=== PATIENT | male | born 1960 | race Caucasian/White ===

== ENCOUNTER 2020-07-14 07:37 | Emergency (ER) | payer OTHER, SELFPAY ==
[2020-07-14 07:38] VITALS: BP 193/103; PULSE 66; RESP 15; TEMP 36.4; O2SAT 100; BMI 25.0
--- NOTE | 2020-07-14 08:04 | CT_ITS ---
STUDY: CT ABDOMEN AND PELVIS WITHOUT CONTRAST REASON FOR EXAM: Male, 59 years old. Left flank pain. History of kidney stones. RADIATION DOSAGE (If Supplied By Facility): CTDIvol = ( 8.22 ) mGy, DLP = ( 433.35 ) mGycm TECHNIQUE: Transaxial images were obtained from the dome of the diaphragm to the symphysis pubis without oral contrast, and without intravenous contrast. Sagittal and coronal images were reconstructed. Individualized dose optimization techniques were used for this CT. COMPARISON: None. FINDINGS: The visualized lung bases are unremarkable. The visualized portions of the heart are within normal limits. Normal liver. Normal gallbladder and extrahepatic biliary system. Normal spleen. Normal pancreas. Normal bilateral adrenal glands. Normal right kidney. There is a mild degree of left hydronephrosis and hydroureter due to a punctate calculus in the distal portion of the left ureter just proximal to the ureterovesical junction. Mild degree of the left perinephric stranding. There is a small hiatal hernia. Normal small intestine. There are multiple colonic diverticula consistent with diverticulosis. The appendix is visualized and appears normal. There is atherosclerotic calcification of the abdominal aorta, without a demonstrated aneurysm. Normal inferior vena cava. Normal retroperitoneum. Normal urinary bladder. Small bilateral inguinal hernias containing fat. Normal osseous structures. CT/Abdomen/Pelvis without Cont IMPRESSION: Tiny calculus in the distal portion of the left ureter just proximal to the ureterovesical junction causing a mild degree of left hydronephrosis and hydroureter. Mild degree of left perinephric stranding. Electronically Signed: Mesfin Owusu MD at 9:06 EDT , Service support ,
[2020-07-14] MEDS: Ondansetron 4 MG/2 ML Vial IV (08:12)
[2020-07-14] MEDS: Ketorolac 15 MG/ML Vial IV (08:12)
[2020-07-14 08:13] LABS: Absolute Lymphocyte Count 1.22 X10^3/uL (0.83-4.51); Absolute Neutrophil Count 4.3 X10^3/uL (2.0-7.7); Basophil# 0.03 X10^3/uL; Basophil% 0.5 % (0-1); Eosinophil# 0.18 X10^3/uL; Eosinophils% 2.8 % (0-5); Hematocrit 46.4 % (40-54); Hemoglobin 15.5 g/dL (13.0-16.5); Lymphocyte # 1.22 X10^3/ul (0.83-4.51); Mean Corp Hgb Conc 33.4 g/dL (32-36); Mean Corpuscular Hgb 28.4 pg (27.0-32.0); Monocyte# 0.66 X10^3/uL; Monocyte% 10.3 % (0-10); NRBC Flagged by Analyzer 0 % (0-5); Neutrophil # 4.32 X10^3/uL (2.7-7.7); Neutrophil % 67.1 % (47-70); Platelet Count 273 K/mm3 (150-450); RBC Distribution Width CV 12.5 % (11.6-14.6); Red Blood Count 5.46 M/mm3 (4.6-6.2); White Blood Count 6.4 K/mm3 (4.4-11.0)
[2020-07-14] MEDS: Morphine 4 MG/ML Syringe IV (08:13)
[2020-07-14 08:20] LABS: Bacteria 0 SEEN /hpf (None Seen); Mucous, Urine 0 SEEN /hpf (<or=2+); White Blood Cells 0 SEEN /hpf (0-5)
[2020-07-14 08:20] LABS: Anion Gap 6 (5-15); BUN 15 mg/dL (7-18); BUN/Creat Ratio 10.8 RATIO (10-20); Chloride 107 mmol/L (98-107); Creatinine, Serum 1.39 mg/dL (0.70-1.30); EST Glomerular Filtration Rate 55 mL/min (>60); Est Glom Filt Rate - Afr Amer 67 mL/min (>60); Estimated Creatinine Clearance 51.64 ml/min; Glucose 136 mg/dL (74-106); Potassium 3.4 mmol/L (3.5-5.1); Sodium Level 141 mmol/L (136-145)
[2020-07-14 08:45] LABS: Color, Urine Yellow (Yellow); Glucose, Dipstick Normal (Normal); Ketone-Dipstick Negative (Negative); Leukocyte Esterase-Dipstick Negative /ul (Negative); Nitrite-Dipstick Negative (Negative); Occult Blood-Urine 10 /ul (Negative); Protein-Dipstick Negative (Negative); Specific Gravity, Urine 1.015 (1.002-1.030); Urine Bilirubin Dipstick Negative (Negative); Urine Clarity Sl. Cloudy (Clear); Urine Urobilinogen Normal (Normal); Urine pH 6.5 (5.0 - 8.0)
[2020-07-14 08:52] LABS: Red Blood Cells-Urine 0-5 SEEN /hpf (0-5); Squamous Epithelial Cells - UA 0-5 SEEN /hpf (0-5)
--- NOTE | 2020-07-14 09:21 | EDS_ITS ---
HPI History of Present Illness Chief Complaint: Flank Pain Narrative Narrative: 59-year-old male presenting with left flank pain. He states the onset was this morning around 6 AM. Patient has had intermittent pain and nausea throughout the morning. Patient denies fever or chills. He denies hematuria or dysuria. He states he had 2 bowel movements this morning and they were normal. He has a history of kidney stone x1. [facility] Medical History GERD (gastroesophageal reflux disease) Kidney stone Home Medications hydrocodone-acetaminophen 1 tab PO Q6H PRN PRN 3 Days #12 tablet 07/14/20 [Rx Last Taken Unknown] ondansetron 4 mg PO Q8H PRN PRN #12 tab 07/14/20 [Rx Last Taken Unknown] pantoprazole 40 mg PO DAILY 07/14/20 [History Last Taken Unknown] tamsulosin [Flomax] 0.4 mg PO DAILY #7 cap 07/14/20 [Rx Last Taken Unknown] Allergy/AdvReac Type Severity Reaction Status Date / Time No Known Allergies Allergy Verified 07/14/20 07:38 Surgical History Hx of appendectomy Social History Smoking Status: Never smoker ROS ROS ED Constitutional Constitutional ED: Denies chills, fever(s) or sweats Eyes Eyes: Denies blurry vision or change in vision ENT ENT ED: Denies ear pain, rhinorrhea or sore throat Cardiovascular Cardiovascular: Denies chest pain, palpitations or racing heartbeat Respiratory/Chest Respiratory/Chest: Denies cough, dyspnea or sputum Gastrointestinal Gastrointestinal: Reports abdominal pain; Denies constipation, diarrhea or vomiting Genitourinary Genitourinary ED: Denies dysuria, hematuria or urinary frequency Musculoskeletal Musculoskeletal: Reports other Details: Left flank pain radiating around to the abdomen. ; Denies arthralgias, myalgias or neck pain Integumentary Denies abscess, Abrasions or rash Neurologic Neurologic: Denies headache(s), paresthesias or weakness Psychiatric Psychiatric: Denies anxiety, depression, suicidal ideation or suicidal thoughts Endocrine Endocrinology: Denies polydipsia or polyuria EXAM Physical Exam Const Vital Signs: 07/14/20 07:38 Temperature 97.6 F L Temperature Source Temporal Pulse Rate 66 Respiratory Rate 15 Blood Pressure 193/103 H Blood Pressure Mean 133 Pulse Ox 100 Oxygen Delivery Method Room Air Positive well nourished General Appearance ED: NAD; Negative for pallor HEENT Reports normocephalic, head/scalp atraumatic and moist mucous membranes Negative for trauma Eyes PERRL and EOMs intact bilaterally Resp normal respiratory effort and clear to auscultation bilaterally Auscultation: Negative for rales, rhonchi or wheezes Cardio regular rate and regular rhythm GI normal to inspection, nondistended, normoactive bowel sounds and non-distended Auscultation: normoactive bowel sounds Palpation: soft Narrative: Deferred Back/Spine General Back: CVA tenderness left Lumbar Spine / Lower Back: Negative for lumbar spinal tenderness Extremity normal to inspection General Extremety ED: Yes tenderness Neuro oriented x3 and CN's II-XII intact bilaterally Sensorium / Orientation: alert Motor Exam: strength 5/5 throughout Psych mental status grossly normal Attitude: No agitated Skin no rashes or lesions noted and no wounds General Skin Exam: Negative for jaundice or pallor MDM MDM MDM Narrative Medical decision making narrative: Patient with history of kidney stone x1 presenting with left flank pain with acute onset. Patient given morphine, Toradol, Zofran and is comfortable at this point. Urinalysis shows hematuria. There is no infection. CBC shows no leukocytosis and hemoglobin hematocrit are stable. Platelets are normal. Patient's creatinine is slightly elevated 1.39 and GFR slightly decreased at 55. I have no comparisons from previous. CT of the abdomen pelvis without contrast shows a small UVJ stone with slight hydronephrosis. Patient is counseled on findings. He is to follow-up with urology and his primary care physician. He is given Woody, Zofran, Flomax for home. Patient given return precautions. Impression: 1. Hematuria 2. UVJ stone 3. Acute kidney injury Lab Data Labs: Laboratory Results - last 24 hr 07/14/20 07/14/20 07/14/20 07:50 07:50 08:13 WBC 6.4 RBC 5.46 Hgb 15.5 Hct 46.4 MCV 85.0 MCH 28.4 MCHC 33.4 RDW Std Deviation 38.0 RDW Coeff of Stephanie 12.5 Plt Count 273 MPV 10.0 Immature Gran % (Auto) 0.300 Neut % (Auto) 67.1 Lymph % (Auto) 19.0 Mellette % (Auto) 10.3 H Eos % (Auto) 2.8 Baso % (Auto) 0.5 Absolute Neuts (auto) 4.3 Absolute Lymphs (auto) 1.22 Nucleated RBC % 0 Sodium 141 Potassium 3.4 L Chloride 107 Carbon Dioxide 28.0 Anion Gap 6 BUN 15 Creatinine 1.39 H Estim Creat Clear Calc 51.64 Est GFR (MDRD) Af Amer 67 Est GFR (MDRD) Non-Af 55 L BUN/Creatinine Ratio 10.8 Glucose 136 H Calcium 9.0 Urine Color Yellow Urine Clarity Sl. Cloudy Urine pH 6.5 Ur Specific [place] 1.015 Urine Protein Negative Urine Glucose (UA) Normal Urine Ketones Negative Urine Occult Blood 10 H Urine Nitrite Negative Urine Bilirubin Negative Urine Urobilinogen Normal Ur Leukocyte Esterase Negative Urine RBC 0-5 SEEN Urine WBC 0 SEEN Ur Squamous Epith Cells 0-5 SEEN Urine Bacteria 0 SEEN Urine Mucus 0 SEEN Radiography Diagnostic Testing: Radiology Impression Abdomen/Pelvis CT 07/14/20 08:04 IMPRESSION: Tiny calculus in the distal portion of the left ureter just proximal to the ureterovesical junction causing a mild degree of left hydronephrosis and hydroureter. Mild degree of left perinephric stranding. Electronically Signed: Mesfin Owusu MD at 9:06 EDT , Service support , Discharge Plan Triage Chief Complaint: Flank Pain ED Provider: Prakash Stack Dx/Rx/DC Orders Instructions: ED Kidney Stone w/ Colic Prescriptions: New hydrocodone-acetaminophen 5-325 mg tablet 1 tab PO Q6H PRN PRN (Reason: Pain) 3 Days Qty: 12 RF: 0 ondansetron 4 mg tablet,disintegrating 4 mg PO Q8H PRN PRN (Reason: Nausea) Qty: 12 RF: 0 tamsulosin [Flomax] 0.4 mg capsule 0.4 mg PO DAILY Qty: 7 RF: 0 No Action pantoprazole 40 mg Tablet,Delayed Release (Dr/Ec) 40 mg PO DAILY RF: 0 Primary Care Provider: Reg Encarnacion NP Referrals: Sarbjit Moore MD [STAFF PHYSICIAN] - Reg Encarnacion NP, OVEREDGE MACHINE OPERATOR-C [Primary Care Provider] - Disposition Disposition: Home, self care
[2020-07-14 09:41] VITALS: BP 159/87; PULSE 60; RESP 16; O2SAT 98
[2020-07-14] MEDS: HYDROcodone Bitartrate/Apap 5/325 Tablet PO (09:42)
== END 2020-07-14 09:43 | disposition home or self-care (01) ==
PROVIDERS: Emergency Provider Student in an Organized Health Care Education/Training Program; PCP Nurse Practitioner Family
DX: N13.2 Hydronephrosis with renal and ureteral calculous obstruction (principal); N17.9 Acute kidney failure, unspecified
CPT/HCPCS: 74176; 80048; 81001; 85025; 96361; 96374; 96375; 99284; J7030; A4216; J2405

== ENCOUNTER → 2021-01-26 13:37 | Outpatient (CLI) | payer OTHER, SELFPAY ==
--- NOTE | 2021-01-26 13:40 | RAD_ITS ---
STUDY: X-RAY CHEST REASON FOR EXAM: Male, 60 years old. PROGRESSIVE SOB 10 DAYS SINCE DX WITH COVID-19 TECHNIQUE: PA and lateral views of the chest. COMPARISON: None. FINDINGS: Patchy alveolar opacities in both lungs consistent with bilateral pneumonia. There is no demonstrated pleural abnormality. Normal size heart. Normal mediastinum and wilmar. Normal visualized pulmonary arteries. Normal visualized aortic arch and descending thoracic aorta. Normal visualized thoracic spine. Normal visualized ribs, clavicles, and shoulders. There is no demonstrated abnormality of the visualized soft tissue structures of the upper abdomen. RAD/Chest PA and Lateral IMPRESSION: Patchy bilateral pneumonia. CT may be useful. Electronically Signed: Reg Mccullough MD at 16:52 EST Tel , Service support ,
[2021-01-26 15:35] LABS: Hematocrit 42.5 % (40-54); Hemoglobin 13.9 g/dL (13.0-16.5); Mean Corp Hgb Conc 32.7 g/dL (32-36); Mean Corpuscular Hgb 27.8 pg (27.0-32.0); Mean Platelet Vol. 11.1 fl (6.2-12.0); Platelet Count 172 K/mm3 (150-450); RBC Distribution Width CV 12.7 % (11.6-14.6); RBC Distribution Width SD 39.2 fl (35.1-43.9); White Blood Count 3.1 K/mm3 (4.4-11.0)
[2021-01-26 16:09] LABS: ALB/GLOB Ratio 0.8 RATIO (0.9-2.4); AST(SGOT) 39 U/L (15-37); Alanine Aminotransfer ALT/SGPT 24 U/L (16-61); Albumin, Serum 3.2 g/dL (3.2-5.0); Alkaline Phosphatase 85 U/L (45-117); Anion Gap 6 (5-15); BUN 15 mg/dL (7-18); BUN/Creat Ratio 13.3 RATIO (10-20); Calcium,Total 8.3 mg/dL (8.5-10.1); Chloride 103 mmol/L (98-107); Creatinine, Serum 1.13 mg/dL (0.70-1.30); EST Glomerular Filtration Rate 70 mL/min (>60); Est Glom Filt Rate - Afr Amer 85 mL/min (>60); Globulin 4.2 g/dL (2.2-4.2); Glucose 94 mg/dL (74-106); Potassium 3.8 mmol/L (3.5-5.1); Protein, Total 7.4 g/dL (6.4-8.2); Sodium Level 138 mmol/L (136-145)
[2021-01-26 17:37] LABS: D-Dimer Quantitative (DVT/PE) 1.64 FEU/ug/m (0.27-0.49)
== END ==
PROVIDERS: PCP Nurse Practitioner Family; Referring Provider Nurse Practitioner Family; Visit Provider Nurse Practitioner Family
DX: U07.1 COVID-19 (principal); R09.02 Hypoxemia
CPT/HCPCS: 36415; 71046; 80053; 85027; 85379; 86140

== ENCOUNTER → 2021-01-27 15:47 | Outpatient (CLI) | payer OTHER, SELFPAY ==
--- NOTE | 2021-01-27 15:51 | CT_ITS ---
STUDY: CTA CHEST REASON FOR EXAM: Male, 60 years old. ELEVATED D DIMER/COVID RADIATION DOSAGE (If Supplied By Facility): CTDIvol = ( 10.86 ) mGy, DLP = ( 342.76 ) mGycm TECHNIQUE: The examination was performed with the intravenous administration of IV 100mL Isovue-370. Post-processing of the angiographic images was performed, with multiplanar reformation and 3D reconstruction. Individualized dose optimization techniques were used for this CT. COMPARISON: None. FINDINGS: Normal enhancement of the main pulmonary artery and right and left pulmonary arteries. Normal enhancement of the bilateral peripheral pulmonary arteries. There is no demonstrated pulmonary embolism. Normal thoracic aorta and visualized great vessels. There is no demonstrated aortic dissection. Normal heart and pericardium. There are calcifications of the coronary arteries. Normal mediastinum. Normal hilar regions. Normal visualized trachea and bronchi. The lungs are well expanded. There is scattered groundglass opacities multiple pulmonary lobes with mild interstitial thickening. Subpleural noncalcified nodules in the lateral right lung base measure up to 7 mm on image 125 of series 2. 5 mm noncalcified nodule in the left lower lobe on image 115 of series 2. Normal pleura. Normal chest wall structures. There are degenerative changes of thoracic spine. There is a small hiatal hernia. CT/CTA Chest W/WO Contrast IMPRESSION: 1. No central or segmental pulmonary embolism. 2. Multifocal groundglass opacities with features commonly reported with COVID pneumonia. 3. Pleural-based noncalcified nodule in the bilateral lower lobes. Fleischner Society Guidelines for low-risk patients, recommend follow-up chest CT at 3-6 months. If unchanged consider an additional follow-up CT at 18-24 months. For high-risk patients (smoking history or other known risk factors) initial follow-up chest CT at 3-6 months and if unchanged, 18-24 months. Electronically Signed: Sharan Crews MD ([place]) at 16:20 EST , Service support ,
== END ==
PROVIDERS: PCP Nurse Practitioner Family; Referring Provider Nurse Practitioner Family; Visit Provider Nurse Practitioner Family
DX: R79.1 Abnormal coagulation profile (principal); U07.1 COVID-19
CPT/HCPCS: 71275; Q9967

== ENCOUNTER 2021-01-29 10:11 | Emergency (ER) | payer OTHER, SELFPAY ==
[2021-01-29 10:12] VITALS: BP 139/90; PULSE 85; RESP 24; TEMP 36; O2SAT 90; BMI 25.8
--- NOTE | 2021-01-29 10:36 | EKG12_ITS ---
Test Reason : SOB Blood Pressure : / mmHG Vent. Rate : 066 BPM Atrial Rate : 066 BPM P-R Int : 142 ms QRS Dur : 096 ms QT Int : 400 ms P-R-T Axes : 044 004 010 degrees QTc Int : 419 ms Normal sinus rhythm Normal ECG Confirmed by REYMUNDO JARQUIN, TESFAYE ([id number]), editor department ARIELLA PAUL ([id number]) on 02/01/2021 11:07:51 AM Referred By: RU Confirmed By:TESFAYE DWYER MD
[2021-01-29 10:41] VITALS: O2SAT 94
--- NOTE | 2021-01-29 10:41 | NURSING ---
NO OLD EKGS
[2021-01-29 11:11] VITALS: O2SAT 90
[2021-01-29 11:17] LABS: Troponin-I HS 7 pg/mL (3.0-78.0)
--- NOTE | 2021-01-29 11:17 | ED.VIS.DYS ---
HPI History of Present Illness Chief Complaint: Shortness of Breath Narrative Narrative: Patient presenting on day 14 of Covid symptoms. He states he feels otherwise well other than some shortness of breath. He has no fevers, chills, myalgias. He is eating and drinking normally. He is making normal urine and stool. He states that he already had blood work done which included a high D-dimer and the patient has already had a CTA of the chest. He has not had the results of this. Patient was concerned because his pulse ox dipping in the 80s at home and he wants to be evaluated. [facility] Medical History GERD (gastroesophageal reflux disease) Kidney stone Home Medications hydrocodone-acetaminophen 1 tab PO Q6H PRN PRN 3 Days #12 tablet 07/14/20 [Rx Last Taken Unknown] ondansetron 4 mg PO Q8H PRN PRN #12 tab 07/14/20 [Rx Last Taken Unknown] pantoprazole 40 mg PO DAILY 07/14/20 [History Last Taken Unknown] tamsulosin [Flomax] 0.4 mg PO DAILY #7 cap 07/14/20 [Rx Last Taken Unknown] dexamethasone 6 mg PO DAILY #7 tab 01/29/21 [Rx Last Taken Unknown] Allergy/AdvReac Type Severity Reaction Status Date / Time No Known Allergies Allergy Verified 01/29/21 10:16 Surgical History Hx of appendectomy Social History Smoking Status: Never smoker ROS ROS ED Constitutional Constitutional ED: Denies chills, fever(s) or sweats Eyes Eyes: Denies blurry vision or change in vision ENT ENT ED: Denies ear pain or rhinorrhea Cardiovascular Cardiovascular: Reports chest pain; Denies palpitations or racing heartbeat Respiratory/Chest Respiratory/Chest: Reports cough, dyspnea and dyspnea on exertion Gastrointestinal Gastrointestinal: Denies abdominal pain, nausea or vomiting Genitourinary Genitourinary ED: Denies dysuria, hematuria or urinary frequency Musculoskeletal Musculoskeletal: Denies arthralgias or myalgias Integumentary Denies abscess or rash Neurologic Neurologic: Denies headache(s), paresthesias or weakness EXAM Physical Exam Const Vital Signs: 01/29/21 10:12 Temperature 96.8 F L Temperature Source Temporal Pulse Rate 85 Respiratory Rate 24 H Blood Pressure 139/90 H Blood Pressure Mean 106 Pulse Ox 90 Oxygen Delivery Method Room Air Positive well nourished General Appearance ED: NAD; Negative for pallor HEENT Reports moist mucous membranes atraumatic Eyes PERRL and EOMs intact bilaterally Neck no lymphadenopathy and supple Resp normal respiratory effort Auscultation: rales right base Cardio regular rhythm GI non-distended Extremity normal to inspection General Extremety ED: Negative for edema or tenderness General Extremity: Negative for edema Neuro oriented x3 and CN's II-XII intact bilaterally Sensorium / Orientation: alert Psych mental status grossly normal Skin General Skin Exam: Negative for jaundice or pallor Rashes: no rashes MDM MDM MDM Narrative Medical decision making narrative: Reviewed the patient's lab work done 2 days ago shows that he is leukopenic without lymphopenia. Hemoglobin Hockert are stable. CRP is slightly elevated. D-dimer was also elevated. Patient CTA is reviewed and shows bilateral Covid pneumonitis however there is no evidence of pulmonary emboli or dissection. I did check a EKG today and it is sinus rhythm with a ventricular to 66 bpm without sign of ischemic change. High-sensitivity troponin is 7. Patient ambulated at the bedside and maintain sats of 94% while walking and talking at the same time however when he sat down he dropped to 88% for about 15 seconds and then came back up to be 90 and 93. He is ambulated on 2 L of oxygen and did well. He feels improved with ambulation on 2 L. We will set him up for home oxygen. I will change his prednisone prescription to dexamethasone. He does have a current prescription for Levaquin which he is supposed to be taking. I did discuss with him that he has a viral pneumonia and the likely Levaquin would not help this. He also has an albuterol inhaler that he can use as needed. He is given return precautions. Impression: 1. COVID-19 pneumonitis Lab Data Attestation: I reviewed the patient's lab results. Labs: Laboratory Results - last 24 hr 01/29/21 10:50 Troponin I High Sens 7 Discharge Plan Triage Chief Complaint: Shortness of Breath ED Provider: Prakash Stack Dx/Rx/DC Orders Instructions: Coronavirus Disease 2019 (COVID-19): Caring for Yourself or Others Prescriptions: New dexamethasone 6 mg tablet 6 mg PO DAILY Qty: 7 RF: 0 No Action pantoprazole 40 mg Tablet,Delayed Release (Dr/Ec) 40 mg PO DAILY RF: 0 hydrocodone-acetaminophen 5-325 mg tablet 1 tab PO Q6H PRN PRN (Reason: Pain) 3 Days Qty: 12 RF: 0 ondansetron 4 mg tablet,disintegrating 4 mg PO Q8H PRN PRN (Reason: Nausea) Qty: 12 RF: 0 tamsulosin [Flomax] 0.4 mg capsule 0.4 mg PO DAILY Qty: 7 RF: 0 Primary Care Provider: Reg Encarnacion NP Referrals: Reg Encarnacion NP, ASSISTANT SURVEYOR-C [Primary Care Provider] - Disposition Disposition: Home, Self Care
[2021-01-29 11:43] VITALS: BP 121/77; PULSE 82; RESP 16; O2SAT 97
[2021-01-29] MEDS: dexAMETHasone 4 MG Tablet 6 MG PO (11:44)
[2021-01-29 11:56] VITALS: O2SAT 88; O2SAT 92; O2SAT 93
== END 2021-01-29 12:25 | disposition home or self-care (01) ==
LOC: ED 11:30
PROVIDERS: Emergency Provider Student in an Organized Health Care Education/Training Program; PCP Nurse Practitioner Family
DX: U07.1 COVID-19 (principal); J12.82 Pneumonia due to coronavirus disease 2019; K21.9 Gastro-esophageal reflux disease without esophagitis; Z79.899 Other long term (current) drug therapy
CPT/HCPCS: 84484; 93005; 99282

== ENCOUNTER → 2021-02-07 10:20 | Outpatient (CLI) | payer OTHER, SELFPAY ==
--- NOTE | 2021-02-07 10:25 | VDLE_ITS ---
Reason For Study: Calf pain RIGHT LEFT GSV is normal. GSV is normal. CFV is compressible, spontaneous, phasic, CFV is compressible, spontaneous, phasic, competent and demonstrates normal competent, and demonstrates normal augmentation. augmentation. FV is compressible, spontaneous, phasic, FV is compressible, spontaneous, phasic, competent and demonstrates normal competent and demonstrates normal augmentation. augmentation. POP V is compressible, spontaneous, phasic, POP V is compressible, spontaneous, phasic, competent and demonstrates normal competent and demonstrates normal augmentation. augmentation. T/P Trunk is compressible. T/P Trunk is compressible. PTV is compressible. PTV is compressible. Acute deep vein thrombosis is noted in the Acute deep vein thrombosis is noted in the right PeroV and SoleusV. left PeroV, PTV and SoleusV. Procedure This is a venous duplex using B-mode, color flow and spectral Doppler. Exam performed in department. A preliminary report was called and/or faxed to Emily ALDANA. VL/Venous Duplex US - Iftikhar Extrem Interpretation Summary Acute deep vein thrombosis is noted in the right peroneal vein. Acute deep vein thrombosis is noted in the right soleus vein. The remainder of the right lower extremity deep venou s system is patent and compressible. Acute deep vein thrombosis is noted in the left peroneal vein . Acute deep vein thrombosis is noted in the left posterior tibial vein. Acute deep vein thrombos is is noted in the left soleus vein. The remainder of the left lower extrmity deep venous system i s patent and compressible. Valvular competence appears intact within the proximal deep venou s systems bilaterally. The great saphenous veins appear bilaterally patent and compressib le segmentally. Ordering Physician: Reg Encarnacion Referring Physician: Reg Encarnacion Performed By: Mirtha Tenorio RVT
[2021-02-07 11:45] LABS: Hematocrit 45.6 % (40-54); Hemoglobin 15.1 g/dL (13.0-16.5); Mean Corp Hgb Conc 33.1 g/dL (32-36); Mean Corpuscular Hgb 28.7 pg (27.0-32.0); Mean Corpuscular Volume 86.7 fL (80-94); Mean Platelet Vol. 10.1 fl (6.2-12.0); Platelet Count 184 K/mm3 (150-450); RBC Distribution Width CV 13.2 % (11.6-14.6); RBC Distribution Width SD 41.1 fl (35.1-43.9); Red Blood Count 5.26 M/mm3 (4.6-6.2); White Blood Count 13.6 K/mm3 (4.4-11.0)
[2021-02-07 12:24] LABS: ALB/GLOB Ratio 0.5 RATIO (0.9-2.4); AST(SGOT) 36 U/L (15-37); Alanine Aminotransfer ALT/SGPT 57 U/L (16-61); Albumin, Serum 2.4 g/dL (3.2-5.0); Alkaline Phosphatase 87 U/L (45-117); Anion Gap 6 (5-15); BUN 16 mg/dL (7-18); BUN/Creat Ratio 14.5 RATIO (10-20); Calcium,Total 8.3 mg/dL (8.5-10.1); Chloride 106 mmol/L (98-107); EST Glomerular Filtration Rate 73 mL/min (>60); Est Glom Filt Rate - Afr Amer 88 mL/min (>60); Globulin 4.6 g/dL (2.2-4.2); Glucose 77 mg/dL (74-106); Potassium 4.1 mmol/L (3.5-5.1); Sodium Level 140 mmol/L (136-145)
[2021-02-07 12:28] LABS: D-Dimer Quantitative (DVT/PE) > 20.00 FEU/ug/m (0.27-0.49)
== END ==
PROVIDERS: PCP Nurse Practitioner Family; Referring Provider Nurse Practitioner Family; Visit Provider Nurse Practitioner Family
DX: I82.453 Acute embolism and thrombosis of peroneal vein, bilateral (principal); I82.463 Acute embolism and thrombosis of calf muscular vein, bilateral; I82.442 Acute embolism and thrombosis of left tibial vein
CPT/HCPCS: 36415; 80053; 85027; 85379; 93970

== ENCOUNTER → 2021-06-13 | Outpatient (CLI) | payer OTHER, SELFPAY ==
[2021-06-13 18:08] LABS: Erythrocyte Sedimentation Rate 2 mm/hr (0-20)
[2021-06-13 18:52] LABS: CRP, High Sensitivity Cardiac 3.16 mg/L
== END | disposition home or self-care (01) ==
LOC: MTLAB 16:52
PROVIDERS: PCP Nurse Practitioner Family; Referring Provider Internal Medicine Pulmonary Disease; Visit Provider Internal Medicine Pulmonary Disease
DX: U07.1 COVID-19 (principal); I82.419 Acute embolism and thrombosis of unspecified femoral vein; R06.00 Dyspnea, unspecified
CPT/HCPCS: 36415; 85652; 86141

== ENCOUNTER → 2022-04-20 | Outpatient (CLI) | payer OTHER, SELFPAY ==
--- NOTE | 2022-04-20 17:44 | CT_ITS ---
INDICATION: NODULE EXAMINATION: CT CHEST WITHOUT CONTRAST - CT Chest W/O Contrast Injection TECHNIQUE: Helically acquired images were obtained of the chest. A radiation dose optimization technique was used for this scan. IV Contrast dosage and agent: None. COMPARISON: 01/27/2021 FINDINGS: LUNGS, PLEURA AND LARGE AIRWAYS: Interval clearing of subpleural groundglass opacities evident on prior CTA. However, interval development of reticular fibrotic densities in multiple pulmonary lobes in the regions of prior groundglass opacity compatible with post COVID fibrosis. Subpleural nodule in the right lower lobe on image 125 of series 2 measuring 7 mm is unchanged. No new pulmonary nodule. No pleural effusion or thickening. No pneumothorax. THYROID: No thyroid lesions. HEART AND PERICARDIUM: Heart size is normal. No pericardial effusion. CORONARY ARTERIES: Coronary artery calcification is seen. VESSELS: Thoracic aorta is not dilated. MEDIASTINUM AND ADRIAN: No mediastinal or hilar adenopathy. Esophagus is unremarkable. No hiatal hernia. UPPER ABDOMEN: No acute pathology. BONES: No suspicious lytic or blastic abnormality. CT/Chest without Contrast IMPRESSION: 1. No new or enlarging pulmonary nodule. Previously identified subpleural nodules remain stable. Fleischner Society Guidelines (MacMahon, et al. Radiology 2017; 284(1):228-43) suggest the following. For low-risk patients consider a follow-up chest CT at 15-21 months. For high-risk patients recommend follow-up chest CT at 15-21 months. If unchanged, no further follow-up. 2. Resolution of acute infiltrates/COVID evident on prior study. However, interval development of scattered, peripheral reticulation, compatible with post COVID sequela/fibrosis. Electronically Signed: Sharan Crews ([place]), at 10:46 EST Reading Location ID and State: , Service support ,
== END | disposition home or self-care (01) ==
PROVIDERS: PCP Nurse Practitioner Family; Referring Provider Internal Medicine Pulmonary Disease; Visit Provider Internal Medicine Pulmonary Disease
DX: R91.1 Solitary pulmonary nodule (principal)
CPT/HCPCS: 71250

== ENCOUNTER → 2023-01-18 | Outpatient (CLI) | payer OTHER, SELFPAY ==
[2023-01-18 14:24] LABS: AST(SGOT) 20 U/L (15-37); Alanine Aminotransfer ALT/SGPT 24 U/L (16-61); Albumin, Serum 3.8 g/dL (3.2-5.0); Alkaline Phosphatase 95 U/L (45-117); Anion Gap 4 (5-15); BUN 18 mg/dL (7-18); BUN/Creat Ratio 15.7 RATIO (10-20); Calcium,Total 9.1 mg/dL (8.5-10.1); Chloride 107 mmol/L (98-107); Cholesterol 167 mg/dL (200); Creatinine, Serum 1.15 mg/dL (0.70-1.30); EST Glomerular Filtration Rate 68 mL/min (>60); Est Glom Filt Rate - Afr Amer 83 mL/min (>60); Globulin 3.9 g/dL (2.2-4.2); Glucose 71 mg/dL (74-106); High Density Lipoprotein 39 mg/dL; PSA,Total - Annual Screen 0.68 ng/mL (0.00-4.00); Potassium 4.4 mmol/L (3.5-5.1); Protein, Total 7.7 g/dL (6.4-8.2); Sodium Level 141 mmol/L (136-145); Triglycerides 168 mg/dL; Very Low Density Lipoprotein 34 mg/dL (5-40)
== END | disposition home or self-care (01) ==
LOC: LAB 12:39
PROVIDERS: PCP Nurse Practitioner Family; Referring Provider Nurse Practitioner Family; Visit Provider Nurse Practitioner Family
DX: Z13.1 Encounter for screening for diabetes mellitus (principal); Z13.220 Encounter for screening for lipoid disorders; Z12.5 Encounter for screening for malignant neoplasm of prostate
CPT/HCPCS: 36415; 80053; 80061; 84153; G0103

== ENCOUNTER → 2023-02-06 | Outpatient (CLI) | payer OTHER, SELFPAY ==
--- NOTE | 2023-02-06 10:09 | RAD_ITS ---
STUDY: X-RAY CHEST REASON FOR EXAM: Male, 62 years old. CHEST PAIN/SOB/COUGH -- STAT TECHNIQUE: PA and lateral views of the chest. COMPARISON: Comparison is made with prior study dated January 26, 2021. FINDINGS: Hyperinflation. Mild increased linear markings in the lingular segment of the left upper lobe. Early infiltrate should be ruled out. There is no demonstrated pleural abnormality. Normal size heart. Normal mediastinum and wilmar. Normal visualized pulmonary arteries. There is atherosclerotic calcification of the aortic arch. Normal visualized thoracic spine. Normal visualized ribs, clavicles, and shoulders. There is no demonstrated abnormality of the visualized soft tissue structures of the upper abdomen. RAD/Chest PA and Lateral IMPRESSION: Increased markings in the lingular segment of the left upper lobe suggestive of possible early infiltrate. Follow-up recommended. Electronically Signed: Mesfin Owusu MD at 10:27 [facility] ,
== END | disposition home or self-care (01) ==
PROVIDERS: PCP Nurse Practitioner Family; Referring Provider Internal Medicine Pulmonary Disease; Visit Provider Internal Medicine Pulmonary Disease
DX: R07.9 Chest pain, unspecified (principal); R06.02 Shortness of breath; R05.9 Cough, unspecified
CPT/HCPCS: 71046

== ENCOUNTER → 2023-02-12 | Outpatient (CLI) | payer OTHER, SELFPAY ==
--- NOTE | 2023-02-12 06:55 | CT_ITS ---
EXAM: CT ANGIOGRAPHY CHEST WITH INTRAVENOUS CONTRAST CLINICAL INDICATION: SOB TECHNIQUE: Helically acquired angiography images were obtained of the chest with intravenous contrast. This CT exam was performed using one or more of the following dose reduction techniques: automated exposure control, adjustment of the mA and/or kV according to patient size, and/or use of iterative reconstruction technique. MIP reconstructed images were created and reviewed. CONTRAST: IV 100mL Isovue-370 COMPARISON: CT chest 04/20/2022, CTA Chest dated 01/27/2021 FINDINGS: PULMONARY ARTERIES: Normal. Normal in caliber. No evidence of pulmonary embolism. AORTA: Normal. Normal in caliber. No evidence of dissection. GREAT VESSELS OF AORTIC ARCH: Normal. Normal in caliber. No evidence of dissection. LUNGS AND PLEURAL SPACES: Scattered peripheral linear and reticular densities of both lungs suggestive of post inflammatory scarring. Stable 7 mm and 6 mm pleural-based right lower lobe pulmonary nodules. No pneumothorax. HEART: Heart is normal size. Mild to moderate coronary artery calcification. No pericardial effusion. MEDIASTINUM: Small sliding hiatal hernia. No mediastinal or hilar adenopathy. Esophagus is unremarkable. BONES/JOINTS: Normal. No suspicious lytic or blastic abnormality. CT/CTA Chest W/WO Contrast IMPRESSION: 1. No evidence of acute pulmonary embolism. 2. Scattered peripheral post inflammatory changes of the lungs and stable 7 and 6 mm pleural-based right lower lobe pulmonary nodules. No follow-up indicated. Electronically Signed: Kian Braden MD at 9:23 EST ,
== END | disposition home or self-care (01) ==
LOC: CT 06:53
PROVIDERS: PCP Nurse Practitioner Family; Referring Provider Nurse Practitioner Family; Visit Provider Nurse Practitioner Family
DX: R06.02 Shortness of breath (principal); R07.9 Chest pain, unspecified
CPT/HCPCS: 71275; Q9967

== ENCOUNTER → 2023-03-13 | Outpatient (CLI) | payer OTHER, SELFPAY ==
[2023-03-13 13:27] VITALS: BP 147/72; PULSE 74; RESP 18; TEMP 36.1; O2SAT 97; BMI 25.8
[2023-03-13 13:49] VITALS: BP 131/70; PULSE 83
[2023-03-13] MEDS: 0.9% Saline Lock 10 ML Syringe IV (13:49)
[2023-03-13] MEDS: Nitroglycerin SL (ED/IMG/CATH) 0.4 MG TABLET 0.400000000000000022 MG SL (13:49)
--- NOTE | 2023-03-13 14:00 | CT_ITS ---
STUDY: CT CHEST WITH CONTRAST REASON FOR EXAM: Male, 62 years old. DYSPNEA. Coronary artery calcium scoring. RADIATION DOSAGE (If Supplied By Facility): CTDIvol = ( 36.32 ) mGy, DLP = ( 1687.96 ) mGycm TECHNIQUE: Transaxial imaging was performed following intravenous administration of IV 65mL Isovue-370. Cardiac over read examination. Individualized dose optimization techniques were used for this CT. COMPARISON: Comparison is made with prior study dated February 12, 2023. FINDINGS: CHEST Minimal increased markings at the lung bases suggestive of scarring. There is a 5.7 mm pleural-based nodule in the posterior-lateral aspect of the right lower lobe as seen on axial image #36. This is unchanged. There is no demonstrated pleural abnormality. There are calcifications of the coronary arteries. There are small lymph nodes within the mediastinum, which are normal in size and morphology most compatible with reactive lymph hyperplasia. Normal hilar regions. Normal unenhanced pulmonary arteries. There is atherosclerotic calcification of the aortic arch. Normal osseous structures. There is no demonstrated abnormality of the visualized upper abdomen. CT/Limited Chest CT Cardiac Only IMPRESSION: Coronary artery calcification. Stable noncalcified nodule in the peripheral lateral aspect of the right lower lobe. Electronically Signed: Mesfin Owusu MD at 15:16 EST ,
[2023-03-13 14:08] LABS: CREATININE FINGERSTICK < 1.0 mg/dL (0.70-1.30); EGFR FINGERSTICK > 60.0000 mL/min (>60)
--- NOTE | 2023-03-14 08:20 | CCTA.WCONT ---
CCTA w/Cont Coronary Arteries Date of Study:: 03/14/23 Dyspnea Coronary Calcium Scoring: High-resolution Computed Tomographic imaging of the chest was performed on [03/13/2023], with particular attention paid to the coronary arteries. Intravenous contrast agent was administered per protocol and images reconstructed and displayed. LEFT MAIN CORONARY ARTERY: Normal left main coronary artery [] LEFT ANTERIOR DESCENDING CORONARY ARTERY: Arises of the left main coronary artery with proximal soft plaque with moderate to severe high-grade stenosis and calcified plaque noted in the proximal to mid region. The distal vessel is noted to be small [] LEFT CIRCUMFLEX CORONARY ARTERY: No significant stenosis noted in this vessel with 1 obtuse marginal branch [] RIGHT CORONARY ARTERY: Dominant vessel with no high-grade stenosis noted. Soft plaque is present. [] CORONARY CALCIUM SCORE: Not done. Conclusion: Abnormal cardiac coronary CTA with evidence of soft and calcified plaque noted in the proximal to mid segment suggestive of moderate to severe proximal LAD stenosis []
== END | disposition home or self-care (01) ==
PROVIDERS: PCP Nurse Practitioner Family; Referring Provider Internal Medicine Cardiovascular Disease; Visit Provider Internal Medicine Cardiovascular Disease
DX: R07.9 Chest pain, unspecified (principal); R06.09 Other forms of dyspnea; I51.89 Other ill-defined heart diseases
CPT/HCPCS: 75574; 76380; Q9967

== ENCOUNTER 2023-03-28 07:32 | Day surgery (SDC) | payer OTHER, SELFPAY ==
[2023-03-23 09:18] LABS: Absolute Lymphocyte Count 1.28 X10^3/uL (0.83-4.51); Absolute Neutrophil Count 4.1 X10^3/uL (2.0-7.7); Basophil# 0.04 X10^3/uL; Basophil% 0.6 % (0-1); Eosinophils% 3.2 % (0-5); Hemoglobin 15.2 g/dL (13.0-16.5); Lymphocyte # 1.28 X10^3/ul (0.83-4.51); Lymphocyte % 20.6 % (19-41); Mean Corp Hgb Conc 32.3 g/dL (32-36); Mean Corpuscular Hgb 27.5 pg (27.0-32.0); Monocyte# 0.57 X10^3/uL; Monocyte% 9.2 % (0-10); NRBC Flagged by Analyzer 0 % (0-5); Neutrophil # 4.12 X10^3/uL (2.7-7.7); Neutrophil % 66.2 % (47-70); Platelet Count 277 K/mm3 (150-450); RBC Distribution Width CV 12.7 % (11.6-14.6); RBC Distribution Width SD 38.9 fl (35.1-43.9); Red Blood Count 5.53 M/mm3 (4.6-6.2); White Blood Count 6.2 K/mm3 (4.4-11.0)
[2023-03-23 10:14] LABS: Anion Gap 1 (5-15); BUN 19 mg/dL (7-18); BUN/Creat Ratio 16.4 RATIO (10-20); Calcium,Total 9.6 mg/dL (8.5-10.1); Chloride 109 mmol/L (98-107); Creatinine, Serum 1.16 mg/dL (0.70-1.30); EST Glomerular Filtration Rate 68 mL/min (>60); Est Glom Filt Rate - Afr Amer 82 mL/min (>60); Glucose 97 mg/dL (74-106); Potassium 4.4 mmol/L (3.5-5.1); Sodium Level 139 mmol/L (136-145)
[2023-03-27 08:16] VITALS: BMI 27.2
--- OUTSIDE RECORDS SUMMARY | 2023-03-28 07:44 | XMS RPT_ITS | CCD ---
Author Name Unknown Address [address] [place] [address] Organization [facility] Care Team Providers Care [employer] Docent Name Role Phone SUNITA TOLBERT - SIDNEY, SUZI Stein Primary Care Phys ician SUNITA TOLBERT - SIDNEY, SUZI Stein Attending U navailjuancarlos DORSEY APRN - SIDNEY, SUZI Stein Primary Care U navailable SUNITA TOLBERT - SIDNEY, SUZI Stein Attending U navailable SUNITA SILVAN - REVENUE MANAGER, SUZI Stein Primary Care U navailable Medications Current Medications Medication Drug Class(es) Dates Sig (Normalized) Sig (Original) apixaban 5 mg oral tablet (5 sources) Factor Xa Inhibitor Start: 03-03-2021 End: 07-01-2021 Eliquis 5 mg oral tablet Dose : 5 mg = 1 tab(s), Oral, BID, # 60 tab(s), 3 Refill(s), Pharmacy: [facility], 170, cm, 03/03/21 16:50:00 EST, Height, 72.5, kg, 03/03/21 16:50:00 EST, Dosing Weight Start Date: 03/03/21 Stop Date: 07/01/21 Status: Ordered Completed/Discontinued Medications Medication Drug Class(es) Dates Sig (Normalized) Sig (Original) albuterol MDI (90 mcg/inh) CFC free inhalation aerosol (3 sources) Start: 02-07-2021 End: 04-08-2021 take 2 puff(s) by inhalation every six hours albuterol MDI (90 mcg/inh) CFC free inhalation aerosol 2 puff(s), Inhalation, q6h, # 18 gram(s), 1 Refill(s), Pharmacy: [facility], COVID-19 Cough, 170, cm, 02/07/21 8:20:00 EST, Height, kg, 02/07/21 8:20:00 EST, Dosing Weight Start Date: 02/07/21 Stop Date: 04/08/21 Status: Ordered saw palmetto 320mg with phytosterols oral capsule (3 sources) Start: 01-19-2020 End: 02-18-2020 saw palmetto 320mg with phytosterols oral capsule Dose : 320 mg = 1 cap(s), Oral, BID, OTC, # 60 cap(s), 0 Refill(s), other reason (Rx), BPH without urinary obstruction Start Date: 01/19/20 Stop Date: 02/18/20 Status: Ordered Stiolto Respimat 60 ACT 2.5 mcg-2.5 mcg/inh inhalation aerosol (3 sources) Start: 02-07-2021 End: 04-08-2021 take 1 dose by inhalation once daily Stiolto Respimat 60 ACT 2.5 mcg-2.5 mcg/inh inhalation aerosol Dose = 2 puff(s), Inhalation, qDay, # 4 gram(s), 1 Refill(s), Pharmacy: [facility], Atypical pneumonia, 170, cm, 02/07/21 8:20:00 EST, Height, kg, 02/07/21 8:20:00 EST, Dosing Weight Start Date: 02/07/21 Stop Date: 04/08/21 Status: Ordered Problems Problem Classification Problem Date Documented Da te Episodic/Chronic Esophageal disorders (3 sources) Gastroesophageal reflux disease 12-12-2018 Chronic Heart valve disorders (2 sources) Aortic valve regurgitation 03-03-2021 Chronic Hyperplasia of prostate (3 sources) Benign prostatic hypertrophy without outflow obstruction 01-19-2020 Chronic Other and ill-defined heart disease (2 sources) 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 Results Test Name Value Interpretation Reference Range Facil ity Encounters Encounter Date Encounter Type Care Provider Facility Start: 02-07-2023 End: 02-08-2023 ambulatory SUZI DORSEY APRN - REVENUE MANAGER Facility:[facility] Start: 01-31-2023 ambulatory SUZI BASHIR APRN - REVENUE MANAGER Facility:[facility] Start: 05-08-2021 End: 05-08-2021 Patient encounter procedure SUZI DORSEY APRN - REVENUE MANAGER [facility] Start: 02-09-2021 End: 02-09-2021 Patient encounter procedure BETY M TA DO [facility] Procedures Date Procedure Procedure Detail Performing Clinician History of appendectomy History of appendectomy( Confirmed ) BETY AT DO Payers Date Payer Category Payer Unknown [id number] 1960 Unknown [id number] 1960 Unknown [id number] Social History Date Type Detail Facility Start: 12-12-2018 Never smoked t obacco (finding) [facility] Sex Assigned At Male [facility] Evaluation + Plan note Radiology Note Date & Type Note Facility Evaluation + Plan note Future Appointments Appointment Date:02/16/2021 02:40:00 PM Scheduled Provider:SUZI DORSEY APRN, CNP Location:[facility] Appointment Type:PC OV Follow Up Appointment Date:02/28/2021 02:00:00 PM Scheduled Provider: Location:[facility] Appointment Type:CV Procedure - AOH Echo Future Scheduled TestsCT Thorax w/ Contrast 04/30/21XR Chest 2 Views (PA & Lateral) 01/26/21XR Chest 2 Views (PA & Lateral) 02/09/21 [facility] Evaluation + Plan note Radiology Note Date & Type Note Facility Evaluation + Plan note Future Appointments Appointment Date:06/12/2021 08:20:00 AM Scheduled Provider:SUZI DORSEY APRN, CNP Location:[facility] Appointment Type:PC OV Follow Up Future Scheduled TestsXR Chest 2 Views (PA & Lateral) 02/23/21XR Chest 2 Views (PA & Lateral) 01/26/21XR Chest 2 Views (PA & Lateral) 02/09/21 [facility] Hospital course Narrative Note Date & Type Note Facility Hospital course Narrative No data available for this section [facility] Hospital Discharge instructions Note Date & Type Note Facility Hospital Discharge instructions No data available for this section [facility] Summary Purpose Family History No Family History Records Found Advance Directives No Advanced Directives Records Found Additional Source Comments (unrecognized sect ion and content) No Status Records Found INFORMATION SOURCE (unrecogn ized section and content) FOR RECORDS PERTAINING TO PATIENTS WHO ARE OR HAVE BEEN ENROLLED IN A CHEMICAL DEPENDENCY/SUBSTANCEABUSE PROGRAM, SOME INFORMATION MAY BE OMITTED. This clinical summary was aggregated from multiple sources. Caution should be exercised in using it in the provision of clinical care. This summary normalizes information from multiple sources, and as a consequence, information in this document may materially change the coding, format and clinical context of patient data. In addition, data may be omitted in some cases. CLINICAL DECISIONS SHOULD BE BASED ON THE PRIMARY CLINICAL RECORDS. [employer] [facility]. provides no warranty or guarantee of the accuracy or completeness of information in this document.
--- NOTE | 2023-03-28 10:10 | CL.D_ITS ---
Patient Name: CHIVO LIVINGSTON Study Date: 03/28/2023 Performing: Jose Daniel Jaeger MD Ht: 66 inches 167.64 cm : 1960 Wt: 169.01 lbs 76.66 kg Age: 62 Gender: male BSA: 1.86 PROCEDURE(S) PERFORMED DC02-(86809)C/COR CLINICAL PROFILE AND INDICATIONS Indications: Suspected CAD Heart Failure: None Stress/Imaging Cardiac CTA: Yes Result: 1VDCardiac CTA: 1VD Angina Classification Anginal Classification w/in 2 Weeks: CCS II CONCLUSIONS 95% Prox, 80% Mid LAD; 90% ostial D1, 90% ostial D2 65% Prox OM1 RECOMMENDATIONS Refer to CTS for evaluation for CABG DESCRIPTION OF PROCEDURE The patient arrived to the procedure lab. The risks and benefits of the procedure as well as a full description of our services here and current unavailability of surgical backup were fully explained to the patient and/or their significant other prior to the catheterization. The Timeout was completed, verifying the correct patient and procedure. The patient's procedural site was prepped and draped in the usual fashion. Local anesthetic was given subcutaneously to right radial region with Lidocaine 2%. Using a modified Seldinger technique, arterial access was obtained via the right radial artery, a 6Fr sheath was inserted. Right Coronary Artery selective angiography was then performed in multiple views using a 5 Fr. 4.0 Sumner catheter. Left Coronary Artery selective angiography was performed in multiple views using a 5 Fr. JL3 catheter.The arterial sheath was pulled and a TR Band was applied for hemostasis CORONARY ANGIOGRAPHY DOMINANCE: Left Dominant LEFT ANTERIOR DESCENDING ARTERY: LAD: Tubular 95% Proximal lesion in LAD Tubular 80% Mid lesion in LAD Tubular 50% Mid lesion in LAD DIAGONAL 1: Tubular 90% Ostial lesion in 1st Diagonal DIAGONAL 2: Tubular 95% Ostial lesion in DIAG2 OM 1: Tubular 65% Ostial lesion in 1st OM COMPLICATIONS No Complications PROCEDURE MEDICATIONS Fentanyl 50 mcg IV Versed 1 mg IV Oxygen: 2 L/min via nasal cannula Heparin given IA 03/28/2023 09:19:56 Verapamil 2.5mg, Ntg 200mcgs, 2000 units of Heparin given IA 03/28/2023 09:19:56 SUMMARY OF HEMODYNAMIC DATA Time AIR REST ECG 08:03:01 AO 124/81 (100) SA 09:22:52 Signed By Jose Daniel Jaeger MD On 03/28/2023 10:09:59 Jose Daniel Jaeger MD
== END 2023-03-28 12:00 | disposition home or self-care (01) ==
LOC: CLSP 07:37
PROVIDERS: PCP Nurse Practitioner Family; Referring Provider Internal Medicine Cardiovascular Disease; Visit Provider Internal Medicine Cardiovascular Disease
DX: I25.10 Atherosclerotic heart disease of native coronary artery without angina pectoris (principal); I11.0 Hypertensive heart disease with heart failure; I50.32 Chronic diastolic (congestive) heart failure; E78.5 Hyperlipidemia, unspecified; G47.33 Obstructive sleep apnea (adult) (pediatric); R07.89 Other chest pain; Z79.82 Long term (current) use of aspirin; Z79.899 Other long term (current) drug therapy; Z86.16 Personal history of COVID-19; Z82.49 Family history of ischemic heart disease and other diseases of the circulatory system
CPT/HCPCS: 36415; 80048; 85025; 93454; 99152; 99153; J7040; Q9967; C1769; C1887; C1894

== ENCOUNTER → 2023-05-22 | Outpatient (CLI) | payer OTHER, SELFPAY ==
--- NOTE | 2023-05-22 10:02 | PCM.CR.HP2 ---
CR - History & Physical General Arrival date:: 05/22/23 Arrival time:: 10:02 Date of Referral:: 04/26/23 Date of CR Evaluation:: 05/22/23 Referring Physician: Dr. Jaeger Primary Diagnosis: CABG History of Present Cardiac Event Onset Date Coronary Artery Bypass Graft:: Yes Vessel: JACOBSEN to LAD, L radial to D1, reverse saph to D2 03/29/23 Medications Ambulatory Orders Medication Instructions Recorded pantoprazole 40 mg tablet,delayed 40 mg PO DAILY 07/14/20 release aspirin 81 mg tablet,delayed 81 mg PO DAILY 02/28/23 release oxycodone 5 mg tablet 5 mg PO Q6H PRN 04/24/23 acetaminophen 500 mg tablet 1,000 mg PO BID PRN 05/02/23 metoprolol tartrate 25 mg tablet 25 mg PO BID #180 tabs 05/02/23 rosuvastatin 40 mg tablet 40 mg PO DAILY #90 tabs 05/02/23 Allergies Allergies No Known Allergies Allergy (Verified 05/02/23 09:09) Sleep Disorder Evaluation Hx of Sleep Apnea: Yes Do you snore loudly (louder than talking or can be heard through closed doors)?: No History of Hypertension (for STOP score): Yes Advanced Directives Advanced Directives Power of Mechanic General Operational Test: Yes Living Will: Yes Advance Directives Information Provided: No Advance Directives on File: Yes DNR Order?:: No Past Medical History Covid-19 Screening Physicial Symptoms Other Clinical Concerns Exposure Risk Pertinent Comorbidities Has a serious heart condition:: Yes Past Medical Illness Medical History Abnormal coronary angiogram Abnormal CT of the chest Aortic valve regurgitation BPH (benign prostatic hyperplasia) Chest pain Chest pain on exertion Coronary artery disease COVID-19 Deep venous thrombosis (DVT) of both peroneal veins TRAN (dyspnea on exertion) Dyslipidemia Dyspnea GERD (gastroesophageal reflux disease) Grade I diastolic dysfunction Ground glass opacity present on imaging of lung Hypertension Hyposomnia Kidney stone MIKAELA (obstructive sleep apnea) Unspecified renal colic Past Surgical History Surgical History History of coronary artery bypass graft x 3 (~03/29/23) History of left heart catheterization (LHC) (~03/28/23) Hx of appendectomy Family History Summary Family History Mother Heart disease hypertrophic cardiomyopathy Social History Smoking History Smoking Status: Never smoker Alcohol Use Alcohol Usage: No Substance Abuse Hx Substance Use: No Occupation Occupation (List type of work in comments):: Employed Hours worked per day:: 10 Returned to work on:: 05/13/23 Hobbies, Recreation, Social Activities Hobbies: Woodworking and Other (meteal detecting) Recreational Activities: I am able to engage in all my recreational activities Social Environment Status Marital Status: Current Living Arrangements Living Environment:: Spouse Children How many children do you have?: 0 Safety Do you feel safe in your surroundings?: Yes Assistance Do you need any assistance at home?: no Review of Systems Review of Systems Hints Review of Present Symptoms: Reports Shortness of Breath with Exertion, Operative Discomfort, Wound Healing, Fatigue, Appetite - Special Diet and Sleep - Normal; Denies Shortness of Breath at Rest, PVD, Angina, Dizziness/Lightheadedness, Heart Arrhythmia/Irregularities, Appetite - Normal or Sexual Changes Pain Is Patient Pain Free?: No Pain Location: other (joint pain) Pain Level: 04/27 Risk Factor Assessment Chief Complaint Chief Complaint: CABG Vital Signs Pulse Ox: 97 Blood Pressure: 116/72 Pulse Pulse Rate: 86 Pulse Rhythm: Regular Hypertension How long have you been treated?: 2 months Blood Pressure Sitting - Left Arm: 116/72 Obesity Height: 5 ft 6 in Weight:: 169 lb Weight in Pounds: 169.0 lbs Body Mass Index (BMI): 27.2 Nutritional Referral for Obesity: No Physical Inactivity Physical Inactivity: Reg Exercise 30 min/day Risk Stratification Risk Guidelines: Lowest Risk: Risk Factor for Smoking, Moderate Risk: Risk Factor for Diabetes, Risk Factor for Obesity, Risk Factor for Sedentary Lifestyle and Risk Factor for Depression and Highest Risk: Risk Factor for Dyslipidemia and Risk Factor for Hypertension For Smoking Smoking Risk Guidelines For Dyslipidemia Dyslipidemia Risk Guidelines For Diabetes Mellitus Diabetes Risk Guidelines For Obesity/Overweight Obesity/Overweight Risk Guidelines For Hypertension Hypertension Risk Guidelines For Sedentary Lifestyle Sedentary Lifestyle Risk Guidelines For Depression Depression Risk Guidelines Family History Family History Mother Heart disease hypertrophic cardiomyopathy Motivation Motivation to Participate On a scale of 1 to 10, how prepared are you to commit to attending program?: 8 What do you see as barriers to successfully being able to complete the program?: no What do you see as the benefits of succesfully completing the program? In other words, what do you hope to get out of participating in the program?: less SOB, energy Are there issues you are dealing with that will interfere with completing the program?: no Do you have a spouse or signficant other, family or friends who will help support you to complete the program?: yes
--- NOTE | 2023-05-22 10:09 | PCM.CR.ITP ---
Diagnosis General Information Admitting Diagnosis: CABG Personal Learning Style:: Audio/Visual Stage of change r/t lifestyle modifications:: Contemplation Gave educational material for:: Treating Heart Disease, How The Heart Works, What it means to have Heart Disease, How Coronary Artery Disease is Diagnosed, Heart Procedures, What Heart Medications Do, Risk Factors & Modifications, Living an Active Life, Nutrition, Emotions & Heart Disease, Stress Management & Relaxation and Sleep Disorders & Heart Disease Education/Goals Cardiac Rehabilitation Goals Personal Goals: Initial Assessment: Improve energy level, Get back to work, or to resume activities faster, Improve muscle strength and endurance and Improve diet and eating habits (eat healthier) Scale for measuring improvement of personal goals Diagnosis & Disease Process Outcomes/Goals: Pt IDs own risk factors & lifestyle modifications by Session 10, Verbalizes symptoms of angina & response by session 3., Pt independently manages and Other Additional Outcomes/Goals: Plan/Interventions: Assist Pt to ID & engage in lifestyle modification to reduce CVD risk, Instruct on individual risk factors, Review symptoms of angina & emergency actions, Review secondary diagnosis & identify educational needs. and Other see comment 30 day Reassessments:: Not Met 30 day Reassessments:: Not Met 30 day Reassessments:: Not Met Final Reassessments:: Not Met Safety Referral to Physical Therapy: No Referral to [facility] Case Management: No Fall Risk Assessed:: Yes Assistive Devices:: None Exercise - Initial Assessment Visit Date of Eval: 05/22/23 (initial eval ) Mets: Pre-: >3 METS for 30 minutes by discharge, >5 METS for 30 minutes by discharge, >7 METS for 30 minutes by discharge and Unable to meet goal due to: (see comment below) Physician Prescribed Exercise Modalities: Treadmill, Airdyne, NuStep, SciFit and Lateral Warm [place] Frequency: 3x/week for 12 weeks [36 sessions] Intensity: 60-80% of age predicted maximum heart rate reserve Duration: 30 - 45 minutes Current METSs:: 3.0 Target Heart Rate:: 95-111 Resting Blood Pressure: 116/72 EKG Type: SR Outcomes & Goals Goals:: Verbalizes understanding of THR, RPE & goal METS by session 6, Documents in home exercise log/reports 30 min aerobic 5 day/wk by DC, Demonstrates accurate pulse taking by DC and Other additional outcome/goals: see below Intervention & Plan Exercise Program Goals: Instruct on personal THR & RPE, Instruct on MET level & personal MET goal, Show patient to take own pulse /validate performance until accurate, Instruct on home exercise and Other additional plan/int Physical Activity Home Exercise Physical Activity - Home Exercise: Safe Exercise, Warm-up, Self-monitoring, Cool-Down, Home Exercise > 30 min Daily and Sitting Time <3 hours/daily Outcomes & Goals Outcomes/Goals: Demonstrates correct Warm-up/exercise Cool-Down (S3) if = 2.5 METs, Verbalizes symptoms of exercise intolerance by Session 3 (S3), Demonstrate safe equipment use (S3) & follows exercise prescrition (6) and Other: See below Intervention & Plan Plan/Intervention: Instruct warm-up & cool-down if exercising at > 2 METs, Instruct on symptoms of exercise intolerance & actions to take, Instruct & monitor on saf, Assess intial functional capacity & safety risk and Other See below Nutrition - Initial Assessment Program Goals Nutrition Program Goals Patient has diagnosis of Hyperlipidemia (ICD E78)?: Yes Visit Date of Eval: 05/22/23 (initial eval) Cholesterol/Lipids (Other Core Measures) Determine presence & major risk factors that modify LDL goal: Hypertension or hypertensive medication, Low HDL cholesterol <40 mg/dL*, Family history of premature CHD in Male < 55 years: female <65 yearsFa and Age men > 45 years; women >/= 55 years Outcomes/Goals: Pt IDs own risk factors & lifestyle modifications by Session 10, Verbalizes symptoms of angina & response by session 3., Pt independently manages and Other Additional Outcomes/Goals: Intervention/Plan: Advocate for lipid panel cholesterol medication if applicable, Instruct on personal lipid levels & lipid goals/NCEP guidelines, Instruct on cholesterol and Other additional plan/int Referral to dietitian:: No Diabetes (Other Core Measures) Diabetes Type: Not Applicable Weight Mgt (Other Care) Height: 5 ft 6 in Weight:: 169 lb BMI: 27.2 Diagnosis Overweight/Obesity BMI> 30% ICD-10 E66: No Diagnosis High BMI/Morbid Obesity BMI> 35% ICD-10 Z68: No Outcomes/Goals: Pt sets, maintains & shows weight loss goal & trend during rehab and Other additional outcomes/goals Intervention/Plan: Instruct on ideal BMI & set weight loss goal w/patient, Assist pt to ID & incorporate diet changes for weight loss by S9, Refer to Structured Weight Loss program as appropriate, Encourage goal of using 250-300dcal per session for weight loss and Other additional plan/interventions Healthy Eating Habits Will attend diet classes:: Yes Outcomes/Goals:: Consume diet rich in vegs,fruits,whole grain/high fiber,fish,lean meat, Limit sat/trans fats,cholesterol & added salts & sugars and Other additional outcome/goals: Intervention/Plan:: Assess current eating habits and Other Additional plan/interventions Education Gave educational materials for:: Signs & symptoms of hypoglycemia, Signs & symptoms of hyperglycemia, Relate diabetes to coronary artery disease and Healthy eating Core - Initial Assessment Visit Date of Eval: 05/22/23 (initial eval ) Medication Compliance Preventative Medication(s):: Aspirin, Statin/lipid and Beta aba H/O mental health issues: depression, anxiety, or addiction?: No Doesn?t believe in the benefits of treatment?: No Believes medications are unnecessary or harmful?: No Has a concern about medication side effects?: No Expresses concern over the cost of medications?: No Outcomes/Goals: Verbalizes medications,desired effect & common side effects @ DC, Pt self-reports following medication regimen, Keeps card in wallet w/medications listed by DC and Other additional outcome/goals: Interventions/plans: Instruct on medication effects & side effects, Review medication list w/patient every two weeks, Instruct importance of taking meds as ordered & assist problem solving and Other additional Tobacco Use Tobacco Use: Non-smoker Hypertension Hypertension Diagnosis:: Hypertension ICD-10 I10 Resting Blood Pressure:: 116/72 [place] [employer] Hypertension Guidelines Outcomes/Goals: Able to verbalize/achieve optimal blood pressure <130/80, Incorporates diet changes & exercise for blood pressure control by DC and Other additional outcomes/goals Interventions/plan: Instruct on optimal blood pressure, hypertension & medications, Instruct on effects of sodium, alcohol, stress, exercise &hypertension and Other additional plan/interventions Tobacco Cessation Referral Smoking Cessation Referral:: No Individual Education/Counseling:: No Education Schedule Given:: Yes Psychosocial - Initial Assess VIsit Date of Eval: 05/22/23 (initial eval ) History of previous Mental disease:: No Target Goals Target Goals Outcomes/Goals: See list Psychosocial Outcomes/Goals:: ID's personal stressors & 2 strategies to manage stress by discharge and Other Additional outcome/goals: Intervention/Plan: See List Interventions/Plan:: Assess stressors,coping strategies & signs of derpression on admission, Instruct/assist pt to develop coping & personal stress Mgt strategies, Refer to Behavioral Health if appropriate, Refer to Physician if appropriate, Instruct patient to recognize signs & symptoms of depression, Instruct patient to recog and Other additional plan/intervention Patient Health Questionnaire PHQ-9 Screening Initial Assessment: 1. Little interest or pleasure in doing things: Not at all 2. Feeling down, depressed, or hopeless: Not at all 3. Trouble falling or staying asleep, or sleeping too much: Several days 4. Feeling tired or having little energy: Nearly every day 5. Poor appetite or overeating: Not at all 6. Feeling bad about yourself -- or that you are a failure or have let yourself or your family down: Not at all 7. Trouble concentrating on things, such as reading the newspaper or watching television: Not at all 8. Moving or speaking so slowly that other people could have noticed. Or the opposite - being so fidgety or restless that you have been moving around a lot more than usual: Not at all 9. Thoughts that you would be better off , or of hurting yourself in some way: Not at all How difficult have these problems made it for you to do your work, take care of things at home, or get along with other people?: Somewhat difficult Total Score: 4 KRISTYN-Q SV Test Statements CAD is a disease of the arteries in the heart: False Examples of risk factors for heart disease: True Angina is chest pain or discomfort: True The benefits of resistance training include: True Eating more meat and dairy products: False Anti-platelet medications such as aspirin are important: True The only effective way to manage stress: False An exercise warm-up slowly increases heart rate: True Prepared, processed foods usually have high sodium: True Depression is common after a heart attack: True The statin medications lower cholesterol: True To control blood pressure, lower the amount of sodium: True If someone gets chest discomfort during walking: False Transfats are partially hydrogenated vegetable oils: I Don't Know Sleep apnea that is not treated increases the risk: False To control cholesterol, one should become a vegetarian: False Someone knows if he/she is exercising at the right level: I Don't Know Diabetes cannot be prevented with exercise & health eating: False Stress is a large risk for heart attack: I Don't Know A diet that can help lower blood pressure is rich in: True Total Score Total Correct Responses: 17 Self-Efficacy 6-Item Scale Initial Assessment: We would like to know how confident you are in doing certain activities. Please select your confidence level for: Fatigue Select Number: 2 Physical Discomfort or Pain Select Number: 4 Emotional Distress Select Number: 7 Other Symptoms or Health Problems Select Number: 5 Different Tasks and Activities Select Number: 6 Medication Select Number: 6 Total Score:: 5 Nutrition Survey Nutrition Survey Instructions Scoring Instructions Nutrition Survey Initial: Have you lost >10 lbs over the past 2 months without trying?: No Are you following a special diet at home for diabetes, low fat, or low salt?: No Are you interested in meeting with a dietitian for help understanding your diet?: Yes Do you eat less than 3 meals a day?: No Do you eat fatty meats (mccabe, sausage, ribs, etc), fried foods, desserts, large amounts of salad dressings, margarine, butter, or cheese most days?: Yes Do you have food allergies? [Enter types in comment field]: No Do you eat in restaurants more than 3 times a week?: No Do you season food with salt, seasoning salt, or garlic salt?: No Do you used canned, boxed, frozen meals, or soups, seasoning packets?: No Total Score:: 2 Exercise - Final/Discharge Physician Prescribed Exercise Modalities: Treadmill, Airdyne, NuStep, SciFit and Lateral [employer] Frequency: 3x/week for 12 weeks [36 sessions] Intensity: 60-80% of age predicted maximum heart rate reserve Current METSs:: 3.0 Target Heart Rate:: 95-111 Nutrition - 30-Day Assessment Weight Mgt (Other Care) Height: 5 ft 6 in Weight:: 169 lb BMI: 27.2 Nutrition - 60-Day Assessment Weight Mgt (Other Care) Height: 5 ft 6 in Weight:: 169 lb BMI: 27.2 Core - Final Assessment Hypertension Resting Blood Pressure:: 116/72 [place] [employer] Hypertension Guidelines Core - 60-Day Assessment Hypertension Resting Blood Pressure:: 116/72 [place] [employer] Hypertension Guidelines Psychosocial - 30-Day Assess Target Goals Target Goals Psychosocial - 60-Day Assess Target Goals Target Goals Psychosocial - 90-Day Assess Target Goals Target Goals Psychosocial - Final Assessmen Target Goals Target Goals Nutrition - 90-Day Assessment Weight Mgt (Other Care) Height: 5 ft 6 in Weight:: 169 lb BMI: 27.2 Nutrition - Final Assessment Program Goals Patient has diagnosis of Hyperlipidemia (ICD E78)?: Yes Weight Mgt (Other Care) Height: 5 ft 6 in Weight:: 169 lb BMI: 27.2
[2023-05-22 10:39] VITALS: PULSE 86; O2SAT 97; BMI 27.2
[2023-05-22 10:43] VITALS: BP 116/72
[2023-05-22 11:12] VITALS: BP 116/72; BMI 27.2
== END | disposition home or self-care (01) ==
LOC: CR 09:53
PROVIDERS: PCP Nurse Practitioner Family; Referring Provider Internal Medicine Cardiovascular Disease; Visit Provider Internal Medicine Cardiovascular Disease
DX: Z95.1 Presence of aortocoronary bypass graft (principal)

== ENCOUNTER 2023-06-17 08:00 | Outpatient (RCR) | payer OTHER, SELFPAY ==
[2023-05-22 11:12] VITALS: BMI 27.2
--- NOTE | 2023-06-18 08:01 | PCM.CR.ITP ---
Exercise - Initial Assessment Visit Session #:: 9 Nutrition - Initial Assessment Weight Mgt (Other Care) Height: 5 ft 6 in Weight:: 165 lb BMI: 26.6 Psychosocial - Initial Assess Target Goals Target Goals Referral to Behavioral Health PS - Interventions: Yes: Attend Stress Management Classes and No: Referral to Behavioral Health if PHQ-9 score >9:, No: Referral to [facility] and No: Referral to Physician if PHQ-9 if score is 5-9: Patient Health Questionnaire PHQ-9 Screening 30-Day Re-eval Assessment: 1. Little interest or pleasure in doing things: Not at all 2. Feeling down, depressed, or hopeless: Not at all 3. Trouble falling or staying asleep, or sleeping too much: Several days 4. Feeling tired or having little energy: Nearly every day 5. Poor appetite or overeating: Not at all 6. Feeling bad about yourself -- or that you are a failure or have let yourself or your family down: Not at all 7. Trouble concentrating on things, such as reading the newspaper or watching television: Not at all 8. Moving or speaking so slowly that other people could have noticed. Or the opposite - being so fidgety or restless that you have been moving around a lot more than usual: Not at all 9. Thoughts that you would be better off , or of hurting yourself in some way: Not at all How difficult have these problems made it for you to do your work, take care of things at home, or get along with other people?: Somewhat difficult Total Score: 4 Self-Efficacy 6-Item Scale 30-Day Re-eval Assessment: We would like to know how confident you are in doing certain activities. Please select your confidence level for: Fatigue Select Number: 3 Physical Discomfort or Pain Select Number: 5 Emotional Distress Select Number: 7 Other Symptoms or Health Problems Select Number: 6 Different Tasks and Activities Select Number: 7 Medication Select Number: 7 Total Score:: 5 Nutrition Survey Nutrition Survey Instructions Scoring Instructions Exercise - 30-day Assessment Visit Date of Eval: 06/18/23 Session #:: 8 Physician Prescribed Exercise Modalities: Treadmill, Airdyne and NuStep Frequency: 3x/week for 12 weeks [36 sessions] Intensity: 60-80% of age predicted maximum heart rate reserve Duration: 30 - 45 minutes Current METSs:: 4.0 Target Heart Rate:: 118-134 Current RPE:: 12-13 Resting Blood Pressure: 112/62 Maximum Exercise Blood Pressure: 148/80 EKG Type: NSR TO SINUS TACH WITH RARE PAC/PVC Current Physical Activity or Exercising minutes: 39:40 Outcomes & Goals Goals:: Verbalizes understanding of THR, RPE & goal METS by session 6, Documents in home exercise log/reports 30 min aerobic 5 day/wk by DC and Demonstrates accurate pulse taking by DC Intervention & Plan Exercise Program Goals: Instruct on personal THR & RPE, Instruct on MET level & personal MET goal, Show patient to take own pulse /validate performance until accurate and Instruct on home exercise 30-day Reassessments 30 day Reassessments:: Met Physical Activity Home Exercise Physical Activity - Home Exercise: Safe Exercise, Warm-up, Self-monitoring, Cool-Down, Home Exercise > 30 min Daily and Sitting Time <3 hours/daily Outcomes & Goals Outcomes/Goals: Demonstrates correct Warm-up/exercise Cool-Down (S3) if = 2.5 METs, Verbalizes symptoms of exercise intolerance by Session 3 (S3) and Demonstrate safe equipment use (S3) & follows exercise prescrition (6) Intervention & Plan Plan/Intervention: Instruct warm-up & cool-down if exercising at > 2 METs, Instruct on symptoms of exercise intolerance & actions to take, Instruct & monitor on saf and Assess intial functional capacity & safety risk 30-day Reassessments 30 day Reassessments:: Met Nutrition - 30-Day Assessment Program Goals Nutrition Program Goals Patient has diagnosis of Hyperlipidemia (ICD E78)?: Yes Visit Date of Eval: 06/18/23 Session #:: 9 Cholesterol/Lipids (Other Core Measures) Determine presence & major risk factors that modify LDL goal: Hypertension or hypertensive medication and Age men > 45 years; women >/= 55 years Outcomes/Goals: Pt IDs own risk factors & lifestyle modifications by Session 10, Verbalizes symptoms of angina & response by session 3. and Pt independently manages Intervention/Plan: Instruct on personal lipid levels & lipid goals/NCEP guidelines and Instruct on cholesterol Referral to dietitian:: Yes 30-day Reassessments:: Met Diabetes (Other Core Measures) Diabetes Type: Not Applicable Weight Mgt (Other Care) Not Applicable: Yes Height: 5 ft 6 in Weight:: 165 lb BMI: 26.6 Diagnosis Overweight/Obesity BMI> 30% ICD-10 E66: No Diagnosis High BMI/Morbid Obesity BMI> 35% ICD-10 Z68: No Outcomes/Goals: Pt sets, maintains & shows weight loss goal & trend during rehab Intervention/Plan: Instruct on ideal BMI & set weight loss goal w/patient 30 day Reassessments:: Met Healthy Eating Habits Will attend diet classes:: Yes Outcomes/Goals:: Consume diet rich in vegs,fruits,whole grain/high fiber,fish,lean meat and Limit sat/trans fats,cholesterol & added salts & sugars Intervention/Plan:: Assess current eating habits 30-day Reassessments:: Met Education Gave educational materials for:: Healthy eating Nutrition - 60-Day Assessment Weight Mgt (Other Care) Height: 5 ft 6 in Weight:: 165 lb BMI: 26.6 Core - 30-Day Assessment Visit Date of Eval: 06/18/23 Session #:: 9 Medication Compliance Preventative Medication(s):: Aspirin, Statin/lipid and Beta aba H/O mental health issues: depression, anxiety, or addiction?: No Doesn?t believe in the benefits of treatment?: No Believes medications are unnecessary or harmful?: No Has a concern about medication side effects?: No Expresses concern over the cost of medications?: No Outcomes/Goals: Verbalizes medications,desired effect & common side effects @ DC, Pt self-reports following medication regimen and Keeps card in wallet w/medications listed by DC Interventions/plans: Instruct on medication effects & side effects, Review medication list w/patient every two weeks and Instruct importance of taking meds as ordered & assist problem solving 30-day Reassessments:: Met Tobacco Use Tobacco Use: Non-smoker Hypertension Hypertension Diagnosis:: Hypertension ICD-10 I10 Resting Blood Pressure:: 112/62 [place] [employer] Hypertension Guidelines Peak Exercise Blood Pressure:: 148/80 Outcomes/Goals: Able to verbalize/achieve optimal blood pressure <130/80 and Incorporates diet changes & exercise for blood pressure control by DC Interventions/plan: Instruct on optimal blood pressure, hypertension & medications and Instruct on effects of sodium, alcohol, stress, exercise &hypertension 30 day Reassessments:: Progressing Tobacco Cessation Referral Smoking Cessation Referral:: No Individual Education/Counseling:: No Education Schedule Given:: Yes Psychosocial - 30-Day Assess VIsit Date of Eval: 06/18/23 Session #:: 9 Not Applicable: Yes History of previous Mental disease:: No Target Goals Target Goals Psychosocial Test Tool Used:: PHQ-9 Questionnaire phq-9 Severity Referral to Behavioral Health PS - Interventions: Yes: Attend Stress Management Classes and No: Referral to Behavioral Health if PHQ-9 score >9:, No: Referral to [facility] and No: Referral to Physician if PHQ-9 if score is 5-9: Outcomes/Goals: See list Psychosocial Outcomes/Goals:: ID's personal stressors & 2 strategies to manage stress by discharge Intervention/Plan: See List Interventions/Plan:: Assess stressors,coping strategies & signs of derpression on admission, Instruct/assist pt to develop coping & personal stress Mgt strategies, Instruct patient to recognize signs & symptoms of depression and Instruct patient to recog 30-day Reassessments: 30 day Reassessments:: Progressing Psychosocial - 60-Day Assess Target Goals Target Goals Referral to Behavioral Health PS - Interventions: Yes: Attend Stress Management Classes and No: Referral to Behavioral Health if PHQ-9 score >9:, No: Referral to [facility] and No: Referral to Physician if PHQ-9 if score is 5-9: Outcomes/Goals: See list Psychosocial Outcomes/Goals:: ID's personal stressors & 2 strategies to manage stress by discharge Psychosocial - 90-Day Assess Target Goals Target Goals Referral to Behavioral Health PS - Interventions: Yes: Attend Stress Management Classes and No: Referral to Behavioral Health if PHQ-9 score >9:, No: Referral to [facility] and No: Referral to Physician if PHQ-9 if score is 5-9: Psychosocial - Final Assessmen Target Goals Target Goals Referral to Behavioral Health PS - Interventions: Yes: Attend Stress Management Classes and No: Referral to Behavioral Health if PHQ-9 score >9:, No: Referral to [facility] and No: Referral to Physician if PHQ-9 if score is 5-9: Nutrition - 90-Day Assessment Weight Mgt (Other Care) Height: 5 ft 6 in Weight:: 165 lb BMI: 26.6 Nutrition - Final Assessment Weight Mgt (Other Care) Height: 5 ft 6 in Weight:: 165 lb BMI: 26.6
[2023-06-18 08:08] VITALS: BP 112/62; BMI 26.6
== END 2023-06-18 23:59 ==
LOC: CR 08:00
PROVIDERS: PCP Nurse Practitioner Family; Referring Provider Internal Medicine Cardiovascular Disease; Visit Provider Internal Medicine Cardiovascular Disease
DX: I25.10 Atherosclerotic heart disease of native coronary artery without angina pectoris (principal); Z95.1 Presence of aortocoronary bypass graft
CPT/HCPCS: 93798

== ENCOUNTER → 2023-06-26 | Outpatient (CLI) | payer OTHER, SELFPAY ==
[2023-06-18 08:08] VITALS: BMI 26.6
[2023-06-26 07:43] LABS: Absolute Lymphocyte Count 1.45 X10^3/uL (0.83-4.51); Absolute Neutrophil Count 3.8 X10^3/uL (2.0-7.7); Basophil# 0.04 X10^3/uL; Basophil% 0.7 % (0-1); Eosinophil# 0.28 X10^3/uL; Eosinophils% 4.6 % (0-5); Hematocrit 41.3 % (40-54); Hemoglobin 12.7 g/dL (13.0-16.5); Lymphocyte # 1.45 X10^3/ul (0.83-4.51); Lymphocyte % 23.6 % (19-41); Mean Corp Hgb Conc 30.8 g/dL (32-36); Mean Corpuscular Hgb 25.8 pg (27.0-32.0); Mean Corpuscular Volume 83.8 fL (80-94); Mean Platelet Vol. 10.3 fl (6.2-12.0); Monocyte# 0.61 X10^3/uL; Monocyte% 9.9 % (0-10); NRBC Flagged by Analyzer 0 % (0-5); Neutrophil # 3.75 X10^3/uL (2.7-7.7); Platelet Count 291 K/mm3 (150-450); RBC Distribution Width CV 13.4 % (11.6-14.6); RBC Distribution Width SD 40.7 fl (35.1-43.9); Red Blood Count 4.93 M/mm3 (4.6-6.2); White Blood Count 6.1 K/mm3 (4.4-11.0)
[2023-06-26 08:17] LABS: Anion Gap 3 (5-15); BUN 13 mg/dL (7-18); BUN/Creat Ratio 12.1 RATIO (10-20); Chloride 110 mmol/L (98-107); Creatinine, Serum 1.07 mg/dL (0.70-1.30); EST Glomerular Filtration Rate 74 mL/min (>60); Est Glom Filt Rate - Afr Amer 90 mL/min (>60); Glucose 123 mg/dL (74-106); Potassium 3.8 mmol/L (3.5-5.1); Sodium Level 140 mmol/L (136-145)
== END | disposition home or self-care (01) ==
LOC: LAB 07:27
PROVIDERS: PCP Nurse Practitioner Family; Referring Provider Physician Assistant Medical; Visit Provider Physician Assistant Medical
DX: R06.09 Other forms of dyspnea (principal); R07.9 Chest pain, unspecified; Z95.1 Presence of aortocoronary bypass graft
CPT/HCPCS: 36415; 80048; 83880; 85025

== ENCOUNTER 2023-07-19 06:30 | Outpatient (RCR) | payer OTHER, SELFPAY ==
[2023-06-19 00:54] VITALS: BP 112/62
--- NOTE | 2023-07-19 08:29 | PCM.CR.ITP ---
Exercise - Initial Assessment Physician Prescribed Exercise Modalities: Treadmill, Rower and SciFit Stepper Nutrition - Initial Assessment Weight Mgt (Other Care) Height: 5 ft 6 in Weight:: 167 lb 8 oz BMI: 27.0 Psychosocial - Initial Assess Target Goals Target Goals Patient Health Questionnaire PHQ-9 Screening 60-Day Re-eval Assessment: 1. Little interest or pleasure in doing things: Not at all 2. Feeling down, depressed, or hopeless: Not at all 3. Trouble falling or staying asleep, or sleeping too much: Several days 4. Feeling tired or having little energy: Nearly every day 5. Poor appetite or overeating: Not at all 6. Feeling bad about yourself -- or that you are a failure or have let yourself or your family down: Not at all 7. Trouble concentrating on things, such as reading the newspaper or watching television: Not at all 8. Moving or speaking so slowly that other people could have noticed. Or the opposite - being so fidgety or restless that you have been moving around a lot more than usual: Not at all 9. Thoughts that you would be better off , or of hurting yourself in some way: Not at all How difficult have these problems made it for you to do your work, take care of things at home, or get along with other people?: Somewhat difficult Total Score: 4 Self-Efficacy 6-Item Scale 60-Day Re-eval Assessment: We would like to know how confident you are in doing certain activities. Please select your confidence level for: Fatigue Select Number: 3 Physical Discomfort or Pain Select Number: 5 Emotional Distress Select Number: 7 Other Symptoms or Health Problems Select Number: 6 Different Tasks and Activities Select Number: 7 Medication Select Number: 7 Total Score:: 5 Nutrition Survey Nutrition Survey Instructions Scoring Instructions Exercise - 30-day Assessment Physician Prescribed Exercise Modalities: Treadmill, Rower and SciFit Stepper Exercise - 60-day Assessment Visit Date of Eval: 07/19/23 Session #:: 23 Physician Prescribed Exercise Modalities: Treadmill, Rower and SciFit Stepper Frequency: 3x/week for 12 weeks [36 sessions] Intensity: 60-80% of age predicted maximum heart rate reserve Duration: 30 - 45 minutes Current METSs:: 6.5 Target Heart Rate:: 118-134 Current RPE:: 11.5-13 Maximum Excercise HR:: 129 Resting Blood Pressure: 140/74 Maximum Exercise Blood Pressure: 140/82 EKG Type: NSR to ST, rare PAC, rare PVC Outcomes & Goals Goals:: Verbalizes understanding of THR, RPE & goal METS by session 6, Documents in home exercise log/reports 30 min aerobic 5 day/wk by DC, Demonstrates accurate pulse taking by DC and Other additional outcome/goals: see below Intervention & Plan Exercise Program Goals: Instruct on personal THR & RPE, Instruct on MET level & personal MET goal, Show patient to take own pulse /validate performance until accurate, Instruct on home exercise and Other additional plan/int 30-day Reassessments 30 day Reassessments:: Progressing Reassessment Notes & Comments:: THR expalined Physical Activity Home Exercise Physical Activity - Home Exercise: Safe Exercise, Warm-up, Self-monitoring, Cool-Down, Home Exercise > 30 min Daily and Sitting Time <3 hours/daily Outcomes & Goals Outcomes/Goals: Demonstrates correct Warm-up/exercise Cool-Down (S3) if = 2.5 METs, Verbalizes symptoms of exercise intolerance by Session 3 (S3), Demonstrate safe equipment use (S3) & follows exercise prescrition (6) and Other: See below Intervention & Plan Plan/Intervention: Instruct warm-up & cool-down if exercising at > 2 METs, Instruct on symptoms of exercise intolerance & actions to take, Instruct & monitor on saf, Assess intial functional capacity & safety risk and Other See below 30-day Reassessments 30 day Reassessments:: Progressing Reassessment Notes & Comments:: cool down encouraged Exercise - 90-day Assessment Physician Prescribed Exercise Modalities: Treadmill, Rower and SciFit Stepper Exercise - Final/Discharge Physician Prescribed Exercise Modalities: Treadmill, Rower and SciFit Stepper Nutrition - 30-Day Assessment Weight Mgt (Other Care) Height: 5 ft 6 in Weight:: 167 lb 8 oz BMI: 27.0 Nutrition - 60-Day Assessment Program Goals Nutrition Program Goals Patient has diagnosis of Hyperlipidemia (ICD E78)?: Yes Visit Date of Eval: 07/19/23 Session #:: 23 Cholesterol/Lipids (Other Core Measures) Determine presence & major risk factors that modify LDL goal: Hypertension or hypertensive medication, Low HDL cholesterol <40 mg/dL*, Family history of premature CHD in Male < 55 years: female <65 yearsFa and Age men > 45 years; women >/= 55 years Outcomes/Goals: Pt IDs own risk factors & lifestyle modifications by Session 10, Verbalizes symptoms of angina & response by session 3., Pt independently manages and Other Additional Outcomes/Goals: Intervention/Plan: Advocate for lipid panel cholesterol medication if applicable, Instruct on personal lipid levels & lipid goals/NCEP guidelines, Instruct on cholesterol and Other additional plan/int 30-day Reassessments:: Progressing Reassessment Notes & Comments:: pt to attend nutrition class Diabetes (Other Core Measures) Diabetes Type: Not Applicable Weight Mgt (Other Care) Height: 5 ft 6 in Weight:: 167 lb 8 oz BMI: 27.0 Diagnosis Overweight/Obesity BMI> 30% ICD-10 E66: No Diagnosis High BMI/Morbid Obesity BMI> 35% ICD-10 Z68: No Outcomes/Goals: Pt sets, maintains & shows weight loss goal & trend during rehab and Other additional outcomes/goals Intervention/Plan: Instruct on ideal BMI & set weight loss goal w/patient, Assist pt to ID & incorporate diet changes for weight loss by S9, Refer to Structured Weight Loss program as appropriate, Encourage goal of using 250-300dcal per session for weight loss and Other additional plan/interventions 30 day Reassessments:: Progressing Reassessment Notes & Comments:: pt to attend nutrition class Healthy Eating Habits Will attend diet classes:: Yes Outcomes/Goals:: Consume diet rich in vegs,fruits,whole grain/high fiber,fish,lean meat, Limit sat/trans fats,cholesterol & added salts & sugars and Other additional outcome/goals: Intervention/Plan:: Assess current eating habits and Other Additional plan/interventions 30-day Reassessments:: Progressing Reassessment Notes & Comments:: pt to attend nutrition class Education Gave educational materials for:: Signs & symptoms of hypoglycemia, Signs & symptoms of hyperglycemia, Relate diabetes to coronary artery disease and Healthy eating Core - 60-Day Assessment Visit Date of Eval: 07/19/23 Session #:: 23 Medication Compliance Preventative Medication(s):: Aspirin, Statin/lipid and Beta aba H/O mental health issues: depression, anxiety, or addiction?: No Doesn?t believe in the benefits of treatment?: No Believes medications are unnecessary or harmful?: No Has a concern about medication side effects?: No Expresses concern over the cost of medications?: No Outcomes/Goals: Verbalizes medications,desired effect & common side effects @ DC, Pt self-reports following medication regimen, Keeps card in wallet w/medications listed by DC and Other additional outcome/goals: Interventions/plans: Instruct on medication effects & side effects, Review medication list w/patient every two weeks, Instruct importance of taking meds as ordered & assist problem solving and Other additional 30-day Reassessments:: Progressing Reassessment Notes & Comments:: pt encouraged to take his meds Tobacco Use Tobacco Use: Non-smoker Hypertension Hypertension Diagnosis:: Hypertension ICD-10 I10 Resting Blood Pressure:: 140/74 [place] [employer] Hypertension Guidelines Peak Exercise Blood Pressure:: 140/82 Outcomes/Goals: Able to verbalize/achieve optimal blood pressure <130/80, Incorporates diet changes & exercise for blood pressure control by DC and Other additional outcomes/goals Interventions/plan: Instruct on optimal blood pressure, hypertension & medications, Instruct on effects of sodium, alcohol, stress, exercise &hypertension and Other additional plan/interventions 30 day Reassessments:: Progressing Reassessment Notes & Comments:: pt encouraged to take his meds Tobacco Cessation Referral Smoking Cessation Referral:: No Individual Education/Counseling:: No Education Schedule Given:: Yes Psychosocial - 30-Day Assess Target Goals Target Goals Outcomes/Goals: See list Psychosocial Outcomes/Goals:: ID's personal stressors & 2 strategies to manage stress by discharge and Other Additional outcome/goals: Psychosocial - 60-Day Assess VIsit Date of Eval: 07/19/23 Session #:: 23 History of previous Mental disease:: No Target Goals Target Goals Outcomes/Goals: See list Psychosocial Outcomes/Goals:: ID's personal stressors & 2 strategies to manage stress by discharge and Other Additional outcome/goals: Intervention/Plan: See List Interventions/Plan:: Assess stressors,coping strategies & signs of derpression on admission, Instruct/assist pt to develop coping & personal stress Mgt strategies, Refer to Behavioral Health if appropriate, Refer to Physician if appropriate, Instruct patient to recognize signs & symptoms of depression, Instruct patient to recog and Other additional plan/intervention 30-day Reassessments: 30 day Reassessments:: Met Psychosocial - 90-Day Assess Target Goals Target Goals Psychosocial - Final Assessmen Target Goals Target Goals Nutrition - 90-Day Assessment Weight Mgt (Other Care) Height: 5 ft 6 in Weight:: 167 lb 8 oz BMI: 27.0 Nutrition - Final Assessment Weight Mgt (Other Care) Height: 5 ft 6 in Weight:: 167 lb 8 oz BMI: 27.0
[2023-07-19 08:38] VITALS: BP 140/74; BMI 27.0
== END 2023-07-19 23:59 ==
LOC: CR 06:30
PROVIDERS: PCP Nurse Practitioner Family; Referring Provider Internal Medicine Cardiovascular Disease; Visit Provider Internal Medicine Cardiovascular Disease
DX: I25.10 Atherosclerotic heart disease of native coronary artery without angina pectoris (principal); Z95.1 Presence of aortocoronary bypass graft
CPT/HCPCS: 93798

== ENCOUNTER → 2023-07-31 | Outpatient (CLI) | payer OTHER, SELFPAY ==
[2023-07-31 07:02] VITALS: BMI 27.0
[2023-07-31 08:52] LABS: Absolute Lymphocyte Count 1.17 X10^3/uL (0.83-4.51); Absolute Neutrophil Count 3.6 X10^3/uL (2.0-7.7); Basophil# 0.03 X10^3/uL; Basophil% 0.5 % (0-1); Eosinophil# 0.23 X10^3/uL; Hematocrit 42.7 % (40-54); Hemoglobin 13.6 g/dL (13.0-16.5); Lymphocyte # 1.17 X10^3/ul (0.83-4.51); Lymphocyte % 20.6 % (19-41); Mean Corp Hgb Conc 31.9 g/dL (32-36); Mean Corpuscular Hgb 26.4 pg (27.0-32.0); Mean Corpuscular Volume 82.8 fL (80-94); Mean Platelet Vol. 10.4 fl (6.2-12.0); Monocyte# 0.63 X10^3/uL; Monocyte% 11.1 % (0-10); NRBC Flagged by Analyzer 0 % (0-5); Neutrophil # 3.62 X10^3/uL (2.7-7.7); Neutrophil % 63.6 % (47-70); Platelet Count 251 K/mm3 (150-450); RBC Distribution Width CV 15.1 % (11.6-14.6); RBC Distribution Width SD 45.3 fl (35.1-43.9); Red Blood Count 5.16 M/mm3 (4.6-6.2); White Blood Count 5.7 K/mm3 (4.4-11.0)
[2023-07-31 09:29] LABS: CPK Total, Creatine Kinase 100 U/L (39-308); Cholesterol 93 mg/dL (200); High Density Lipoprotein 36 mg/dL; Triglycerides 126 mg/dL; Very Low Density Lipoprotein 25 mg/dL (5-40)
== END | disposition home or self-care (01) ==
LOC: LAB 07:04
PROVIDERS: Internal Medicine Cardiovascular Disease; PCP Nurse Practitioner Family; Referring Provider Physician Assistant Medical; Visit Provider Physician Assistant Medical
DX: E78.00 Pure hypercholesterolemia, unspecified (principal); R07.9 Chest pain, unspecified; I25.10 Atherosclerotic heart disease of native coronary artery without angina pectoris; I10 Essential (primary) hypertension; Z95.1 Presence of aortocoronary bypass graft; R06.00 Dyspnea, unspecified
CPT/HCPCS: 36415; 80061; 82550; 85025

== ENCOUNTER 2023-08-16 06:30 | Outpatient (RCR) | payer OTHER, SELFPAY ==
[2023-07-20 02:27] VITALS: BP 112/62; BP 140/74; BMI 26.6
== END 2023-08-18 23:59 ==
LOC: CR 06:30
PROVIDERS: PCP Nurse Practitioner Family; Referring Provider Internal Medicine Cardiovascular Disease; Visit Provider Internal Medicine Cardiovascular Disease
DX: I25.10 Atherosclerotic heart disease of native coronary artery without angina pectoris (principal); Z95.1 Presence of aortocoronary bypass graft
CPT/HCPCS: 93798

== ENCOUNTER 2023-08-23 06:30 | Outpatient (RCR) | payer OTHER, SELFPAY ==
[2023-08-19 00:46] VITALS: BP 112/62; BP 140/74; BMI 26.6
--- NOTE | 2023-08-19 08:14 | PCM.CR.ITP ---
Exercise - Initial Assessment Physician Prescribed Exercise Modalities: Treadmill, Rower and SciFit Stepper Nutrition - Initial Assessment Weight Mgt (Other Care) Height: 5 ft 6 in Weight:: 166 lb BMI: 26.8 Psychosocial - Initial Assess Target Goals Target Goals Patient Health Questionnaire PHQ-9 Screening 90-Day Re-eval Assessment: 1. Little interest or pleasure in doing things: Not at all 2. Feeling down, depressed, or hopeless: Not at all 3. Trouble falling or staying asleep, or sleeping too much: Several days 4. Feeling tired or having little energy: Nearly every day 5. Poor appetite or overeating: Not at all 6. Feeling bad about yourself -- or that you are a failure or have let yourself or your family down: Not at all 7. Trouble concentrating on things, such as reading the newspaper or watching television: Not at all 8. Moving or speaking so slowly that other people could have noticed. Or the opposite - being so fidgety or restless that you have been moving around a lot more than usual: Not at all How difficult have these problems made it for you to do your work, take care of things at home, or get along with other people?: Somewhat difficult Total Score: 4 Self-Efficacy 6-Item Scale 90-Day Re-eval Assessment: We would like to know how confident you are in doing certain activities. Please select your confidence level for: Fatigue Select Number: 3 Physical Discomfort or Pain Select Number: 5 Emotional Distress Select Number: 7 Other Symptoms or Health Problems Select Number: 6 Different Tasks and Activities Select Number: 7 Medication Select Number: 7 Total Score:: 5 Nutrition Survey Nutrition Survey Instructions Scoring Instructions Exercise - 30-day Assessment Physician Prescribed Exercise Modalities: Treadmill, Rower and SciFit Stepper Exercise - 60-day Assessment Physician Prescribed Exercise Modalities: Treadmill, Rower and SciFit Stepper Exercise - 90-day Assessment Visit Date of Eval: 08/19/23 Session #:: 34 Physician Prescribed Exercise Modalities: Treadmill, Rower and SciFit Stepper Frequency: 3x/week for 12 weeks [36 sessions] Intensity: 60-80% of age predicted maximum heart rate reserve Duration: 30 - 45 minutes Current METSs:: 7.9 Target Heart Rate:: 118-134 Current RPE:: 11.5-13 Maximum Excercise HR:: 124 Resting Blood Pressure: 130/68 Maximum Exercise Blood Pressure: 140/68 EKG Type: NSR to ST, rare PAC, rare PVC Outcomes & Goals Goals:: Verbalizes understanding of THR, RPE & goal METS by session 6, Documents in home exercise log/reports 30 min aerobic 5 day/wk by DC, Demonstrates accurate pulse taking by DC and Other additional outcome/goals: see below Intervention & Plan Exercise Program Goals: Instruct on personal THR & RPE, Instruct on MET level & personal MET goal, Show patient to take own pulse /validate performance until accurate, Instruct on home exercise and Other additional plan/int 30-day Reassessments 30 day Reassessments:: Met Physical Activity Home Exercise Physical Activity - Home Exercise: Safe Exercise, Warm-up, Self-monitoring, Cool-Down, Home Exercise > 30 min Daily and Sitting Time <3 hours/daily Outcomes & Goals Outcomes/Goals: Demonstrates correct Warm-up/exercise Cool-Down (S3) if = 2.5 METs, Verbalizes symptoms of exercise intolerance by Session 3 (S3), Demonstrate safe equipment use (S3) & follows exercise prescrition (6) and Other: See below Intervention & Plan Plan/Intervention: Instruct warm-up & cool-down if exercising at > 2 METs, Instruct on symptoms of exercise intolerance & actions to take, Instruct & monitor on saf, Assess intial functional capacity & safety risk and Other See below 30-day Reassessments 30 day Reassessments:: Met Exercise - Final/Discharge Physician Prescribed Exercise Modalities: Treadmill, Rower and SciFit Stepper Nutrition - 30-Day Assessment Weight Mgt (Other Care) Height: 5 ft 6 in Weight:: 166 lb BMI: 26.8 Nutrition - 60-Day Assessment Weight Mgt (Other Care) Height: 5 ft 6 in Weight:: 166 lb BMI: 26.8 Core - 90 Day Assessment Visit Date of Eval: 08/19/23 Session #:: 34 Medication Compliance Preventative Medication(s):: Aspirin, Statin/lipid and Beta aba H/O mental health issues: depression, anxiety, or addiction?: No Doesn?t believe in the benefits of treatment?: No Believes medications are unnecessary or harmful?: No Has a concern about medication side effects?: No Expresses concern over the cost of medications?: No Outcomes/Goals: Verbalizes medications,desired effect & common side effects @ DC, Pt self-reports following medication regimen, Keeps card in wallet w/medications listed by DC and Other additional outcome/goals: Interventions/plans: Instruct on medication effects & side effects, Review medication list w/patient every two weeks, Instruct importance of taking meds as ordered & assist problem solving and Other additional 30-day Reassessments:: Met Tobacco Use Tobacco Use: Non-smoker Hypertension Hypertension Diagnosis:: Hypertension ICD-10 I10 Resting Blood Pressure:: 130/68 [place] Hypertension Guidelines Peak Exercise Blood Pressure:: 140/68 Outcomes/Goals: Able to verbalize/achieve optimal blood pressure <130/80, Incorporates diet changes & exercise for blood pressure control by DC and Other additional outcomes/goals Interventions/plan: Instruct on optimal blood pressure, hypertension & medications, Instruct on effects of sodium, alcohol, stress, exercise &hypertension and Other additional plan/interventions 30 day Reassessments:: Met Tobacco Cessation Referral Smoking Cessation Referral:: No Individual Education/Counseling:: No Education Schedule Given:: Yes Psychosocial - 30-Day Assess Target Goals Target Goals Psychosocial - 60-Day Assess Target Goals Target Goals Psychosocial - 90-Day Assess VIsit Date of Eval: 08/19/23 Session #:: 34 History of previous Mental disease:: No Target Goals Target Goals Outcomes/Goals: See list Psychosocial Outcomes/Goals:: ID's personal stressors & 2 strategies to manage stress by discharge and Other Additional outcome/goals: Intervention/Plan: See List Interventions/Plan:: Assess stressors,coping strategies & signs of derpression on admission, Instruct/assist pt to develop coping & personal stress Mgt strategies, Refer to Behavioral Health if appropriate, Refer to Physician if appropriate, Instruct patient to recognize signs & symptoms of depression, Instruct patient to recog and Other additional plan/intervention 30-day Reassessments: 30 day Reassessments:: Met Psychosocial - Final Assessmen Target Goals Target Goals Nutrition - 90-Day Assessment Program Goals Nutrition Program Goals Patient has diagnosis of Hyperlipidemia (ICD E78)?: Yes Visit Date of Eval: 08/19/23 Session #:: 34 Cholesterol/Lipids (Other Core Measures) Determine presence & major risk factors that modify LDL goal: Hypertension or hypertensive medication, Low HDL cholesterol <40 mg/dL*, Family history of premature CHD in Male < 55 years: female <65 yearsFa and Age men > 45 years; women >/= 55 years Outcomes/Goals: Pt IDs own risk factors & lifestyle modifications by Session 10, Verbalizes symptoms of angina & response by session 3., Pt independently manages and Other Additional Outcomes/Goals: Intervention/Plan: Advocate for lipid panel cholesterol medication if applicable, Instruct on personal lipid levels & lipid goals/NCEP guidelines, Instruct on cholesterol and Other additional plan/int 30-day Reassessments:: Met Diabetes (Other Core Measures) Diabetes Type: Not Applicable Weight Mgt (Other Care) Height: 5 ft 6 in Weight:: 166 lb BMI: 26.8 Diagnosis Overweight/Obesity BMI> 30% ICD-10 E66: No Diagnosis High BMI/Morbid Obesity BMI> 35% ICD-10 Z68: No Outcomes/Goals: Pt sets, maintains & shows weight loss goal & trend during rehab and Other additional outcomes/goals Intervention/Plan: Instruct on ideal BMI & set weight loss goal w/patient, Assist pt to ID & incorporate diet changes for weight loss by S9, Refer to Structured Weight Loss program as appropriate, Encourage goal of using 250-300dcal per session for weight loss and Other additional plan/interventions 30 day Reassessments:: Met Healthy Eating Habits Will attend diet classes:: Yes Outcomes/Goals:: Consume diet rich in vegs,fruits,whole grain/high fiber,fish,lean meat, Limit sat/trans fats,cholesterol & added salts & sugars and Other additional outcome/goals: Intervention/Plan:: Assess current eating habits and Other Additional plan/interventions 30-day Reassessments:: Met Education Gave educational materials for:: Signs & symptoms of hypoglycemia, Signs & symptoms of hyperglycemia, Relate diabetes to coronary artery disease and Healthy eating Nutrition - Final Assessment Weight Mgt (Other Care) Height: 5 ft 6 in Weight:: 166 lb BMI: 26.8
[2023-08-19 08:18] VITALS: BP 130/68
[2023-08-19 08:25] VITALS: BP 130/68; BMI 26.8
== END 2023-09-18 23:59 ==
LOC: CR 06:30
PROVIDERS: PCP Nurse Practitioner Family; Referring Provider Internal Medicine Cardiovascular Disease; Visit Provider Internal Medicine Cardiovascular Disease
DX: I25.10 Atherosclerotic heart disease of native coronary artery without angina pectoris (principal); Z95.1 Presence of aortocoronary bypass graft
CPT/HCPCS: 93798

== ENCOUNTER 2024-01-01 17:48 | Emergency (ER) | payer OTHER, SELFPAY ==
[2023-11-08 09:11] VITALS: BMI 26.8
[2024-01-01 17:49] VITALS: BP 143/105; PULSE 64; RESP 20; TEMP 36.6; O2SAT 96; BMI 27.3
[2024-01-01] MEDS: Ondansetron 4 MG/2 ML Vial IV (18:20)
[2024-01-01] MEDS: Ketorolac 15 MG/ML Vial IV (18:20)
[2024-01-01] MEDS: Morphine 4 MG/ML Syringe IV ×2 (18:21→22:52)
[2024-01-01 18:29] LABS: Absolute Lymphocyte Count 1.15 X10^3/uL (0.83-4.51); Absolute Neutrophil Count 9.7 X10^3/uL (2.0-7.7); Basophil# 0.03 X10^3/uL; Basophil% 0.3 % (0-1); Eosinophils% 0.8 % (0-5); Hematocrit 45.4 % (40-54); Hemoglobin 15.8 g/dL (13.0-16.5); Lymphocyte # 1.15 X10^3/ul (0.83-4.51); Lymphocyte % 9.7 % (19-41); Mean Corp Hgb Conc 34.8 g/dL (32-36); Mean Corpuscular Hgb 29.3 pg (27.0-32.0); Mean Corpuscular Volume 84.2 fL (80-94); Mean Platelet Vol. 10.4 fl (6.2-12.0); Monocyte# 0.87 X10^3/uL; Monocyte% 7.3 % (0-10); NRBC Flagged by Analyzer 0 % (0-5); Neutrophil # 9.65 X10^3/uL (2.7-7.7); Neutrophil % 81.6 % (47-70); Platelet Count 266 K/mm3 (150-450); RBC Distribution Width SD 39.7 fl (35.1-43.9); Red Blood Count 5.39 M/mm3 (4.6-6.2); White Blood Count 11.8 K/mm3 (4.4-11.0)
[2024-01-01 18:46] LABS: Anion Gap 6 (5-15); BUN 19 mg/dL (7-18); BUN/Creat Ratio 13.7 RATIO (10-20); Calcium,Total 9.2 mg/dL (8.5-10.1); Chloride 108 mmol/L (98-107); Creatinine, Serum 1.39 mg/dL (0.70-1.30); EST Glomerular Filtration Rate 55 mL/min (>60); Est Glom Filt Rate - Afr Amer 66 mL/min (>60); Estimated Creatinine Clearance 53.06 ml/min; Glucose 123 mg/dL (74-106); Potassium 4.2 mmol/L (3.5-5.1); Sodium Level 140 mmol/L (136-145)
[2024-01-01 19:25] LABS: Bacteria 0 SEEN /hpf (None Seen); Squamous Epithelial Cells - UA 0 SEEN /hpf (0-5)
[2024-01-01 19:32] LABS: Color, Urine Yellow (Yellow); Glucose, Dipstick Normal (Normal); Ketone-Dipstick Negative (Negative); Leukocyte Esterase-Dipstick Negative /ul (Negative); Nitrite-Dipstick Negative (Negative); Occult Blood-Urine 10 /ul (Negative); Protein-Dipstick 15 mg/dl (Negative); Urine Bilirubin Dipstick Negative (Negative); Urine Clarity Clear (Clear); Urine Urobilinogen Normal (Normal)
[2024-01-01 19:44] LABS: Mucous, Urine 1+ /hpf (<or=2+); Red Blood Cells-Urine 0-5 SEEN /hpf (0-5); White Blood Cells 0-5 SEEN /hpf (0-5)
[2024-01-01 19:48] VITALS: BP 102/61; PULSE 63; RESP 15; O2SAT 96
[2024-01-01 21:00] VITALS: BP 129/68; PULSE 57; RESP 18; O2SAT 96
[2024-01-01 22:56] VITALS: BP 138/83; PULSE 55; RESP 18; TEMP 36.6; O2SAT 96
== END 2024-01-01 23:20 | disposition home or self-care (01) ==
PROVIDERS: Emergency Provider Emergency Medicine; PCP Nurse Practitioner Family; Referring Provider Emergency Medicine; Visit Provider Emergency Medicine
DX: N13.2 Hydronephrosis with renal and ureteral calculous obstruction (principal); I50.30 Unspecified diastolic (congestive) heart failure; I11.0 Hypertensive heart disease with heart failure; K40.90 Unilateral inguinal hernia, without obstruction or gangrene, not specified as recurrent; I25.10 Atherosclerotic heart disease of native coronary artery without angina pectoris; I35.1 Nonrheumatic aortic (valve) insufficiency; E78.5 Hyperlipidemia, unspecified; R00.1 Bradycardia, unspecified; R91.8 Other nonspecific abnormal finding of lung field; R79.89 Other specified abnormal findings of blood chemistry; Z95.1 Presence of aortocoronary bypass graft; Z79.82 Long term (current) use of aspirin; Z79.899 Other long term (current) drug therapy; Z86.16 Personal history of COVID-19
CPT/HCPCS: 71260; 74176; 80048; 81001; 85025; 96374; 96375; 96376; 99283; Q9967; A4216; J2405

== ENCOUNTER → 2024-02-03 | Outpatient (CLI) | payer OTHER, SELFPAY ==
[2023-11-08 09:11] VITALS: BMI 26.8
[2024-02-03 10:50] LABS: ALB/GLOB Ratio 0.9 RATIO (0.9-2.4); AST(SGOT) 21 U/L (15-37); Alanine Aminotransfer ALT/SGPT 29 U/L (16-61); Albumin, Serum 3.6 g/dL (3.2-5.0); Alkaline Phosphatase 105 U/L (45-117); Anion Gap 4 (5-15); BUN 13 mg/dL (7-18); BUN/Creat Ratio 11.6 RATIO (10-20); Bilirubin, Direct 0.19 mg/dL (0.00-0.30); Calcium,Total 8.7 mg/dL (8.5-10.1); Chloride 110 mmol/L (98-107); Cholesterol 96 mg/dL (200); Creatinine, Serum 1.12 mg/dL (0.70-1.30); EST Glomerular Filtration Rate 70 mL/min (>60); Est Glom Filt Rate - Afr Amer 85 mL/min (>60); Globulin 3.8 g/dL (2.2-4.2); Glucose 99 mg/dL (74-106); High Density Lipoprotein 42 mg/dL; Potassium 3.9 mmol/L (3.5-5.1); Protein, Total 7.4 g/dL (6.4-8.2); Sodium Level 142 mmol/L (136-145); Triglycerides 112 mg/dL; Very Low Density Lipoprotein 22 mg/dL (5-40)
== END | disposition home or self-care (01) ==
PROVIDERS: PCP Nurse Practitioner Family; Referring Provider Internal Medicine Cardiovascular Disease; Visit Provider Internal Medicine Cardiovascular Disease
DX: I10 Essential (primary) hypertension (principal); E78.00 Pure hypercholesterolemia, unspecified; R93.1 Abnormal findings on diagnostic imaging of heart and coronary circulation
CPT/HCPCS: 36415; 80053; 80061; 82248

== ENCOUNTER → 2024-06-30 | Outpatient (CLI) | payer OTHER, SELFPAY ==
[2023-11-08 09:11] VITALS: BMI 26.8
[2024-06-30 08:46] LABS: AST(SGOT) 29 U/L (<=37); Alanine Aminotransfer ALT/SGPT 21 U/L (<=46); Albumin, Serum 4.1 g/dL (3.4-4.8); Alkaline Phosphatase 95 U/L (40-129); Bilirubin, Direct 0.18 mg/dL (0.00-0.30); Cholesterol 106 mg/dL (<=200); Globulin 2.9 g/dL (2.2-4.2); High Density Lipoprotein 34 mg/dL; Low Density Lipoprotein Calc. 40 mg/dL; Total Bilirubin 0.42 mg/dL (0.00-1.30); Triglycerides 161 mg/dL; Very Low Density Lipoprotein 32 mg/dL (5-40); cholesterol:hdl ratio screen 3.15
== END | disposition home or self-care (01) ==
LOC: LAB 07:35
PROVIDERS: PCP Nurse Practitioner Family; Referring Provider Internal Medicine Cardiovascular Disease; Visit Provider Internal Medicine Cardiovascular Disease
DX: E78.00 Pure hypercholesterolemia, unspecified (principal)
CPT/HCPCS: 36415; 80061; 80076

== ENCOUNTER → 2024-07-10 | Outpatient (CLI) | payer OTHER, SELFPAY ==
[2023-11-08 09:11] VITALS: BMI 26.8
[2024-07-10 09:51] LABS: Hematocrit 44.7 % (40-54); Mean Corp Hgb Conc 33.6 g/dL (32-36); Mean Corpuscular Hgb 29.1 pg (27.0-32.0); Mean Corpuscular Volume 86.8 fL (80-94); Mean Platelet Vol. 10.5 fl (6.2-12.0); Platelet Count 216 K/mm3 (150-450); RBC Distribution Width CV 12.8 % (11.6-14.6); RBC Distribution Width SD 39.9 fl (35.1-43.9); Red Blood Count 5.15 M/mm3 (4.6-6.2)
[2024-07-10 10:27] LABS: PSA,Total - Annual Screen 0.53 ng/mL (0.02-4.00)
== END | disposition home or self-care (01) ==
LOC: LAB 08:40
PROVIDERS: PCP Nurse Practitioner Family; Referring Provider Nurse Practitioner Family; Visit Provider Nurse Practitioner Family
DX: Z00.00 Encounter for general adult medical examination without abnormal findings (principal); Z12.5 Encounter for screening for malignant neoplasm of prostate
CPT/HCPCS: 36415; 84153; 85027; G0103

== ENCOUNTER → 2025-01-09 | Outpatient (CLI) | payer OTHER, SELFPAY ==
[2023-11-08 09:11] VITALS: BMI 26.8
--- OUTSIDE RECORDS SUMMARY | 2025-01-09 07:05 | XMS RPT_ITS | CCD ---
Author Organization [facility] Care Team Providers Care Consumer Attorney Name Role Phone ALYSHA MEDICAL OFFICE SUPERVISOR - WELFARE WORKER, SUZI Stein Primary Care Phys ician ALYSHA TOLBERT - SIDNEY, SUZI Stein Attending U navailable ALYSHA TOLBERT - WELFARE WORKER, SUZI Stein Primary Care U navailable ALYSHA MEDICAL OFFICE SUPERVISOR - WELFARE WORKER, SUZI Stein Attending U navailable ALYSHA MEDICAL OFFICE SUPERVISOR - WELFARE WORKER, SUZI Stein Primary Care U navailable [place] CTC OPERATOR, CTC OPERATOR-C Suzi Sorenson Primary Care Pr ovider Alysha CTC OPERATOR, CTC OPERATOR-C Suzi Sorenson Referring Provi ananda Mil, Dr. Sky Attending Provider [phone] Mil, Dr. Sky Referring Provider Mil, Dr. Sky Other Provider Dr. Angel Bains Attending Provider [phone] Suzi Encarnacion Primary Care Provider [phone] KATJA STEINBERG Attending Unavailabl e ALYSHA, SUZI Primary Care Unavailable KATJA STEINBERG Attending Unavailabl e ALYSHA, SUZI Primary Care Unavailable KATJA STEINBERG Attending Unavailabl e ALYSHA, SUZI Primary Care Unavailable NONE, PCP Referring Unavailable ALYSHA, SUZI Primary Care Unavailable STARKEY, RAMBO Admitting Unavailable STARKEY, RAMBO Attending Unavailable NANCY OSEGUERA Consulting Unavailable Alysha CTC OPERATOR, CTC OPERATOR-C Suzi Sorenson Primary Care Pr ovider Alysha CTC OPERATOR, CTC OPERATOR-C Suzi Sorenson Referring Provi ananda Mil, Dr. Sky Attending Provider Mil, Dr. Sky Referring Provider Mil, Dr. Sky Other Provider Dr. Angel Bains Attending Provider [place] CTC OPERATOR-C, Suzi Sorenson Primary Care Provi ananda Alysha CTC OPERATOR-C, Suzi Sorenson Referring Provider Mil JARQUIN, Dr. Sky Attending Provider Mil JARQUIN, Dr. Sky Referring Provider Alysha CTC OPERATOR-C, Suzi Sorenson Attending Provider [place] CTC OPERATOR-C, Suzi Sorenson Primary Care Physi raquel [place] CTC OPERATOR-C, Suzi Sorenson Attending Physicia n [place] CTC OPERATOR-C, Suzi Sorenson Referring Provider Mil JARQUIN, Dr. Sky Attending Physician Orozco, Steve Referring Unavailable Orozco, Steve Attending Unavailable Alysha CTC OPERATOR, Suzi Sorenson Primary Care Unav ailable [place] CTC OPERATOR, Suzi Sorenson Primary Care Unav ailable Alysha CTC OPERATOR, Suzi Sorenson Attending Unav ailable Mil, Jose Daniel Attending Unavailable Alysha CTC OPERATOR, Suzi Sorenson Referring Unav ailable [place] CTC OPERATOR, Suzi Sorenson Primary Care Unav ailable Mil, Jose Daniel Attending Unavailable Alysha CTC OPERATOR, Suzi Sorenson Referring Unav ailable [place] CTC OPERATOR, Suzi Sorenson Primary Care Unav ailable Mil, Jose Daniel Attending Unavailable Alysha CTC OPERATOR, Suzi Sorenson Primary Care Unav ailable Alysha CTC OPERATOR, Suzi Sorenson Referring Unav ailable Mil, Jose Daniel Attending Unavailable [place] CTC OPERATOR, Suzi Sorenson Primary Care Unav ailable Mil, Jose Daniel Referring Unavailable Mil, Jose Daniel Attending Unavailable Mil, Jose Daniel Referring Unavailable Alysha CTC OPERATOR, Suzi Sorenson Primary Care Unav ailable [place] CTC OPERATOR, Suzi Sorenson Primary Care Unav ailable [place] CTC OPERATOR, Suzi Sorenson Referring Unav ailable Alysha CTC OPERATOR, Suzi Sorenson Attending [facility] ailable Medications Current Medications Medication Drug Class(es) Dates Sig (Normalized) Sig (Original) acetaminophen 500 mg oral tablet (15 sources) Start: 04-24-2023 End: 05-02-2023 take 2 tablets by mouth twice daily as needed Acetaminophen 500 mg tablet Active 1000 mg PO TWICE A DAY as needed May 02, 2023 9:09am Complies with drug therapy Start: 04-24-2023 End: 05-02-2023 take 1000 mg by mouth twice daily Acetaminophen Active 1000 MG PO TWICE A DAY May 02, 2023 9:09am Start: 04-02-2023 End: 04-12-2023 take 2 tablets by mouth every eight hours acetaminophen (Tylenol) 500 MG tablet Take 2 tablets (1,000 mg) by mouth in the morning and 2 tablets (1,000 mg) at noon and 2 tablets (1,000 mg) before bedtime. Do all this for 10 days. 0 04/02/2023 04/12/2023 Active Start: 03-29-2023 End: 04-02-2023 take 1 tablet by mouth every eight hours 1,000 mg, Oral, Every 8 hours, First dose on Sat03/29/23 at 1215, Recovery & On Unit apixaban 5 mg oral tablet (5 sources) Factor Xa Inhibitor Start: 03-03-2021 End: 07-01-2021 Eliquis 5 mg oral tablet Dose : 5 mg = 1 tab(s), Oral, BID, # 60 tab(s), 3 Refill(s), Pharmacy: [facility], 170, cm, 03/03/21 16:50:00 EST, Height, 72.5, kg, 03/03/21 16:50:00 EST, Dosing Weight Start Date: 03/03/21 Stop Date: 07/01/21 Status: Ordered Start: 02-07-2021 End: 03-09-2021 Eliquis Starter Pack for Kenneth atment of DVT and PE 5 mg oral tablet [10mg BID x 7days-then 5mg BID], Oral, BID, # 74 tab(s), 0 Refill(s), DVT Treatment Dosing, Pharmacy: [facility], 170, cm, 02/07/21 8:20:00 EST, Height, 71.2, kg, 02/07/21 8:20:00 EST, Dosing Weight Start Date: 02/07/21 Stop Date: 03/09/21 Status: Ordered aspirin 81 mg delayed release oral tablet (15 sources) Platelet Aggregation Inhibitor, Nonsteroidal Anti-inflammatory Drug Start: 02-28-2023 End: 09-04-2024 take 1 tablet by mouth once daily Aspirin 81 mg tablet,delayed release (DR/EC) Active 81 mg PO DAILY September 04, 2024 5:18pm Complies with drug therapy ferrous sulfate 325 mg oral tablet (3 sources) Start: 11-11-2023 take 1 tablet by mouth once daily Ferrous Sulfate (Feosol) 325 mg (65 mg iron) tablet Active 325 mg PO daily November 11, 2023 12:00am Complies with drug therapy Pqrkfjrd-Xqu-Izgyt -Vit K-Lycop (One-A-Day Men's Multivitamin) 400-20-300 mcg tablet (1 source) Start: 11-04-2024 Dxvsvdfu-Yfe-Baoof- Vit K-Lycop (One-A-Day Men's Multivitamin) 400-20-300 mcg tablet Active 1 {tbl} PO DAILY November 04, 2024 12:00am Complies with drug therapy pantoprazole 40 mg delayed release oral tablet (20 sources) Proton Pump Inhibitor Start: 03-30-2023 End: 03-30-2023 40 mg, IntraVENous, Administer over 2 Minutes, Daily, First dose on 03/30/23 at 0600, Phase II/On Unit, Reconstitute with 10 mL 0.9 % sodium chloride and administer over at least 2 minutes. Start: 07-14-2020 End: 04-02-2023 take 1 tablet by mouth once daily Pantoprazole 40 mg Tablet,Delayed Release (Dr/Ec) Active 40 mg PO DAILY July 14, 2020 12:00am Complies with drug therapy rosuvastatin calcium 20 mg oral tablet (20 sources) HMG-CoA Reductase Inhibitor Start: 05-08-2024 End: 09-04-2024 take 1 tablet by mouth once daily Rosuvastatin 20 mg tablet Active 20 mg PO daily September 04, 2024 5:19pm Complies with drug therapy Start: 05-07-2024 End: 05-08-2024 take 1 tablet by mouth once daily Rosuvastatin 10 mg tablet Discontinued 10 mg PO daily 90 3 May 07, 2024 3:07pm May 08, 2024 11:31am Start: 05-05-2024 End: 05-07-2024 take 10 mg by mouth once daily Rosuvastatin 20 mg tabl et Discontinued 10 mg PO daily May 05, 2024 2:45pm May 07, 2024 3:07pm Start: 11-11-2023 End: 05-05-2024 take 1 tablet by mouth once daily Rosuvastatin 20 mg tablet Discontinued 20 mg PO daily 90 3 November 11, 2023 12:00am May 05, 2024 2:46pm Start: 04-03-2023 End: 11-11-2023 take 1 tablet by mouth once daily Rosuvastatin 40 mg tablet Discontinued 40 mg PO DAILY 90 3 May 02, 2023 2:21pm November 11, 2023 9:44am Start: 03-30-2023 End: 04-02-2023 rosuvastatin (Crestor) table t 40 mg [place] (10 sources) Start: 11-11-2023 take 1 capsule by mo uth once daily at mealtime [place] 450 mg capsule Active 450 mg PO daily November 11, 2023 12:00am give with food (meal/snack) Complies with drug therapy Start: 11-11-2023 take 1 capsule by mo uth once daily at mealtime [place] 450 mg capsule Active 450 mg PO daily November 11, 2023 12:00am give with food (meal/snack) Start: 02-25-2023 End: 04-24-2023 take 1 capsule by mouth once daily [place] 160 mg capsule Discontinued 320 mg PO DAILY February 25, 2023 1:00am April 24, 2023 2:18pm give with meal/snack Start: 02-25-2023 End: 04-24-2023 take 320 mg by mouth once daily [place] Discontin ued 320 MG PO DAILY February 25, 2023 1:00am April 24, 2023 2:18pm give with meal/snack Start: 02-25-2023 take 320 mg by mouth once vish y [place] Active 320 MG PO DAILY February 25, 2023 12:00am give with meal/snack Completed/Discontinued Medications Medication Drug Class(es) Dates Sig (Normalized) Sig (Original) acetaminophen 325 mg / HYDROcodone bitartrate 5 mg oral tablet (12 sources) Opioid Agonist Start: 07-14-2020 End: 02-25-2023 Hydrocodone-Acetami nophen 5-325 mg tablet Discontinued 1 {tbl} PO EVERY 6 HOURS NEEDED as needed for Pain 12 3 0 July 14, 2020 February 25, 2023 2:05pm Renal colic Unspecified renal colic Start: 07-14-2020 End: 02-25-2023 take 1 tablet by mouth every six hours as needed Hydrocodone-Acetaminophen Discontinued 1 TABLET PO EVERY 6 HOURS NEEDED 12 3 July 14, 2020 February 25, 2023 2:05pm acetaminophen 325 mg / oxyCODONE hydrochloride 5 mg oral tablet (3 sources) Opioid Agonist Start: 01-01-2024 End: 11-04-2024 Oxycodone-Acetaminophen 5-32 5 mg tablet Discontinued 1 {tbl} PO EVERY 6 HOURS NEEDED as needed for pain 20 5 0 January 01, 2024 November 04, 2024 9:06am Hydronephrosis with urinary obstruction due to ureteral calculus High serum creatinine Hydronephrosis with renal and ureteral calculous obstruction Other specified abnormal findings of blood chemistry 20 ml albumin human, fpc 250 mg/ml injection (4 sources) Human Serum Albumin Start: 03-29-2023 End: 03-29-2023 50 g, IntraVENous, at 200 mL/hr, Administer over 1 Hours, Once, On Sat03/29/23 at 1245, For 1 dose Start: 03-29-2023 End: 03-31-2023 25 g, IntraVENous, at 60 mL/ hr, As needed, fluid bolus challenge PRN: PAD below goal (18) and/or Low BP (less than 90 SBP and/or less than 60 MAP) and/or Low urine output (less than 30ml/hr) per hemodynamic goals, Starting on Sat03/29/23 at 1200, For 2 doses, Phase II/On Unit, To be given in conjunction with PRN 250ml Lactate Ringer Bolus Use if hgb greater than 7.5 and PAD below goal (18) and/or Low BP (less than 90 SBP and/or less than 60 MAP) and/or Low urine output (less than 30ml/hr) per hemodynamic goals If hemodynamic goals unattained, proceed to second fluid bolus challenge If hgb less than 7.5 notify surgeon for orders. albuterol 0.833 mg/ml / ipratropium bromide 0.167 mg/ml inhalation solution (2 sources) Anticholinergic, beta2-Adrenergic Agonist Start: 03-29-2023 End: 04-02-2023 3 mL, Nebulization, 3 times daily PRN, wheezing, shortness of breath, Starting on Sat03/29/23 at 1200, Recovery & On Unit albuterol MDI (90 mcg/inh) CFC free inhalation aerosol (3 sources) Start: 02-07-2021 End: 04-08-2021 take 2 puff(s) by inhalation every six hours albuterol MDI (90 mcg/inh) CFC free inhalation aerosol 2 puff(s), Inhalation, q6h, # 18 gram(s), 1 Refill(s), Pharmacy: [facility], [place] [id number] Cough, 170, cm, 02/07/21 8:20:00 EST, Height, kg, 02/07/21 8:20:00 EST, Dosing Weight Start Date: 02/07/21 Stop Date: 04/08/21 Status: Ordered amLODIPine 2.5 mg oral tablet (19 sources) Dihydropyridine Calcium Channel Aba Start: 03-30-2023 End: 05-09-2023 take 1 tablet by mouth once daily Amlodipine 2.5 mg tablet Discontinued 2.5 mg PO DAILY April 24, 2023 1:00am May 02, 2023 9:10am Start: 02-28-2023 End: 04-24-2023 take 1 tablet by mouth once daily Amlodipine 5 mg tablet Discontinued 5 mg PO DAILY February 28, 2023 1:00am April 24, 2023 2:16pm atorvastatin 80 mg oral tablet (9 sources) HMG-CoA Reductase Inhibitor Start: 03-28-2023 End: 03-29-2023 take 80 mg by mouth once daily 80 mg, Oral, Daily, First dose on Sat03/28/23 at 1400 Start: 02-28-2023 End: 04-24-2023 take 1 tablet by mouth at bedtime Atorvastatin 10 mg tablet Discontinued 10 mg PO AT BEDTIME 90 3 February 28, 2023 1:00am April 24, 2023 2:16pm calcium chloride 0.0014 meq/ml / potassium chloride 0.004 meq/ml / sodium chloride 0.103 meq/ml / sodium lactate 0.028 meq/ml injectable solution (4 sources) Start: 03-29-2023 End: 03-30-2023 500 mL, IntraVENous, at 500 mL/hr, Administer over 1 Hours, Once, On Sat03/29/23 at 1245, For 1 dose 100 ml calcium gluconate 20 mg/ml injection (2 sources) Start: 03-29-2023 End: 04-02-2023 2,000 mg, IntraVENous, at 50 mL/hr, Administer over 2 Hours, PRN, ionized calcium less than 4.3, Starting on Sat03/29/23 at 1200, Recovery & On Unit, Give 2000 mg for ionized calcium less than 4.3 premix bag ceFAZolin 2000 mg injection (2 sources) Cephalosporin Antibacterial Start: 03-29-2023 End: 03-31-2023 take 2000 mg intravenously every eight hours 2,000 mg, IntraVENous, Administer over 30 Minutes, Every 8 hours, First dose on Sat03/29/23 at 1800, For 5 doses, Phase II/On Unit, premix bag, Suspected Indication (Select all that apply): Surgical Prophylaxis chlorhexidine gluconate 1.2 mg/ml mouthwash (4 sources) Start: 03-29-2023 End: 04-02-2023 take 15 mL by mouth twice daily 15 mL, Mouth/Throat, 2 times daily, First dose on Sat03/29/23 at 1215, For 7 days, Phase II/On Unit, Rinse and spit. Do not swallow. Start: 03-28-2023 End: 03-29-2023 chlorhexidine (Peridex) 0.12 % solution 15 mL cholecalciferol 9.52 unt/ml / glucose 357 mg/ml oral gel (2 sources) Vitamin D Start: 03-29-2023 End: 04-02-2023 15 g, Oral, As needed, low blood sugar, Starting on Sat03/29/23 at 1200, Recovery & On Unit, If blood glucose less than 50 mg/dL and patient ALERT and NOT NPO, give 2 tubes glucose gel. If blood glucose less than 70 mg/dL and patient ALERT and NOT NPO, give 1 tube glucose gel. Repeat blood glucose in 15 minutes. If blood glucose is less than 70 mg/dL, repeat treatment and recheck blood glucose in 15 minutes x2 and notify provider. dexamethasone 6 mg oral tablet (12 sources) Corticosteroid Start: 01-29-2021 End: 02-25-2023 take 1 tablet by mouth once daily Dexamethasone 6 mg tablet Discontinued 6 mg PO DAILY 7 0 January 29, 2021 1:00am February 25, 2023 2:05pm docusate sodium 50 mg / sennosides, fpc 8.6 mg oral tablet (2 sources) Start: 03-29-2023 End: 04-02-2023 take 2 tablets by mouth once daily for constipation 2 tablet, Oral, Nightly, First dose on Sat03/29/23 at 2100, Recovery & On Unit, Bowel Regimen - for prevention of constipation. furosemide 40 mg oral tablet (7 sources) Loop Diuretic Start: 04-02-2023 End: 04-08-2023 take 1 tablet by mouth once daily furosemide (Lasix) 40 MG tablet Take 1 tablet (40 mg) by mouth daily for 4 doses. 4 tablet 0 04/03/2023 04/08/2023 Discontinued (Therapy completed) Start: 03-30-2023 End: 04-01-2023 furosemide (Lasix) injection 40 mg glucagon (rdna) 1 mg injection (2 sources) Antihypoglycemic Agent Start: 03-29-2023 End: 04-02-2023 1 mg, IntraMUSCular, PRN, low blood sugar, Blood glucose less than 70 mg/dL and patient NOT ALERT or NPO and does not have IV access., Starting on Sat03/29/23 at 1200, Recovery & On Unit, After administration, attempt intravenous access and start D5W at 100 mL/hr. Repeat blood glucose in 15 minutes x2 and notify provider. 1000 ml glucose 500 mg/ml injection (6 sources) Start: 03-29-2023 End: 03-29-2023 dextrose 50 % solution - Pyxis ADS Override Pull Start: 03-29-2023 End: 04-02-2023 12.5 g, IntraVENous, PRN, lo w blood sugar, Blood glucose less than 70 mg/dL and patient NOT ALERT or NPO., Starting on Sat03/29/23 at 1200, Recovery & On Unit, If patient does not respond within 5 minutes, repeat dose x1. Start D5W at 100 mL/hour until ordering provider can be reached. Repeat blood glucose in 15 minutes. If blood glucose is less than 70 mg/dL, repeat treatment and recheck blood glucose in 15 minutes x2. If using Glucostabilizer, dose as instructed per system. Start: 03-29-2023 End: 04-02-2023 100 mL/hr, IntraVENous, PRN, Blood sugar less than 70mg/dL, Starting on Sat03/29/23 at 1200, Recovery & On Unit, Start infusion following administration of dextrose 50% or glucagon. 0.5 ml heparin sodium, porcine 78135 unt/ml prefilled syringe (2 sources) Unfractionated Heparin, Anti-coagulant Start: 03-30-2023 End: 04-02-2023 heparin injection 5,000 Units 100 ml insulin, regular, human 1 unt/ml injection (2 sources) Insulin Start: 03-29-2023 End: 03-30-2023 1-50 Units/hr (1-50 mL/hr), IntraVENous, Continuous, Starting on Sat03/29/23 at 1215, Recovery & On Unit, As guided by calculator flowsheet Low target: 120 High target: 160 Hold insulin infusion if BS< 100 mg/dl, if BS < 70 mg/dl follow hypoglycemia treatment orders, continue to check BS as ordered, and restart insulin infusion if and when BS increases back into goal range. BUD: 30 days at room temperature 1 ml ketorolac tromethamine 15 mg/ml cartridge (4 sources) Nonsteroidal Anti-inflammatory Drug, Cyclooxygenase Inhibitor Start: 03-29-2023 End: 03-31-2023 take 15 mg intravenously every six hours ketorolac (Toradol) injection 15 mg lidocaine 0.04 mg/mg medicated patch (2 sources) Antiarrhythmic, Amide Local Anesthetic Start: 03-29-2023 End: 04-02-2023 1 patch, Topical, Administer over 12 Hours, Daily, First dose on Sat03/29/23 at 1215, Recovery & On Unit, Cut in half and place on both sides of the incision. Patch may remain in place for up to 12 hours in any 24 hour period. magnesium hydroxide 80 mg/ml oral suspension (2 sources) Start: 04-01-2023 End: 04-02-2023 magnesium hydroxide (Milk of Magnesia) 400 MG/5ML suspension 30 mL Magnesium M-Uhzezi-Sepmecag oleg (Mag-Amide) 42 mg (500 mg)- 250 mg tablet extended release (7 sources) Start: 02-25-2023 End: 04-24-2023 Magnesium F-Oeeejq-Hyafrux mide (Mag-Amide) 42 mg (500 mg)- 250 mg tablet extended release Discontinued 1 {tbl} PO DAILY February 25, 2023 1:00am April 24, 2023 2:18pm Start: 02-25-2023 End: 04-24-2023 take 1 tablet by mouth once daily Magnesium Z-Yzydln-Xeaicbeznxp (Mag-Amide) 42 mg (500 mg)- 250 mg tablet extended release Discontinued 1 TABLET PO DAILY February 25, 2023 1:00am April 24, 2023 2:18pm Start: 02-25-2023 take 1 tablet by brigido th once daily Magnesium L-Nfjnji-Odanumdupjy (Mag-Amide) 42 mg (500 mg)- 250 mg tablet extended release Active 1 TABLET PO DAILY February 25, 2023 12:00am metoprolol tartrate 25 mg oral tablet (20 sources) beta-Adrenergic Aba Start: 04-01-2023 End: 09-04-2024 take 1 tablet by mouth twice daily Metoprolol Tartrate 25 mg tablet Discontinued 25 mg PO TWICE A DAY 180 3 May 02, 2023 11:41am May 05, 2024 3:15pm Start: 03-31-2023 End: 04-01-2023 metoprolol tartrate (Lopress or) tablet 12.5 mg 1 ml morphine sulfate 4 mg/ml cartridge (2 sources) Opioid Agonist Start: 03-29-2023 End: 03-29-2023 morphine injection 2 mg Start: 03-29-2023 End: 03-29-2023 morphine injection 2 mg mupirocin 0.02 mg/mg topical ointment (4 sources) RNA Synthetase Inhibitor Antibacterial Start: 03-28-2023 End: 04-01-2023 Nasal, 2 times daily, First dose on Sat03/29/23 at 1215, For 4 days, Phase II/On Unit 1 ml naloxone hydrochloride 0.4 mg/ml injection (2 sources) Opioid Antagonist Start: 03-31-2023 End: 04-02-2023 naloxone (Narcan) injection 0.4 mg 250 ml nitroglycerin 0.2 mg/ml injection (4 sources) Nitrate Vasodilator Start: 03-29-2023 End: 03-29-2023 nitroglycerin (Tridil) 200 mcg/mL infusion - Pyxis ADS Override Pull Start: 03-29-2023 End: 03-30-2023 nitroGLYCERIN 50 mg in dextr ose 5% 250 mL infusion [place] 8-Rww-Afu-Fish Oil (Fi sh Oil) 300-1,000 mg capsule,delayed release(DR/EC) (7 sources) Start: 02-28-2023 End: 04-24-2023 [place] 1-Rar-Wha-Fish Oil (Fi sh Oil) 300-1,000 mg capsule,delayed release(DR/EC) Discontinued 1 NMA PO DAILY February 28, 2023 1:00am April 24, 2023 2:18pm Start: 02-28-2023 End: 04-24-2023 take 300-1000 mg by mouth once daily [place] 2-Uvw-Dvq-Fish Oil (Fish Oil) 300-1,000 mg capsule,delayed release(DR/EC) Discontinued 1 CAP PO DAILY February 28, 2023 1:00am April 24, 2023 2:18pm Start: 02-28-2023 take 300-1000 mg by mouth once daily [place] 4-Tbs-Srm-Fish Oil (Fish Oil) 300-1,000 mg capsule,delayed release(DR/EC) Active 1 CAP PO DAILY February 28, 2023 12:00am ondansetron 4 mg disintegrating oral tablet (12 sources) Serotonin-3 Receptor Antagonist Start: 07-14-2020 End: 02-25-2023 take 1 tablet by mouth every eight hours as needed for nausea Ondansetron 4 mg tablet,disintegrating Discontinued 4 mg PO EVERY 8 HOURS NEEDED as needed for Nausea July 14, 2020 12:00am February 25, 2023 2:05pm ondansetron ODT (Zofran-ODT) disintegrating tablet 4 mg (2 sources) Start: 03-29-2023 End: 04-02-2023 take 1 tablet by mouth every eight hours as needed for nausea and vomiting ondansetron ODT (Zofran-ODT) disintegrating tablet 4 mg oxyCODONE hydrochloride 5 mg oral tablet (10 sources) Opioid Agonist Start: 04-24-2023 End: 11-11-2023 take 1 tablet by mouth every six hours as needed Oxycodone 5 mg tablet Discontinued 5 mg PO EVERY 6 HOURS as needed 0 April 24, 2023 1:00am November 11, 2023 9:16am Start: 04-02-2023 End: 04-09-2023 take 1 tablet by mouth every six hours as needed for pain oxyCODONE (Roxicodone) 5 MG immediate release tablet Indications: CAD in [place] artery Take 1 tablet (5 mg) by mouth every 6 hours as needed for severe pain (7-10) for up to 7 days. 28 tablet 0 04/02/2023 04/09/2023 Active Start: 03-29-2023 End: 04-02-2023 take 1 tablet by mouth every four hours as needed for pain oxyCODONE (Roxicodone) immediate release tablet 5 mg polyethylene glycol 3350 [id number] mg powder for oral solution (2 sources) Osmotic Laxative Start: 03-29-2023 End: 04-02-2023 17 g, Oral, Daily, First dose on 03/29/23 at 1215, Recovery & On Unit, Bowel Regimen - for prevention of constipation. microencapsulated potassium chloride 10 meq extended release oral tablet (2 sources) Start: 03-30-2023 End: 04-02-2023 20 mEq, Oral, PRN, Hypokalemia, Starting on 03/30/23 at 0000, Phase II/On Unit, If patient is intubated or not tolerating PO use PRN IV replacement protocol Potassium level Dose LESS than 3.0 = Give 20 mEq x 3 doses 3.0-3.6 = Give 20 mEq x 2 doses Recheck potassium level 2 hour after replacement given, place order for lab under [place] If potassium level LESS than 3 after 1st replacement: Call surgeon. Do not crush or break. Do not crush or chew. 100 ml propofol 10 mg/ml injection (2 sources) General Anesthetic Start: 03-29-2023 End: 03-29-2023 5-50 mcg/kg/min 73.6 kg (2.208-22.08 mL/hr, rounded to 2.21-22.08 mL/hr), IntraVENous, Continuous, Starting on Sat03/29/23 at 1215, Recovery & On Unit, Instructions If RASS 1 point below goal - decrease dose by 5mcg/kg/min no faster than every 5 min If RASS 2 points below goal- decrease dose by 10mcg/kg/min no faster than every 5 min If RASS at goal, continue current dose If RASS 2 or more points above goal - increase dose by 10mcg/kg/min no faster than every 5 min If RASS 1 point above goal - increase dosee by 5mcg/kg/min no faster than every 5 min If after titration rate change patient exhibits adverse hemodynamic response, next titration rate change may be adjusted by one-half of the previous rate change If patient fails sedation interruption, resume propofol titration at 50% of previous rate General Anesthetic - do not give without appropriate ventilation support. Do not administer propofol in same IV catheter as blood or plasma. Discard any unused portion of propofol vials and tubing after 12 hours., Titrate Infusion? Yes, Initial Infusion Dose: 30 mcg/kg/min, Goal of Therapy: RASS of -1 to 0, Contact Provider if: Patient is receiving maximum dose and is not achieving the goal of therapy saw palmetto 320mg with phytosterols oral capsule (3 sources) Start: 01-19-2020 End: 02-18-2020 saw palmetto 320mg with phytosterols oral capsule Dose : 320 mg = 1 cap(s), Oral, BID, OTC, # 60 cap(s), 0 Refill(s), other reason (Rx), BPH without urinary obstruction Start Date: 01/19/20 Stop Date: 02/18/20 Status: Ordered 5 ml sodium chloride 9 mg/ml injection (10 sources) Start: 03-29-2023 End: 04-02-2023 10 mL, IntraVENous, Every 12 hours scheduled (2 times per day), First dose on Sat03/29/23 at 2100, Recovery & On Unit Start: 03-29-2023 End: 03-30-2023 take 20 mL intravenously every hour 20 mL/hr, IntraVENous, Continuous, Starting on Sat03/29/23 at 1215, Recovery & On Unit, 20 ml/hr to SP(introducer) and WT on [place] Bernadette Catheter; once [place] discontinued run at 20 ml/hr through SP(introducer) Start: 03-29-2023 End: 04-02-2023 take 100 mL intravenously every hour as needed, then take 20 mL intravenously every hour as needed 5-250 mL/hr, IntraVENous, PRN, if patient receiving piggyback infusions and maintenance fluids are not ordered OR KVO fluids to protect IV site / prevent frequent line interruptions/ long duration, Starting on Sat03/29/23 at 1200, Recovery [facility] On Unit, For piggyback infusion, administer at same rate as piggyback for a total of 25 mL. Enter 25 mL into dose field and piggyback rate into rate field of order. If piggyback is infusing at a rate less than 100 mL/hr, enter 25 mL into dose field and 100 mL/hr into rate field of order. For KVO fluids, enter rate of 20 mL/hr or less into rate field of order. Start: 03-29-2023 End: 04-02-2023 take 10 mL intravenously once as needed 10 mL, IntraVENous, PRN, line care, Starting on Sat03/29/23 at 1200, Recovery [facility] On Unit, After every IV line use Start: 03-28-2023 End: 03-29-2023 take 5-40 mL intravenously every twelve hours 5-40 mL, IntraVENous, Every 12 hours, First dose on Sat03/28/23 at 1400, For Line Patency: Peripheral IV = 5 mL; Midline or Central Line = 10 mL/lumen. If following IV push medication, administer flush at same rate as the IV push. Flush volume is determined by type of infusion therapy being given. For non-viscous solutions use: Peripheral IV = 5 mL Midline or Central Line = 10 mL/lumen For viscous solutions (i.e. blood components, parenteral nutrition, contrast media, or after obtaining blood sample) use: Peripheral IV = 10 mL Midline or Central Line = 20 mL/lumen Stiolto Respimat 60 ACT 2.5 mcg-2.5 mcg/inh inhalation aerosol (3 sources) Start: 02-07-2021 End: 04-08-2021 take 1 dose by inhalation once daily Stiolto Respimat 60 ACT 2.5 mcg-2.5 mcg/inh inhalation aerosol Dose = 2 puff(s), Inhalation, qDay, # 4 gram(s), 1 Refill(s), Pharmacy: [facility], Atypical pneumonia, 170, cm, 02/07/21 8:20:00 EST, Height, kg, 02/07/21 8:20:00 EST, Dosing Weight Start Date: 02/07/21 Stop Date: 04/08/21 Status: Ordered 5 ml sugammadex 100 mg/ml injection (2 sources) Start: 03-29-2023 End: 03-29-2023 sugammadex (Bridion) injection 295 mg tamsulosin hydrochloride 0.4 mg oral capsule (12 sources) alpha-Adrenerg ic Aba Start: 07-14-2020 End: 02-25-2023 take 1 capsule by mouth once daily Tamsulosin (Flomax) 0.4 mg capsule Discontinued 0.4 mg PO DAILY July 14, 2020 12:00am February 25, 2023 2:05pm Problems Active Problems Problem Classification Problem Date Documented Da te Episodic/Chronic Abdominal hernia (3 sources) Right inguinal hernia ; Translations: [Unilateral inguinal hernia, without obstruction or gangrene, not specified as recurrent] 01-09-2024 Episodic Calculus of urinary tract (12 sources) Renal colic; Translations: [Unspecified renal colic] 07-14-2020 Episodic Cardiac dysrhythmias (3 sources) Sinus bradycardia; Translations: [Bradycardia, unspecified] 01-09-2024 Episodic Coronary atherosclerosis and other heart disease (20 sources) Coronary arteriosclerosis; Translations: [Atherosclerotic heart disease of [place] coronary artery without angina pectoris] Onset: 4 02-28-2023 Chronic Comment on above: CABG in March 4. JACOBSEN to the LAD, radial artery graft to the first diagonal and vein graft to the second diagonal. Coronary atherosclerosis and other heart disease (2 sources) Presence of aortocoronary bypass graft; Translations: [Presence of aortocoronary bypass graft] Onset: 4 Episodic Disorders of lipid metabolism (20 sources) Dyslipidemia; Translations: [Hyperlipidemia, unspecified] Onset: 5 02-28-2023 Chronic Esophageal disorders (3 sources) Gastroesophageal reflux disease 12-12-2018 Chronic Essential hypertension (17 sources) Hypertensive disorder; Translations: [Essential (primary) hypertension] Onset: 5 02-28-2023 Chronic Heart valve disorders (9 sources) Aortic valve regurgitation; Translations: [Nonrheumatic aortic (valve) insufficiency] 03-03-2021 Chronic Hyperplasia of prostate (3 sources) Benign prostatic hypertrophy without outflow obstruction 01-19-2020 Chronic Nonspecific chest pain (19 sources) Chest pain on exertion; Translations: [Chest pain, unspecified] Onset: 5 02-25-2023 Episodic Other and ill-defined heart disease (2 sources) 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 Comment on above: Echo summary: 2 1. Left ventricle: The cavity size is normal. Wall thickness is mildly to moderately increased. Systolic function is normal. The estimated ejection fraction is 55%. Wall motion is normal; there are no regional wall motion abnormalities. Grade I diastolic dysfunction. 2. Aortic valve: There is trivial regurgitation. 3. Right ventricle: The RV systolic pressure by Doppler is 20 mm Hg. Other and ill-defined heart disease (10 sources) Diastolic dysfunction; Translations: [Other ill-defined heart diseases] 02-28-2023 Chronic Other and ill-defined heart disease (7 sources) Other ill-defined heart diseases; Translations: [Heart disease, unspecified] Onset: 5 02-28-2023 Chronic Other diseases of kidney and ureters (3 sources) Hydronephrosis with renal and ureteral calculous obstruction; Translations: [Hydronephrosis with urinary obstruction due to ureteral calculus] 01-09-2024 Episodic Other lower respiratory disease (3 sources) Hypoxia 01-27-2021 Episodic Other lower respiratory disease (7 sources) Dyspnea on exertion; Translations: [Other forms of dyspnea] 02-25-2023 Episodic Other lower respiratory disease (7 sources) Dyspnea; Translations: [Dyspnea, unspecified] 02-25-2023 Episodic Other lower respiratory disease (3 sources) Multiple nodules of lung; Translations: [Other nonspecific abnormal finding of lung field] 01-09-2024 Episodic Other lower respiratory disease (1 source) Other forms of dyspnea; Translations: [Other forms of dyspnea] Onset: 5 Episodic Other non-traumatic joint disorders (2 sources) Pain in wrist; Translations: [Pain in left wrist] 11-11-2023 Episodic Other non-traumatic joint disorders (1 source) Pain of left wrist; Translations: [Pain in left wrist] 11-11-2023 Episodic Other screening for suspected conditions (not mental disorders or infectious disease) (15 sources) CT of chest abnormal; Translations: [D-dimer above reference range] 01-30-2021 Episodic Comment on above: CTA CHEST: 01-27-21 IMPRESSION: 1. No central or segmental pulmonary embolism. 2. Multifocal ground glass opacities with features commonly reported with COVID-19 pneumonia. 3. Pleural-based noncalcified nodule in the bilateral lower lobes. Recommendation is to repeat a CT scan of the chest in 3-6 months. If unchanged consider an additional follow-up CT at 18-24 months. Phlebitis; thrombophlebitis and thromboembolism (3 sources) Deep venous thrombosis of peroneal vein 02-07-2021 Chronic Pneumonia (except that caused by tuberculosis or sexually transmitted disease) (3 sources) Atypical pneumonia 01-27-2021 Episodic Residual codes; unclassified (10 sources) Obstructive sleep apnea syndrome; Translations: [Obstructive sleep apnea (adult) (pediatric)] 02-28-2023 Chronic Residual codes; unclassified (7 sources) Obstructive sleep apnea (adult) (pediatric); Translations: [Obstructive sleep apnea (adult)(pediatric)] Onset: 02-28-2023 Chronic Respiratory failure; insufficiency; arrest (adult) (3 sources) Dependence on supplemental oxygen 01-30-2021 Chronic Unclassified (3 sources) History of SARS-CoV-2 01-27-2021 Unclassified (15 sources) Patient encounter status 01-19-2020 Viral infection (1 source) Disease caused by 2019-nCoV 01-27-2021 Past or Other Problems Problem Classification Problem Date Documented Da te Episodic/Chronic Abdominal pain (1 source) Unspecified abdominal pain; Translations: [Unspecified abdominal pain] Onset: 01-26-2024 Episodic Deficiency and other anemia (1 source) Anemia, unspecified; Translations: [Anemia, unspecified] Onset: 07-16-2024 Episodic Other non-traumatic joint disorders (1 source) Pain in left wrist; Translations: [Pain in left wrist] Onset: 11-11-2023 Episodic Results Test Name Value Interpretation Reference Range Facility Cardiology Visit Reporton Cardiology Visit Report [facility] [address] [place] [address] OFFICE VISIT Date of Service: 11/04/24 MR#: [id number] Acct: [id number] Name: CHIVO LIVINGSTON Rep #: [id number] : 1960 Provider: Dr. Jose Daniel Jaeger MD Age/Sex: 64/M Location: [facility] Status: Signed HPI HPI History of Present Illness Details: This gentleman with history of coronary artery disease has had CABG done in March of last year with a JACOBSEN to the LAD, radial artery graft to D1 and vein graft to D2 is here for follow-up visit. Denies any angina pectoris. No shortness of breath. No palpitations. No orthopnea or PND. No ankle edema. Patient occasionally has discomfort at his sternotomy site that lasts for a few seconds only. Intake Vital Signs 05/05/24 08:16 11/04/24 09:03 Height 5 ft 6 in 5 ft 6 in Weight: 173 lb 170 lb BMI 27.9 27.4 BP 122/73 H 134/84 H Blood Pressure Location Lt brachial Rt brachial Position Sitting Sitting Respiration 18 16 Pulse 82 54 L Pulse Source NIBP Monitor Intake Visit Reasons: 6 M FU Medical Economics Consultant Required: No Accompanied by: Is patient in pain?: No Allergies No Known Allergies Allergy (Verified 11/04/24 09:03) Medications ???Medication ???Instructions ???Recorded ???Confirmed ???Type pantoprazole 40 mg tablet,delayed 40 mg PO DAILY 07/14/20 11/04/24 History release acetaminophen 500 mg tablet 1,000 mg PO BID PRN 05/02/2310/14 History ferrous sulfate 325 mg (65 mg 325 mg PO QDAY 11/11/23 11/04/24 H istory iron) tablet (Feosol) saw palmetto 450 mg capsule 450 mg PO QDAY 11/11/23 11/04/24 H istory aspirin 81 mg tablet,delayed 81 mg PO DAILY #90 tabs 09/04/24 0 11/04/24 Rx release metoprolol tartrate 25 mg tablet 25 mg PO BID #180 tabs 09/04/24 Rx rosuvastatin 20 mg tablet 20 mg PO QDAY #90 tabs 09/04/24 Rx lvaapbss-cpskrxel-zo lic acid 400 1 tab PO DAILY 11/04/24 11/04/24 H istory mcg-vit K 20 mcg-lycop 300 mcg tablet (One-A-Day Men's Multivitamin) Ejection fraction %: 63 Have you fallen in the past year?: No PFSH Medical History Abnormal coronary angiogram Dyslipidemia Hypertension Coronary artery disease Chest pain TRAN (dyspnea on exertion) Hyposomnia COVID-[address] of the chest Aortic valve regurgitation BPH (benign prostatic hyperplasia) Deep venous thrombosis (DVT) of both peroneal veins Ground glass opacity present on imaging of lung Grade I diastolic dysfunction Chest pain on exertion Dyspnea MIKAELA (obstructive sleep apnea) Unspecified renal colic GERD (gastroesophageal reflux disease) Kidney stone Surgical History History of coronary artery bypass graft x 3 ( 03/29/23) History of left heart catheterization (LHC) ( 03/28/23) Hx of appendectomy Family History Mother Heart disease hypertrophic cardiomyopathy Social History household members: spouse housing: house current occupational status: employed Smoking Status: Never smoker alcohol intake: never substance use type: does not use caffeine: Yes Type: carbonated beverages and tea ROS Const Const: Negative for fatigue or weakness Eyes Eyes: Negative for change in vision ENT ENT: Negative for dizziness or balance problems Cardio Chest Pain: Yes Character: dull Location: mid sternal Duration: hours Palpitations: No Edema: None Resp Respiratory: Negative for SOB with activity, SOB at rest or SOB orthopnea SOB lying down GI GI: Positive for heartburn (protonix effective); Negative nausea Musc Musc: Negative for balance problems Neuro Neuro: Positive for lightheadedness (x one. getting up too quick); Negative for dizziness, near syncope, syncope or weakness Endo Endo: Negative for fatigue Cardiology Exam Const Appearance: comfortable and no acute distress Nutritional Appearance: well nourished Orientation: oriented to person Neck Neck: no JVD Carotids: Negative bruit Chest Auscultation: Bilateral: Clear to Auscultation Cardio Rate: regular rate Rhythm: regular rhythm Heart sounds: S1 normal and S2 normal Neuro General: patient alert, patient awake and patient oriented x3 Extremities Lower Extremity Edema: None: Bilateral Supplemental Info Supplemental Information Labs: LDL Cholesterol, (0-130) 32 mg/dL HDL Cholesterol, (40-) 34 mg/dL L Cholesterol, (<=200) 106 mg/dL Triglycerides, (-199) 161 mg/dL Diagnostics: Electrocardiogram Cardiac Catheterization Chest X-Ray Chest CTA Abdomen/Pelvis CT Coronar (more content not included)... Normal [facility] CBC-Complete Blood Cnt No Di ffon 07-10-2024 Erythrocyte distribution width (RBC) [Ratio] 12.8 % Normal 11.6-14.6 [facility] Comment on above: Performed By: #### L 100.0500, L501.9910 #### [facility] [address] [place], [address] Hematocrit (Bld) [Volume fraction] 44.7 % Normal 40-54 [facility] Comment on above: Performed By: #### L 100.0500, L501.9910 #### [facility] [address] [place], [address] Hemoglobin (Bld) [Mass/Vol] 15.0 g/dL Normal 13.0-16.5 [facility] Comment on above: Performed By: #### L 100.0500, L501.9910 #### [facility] [address] [place], [address] MCH (RBC) [Entitic mass] 29.1 pg Normal 27.0-32.0 [facility] Comment on above: Performed By: #### L 100.0500, L501.9910 #### [facility] [address] [place], [address] MCHC (RBC) [Mass/Vol] 33.6 g/dL Normal 32-36 [facility] Comment on above: Performed By: #### L 100.0500, L501.9910 #### [facility] [address] [place], [address] MCV (RBC) [Entitic vol] 86.8 fL Normal 80-94 [facility] Comment on above: Performed By: #### L 100.0500, L501.9910 #### [facility] [address] [place], [address] Platelet mean volume (Bld) [Entitic vol] 10.5 fL Normal 6.2-12.0 [facility] Comment on above: Performed By: #### L 100.0500, L501.9910 #### [facility] [address] [place], [address] Platelets (Bld) [#/Vol] 216 10*3/uL Normal 150-450 [facility] Comment on above: Performed By: #### L 100.0500, L501.9910 #### [facility] [address] [place], [address] RBC (Bld) [#/Vol] 5.15 10*6/uL Normal 4.6-6.2 [facility] Comment on above: Performed By: #### L 100.0500, L501.9910 #### [facility] [address] [place], [address] RDW SD 39.9 fl Normal 35.1-43.9 [facility] Comment on above: Performed By: #### L 100.0500, L501.9910 #### [facility] [address] [place], [address] WBC (Bld) [#/Vol] 6.0 10*3/uL Normal 4.4-11.0 [facility] Comment on above: Performed By: #### L 100.0500, L501.9910 #### [facility] [address] [place], [address] Erythrocyte distribution wid th ratioOrdered By: Suzi Encarnacion on 07-10-2024 Erythrocyte distribution width (RBC) [Ratio] 12.8 % 11.6-14.6 [facility] Erythrocyte distribution wid th standard deviationOrdered By: Suzi Encarnacion on 07-10-2024 Erythrocyte distribution width (RBC) [Ratio] 39.9 fl 35.1-43.9 [facility] Hematocrit Auto (Bld) [Volum e fraction]Ordered By: Suzi Encarnacion on 07-10-2024 Hematocrit (Bld) [Volume fraction] 44.7 % 40-54 [facility] Hemoglobin measurementOrdere d By: Suzi Encarnacion on 07-10-2024 Hemoglobin (Bld) [Mass/Vol] 15.0 g/dL 13.0-16.5 [facility] MCV (mean corpuscular volume ) determinationOrdered By: Suzi Encarnacion on 07-10-2024 MCV (RBC) [Entitic vol] 86.8 fL 80-94 [facility] Mean corpuscular hemoglobin (MCH) determinationOrdered By: Suzi Brewster on 07-10-2024 MCH (RBC) [Entitic mass] 29.1 pg 27.0-32.0 [facility] Mean corpuscular hemoglobin concentration (MCHC) determinationOrdered By: Suzi Brewster on 07-10-2024 MCHC (RBC) [Mass/Vol] 33.6 g/dL 32-36 [facility] Mean platelet volume determi nationOrdered By: Suzi Encarnacion on 07-10-2024 Platelet mean volume (Bld) [Entitic vol] 10.5 fL 6.2-12.0 [facility] PSA,Total - Annual Screenon 07-10-2024 PSA,TOT SCREEN 0.53 ng/mL Normal 0.02-4.00 [facility] Comment on above: Result Comment: This test was performed using the [employer] tPSA method. Measured values of a patient??sample can vary depending on the testing procedure used. PSA values determined on patient samples by different testing procedures cannot be used interchangeably. If there is a change in PSA assays while monitoring therapy, sequential testing should be performed to confirm baseline values. Performed By: #### L 100.0500, L501.9910 #### [facility] [address] [place], [place], [address] Platelet countOrdered By: Brent Encarnacion on 07-10-2024 Platelets (Bld) [#/Vol] 216 10*3/uL 150-450 [facility] RBC Auto (Bld) [#/Vol]Ordere d By: Suzi Encarnacion on 07-10-2024 RBC (Bld) [#/Vol] 5.15 10*6/uL 4.6-6.2 [facility] White blood cell (WBC) count Ordered By: Suzi Encarnacion on 07-10-2024 WBC (Bld) [#/Vol] 6.0 10*3/uL 4.4-11.0 [facility] Bilirubin directOrdered By: Jose Daniel Jaeger on 06-30-2024 Bilirubin.direct [Mass/Vol] 0.18 mg/dL 0.00-0.30 [facility] Bilirubin, totalOrdered By: Jose Daniel Jaeger on 06-30-2024 Bilirubin [Mass/Vol] 0.42 mg/dL 0.00-1.30 [facility] Calculated very low density lipoprotein (VLDL) cholesterol measurementOrdered By: Jose Daniel Jaeger on 06-30-2024 Calculated very low density lipoprotein (VLDL) cholesterol measurement 32 mg/dL 5-40 [facility] LDL calc ser/plasOrdered By: Jose Daniel Jaeger on 06-30-2024 Cholesterol in LDL [Mass/Vol] 40 mg/dL [facility] Comment on above: Giuzsbwqpf=635-448 m g/dL & Higher Xddj=841 mg/dL or greater Laboratory - Chemistry and C hemistry - challengeOrdered By: Jose Daniel Jaeger on 06-30-2024 AST [Catalytic activity/Vol] 29 U/L <38 [facility] Lipid Profileon 06-30-2024 CHOL:HDL 3.15 Normal [facility] Comment on above: Performed By: #### L 500.4100, L500.3400 ####[facility] [address] [place], [address] Cholesterol [Mass/Vol] 106 mg/dL Normal <=200 [facility] Comment on above: Result Comment: Chol esterol level, Desirable <200 mg/dL Borderline high cholesterol 200-239 mg/dL High cholesterol >=240 mg/dL Recommendations of the NCEP Adult Treatment Panel for the following risk-cutoff thresholds for the [place] population. Performed By: #### L 500.4100, L500.3400 ####[facility] [address] [place], [address] Cholesterol in HDL [Mass/Vol] 34 mg/dL Low [facility] Comment on above: Result Comment: Laura onal Cholesterol Education Program (NCEP) guidelines: <40 mg/dL: Low HDL-cholesterol (major risk factor for CHD) >= 60 mg/dL: High HDL-cholesterol (negative risk factor for CHD) HDL-cholesterol is affected by a number of factors, e.g. smoking, exercise, hormones, sex and age. Performed By: #### L 500.4100, L500.3400 ####[facility] [address] [place], [address] Cholesterol in LDL [Mass/Vol] 40 mg/dL Normal [facility] Comment on above: Result Comment: Bord upgona=472-868 mg/dL Higher Qjlj=958 mg/dL or greater Performed By: #### L 500.4100, L500.3400 ####[facility] [address] [place], [address] Cholesterol in VLDL [Mass/Vol] 32 mg/dL Normal 5-40 [facility] Comment on above: Performed By: #### L 500.4100, L500.3400 ####[facility] [address] [place], [address] Triglyceride [Mass/Vol] 161 mg/dL Normal [facility] Comment on above: Result Comment: The drugs N-Acetylcysteine and Metamizole may falsely depress this assay. Normal range: <150 mg/dL Borderline High: 150-199 mg/dL High: 200-499 mg/dL Very High: >500 mg/dL Performed By: #### L 500.4100, L500.3400 ####[facility] [address] [place], [address] Liver Profileon 06-30-2024 Albumin [Mass/Vol] 4.1 g/dL Normal 3.4-4.8 [facility] Comment on above: Performed By: #### L 500.4100, L500.3400 ####[facility] [address] [place], [address] ALK PHOS 95 U/L Normal 40-129 [facility] Comment on above: Performed By: #### L 500.4100, L500.3400 ####[facility] [address] [place], [address] ALT [Catalytic activity/Vol] 21 U/L Normal <=46 [facility] Comment on above: Performed By: #### L 500.4100, L500.3400 ####[facility] [address] [place], [address] AST [Catalytic activity/Vol] 29 U/L Normal <=37 [facility] Comment on above: Performed By: #### L 500.4100, L500.3400 ####[facility] [address] [place], [address] Bilirubin [Mass/Vol] 0.42 mg/dL Normal 0.00-1.30 [facility] Comment on above: Performed By: #### L 500.4100, L500.3400 ####[facility] [address] [place], [address] Bilirubin.direct [Mass/Vol] 0.18 mg/dL Normal 0.00-0.30 [facility] Comment on above: Performed By: #### L 500.4100, L500.3400 ####[facility] [address] [place], [address] Globulin (S) [Mass/Vol] 2.9 g/dL Normal 2.2-4.2 [facility] Comment on above: Performed By: #### L 500.4100, L500.3400 ####[facility] [address] [place], [address] T PROT 7.0 g/dL Normal 5.9-8.4 [facility] Comment on above: Performed By: #### L 500.4100, L500.3400 ####[facility] [address] [place], [place], [id number] Screening total cholesterol/ high density lipoprotein (HDL) cholesterol ratioOrdered By: Jose Daniel Jaeger on 06-30-2024 Cholesterol.total/Cholest mc in HDL [Mass ratio] 3.15 {ratio} [facility] Serum globulin measurementOr dered By: Jose Daniel Jaeger on 06-30-2024 Globulin (S) [Mass/Vol] 2.9 g/dL 2.2-4.2 [facility] Serum or plasma alanine tellez otransferase (ALT) measurementOrdered By: Jose Daniel Jaeger on 06-30-2024 ALT [Catalytic activity/Vol] 21 U/L <47 [facility] Serum or plasma albumin naye urement (mass/volume)Ordered By: Jose Daniel Jaeger on 06-30-2024 Albumin [Mass/Vol] 4.1 g/dL 3.4-4.8 [facility] Serum or plasma alkaline mary sphatase measurementOrdered By: Jose Daniel Jaeger on 06-30-2024 ALP [Catalytic activity/Vol] 95 U/L 40-129 [facility] Serum or plasma cholesterol in HDL measurement (mass/volume)Ordered By: Jose Daniel Jaeger on 06-30-2024 Cholesterol in HDL [Mass/Vol] 34 mg/dL Low >40 [facility] Comment on above: National Cholesterol Education Program (NCEP) guidelines:<40 mg/dL: Low HDL-cholesterol (major risk factor for CHD)>= 60 mg/dL: High HDL-cholesterol (negative risk factor for CHD)HDL-cholesterol is affected by a number of factors, e.g. smoking, exercise, hormones, sex and age. Serum or plasma cholesterol measurement (mass/volume)Ordered By: Jose Daniel Jaeger on 06-30-2024 Cholesterol [Mass/Vol] 106 mg/dL <201 [facility] Comment on above: Cholesterol level, D esirable <200 mg/dLBorderline high cholesterol 200-239 mg/dLHigh cholesterol >=240 mg/dLRecommendations of the NCEP Adult Treatment Panel for the following risk-cutoff thresholds for the [place] population. Total proteinOrdered By: Layne Jaeger on 06-30-2024 Protein [Mass/Vol] 7.0 g/dL 5.9-8.4 [facility] Triglycerides measurementOrd ered By: Jose Daniel Jaeger on 06-30-2024 Triglyceride [Mass/Vol] 161 mg/dL <199 [facility] Comment on above: The drugs N-Acetylcy steine and Metamizole may falsely depress this assay. Normal range: <150 mg/dLBorderline High: 150-199 mg/dLHigh: 200-499 mg/dLVery High: >500 mg/dL Cardiology Visit Reporton Cardiology Visit Report [facility] [address] [place] [address] OFFICE VISIT Date of Service: 05/05/24 MR#: [id number] Acct: [id number] Name: CHIVO LIVINGSTON Rep #: [id number] : 1960 Provider: Dr. Jose Daniel Jaeger MD Age/Sex: 63/M Location[facility] Status: Signed HPI HPI History of Present Illness Details: This gentleman with history of coronary artery disease status post CABG with JACOBSEN to the LAD, radial artery graft to the first diagonal and vein graft to the second diagonal is here for follow-up visit. Denies any complaints. No angina. Shortness of breath with strenuous exertion only. No palpitations. No orthopnea or PND. Occasional ankle edema after prolonged sitting. Intake Vital Signs 01/01/24 17:49 05/05/24 08:16 Height 5 ft 6 in 5 ft 6 in Weight: 173 lb BMI 27.9 BP 122/73 H Blood Pressure Location Lt brachial Position Sitting Respiration 18 Pulse 82 Pulse Source NIBP Intake Visit Reasons: 6 M FU Medical Economics Consultant Required: No Accompanied by: Self Is patient in pain?: No Allergies No Known Allergies Allergy (Verified 05/05/24 14:44) Medications ???Medication ???Instructions ???Recorded ???Confirmed ???Type pantoprazole 40 mg tablet,delayed 40 mg PO DAILY 07/14/20 05/05/24 History release aspirin 81 mg tablet,delayed 81 mg PO DAILY 02/28/23 05/05/24 H istory release acetaminophen 500 mg tablet 1,000 mg PO BID PRN 05/02/2305/05 History metoprolol tartrate 25 mg tablet 25 mg PO BID #180 tabs 05/02/23 Rx ferrous sulfate 325 mg (65 mg 325 mg PO QDAY 11/11/23 05/05/24 H istory iron) tablet (Feosol) saw palmetto 450 mg capsule 450 mg PO QDAY 11/11/23 05/05/24 H istory oxycodone-acetaminop hen 5 mg-325 1 tab PO Q6H PRN PRN pain 5 days 1 03/02/23 05/05/24 Rx mg tablet #20 TABLETS rosuvastatin 20 mg tablet 10 mg PO QDAY 05/05/24 History Ejection fraction %: 63 Have you fallen in the past year?: No PFSH Medical History Abnormal coronary angiogram Abnormal CT of the chest Aortic valve regurgitation BPH (benign prostatic hyperplasia) Chest pain Chest pain on exertion Coronary artery disease COVID-19 Deep venous thrombosis (DVT) of both peroneal veins TRAN (dyspnea on exertion) Dyslipidemia Dyspnea GERD (gastroesophageal reflux disease) Grade I diastolic dysfunction Ground glass opacity present on imaging of lung Hypertension Hyposomnia Kidney stone MIKAELA (obstructive sleep apnea) Unspecified renal colic Surgical History History of coronary artery bypass graft x 3 ( 03/29/23) History of left heart catheterization (LHC) ( 03/28/23) Hx of appendectomy Family History Mother Heart disease hypertrophic cardiomyopathy Social History household members: spouse housing: house current occupational status: employed Smoking Status: Never smoker alcohol intake: never substance use type: does not use caffeine: Yes Type: carbonated beverages and tea ROS Const Const: Negative for fatigue, weakness, headache(s) or weight gain ENT ENT: Negative for headache(s), dizziness, Nosebleed/epistaxis or balance problems Cardio Chest Pain: No Palpitations: No Edema: Bilateral (with dependence; resolves with elevation) Muscle aches with walking: None Resp Respiratory: Positive for SOB with activity (w/ exertion); Negative for SOB at rest or SOB orthopnea SOB lying down GI GI: Positive for heartburn (on protonix); Negative nausea or vomiting Musc Musc: Positive for muscle aches/ myalgia (sharp pain in L Wrist s/p graft harvesting); Negative for muscle weakness, joint pain or balance problems Neuro Neuro: Negative for dizziness, lightheadedness, near syncope, syncope, headache(s) or weakness Endo Endo: Negative for fatigue Cardiology Exam Const Appearance: comfortable and no acute distress Nutritional Appearance: well nourished Orientation: oriented to person Neck Neck: no JVD Carotids: Negative bruit Chest Auscultation: Bilateral: Clear to Auscultation Cardio Rate: regular rate Rhythm: regular rhythm Heart sounds: S1 normal and S2 normal Neuro General: patient alert, patient awake and patient oriented x3 Extremities Lower Extremity Edema: None: Bilateral Supplemental Info Supplemental Information TRANSESOPHAGEAL ECHOCARDIOGRAM 03/29/2023: SUMMARY * Left ventricle: Left ventricle size is normal. Normal wall thickness. Normal left ventricular systolic function. Normal wall motion. * Right ventricle: Right ventricle size is normal. Normal systolic function. * No significant noman (more content not included)... Normal [facility] Bilirubin, Directon 02-03-20 24 Bilirubin.direct [Mass/Vol] 0.19 mg/dL Normal 0.00-0.30 [facility] Comment on above: Performed By: #### L 500.4050, L500.4100, L501.4700 ####[facility] [address] [place], [address] Comprehensive Metabolic [facility] indio 02-03-2024 Albumin [Mass/Vol] 3.6 g/dL Normal 3.2-5.0 [facility] Comment on above: Performed By: #### L 500.4050, L500.4100, L501.4700 ####[facility] [address] [place], [address] Albumin/Globulin [Mass ratio] 0.9 {ratio} Normal 0.9-2.4 [facility] Comment on above: Performed By: #### L 500.4050, L500.4100, L501.4700 ####[facility] [address] [place], [address] ALK P 105 U/L Normal 45-117 [facility] Comment on above: Performed By: #### L 500.4050, L500.4100, L501.4700 ####[facility] [address] [place], [address] ALT [Catalytic activity/Vol] 29 U/L Normal 16-61 [facility] Comment on above: Performed By: #### L 500.4050, L500.4100, L501.4700 ####[facility] [address] [place], [address] AST [Catalytic activity/Vol] 21 U/L Normal 15-37 [facility] Comment on above: Performed By: #### L 500.4050, L500.4100, L501.4700 ####[facility] [address] [place], [address] Bilirubin [Mass/Vol] 0.70 mg/dL Normal 0.20-1.00 [facility] Comment on above: Result Comment: For patients on eltrombopag therapy, use of Dimension [place] TBIL is not recommended. Performed By: #### L 500.4050, L500.4100, L501.4700 ####[facility] [address] [place], [address] BUN/CRE 11.6 RATIO Normal 10-20 [facility] Comment on above: Performed By: #### L 500.4050, L500.4100, L501.4700 ####[facility] [address] [place], [address] CA,Total 8.7 mg/dL Normal 8.5-10.1 [facility] Comment on above: Performed By: #### L 500.4050, L500.4100, L501.4700 ####[facility] [address] [place], [address] Chloride [Moles/Vol] 110 mmol/L High 98-107 [facility] Comment on above: Performed By: #### L 500.4050, L500.4100, L501.4700 ####[facility] [address] [place], [address] CO2 [Moles/Vol] 28.0 mmol/L Normal 21.0-32.0 [facility] Comment on above: Performed By: #### L 500.4050, L500.4100, L501.4700 ####[facility] [address] [place], [address] Creatinine [Mass/Vol] 1.12 mg/dL Normal 0.70-1.30 [facility] Comment on above: Result Comment: The validity of the calculated GFR GFRAA in patients over 70 years has not been determined. Clinical correlation is essential. Performed By: #### L 500.4050, L500.4100, L501.4700 ####[facility] [address] [place], [address] EST GFR - AA 85 mL/min Normal >60 [facility] Comment on above: Result Comment: Afri can Armenian GFR Calc Performed By: #### L 500.4050, L500.4100, L501.4700 ####[facility] [address] [place], [address] GAP 4 Low 5-15 [facility] Comment on above: Performed By: #### L 500.4050, L500.4100, L501.4700 ####[facility] [address] [place], [address] GFR/1.73 sq M.predicted among non-blacks MDRD (S/P/Bld) [Vol rate/Area] 70 mL/min/{1.73_m2} Normal >60 [facility] Comment on above: Result Comment: Non- GFR Calc Performed By: #### L 500.4050, L500.4100, L501.4700 ####[facility] [address] [place], [address] Globulin (S) [Mass/Vol] 3.8 g/dL Normal 2.2-4.2 [facility] Comment on above: Performed By: #### L 500.4050, L500.4100, L501.4700 ####[facility] [address], [address] Glucose [Mass/Vol] 99 mg/dL Normal 74-106 [facility] Comment on above: Performed By: #### L 500.4050, L500.4100, L501.4700 ####[facility] [address] [place], [address] Potassium [Moles/Vol] 3.9 mmol/L Normal 3.5-5.1 [facility] Comment on above: Performed By: #### L 500.4050, L500.4100, L501.4700 ####[facility] [address], [address] Sodium [Moles/Vol] 142 mmol/L Normal 136-145 [facility] Comment on above: Performed By: #### L 500.4050, L500.4100, L501.4700 ####[facility] [address] [place], [address] T PROT 7.4 g/dL Normal 6.4-8.2 [facility] Comment on above: Performed By: #### L 500.4050, L500.4100, L501.4700 ####[facility] [address] [place], [address] Urea nitrogen [Mass/Vol] 13 mg/dL Normal 7-18 [facility] Comment on above: Performed By: #### L 500.4050, L500.4100, L501.4700 ####[facility] [address] [place], [address] Lipid Profileon 02-03-2024 Cholesterol [Mass/Vol] 96 mg/dL Normal 200 [facility] Comment on above: Result Comment: <200 mg/dL Desirable 200-240 mg/dL Borderline >240 mg/dL High Risk Performed By: #### L 500.4050, L500.4100, L501.4700 ####[facility] [address] [place], [address] Cholesterol in HDL [Mass/Vol] 42 mg/dL Normal [facility] Comment on above: Result Comment: The drugs N-Acetylcysteine and Metamizole may falsely depress this assay. Reference Range HDL <40 mg/dL Low HDL Cholesterol HDL >or= 60 mg/dL High HDL Cholesterol Performed By: #### L 500.4050, L500.4100, L501.4700 ####[facility] [address] [place], [address] Cholesterol in LDL [Mass/Vol] 32 mg/dL Normal 0-130 [facility] Comment on above: Performed By: #### L 500.4050, L500.4100, L501.4700 ####[facility] [address] [place], [address] Cholesterol in VLDL [Mass/Vol] 22 mg/dL Normal 5-40 [facility] Comment on above: Performed By: #### L 500.4050, L500.4100, L501.4700 ####[facility] [address] [place], [address] Triglyceride [Mass/Vol] 112 mg/dL Normal [facility] Comment on above: Result Comment: The drugs N-Acetylcysteine and Metamizole may falsely depress this assay. Serum Triglycerides Reference Interval Normal <150 mg/dL Borderline high 150 - 199 mg/dL High 200 - 499 mg/dL Very High > or = 500 mg/dL Performed By: #### L 500.4050, L500.4100, L501.4700 ####[facility] [address] [facility] [place], [address] Abdomen/Pelvis without Conto n 01-01-2024 Abdomen/Pelvis without Cont [facility] [address] [place] [address] Abdomen/Pelvis without Cont MR#: [id number] Acct: [id number] Name: CHIVO LIVINGSTON Rep #: [id number] : 1960 M 63 From: Adiel lyn MD PCP: Suzi Encarnacion, CTC OPERATOR-C Status: REG ER Study: Abdomen/Pelvis without Cont Date of Exam: 12/19 05/11 Exam# [id number] Ordering Dr: Steve Orozco MD [id number] STUDY: CT ABDOMEN AND PELVIS WITHOUT CONTRAST REASON FOR EXAM: Male, 63 years old. Kidney Stone RADIATION DOSAGE (If Supplied By Facility): CTDIvol = ( 6.86 ) mGy, DLP = ( 354.69 ) mGycm TECHNIQUE: Transaxial images were obtained from the dome of the diaphragm to the symphysis pubis without oral contrast, and without intravenous contrast. Sagittal and coronal images were reconstructed. Individualized dose optimization techniques were used for this CT. COMPARISON: None. FINDINGS: The visualized lung bases show fibrotic changes in both lungs. Several small pulmonary nodules are suggested, most prominent of which is 7 mm in the posterolateral right lung. CT of the chest is recommended. Abnormal right kidney showing perinephric stranding and mild hydronephrosis. Findings are related to a 3 mm distal right ureteral stone seen on axial image 147 and coronal image 83. Normal left kidney. Normal liver. Normal gallbladder and extrahepatic biliary system. Normal spleen. Normal pancreas. Normal bilateral adrenal glands. There is a small hiatal hernia. Normal small intestine. Normal colon. The appendix is visualized and appears normal. There is diffuse atherosclerotic calcification of the abdominal aorta, without a demonstrated aneurysm. Normal inferior vena cava. Normal retroperitoneum. Normal urinary bladder. There is a right-sided inguinal hernia containing adipose tissue. Normal osseous structures. CT/Abdomen/Pelvis without Cont IMPRESSION: 3 mm obstructing stone in the distal right ureter. Nodules in the visualized lung bases. CT of the chest is recommended. Electronically Signed: Adiel Pereyra MD at 19:47 EST , CC: ARIC Encarnacion; Dr. Steve Orozco MD Tool Room Lathe Operator: Signed Normal [facility] Basic Metabolic Profile (BMP )on 01-01-2024 BUN/CRE 13.7 RATIO Normal - [facility] Comment on above: Performed By: #### L 100.0100, L500.2500 #### [facility] Laboratory [address] [place], [address] CA,Total 9.2 mg/dL Normal 8.5-10.1 [facility] Comment on above: Performed By: #### L 100.0100, L500.2500 #### [facility] Laboratory [address] [place], [address] Chloride [Moles/Vol] 108 mmol/L High 98-107 [facility] Comment on above: Performed By: #### L 100.0100, L500.2500 #### [facility] Laboratory [address] [place], [address] CO2 [Moles/Vol] 26.0 mmol/L Normal 21.0-32.0 [facility] Comment on above: Performed By: #### L 100.0100, L500.2500 #### [facility] Laboratory [address] [place], [address] Creatinine [Mass/Vol] 1.39 mg/dL High 0.70-1.30 [facility] Comment on above: Result Comment: The validity of the calculated GFR GFRAA in patients over 70 years has not been determined. Clinical correlation is essential. Performed By: #### L 100.0100, L500.2500 #### [facility] Laboratory [address] [place], [address] ECRCL 53.06 ml/min Normal [facility] Comment on above: Performed By: #### L 100.0100, L500.2500 #### [facility] Laboratory [address] [place], [address] EST GFR - AA 66 mL/min Normal >60 [facility] Comment on above: Result Comment: Afri can Armenian GFR Calc Performed By: #### L 100.0100, L500.2500 #### [facility] Laboratory [address] [place], [address] GAP 6 Normal 5-15 [facility] Comment on above: Performed By: #### L 100.0100, L500.2500 #### [facility] Laboratory [address] [place], [address] GFR/1.73 sq M.predicted among non-blacks MDRD (S/P/Bld) [Vol rate/Area] 55 mL/min/{1.73_m2} Low >60 [facility] Comment on above: Result Comment: Non- GFR Calc Performed By: #### L 100.0100, L500.2500 #### [facility] Laboratory [address] [place] [place], [address] Glucose [Mass/Vol] 123 mg/dL High 74-106 [facility] Comment on above: Result Comment: Fast ing Glucose result from 100 to 125 mg/dL suggests IMPAIRED HOMEOSTASIS per A.D.A. criteria. Performed By: #### L 100.0100, L500.2500 #### [facility] Laboratory [address] [place] [place], [address] Potassium [Moles/Vol] 4.2 mmol/L Normal 3.5-5.1 [facility] Comment on above: Performed By: #### L 100.0100, L500.2500 #### [facility] Laboratory [address] [place], [address] Sodium [Moles/Vol] 140 mmol/L Normal 136-145 [facility] Comment on above: Performed By: #### L 100.0100, L500.2500 #### [facility] Laboratory [address] [place], [address] Urea nitrogen [Mass/Vol] 19 mg/dL High 7-18 [facility] Comment on above: Performed By: #### L 100.0100, L500.2500 #### [facility] Laboratory [address] [place], [address] CBC W/Diff, Automatedon 11-1 -2023 Absolute Lymph 1.15 X10 3/uL Normal 0.83-4.51 [facility] Comment on above: Performed By: #### L 100.0100, L500.2500 #### [facility] Laboratory [address] [place], [address] Absolute Neut 9.7 X10 3/uL High 2.0-7.7 [facility] Comment on above: Performed By: #### L 100.0100, L500.2500 #### [facility] Laboratory [address] [place], [address] Basophils/100 WBC (Bld) 0.3 % Normal 0-1 [facility] Comment on above: Performed By: #### L 100.0100, L500.2500 #### [facility] Laboratory [address] [place], [address] Eosinophils/100 WBC (Bld) 0.8 % Normal 0-5 [facility] Comment on above: Performed By: #### L 100.0100, L500.2500 #### [facility] Laboratory [address] [place], [address] Erythrocyte distribution width (RBC) [Ratio] 13.0 % Normal 11.6-14.6 [facility] Comment on above: Performed By: #### L 100.0100, L500.2500 #### [facility] Laboratory [address] [place], [address] Hematocrit (Bld) [Volume fraction] 45.4 % Normal 40-54 [facility] Comment on above: Performed By: #### L 100.0100, L500.2500 #### [facility] Laboratory [address] [place], [address] Hemoglobin (Bld) [Mass/Vol] 15.8 g/dL Normal 13.0-16.5 [facility] Comment on above: Performed By: #### L 100.0100, L500.2500 #### [facility] Laboratory [address] [place], [address] IG% 0.300 Normal 0.0-0.9 [facility] Comment on above: Result Comment: IG% - Immature Granulocytes (promyelocytes, myelocytes and metamyelocytes) > 1% indicates that a LEFT SHIFT is Present. Performed By: #### L 100.0100, L500.2500 #### [facility] Laboratory [address] [place], [address] Lymphocytes/100 WBC (Bld) 9.7 % Low 19-41 [facility] Comment on above: Performed By: #### L 100.0100, L500.2500 #### [facility] Laboratory [address] [place], [address] MCH (RBC) [Entitic mass] 29.3 pg Normal 27.0-32.0 [facility] Comment on above: Performed By: #### L 100.0100, L500.2500 #### [facility] Laboratory [address] [place], [address] MCHC (RBC) [Mass/Vol] 34.8 g/dL Normal 32-36 [facility] Comment on above: Performed By: #### L 100.0100, L500.2500 #### [facility] Laboratory [address] [place], [address] MCV (RBC) [Entitic vol] 84.2 fL Normal 80-94 [facility] Comment on above: Performed By: #### L 100.0100, L500.2500 #### [facility] Laboratory [address] [place], [address] Monocytes/100 WBC (Bld) 7.3 % Normal 0-10 [facility] Comment on above: Performed By: #### L 100.0100, L500.2500 #### [facility] Laboratory [address] [place], [address] Neutrophils/100 WBC (Bld) 81.6 % High 47-70 [facility] Comment on above: Performed By: #### L 100.0100, L500.2500 #### [facility] Laboratory [address] [place], [address] Nucleated RBC (Bld) [#/Vol] 0 10*3/uL Normal 0-5 [facility] Comment on above: Performed By: #### L 100.0100, L500.2500 #### [facility] Laboratory [address] [place], [address] Platelet mean volume (Bld) [Entitic vol] 10.4 fL Normal 6.2-12.0 [facility] Comment on above: Performed By: #### L 100.0100, L500.2500 #### [facility] Laboratory [address] [place], [address] Platelets (Bld) [#/Vol] 266 10*3/uL Normal 150-450 [facility] Comment on above: Performed By: #### L 100.0100, L500.2500 #### [facility] Laboratory [address] [place], [address] RBC (Bld) [#/Vol] 5.39 10*6/uL Normal 4.6-6.2 [facility] Comment on above: Performed By: #### L 100.0100, L500.2500 #### [facility] Laboratory [address] [place], [address] RDW SD 39.7 fl Normal 35.1-43.9 [facility] Comment on above: Performed By: #### L 100.0100, L500.2500 #### [facility] Laboratory [address] [place], [address] WBC (Bld) [#/Vol] 11.8 10*3/uL High 4.4-11.0 [facility] Comment on above: Performed By: #### L 100.0100, L500.2500 #### [facility] Laboratory [address] [place], [address] Chest WITH Contraston 2023 Chest WITH Contrast [facility] Services [address] [place] [address] Chest WITH Contrast MR#: [id number] Acct: [id number] Name: CHIVO LIVINGSTON Rep #: [id number] : 1960 M 63 From: Adiel lyn MD PCP: Suzi Encarnacion, CTC OPERATOR-C Status: REG ER Study: Chest WITH Contrast Date of Exam: 01/01/24 Exam# [id number] Ordering Dr: Steve Orozco MD [id number] INDICATION: Multiple nodules noted right and left base on CT a EXAMINATION: CT CHEST WITH CONTRAST - CT Chest W/ Contrast Injection TECHNIQUE: Helically acquired images were obtained of the chest following IV contrast. A radiation dose optimization technique was used for this scan. IV Contrast dosage and agent: COMPARISON: 02/12/2023 ____ FINDINGS: LUNGS, PLEURA AND LARGE AIRWAYS: Hyperexpansion of the lungs consistent with COPD. Scattered irregular linear density throughout both lungs consistent with areas of scarring and/or discoid atelectasis. Findings most pronounced peripherally. There is a 7 mm nodule along the posterolateral surface of the right lower lobe, axial image 66, findings similar since 02/09. There is a nonspecific 6 mm nodule in the right middle lobe, axial image 52, stable. There is a nonspecific 6 mm nodule in the anterior right lung base, axial image 76, stable. No definite inflammatory infiltrates. No pleural effusion or thickening. No pneumothorax. THYROID: No thyroid lesions. HEART AND PERICARDIUM: Heart size is normal. No pericardial effusion. Previous CABG. VESSELS: Thoracic aorta is not dilated. No aortic dissection. No obvious central pulmonary embolism although this study was not performed with the pulmonary embolism protocol. MEDIASTINUM AND ADRIAN: No mediastinal or hilar adenopathy. Esophagus is unremarkable. No hiatal hernia. UPPER ABDOMEN: No acute pathology. BONES: No suspicious lytic or blastic abnormality. CT/Chest WITH Contrast IMPRESSION: COPD with scattered areas of bilateral pulmonary scarring. No definite acute infiltrates or effusions. Several nodules as described above, stable since 02/09 recommend follow-up in another 12 months. Electronically Signed: Adiel Pereyra MD at 22:34 EST , CC: ARIC Encarnacion; Dr. Steve Orozco MD Tool Room Lathe Operator: Signed Normal [facility] Emergency Department Summary on 01-01-2024 Emergency Department Summary [facility] Medical Records Department [address] [place] [address] Emergency Department Summary 01/01/24 MR#: [id number] Acct: [id number] Name: CHIVO LIVINGSTON Rep #: [id number] : 1960 63 From: Steve Orozco MD PCP: ARIC Hernández Status:REG ER Location: ED HPI History of Present Illness Chief Complaint: Flank Pain Detail of Chief Complaint: Right flank pain that awoke him from sleep and then resolved early this mor Informant: patient and spouse/S.O. Onset/Context/Timing Onset: Today and Hours Context: Sudden Onset Timing: Intermittent and Waxes and wanes Quality: Has been continuous since recurrence Location: Right flank radiating to the scrotum Current Severity: Severe Maximum Severity: Severe Worsened by: Nothing Relieved by: Nothing Associated Symptoms Associated Symptoms: Nausea Narrative Narrative: Patient is a 63-year-old male. He has history of renal and ureteral calculi. He presents with abrupt onset of right flank pain that awoke him from sleep. By the time he awoke he had no pain. He had recurrence of the pain this afternoon.'s been constant and waxing and waning in intensity. It is colicky pain. Pain is right flank radiating to the right inguinal area. Patient does endorse urgency. He denies dysuria or hematuria. Has had similar pain. Per his records last kidney stone that required ER visit was December 2022. He did report chills today. He denied fever. He does endorse nausea without vomiting or diarrhea. He denies cardiac respiratory symptoms. There is no history of direct or indirect trauma. Not noted a rash. He has no renal dysfunction to his knowledge. Prior similar symptoms: Yes (December 2022) Recent Illness/Hospitalizat ion: No PFSH PFSH Medical History Abnormal coronary angiogram Dyslipidemia Hypertension Coronary artery disease Chest pain TRAN (dyspnea on exertion) Hyposomnia COVID-[address] of the chest Aortic valve regurgitation BPH (benign prostatic hyperplasia) Deep venous thrombosis (DVT) of both peroneal veins Ground glass opacity present on imaging of lung Grade I diastolic dysfunction Chest pain on exertion Dyspnea MIKAELA (obstructive sleep apnea) Unspecified renal colic GERD (gastroesophageal reflux disease) Kidney stone Home Medications ???Medication ???Instructions ???Recorded ???Last Taken ???Type pantoprazole 40 mg tablet,delayed 40 mg PO DAILY 07/14/20 03/28/23 History release aspirin 81 mg tablet,delayed 81 mg PO DAILY 02/28/23 03/28/23 History release acetaminophen 500 mg tablet 1,000 mg PO BID PRN 05/02/23 Unknown History metoprolol tartrate 25 mg tablet 25 mg PO BID #180 tabs 05/02/23 Unknown Rx ferrous sulfate 325 mg (65 mg 325 mg PO QDAY 11/11/23 Unknown History iron) tablet (Feosol) rosuvastatin 20 mg tablet 20 mg PO QDAY #90 tabs 11/11/23 Unknown Rx saw palmetto 450 mg capsule 450 mg PO QDAY 11/11/23 Unknown History oxycodone-acetaminop hen 5 mg-325 1 tab PO Q6H PRN PRN pain 5 days 01/01/24 Unknown Rx mg tablet #20 TABLETS Allergy/AdvReac Type Severity Reaction Status Date / Time No Known Allergies Allergy Verified 01/01/24 17:49 Family History Mother Heart disease hypertrophic cardiomyopathy Surgical History History of coronary artery bypass graft x 3 ( 03/29/23) History of left heart catheterization (LHC) ( 03/28/23) Hx of appendectomy Social History household members: spouse housing: house current occupational status: employed Smoking Status: Never smoker alcohol intake: never substance use type: does not use caffeine: Yes Type: carbonated beverages and tea ROS ROS ED Constitutional Constitutional ED: Reports chills; Denies fever(s), subjective or sweats Eyes Eyes: Denies blurry vision or change in vision ENT ENT ED: Denies rhinorrhea or sore throat Cardiovascular Cardiovascular: Denies chest pain or palpitations Respiratory/Chest Respiratory/Chest: Denies cough, dyspnea or dyspnea on exertion Gastrointestinal Gastrointestinal: Reports abdominal pain and nausea; Denies constipation, diarrhea, melena or vomiting Genitourinary Genitourinary ED: Reports urinary frequency; Denies dysuria or hematuria Musculoskeletal Musculoskeletal: Reports other Details: Right flank pain ; Denies arthralgias, back pain, myalgias or neck pain Integumentary Denies rash Hematologic/Lymphati c Hematologic/Lymphati c: Reports systems reviewed and no addt'l complaints, except as documented EXAM Physical Exam Const Vital Signs: 01/01/24 17:49 01/01/24 19:48 01/01/24 21:00 Temperature (more content not included)... Normal [facility] Urinalysis, Completeon 12-31 Mucus Ql (Urine sed) 1+ /hpf Normal [facility] Comment on above: Order Comment: CLEAN CATCH Performed By: #### L [id number] #### [facility] Laboratory [address] [place], [address] RBC 0-5 SEEN Normal 0-5 [facility] Comment on above: Order Comment: CLEAN CATCH Performed By: #### L [id number] #### [facility] [address] [place], [address] WBC 0-5 SEEN Normal 0-5 [facility] Comment on above: Order Comment: CLEAN CATCH Performed By: #### L [id number] #### [facility] [address] [place], [address] BACTERIA 0 SEEN Normal None Seen [facility] Comment on above: Order Comment: CLEAN CATCH Performed By: #### L [id number] #### [facility] [address] [place], [address] EPI,SQUAMOUS 0 SEEN Normal 0-5 [facility] Comment on above: Order Comment: CLEAN CATCH Performed By: #### L [id number] #### [facility] [address] [place], [address] Cardiology Visit Reporton Cardiology Visit Report [facility] [address] [place] [address] OFFICE VISIT Date of Service: 11/11/23 MR#: [id number] Acct: [id number] Name: CHIVO LIVINGSTON Rep #: [id number] : 1960 Provider: Dr. Jose Daniel Jaeger MD Age/Sex: 63/M Location: [facility] Status: Signed HPI [facility] History of Present Illness Details: This pleasant gentleman with history of CABG is here for routine follow-up visit. Denies any chest pains or shortness of breath. No orthopnea or PND. No ankle edema. No palpitations. Occasionally gets shooting pain in his left hand. According to him, this last for few seconds only. Precipitated mostly with driving. Intake Vital Signs 08/19/23 08:25 11/11/23 08:21 Height 5 ft 6 in 5 ft 6 in Weight: 169 lb BMI 27.2 BP 108/70 Blood Pressure Location Lt brachial Position Sitting Respiration 16 Pulse 70 Pulse Source NIBP Intake Visit Reasons: 6 M FU Medical Economics Consultant Required: No Accompanied by: Self Is patient in pain?: No Allergies No Known Allergies Allergy (Verified 11/11/23 09:13) Medications ???Medication ???Instructions ???Recorded ???Confirmed ???Type pantoprazole 40 mg tablet,delayed 40 mg PO DAILY 07/14/20 11/11/23 History release aspirin 81 mg tablet,delayed 81 mg PO DAILY 02/28/23 11/11/23 History release acetaminophen 500 mg tablet 1,000 mg PO BID PRN 05/02/23 11/11/23 History metoprolol tartrate 25 mg tablet 25 mg PO BID #180 tabs 05/02/23 11/11/23 Rx rosuvastatin 40 mg tablet 40 mg PO DAILY #90 tabs 05/02/23 11/11/23 Rx ferrous sulfate 325 mg (65 mg 325 mg PO QDAY 11/11/23 11/11/23 History iron) tablet (Feosol) lester rodgers 450 mg capsule 450 mg PO QDAY 11/11/23 11/11/23 History Ejection fraction %: 63 Have you fallen in the past year?: No PFSH Medical History Abnormal coronary angiogram Abnormal CT of the chest Aortic valve regurgitation BPH (benign prostatic hyperplasia) Chest pain Chest pain on exertion Coronary artery disease COVID-19 Deep venous thrombosis (DVT) of both peroneal veins TRAN (dyspnea on exertion) Dyslipidemia Dyspnea GERD (gastroesophageal reflux disease) Grade I diastolic dysfunction Ground glass opacity present on imaging of lung Hypertension Hyposomnia Kidney stone MIKAELA (obstructive sleep apnea) Unspecified renal colic Surgical History History of coronary artery bypass graft x 3 ( 03/29/23) History of left heart catheterization (LHC) ( 03/28/23) Hx of appendectomy Family History Mother Heart disease hypertrophic cardiomyopathy Social History Smoking Status: Never smoker alcohol intake: never substance use type: does not use caffeine: Yes Type: carbonated beverages and tea ROS Const Const: Negative for fatigue, weakness or headache(s) ENT ENT: Negative for headache(s), dizziness, Nosebleed/epistaxis or balance problems Cardio Chest Pain: Yes (incisional) Character: sharp Palpitations: No Edema: Bilateral (comes and goes per pt, minimal) Muscle aches with walking: None Resp Respiratory: Positive for SOB with activity; Negative for SOB at rest or SOB orthopnea SOB lying down GI GI: Positive for heartburn (taking protonix for GERD); Negative nausea or vomiting Musc Musc: Negative for muscle aches/ myalgia, muscle weakness, joint pain or balance problems Neuro Neuro: Negative for dizziness, lightheadedness, near syncope, syncope, headache(s) or weakness Endo Endo: Negative for fatigue Cardiology Exam Const Appearance: comfortable and no acute distress Nutritional Appearance: well nourished Neck Neck: no JVD Carotids: Negative bruit Chest Auscultation: Bilateral: Clear to Auscultation Cardio Rate: regular rate Rhythm: regular rhythm Heart sounds: S1 normal and S2 normal Neuro General: patient alert, patient awake and patient oriented x3 Extremities Lower Extremity Edema: None: Bilateral Supplemental Info Supplemental Information TRANSESOPHAGEAL ECHOCARDIOGRAM 03/29/23: SUMMARY * Left ventricle: Left ventricle size is normal. Normal wall thickness. Normal left ventricular systolic function. Normal wall motion. * Right ventricle: Right ventricle size is normal. Normal systolic function. * No significant valvular abnormalities. ECHOCARDIOGRAM 03/28/23: SUMMARY * Left ventricle: Left ventricle size is normal. Normal wall thickness. Normal left ventricular systolic function. EF by 2D Simpons Biplane is 63%. Normal wall motion. Normal diastolic function. * Right ventricle: Right ventricle size is normal. Normal systolic function. * No significant (more content not included)... Normal [facility] 36on 05-14-2023 36 Pt requesting return to work letter. Letter printed and mailed on 05/15/23. 03/29/23: CABG x3 (JACOBSEN-LAD, radial-D1, SVG-D2), LLE EVH, L radial endoscopic harvest, MARILEE with Dr. Lalito Steinberg, MEDICAL OFFICE SUPERVISOR-WELFARE WORKER Note 05/09/23 05/09/23: Spoke with patient for f/u VV. He continues to recover well. He is anxious to get back to work and continue to increase activity. He is no longer taking pain medication. He has seen his Technical Staff Engineer at [place] and is planning to start cardiac rehab there. He has been checking his BP intermittently, typically 120s/80s. He will continue to monitor it. Normal [facility] 36on 05-10-2023 36 Name of caller: Chivo Contact phone number: [phone] Relationship to Patient: patient Provider: GELA Steinberg Practice: Cardiothroacic Chief Complaint/Reason for Call: Pt is requesting a return to work letter be mailed to her address. Please advise. Best time of day caller can be reached: Any Patient advised that office/PCP has 24-48 business hours to return their call: Yes Normal [facility] Progress Noteon 05-09-2023 Progress Note [facility]: [place] [facility] [place] [address] [facility] [address] [facility] [address] Dept: [phone] Dept Loc: [phone] Visit type: Established patient - Virtual Reason for Visit: Postop follow up Assessment/Plan Diagnosis: 1. CAD in [place] artery 2. S/P CABG (coronary artery bypass graft) 03/29/23: CABG x3 (JACOBSEN-LAD, radial-D1, SVG-D2), LLE EVH, L radial endoscopic harvest, MARILEE with Dr. Starkey Plan: POD#41 Day from Discharge (04/02/23) #37 -Reviewed current meds Continue as ordered -Surgical Incisions: Per patient-healing appropriately, well approximated, no s/s of infection -Physical therapy as outlined in discharge instructions: starting cardiac rehab in 2 weeks -Acute Post-Operative Pain Tx plan: OTC as needed -Wires Only Weight restriction measures 5-8 weeks from date of surgery- 20lbs weight restriction approximate end date: 05/24/23 Disposition: F/U with cardiology as scheduled F/U with CTS PRN Patient verbalized understanding of plan and stated they would call if any questions or concerns arise. Treatment Team: PCP: Suzi Encarnacion Cardiology: [place] [facility] Patient was seen today via Telehealth by agreement and consent. I used the following Telehealth technology: Audio capability only. Total length of call 20 minutes. The patient was offered and advised video for a more comprehensive evaluation, but the patient declined or was unable to use video. Patient location: Patient Location: Home. This patient encounter is appropriate and reasonable under the circumstances: transportation issues . The patient has been advised of the potential risks and limitations of this mode of treatment (including but not limited to the absence of in-person examination) and has agreed to be treated in a remote fashion in spite of them. Any and all of the patient's/patient's family's questions on this issue have been answered and I have made no promises or guarantees to the patient. The patient has also been advised to contact this office for worsening conditions or problems, and seek emergency medical treatment and/or call 911 if the patient deems either necessary. The patient stated that they are currently in the state [facility]. If the patient is a minor, permission has been obtained by the parent or guardian for the patient to receive medical care at this visit. Patient identification was verified at the start of the visit: yes Total time spent on this encounter: 30 minutes Subjective HPI:62 yo male with PMH of HTN, HPL, MIKAELA on CPAP, post-covid lung disease, DVT (no longer on anticoagulation), BPH, GERD. He was admitted with worsening angina for which he had a CTA and Stress test as an OP. He then saw Dr. Jaeger in [place] for a heart cath and was found to have MVCAD, ostial LAD, diag 1, and diag2. He was sent to [facility] for CABG eval. He does have a family hx of CAD in his father and brother (both in 50s). He was taken for CABG x3 on 03/29/[address] Starkey. He had an uncomplicated recovery and will d/c home on POD #4 with 4 day lasix. 05/09/23: Spoke with patient for f/u VV. He continues to recover well. He is anxious to get back to work and continue to increase activity. He is no longer taking pain medication. He has seen his Technical Staff Engineer at [place] and is planning to start cardiac rehab there. He has been checking his BP intermittently, typically 120s/80s. He will continue to monitor it. Review of Systems Constitutional: Negative for diaphoresis, fatigue and fever. Respiratory: Negative for cough, shortness of breath and wheezing. Cardiovascular: Negative for chest pain, palpitations and leg swelling. Skin: Negative for rash. Objective Patient reported: none noted Wt Readings from Last 3 Encounters: 04/08/23 164 lb 3.2 oz (74.5 kg) 04/02/23 162 lb 11.2 oz (73.8 kg) Physical exam deferred due to virtual visit-with audio (telephone) capabilities only Labs/Imaging/Testing : reviewed EMR, see A&P for pertinent diagnostic results related to office visit Disclaimer INFORMED CONSENT:The nature and purpose of the proposed treatment or procedure have been discussed. The risks and benefits of the proposed treatment or procedures have been reviewed. Alternatives have been reviewed in addition to the risks and benefits of not receiving treatments or undergoing procedures. Pursuant to this discussion, the patient agrees to undergo the proposed treatment or procedure. Captured images seen in this note from are not a substitute for a comprehensive interpretation of the entire data set as reflected by the interpreting physician with regard to radiology, echocardiography, and other diagnostic images. This note may have been dictated using Dragon Medical Practice Edition 2.6 and/or Healthkart Voice Recognition Feature. The document was proofread, however unrecognized voice recognition table assembler errors may be present. Normal [facility] Progress Noteon 04-24-2023 Progress Note [facility]: [place] [facility] [place] [address] [facility] [address] Dept: [phone] Dept Loc: [phone] Visit type: Established patient - Virtual Reason for Visit: Postop Assessment/Plan Diagnosis: 1. CAD in [place] artery 2. S/P CABG (coronary artery bypass graft) 03/29/23: CABG x3 (JACOBSEN-LAD, radial-D1, SVG-D2), LLE EVH, L radial endoscopic harvest, MARILEE with Dr. Starkey Plan: POD#26 Day from Discharge (04/02/23) #22 -Reviewed current meds - Continue ASA, statin, BB - Amlodipine x30 days for radial graft, end date 04/27 - once completed will continue to monitor BP -Surgical Incisions: Per patient-healing appropriately, well approximated, no s/s of infection -Physical therapy: Okay to start cardiac rehab -Acute Post-Operative Pain Tx plan: OTC as needed, taking 1/2 oxycodone nightly -Wires Only Weight restriction measures 1-4 weeks from date of surgery- 10lbs weight restriction: 04/26/23 5-8 weeks from date of surgery- 20lbs weight restriction approximate end date: 05/24/23 Disposition: FU with CTS 2 week VV FU with Cardiology ([facility]) 05/01 Patient verbalized understanding of plan and stated they would call if any questions or concerns arise. Treatment Team: PCP: Suzi Encarnacion Cardiology: [facility] Patient was seen today via Telehealth by agreement and consent. I used the following Telehealth technology: Audio capability only. Total length of call 25 minutes. The patient was offered and advised video for a more comprehensive evaluation, but the patient declined or was unable to use video. Patient location: VV Patient Location: Home. This patient encounter is appropriate and reasonable under the circumstances: transportation issues . The patient has been advised of the potential risks and limitations of this mode of treatment (including but not limited to the absence of in-person examination) and has agreed to be treated in a remote fashion in spite of them. Any and all of the patient's/patient's family's questions on this issue have been answered and I have made no promises or guarantees to the patient. The patient has also been advised to contact this office for worsening conditions or problems, and seek emergency medical treatment and/or call 911 if the patient deems either necessary. The patient stated that they are currently in the [facility]. If the patient is a minor, permission has been obtained by the parent or guardian for the patient to receive medical care at this visit. Patient identification was verified at the start of the visit: yes Total time spent on this encounter: 35 minutes Subjective HPI: 62 yo male with PMH of HTN, HPL, MIKAELA on CPAP, post-covid lung disease, DVT (no longer on anticoagulation), BPH, GERD. He was admitted with worsening angina for which he had a CTA and Stress test as an OP. He then saw Dr. Jaeger in [place] for a heart cath and was found to have MVCAD, ostial LAD, diag 1, and diag2. He was sent to [facility] for CABG eval. He does have a family hx of CAD in his father and brother (both in 50s). He was taken for CABG x3 on 03/29/[address] Starkey. He had an uncomplicated recovery and will d/c home on POD #4 with 4 day lasix. 04/24/23: Spoke with patient for VV follow up. Overall he is doing very well from a surgical standpoint. He would like to be able to do more, but understands the recovery process is slow. He is walking and keeping track of his steps. Reviewed his vital signs which are WNL. He denies cough, incisional issues, leg swelling or weight gain. Does have some intermittent MSI discomfort/pain and has some SOB with activity. His main issue is difficulty sleeping. He does not wish to try a sleep aid at this time. Review of Systems Constitutional: Positive for activity change and fatigue. Negative for diaphoresis and fever. Respiratory: Positive for shortness of breath (with acitivity). Negative for cough and wheezing. Cardiovascular: Negative for chest pain, palpitations and leg swelling. Gastrointestinal: Negative for abdominal distention, constipation and diarrhea. Objective Patient reported: 04/20- 119/80 3/4- 123/68 3/5- 130/80 3/6- 120/79 Wt Readings from Last 3 Encounters: 04/08/23 164 lb 3.2 oz (74.5 kg) 04/02/23 162 lb 11.2 oz (73.8 kg) Physical exam deferred due to virtual visit-with audio (telephone) capabilities only Labs/Imaging/Testing : reviewed EMR, see A&P for pertinent diagnostic results related to office visit Disclaimer INFORMED CONSENT:The nature and purpose of the proposed treatment or procedure have been discussed. The risks and benefits of the proposed treatment or procedures have been reviewed. Alternatives have been reviewed in addition to the risks and benefits of not receiving treatments or undergoing procedures. Pursuant to this discussion, the patient agrees to undergo the proposed treatment or procedure. C (more content not included)... Normal [facility] CARECOORDon 04-10-2023 CARECOBETHESDA Patient Choice Patient Name: CHIVO LIVINGSTON Date of : 1960 [facility] Office Visiton 04-08-2023 Follow-up visit [id number] Chivo Livingston 1960 M Date Provider Department Center 04/08/2023 [id number] No family history on file Level of Service:87507 [place] POSTOP FOLLOW UP VISIT RELATED TO ORIGINAL PX Reason for Visit and Comments: Post-op [483] [facility] PATINSon 04-08-2023 PATINS No driving until 04/26/23 Weight restriction measures 1-4 weeks from date of surgery- 10lbs weight restriction: 04/26/23 5-8 weeks from date of surgery- 20lbs weight restriction: 05/24/23 [facility] Progress Noteon 04-08-2023 Progress Note [facility]: CT SURGEONS AK[place] [address] [facility] [address] [facility] [id number] Dept: [phone] Dept Loc: [phone] Visit type: Established patient Reason for Visit: Post-op Assessment and Plan 1. CAD in [place] artery 2. S/P CABG (coronary artery bypass graft) 03/29/23: CABG x3 (JACOBSEN-LAD, radial-D1, SVG-D2), LLE EVH, L radial endoscopic harvest, MARILEE with Dr. Starkey POD#10 Day from Discharge (04/02/23) #6 -Reviewed current meds: - Continue ASA, statin, BB - Amlodipine x30 days for radial graft - once completed will continue to monitor BP -Surgical Incisions: healing appropriately, well approximated, no s/s of infection. -Physical therapy as outlined in discharge instructions.Not ready for Cardiac Rehab and Not ready to drive. -Acute Post-Operative Pain controlled. Patient taking narcotic opioid medication. Tx plan: Continue to use narcotic/opioid analgesic medication and Over The Counter-Tylenol (acetaminophen) 500 mg 1-2 tablets every 6 hours. No more than 4,000 mg in 24 hour period. Weight restriction measures 1-4 weeks from date of surgery- 10lbs weight restriction: 04/26/23 5-8 weeks from date of surgery- 20lbs weight restriction: 05/24/23 Disposition: FU with CTS 2 weeks for VV FU with Cardiology ([place]) 05/01 Patient verbalized understanding of plan and stated they would call if any questions or concerns arise. Treatment Team: PCP: Suzi Encarnacion Subjective HPI: 62 yo male with PMH of HTN, HPL, MIKAELA on CPAP, post-covid lung disease, DVT (no longer on anticoagulation), BPH, GERD. He was admitted with worsening angina for which he had a CTA and Stress test as an OP. He then saw Dr. Jaeger in [place] for a heart cath and was found to have MVCAD, ostial LAD, diag 1, and diag2. He was sent to [facility] for CABG eval. He does have a family hx of CAD in his father and brother (both in 50s). He was taken for CABG x3 on 03/29/[address] Starkey. He had an uncomplicated recovery and will d/c home on POD #4 with 4 day lasix. 04/08/23: Patient seen for initial postop follow up. He is doing very well at home, getting around without any assist devices. His pain is controlled with Acetaminophen and Oxycodone at night. He denies any CP, SOB, leg swelling, or incisional issues. He is checking BP, HR, & SpO2, logs reviewed, all wnl. Has completed lasix. Is anxious to get back to work and increase his activity, reviewed lifting guidelines. Review of Systems Constitutional: Positive for activity change and fatigue. Negative for appetite change, diaphoresis and fever. Respiratory: Negative for cough, shortness of breath and wheezing. Cardiovascular: Negative for chest pain, palpitations and leg swelling. Gastrointestinal: Negative for abdominal distention, constipation and diarrhea. Skin: Negative for color change, pallor and rash. No Known Allergies Outpatient Medications Prior to Visit Medication Sig Dispense Refill acetaminophen (Tylenol) 500 MG tablet Take 2 tablets (1,000 mg) by mouth in the morning and 2 tablets (1,000 mg) at noon and 2 tablets (1,000 mg) before bedtime. Do all this for 10 days. amLODIPine (Norvasc) 2.5 MG tablet Take 1 tablet (2.5 mg) by mouth daily. 30 tablet 0 aspirin 81 MG EC tablet Take 1 tablet (81 mg) by mouth daily. 30 tablet 1 metoprolol tartrate (Lopressor) 25 MG tablet Take 1 tablet (25 mg) by mouth 2 times daily. 60 tablet 1 oxyCODONE (Roxicodone) 5 MG immediate release tablet Take 1 tablet (5 mg) by mouth every 6 hours as needed for severe pain (7-10) for up to 7 days. 28 tablet 0 rosuvastatin (Crestor) 40 MG tablet Take 1 tablet (40 mg) by mouth daily. 30 tablet 1 furosemide (Lasix) 40 MG tablet Take 1 tablet (40 mg) by mouth daily for 4 doses. 4 tablet 0 No facility-administere d medications prior to visit. Past Medical History: Diagnosis Date Coronary artery disease HTN (hypertension) Objective Patient reported: No flowsheet data found. Vitals: 04/08/23 1251 BP: 132/79 Pulse: 77 Wt Readings from Last 3 Encounters: 04/08/23 164 lb 3.2 oz (74.5 kg) 04/02/23 162 lb 11.2 oz (73.8 kg) Physical Exam Cardiovascular: Rate and Rhythm: Normal rate and regular rhythm. Heart sounds: Normal heart sounds. Pulmonary: Effort: Pulmonary effort is normal. Breath sounds: Normal breath sounds. Abdominal: General: Bowel sounds are normal. Palpations: Abdomen is soft. Tenderness: There is no abdominal tenderness. Skin: General: Skin is warm and dry. Comments: Surgical Incisions: well approximate; clean dry with no drainage noted. Surrounding skin no redness, warmth, or signs of infection noted. Neurological: Mental Status: He is alert and oriented to person, place, and time. Data Reviewed and Summarized Labs/Imaging/Testing : reviewed EMR, see A&P for pertinent diagnostic results related to office visit Katja Steinberg, MEDICAL OFFICE SUPERVISOR - WELFARE WORKER Normal [facility] BASIC METABOLIC PANELon 03-21 Anion gap [Moles/Vol] 8 mmol/L Normal 3-13 [facility] Comment on above: Performed By: #### L [id number] ####Training Engineer: MADISON CHARLES ([id number])[facility])[address] [place] [address] Calcium [Mass/Vol] 9.1 mg/dL Normal 8.4-10.4 [facility] Comment on above: Performed By: #### L AB15 ####Training Engineer: MADISON CHARLES ([id number])[facility] ([facility])[address] [place] [address] Chloride [Moles/Vol] 102 mmol/L Normal 98-107 [facility] Comment on above: Performed By: #### L AB15 ####Training Engineer: MADISON CHARLES ([id number])[facility])[address] [place] [address] CO2 [Moles/Vol] 29 mmol/L Normal 22-30 [facility] Comment on above: Performed By: #### L AB15 ####Training Engineer: MADISON CHARLES ([id number])[facility])[address] [place] [address] Creatinine [Mass/Vol] 0.95 mg/dL Normal 0.66-1.25 [facility] Comment on above: Performed By: #### L AB15 ####Training Engineer: MADISON CHARLES ([id number])[facility])[address] [place] [address] GLOMERULAR FILTRATION RATE ML/MIN/1.73 SQ M.PREDICTED >90.0 Normal >60.0 [facility] Comment on above: Result Comment: Calc ulation based on the Chronic Kidney Disease Epidemiology Collaboration (CKD-EPI) equation refit without adjustment for race Performed By: #### L AB15 ####Training Engineer: MADISON CHARLES ([id number])[facility] ([facility])[address] [place] [address] Glucose [Mass/Vol] 95 mg/dL Normal 70-100 [facility] Comment on above: Performed By: #### L AB15 ####Training Engineer: MADISON CHARLES ([id number])[facility] ([facility])[address] [place] [address] Potassium [Moles/Vol] 4.2 mmol/L Normal 3.5-5.1 [facility] Comment on above: Performed By: #### L AB15 ####Training Engineer: MADISON CHARLES ([id number])[facility] ([facility])[address] [place] [address] Sodium [Moles/Vol] 138 mmol/L Normal 135-145 [facility] Comment on above: Performed By: #### L AB15 ####Training Engineer: MADISON CHARLES ([id number])[facility] ([facility])[address] [place] [address] Urea nitrogen [Mass/Vol] 27 mg/dL High 9-20 [facility] Comment on above: Performed By: #### L AB15 ####Training Engineer: MADISON CHARLES ([id number])[facility])[address] [place] [address] Basic metabolic 1998 panelon 04-02-2023 Anion gap [Moles/Vol] 8 mmol/L 3 - 13 mmol/L [facility] Calcium [Mass/Vol] 9.1 mg/dL 8.4 - 10. 4 mg/dL [facility] Chloride [Moles/Vol] 102 mmol/L 98 - 10 7 mmol/L [facility] CO2 [Moles/Vol] 29 mmol/L 22 - 30 mmol/L [facility] Creatinine [Mass/Vol] 0.95 mg/dL 0.66 - 1.25 mg/dL [facility] GFR/1.73 sq M.predicted MDRD (S/P/Bld) [Vol rate/Area] - PINF [facility] Comment on above: Calculation based on the Chronic Kidney Disease Epidemiology Collaboration (CKD-EPI) equation refit without adjustment for race Glucose [Mass/Vol] 95 mg/dL 70 - 100 mg/dL [facility] Interpretation and review of laboratory results Abnormal [facility] Potassium [Moles/Vol] 4.2 mmol/L 3.5 - 5.1 mmol/L [facility] Sodium [Moles/Vol] 138 mmol/L 135 - 145 mmol/L [facility] Urea nitrogen [Mass/Vol] 27 mg/dL High 9 - 20 mg/dL [facility] CARECOORDon 04-02-2023 [facility] Site of Care Admission Date: 03/28/2023 01:14 PM Patient Name: CHIVO LIVINGSTON Location: [address] [id number] A Date of : 1960 Placement Information Referral Type:Home Health Care Services - New Referral ID:[id number] Provider Name:[facility] Address 1:[address] Address 2: City:[place] Selection Factors:Patient/Fami ly Choice State:[place] Normal [facility] CARECOORD Spoke with patient and at bedside, anticipate discharge later today. Aware [facility]INSON will set up home care, no DME needed, all questions answered. Normal [facility] CBC (HEMOGRAM)on 04-02-2023 Erythrocyte distribution width (RBC) [Ratio] 13.9 % Normal 11.5-14.5 [facility] Comment on above: Performed By: #### L [id number] ####Training Engineer: MADISON CHARLES ([id number])[address] ERYTHROCYTE MEAN CORPUSCULAR HEMOGLOBIN CONCENTRATION (G/DL) BY AUTOMATED 34.7 % Normal 32.0-36.0 [facility] Comment on above: Performed By: #### L [id number] ####Training Engineer: MADISON CHARLES ([id number])[address] Hematocrit (Bld) [Volume fraction] 34.0 % Low 40.0-52.0 [facility] Comment on above: Performed By: #### L [id number] ####Training Engineer: MADISON CHARLES ([id number])[address] Hemoglobin (Bld) [Mass/Vol] 11.8 g/dL Low 13.0-18.0 [facility] Comment on above: Performed By: #### L [id number] ####Training Engineer: MADISON [id number])[facility] ([facility])[address] [place] [address] MCH (RBC) [Entitic mass] 29.0 pg Normal 26.0-34.0 [facility] Comment on above: Performed By: #### L [id number] ####Training Engineer: MADISON CHARLES ([id number])[facility] ([facility])[address] [place] [address] MCV (RBC) [Entitic vol] 83.5 fL Normal 80.0-98.0 [facility] Comment on above: Performed By: #### L [id number] ####Training Engineer: MADISON CHARLES ([id number])[facility])[address] [place] [address] Platelet mean volume (Bld) [Entitic vol] 8.1 fL Normal 7.4-12.4 [facility] Comment on above: Performed By: #### L [id number] ####Training Engineer: MADISON CHARLES ([id number])[facility] ([facility])[address] [place] [address] Platelets (Bld) [#/Vol] 241 10*3/uL Normal 140-440 [facility] Comment on above: Performed By: #### L AB294 ####Training Engineer: MADISON CHARLES ([id number])[facility])[address] [place] [address] RBC (Bld) [#/Vol] 4.07 10*6/uL Low 4.40-5.90 [facility] Comment on above: Performed By: #### L AB294 ####Training Engineer: MADISON CHARLES ([id number])[facility])[address] [place] [address] WBC (Bld) [#/Vol] 7.8 10*3/uL Normal 3.6-10.7 [facility] Comment on above: Performed By: #### L [id number] ####Training Engineer: MADISON CHARLES ([id number])[facility])[address] [place] [address] CBC panel Auto (Bld)on 04-02 Erythrocyte distribution width (RBC) [Ratio] 13.9 % 11.5 - 14.5 % [facility] Hematocrit (Bld) [Volume fraction] 34.0 % Low 40.0 - 52.0 % [facility] Hemoglobin (Bld) [Mass/Vol] 11.8 g/dL Low 13.0 - 18.0 g/dL [facility] Interpretation and review of laboratory results Abnormal [facility] MCH (RBC) [Entitic mass] 29.0 pg 26. 0 - 34.0 pg [facility] MCHC (RBC) [Mass/Vol] 34.7 % 32.0 - 36.0 % [facility] MCV (RBC) [Entitic vol] 83.5 fL 80.0 - 98.0 fL [facility] Platelet mean volume (Bld) [Entitic vol] 8.1 fL 7.4 - 12.4 fL [facility] Platelets (Bld) [#/Vol] 241 10*3/uL 140 - 440 10*3/uL [facility] RBC (Bld) [#/Vol] 4.07 10*6/uL Low 4.40 - 5.9 0 10*6/uL [facility] WBC (Bld) [#/Vol] 7.8 10*3/uL 3.6 - 10.7 10*3/uL [facility] IDNon 04-02-2023 IDN Problem: Problem Interventions Goal: Assess Nutritional Intake Outcome: Progressing Goal: Dietary Supplements Outcome: Progressing Problem: Pain - Adult Goal: Verbalizes/displays adequate comfort level or baseline comfort level Outcome: Progressing Flowsheets (Taken 04/01/2023 0957) Verbalizes/displays adequate comfort level or baseline comfort level: Encourage patient to monitor pain and request assistance Assess pain using appropriate pain scale Administer analgesics based on type and severity of pain and evaluate response Implement non-pharmacological measures as appropriate and evaluate response Consider cultural and social influences on pain and pain management Notify Licensed Independent Practitioner if interventions unsuccessful or patient reports new pain Problem: Safety - Adult Goal: Free from fall injury Outcome: Progressing Flowsheets (Taken 04/01/2023 09) Free from fall injury: Instruct family/caregiver on patient safety Based on caregiver fall risk screen, instruct family/caregiver to ask for assistance with transferring infant if caregiver noted to have fall risk factors Problem: Discharge Planning Goal: Discharge to home or other facility with appropriate resources Outcome: Progressing Flowsheets (Taken 04/01/2023956) Discharge to home or other facility with appropriate resources: Identify barriers to discharge with patient and caregiver Arrange for needed discharge resources and transportation as appropriate Identify discharge learning needs (meds, wound care, etc) Arrange for interpreters to assist at discharge as needed Refer to discharge planning if patient needs post-hospital services based on physician order or complex needs related to functional status, cognitive ability or social support system Problem: Chronic Conditions and Co-morbidities Goal: Patient's chronic conditions and co-morbidity symptoms are monitored and maintained or improved Outcome: Progressing Flowsheets (Taken 04/01/2023956) Care Plan - Patient's Chronic Conditions and Co-Morbidity Symptoms are Monitored and Maintained or Improved: Collaborate with multidisciplinary team to address chronic and comorbid conditions and prevent exacerbation or deterioration Monitor and assess patient's chronic conditions and comorbid symptoms for stability, deterioration, or improvement Update acute care plan with appropriate goals if chronic or comorbid symptoms are exacerbated and prevent overall improvement and discharge Problem: Knowledge Deficit Goal: Patient/family/careg iver demonstrates understanding of disease process, treatment plan, medications, and discharge instructions Outcome: Progressing Flowsheets (Taken 04/02/2023833) Patient/family/careg iver demonstrates understanding of disease process, treatment plan, medications, and discharge instructions: Complete learning assessment and assess knowledge base Provide teaching via preferred learning methods Provide teaching at level of understanding Problem: Potential for Compromised Skin Integrity Goal: Skin Integrity is Maintained or Improved Outcome: Progressing Flowsheets (Taken 04/02/2023833) Skin integrity is maintained or improved: Monitor patient's hygiene practices Alternate a full bath with partial baths for elderly Avoid shearing Turn patient Identify patients at risk for skin breakdown on admission and per policy Assess and monitor skin integrity Collaborate with interdisciplinary team and initiate plans and interventions as needed Relieve pressure to bony prominences Keep skin clean and dry Encourage use of lotion/moisturizer on skin Goal: Nutritional status is improving Outcome: Progressing Flowsheets (Taken 04/02/2023833) Nutritional status is improving: Monitor and assess patient for malnutrition (ex- brittle hair, bruises, dry skin, pale skin and conjunctiva, muscle wasting, smooth red tongue, and disorientation) Collaborate with interdisciplinary team and initiate plan and interventions as ordered Monitor patient's weight and dietary intake as ordered or per policy Utilize nutrition screening tool and intervene per policy Allow adequate time for meals Assist patient with eating Determine patient's food preferences and provide high-protein, high-caloric foods as appropriate Encourage patient to take dietary supplement as ordered Collaborate with clinical film touch up inspector Include patient/family/careg iver in decisions related to nutrition Problem: Urinary Incontinence Goal: Perineal skin integrity is maintained or improved Outcome: Progressing Flowsheets (Taken 04/02/2023 0834) Perineal skin integrity is maintained or improved: Assess genitourinary system, perineal skin, labs (urinalysis), and history of incontinence to include past management, aggravating, and alleviating factors Collaborate with interdisciplinary team including wound, ostomy, and continence nurse (more content not included)... [facility] Progress Noteon 04-02-2023 Progress Note PHYSICAL THERAPY [facility] Treatment Note Name/MRN: Chivo Livingston ([id number]) Date of : 1960 Age: 62 y.o. Room/Bed: T1-119/T1-119 A Discharge Recommendation: Home with assist PRN Equipment Needed: No Prior Level of Function ADL Assistance: Independent Ambulation Assistance: Independent Transfer Assistance: Independent Assessment Pt at supervision level for all mobility. No LOB. Pt compliant with sternal precautions. Pt progressing toward all PT goals. Recommend home with PRN assist at discharge. Subjective Pt sitting up in the chair, agrees to PT. Pain: 0-10 pain scale: 3/10 Location: chest/incision Medical Precautions: No active isolations Proper PPE donned/doffed in accordance with facility standards. Fall Risk: Cates Fall Risk Score: 35 (Medium Risk) Precautions/Restrict ions: Sternal Precautions: No Pushing, No Pulling, No Lifting Greater Than 10 lbs and Keep your move in the tube. tele Overall Cognitive Status: WNL Overall Orientation Status: Oriented x4 Family/Caregiver Present: none Objective Ambulation Ambulation 1 Assistive device(s) used: none Assist level: Supervision Distance (ft): 350 ft Quality of gait: No LOB Transfers/Mobility Sit to stand: Supervision Stand to sit: Supervision Exercises Exercises Upper Extremity: P&C exercises # 1-9 x 10 reps each Bed Mobility Supine to sit: Supervision Sit to supine: Supervision Rolling to right: Supervision Stairs Stairs 1 Assistive device(s) used: none Assist level: Supervision # of steps: 8 Rails: right Additional factors: reciprocal going up, reciprocal going down Plan Continue acute PT per plan of care. Safety/Education Safety Safety Devices in place: call light within reach, left in chair, nurse notified, and no alarms engaged upon entry Restraints: No Education Education Given To: patient Education Provided: PT Role, PT Goals, Gait Training, Plan of Care, Home Exercise Program, Precautions, Transfer Training, and Discharge Recommendations Education Method: Verbal and Printed Information Barriers to Learning: None Education Outcome: Verbalized Understanding and Demonstrated Understanding Outcome Measures AM-PAC AM-PAC Inpatient Mobility Raw Score : 24 AM-PAC Inpatient Mobility Raw Score (No Stairs) : 20 JH-HLM JH-HLM Score: Walked 250 ft or more (i.e. several laps on unit) Goals Patient Stated Goal: To go home. Encounter Problems Encounter Problems (Active) Cardiac Patient will perform bed mobility with modified independence in order to improve independence and prepare for out of bed mobility. (Progressing) Start: 04/01/23 Expected End: 04/29/23 Patient will complete sit to stand transfer with independence to none in order to improve safety and prepare for out of bed mobility. (Progressing) Start: 04/01/23 Expected End: 04/29/23 Patient will ambulate 350 feet or ambulate 5 minutes with modified independence with RPE of 14 or lower. (Progressing) Start: 04/01/23 Expected End: 04/29/23 Patient will ascend and descend 5 # stairs with modified independence rail for balance only. (Progressing) Start: 04/01/23 Expected End: 04/29/23 Patient will be independent with P&C exercises. (Progressing) Start: 04/01/23 Expected End: 04/29/23 Patient will be independent with managing secretions and home walking program. (Progressing) Start: 04/01/23 Expected End: 04/29/23 Pain - Adult Therapy Time Individual Co-treatment Time In 0855 Time Out 0920 Minutes 25 Timed Code Treatment Minutes: (GT, TP) Vita Hanna PTA [facility] XR CHEST 1 VIEWon 04-02-2023 XR CHEST 1 VIEW Patient Name: CHIVO LIVINGSTON : 1960 Exam Date/Time: 04/02/2023 05:55 Procedure: XR CHEST 1 VIEW Ordering Provider: STEINBERG JENNIFER Reason For Exam: Shortness of breath INDICATION: Shortness of breath. VIEWS: Chest portable-one image COMPARISON: 04/01/2023 FINDINGS: Interval removal of mediastinal drain and bilateral chest tubes and right IJ central venous catheter. The trachea is midline. The cardiomediastinal silhouette is within normal limits. Median sternotomy wires are present. Monitoring wires and leads are noted. There is blunting of both costophrenic angles with lung base opacities. IMPRESSION: Bibasilar opacities representing combination of atelectasis and/or small pleural effusions. Report Dictated on Electronically Signed By: Katja Mireles MD Electronically Signed Date/Time: 04/02/2023 9:42 AM EST [facility] XR Chest Single viewon 04-02 Bibasilar opacities representing combination of atelectasis and/or small pleural effusions. Report Dictated on Electronically Signed By: Katja Mireles MD Electronically Signed Date/Time: 04/02/2023 9:42 AM EST [facility] [employer] Patient Name: CHIVO LIVINGSTON : 1960 Exam Date/Time: 04/02/2023 05:55 Procedure: XR CHEST 1 VIEW Ordering Provider: STEINBERG JENNIFER Reason For Exam: Shortness of breath INDICATION: Shortness of breath. VIEWS: Chest portable-one image COMPARISON: 04/01/2023 FINDINGS: Interval removal of mediastinal drain and bilateral chest tubes and right IJ central venous catheter. The trachea is midline. The cardiomediastinal silhouette is within normal limits. Median sternotomy wires are present. Monitoring wires and leads are noted. There is blunting of both costophrenic angles with lung base opacities. [facility] Katja Mireles MD - 04/02/2023 Patient Name: CHIVO LIVINGSTON : 1960 [facility]#: [id number] Exam Date/Time: 04/02/2023 05:55 Procedure: XR CHEST 1 VIEW Ordering Provider: STEINBERG JENNIFER Reason For Exam: Shortness of breath INDICATION: Shortness of breath. VIEWS: Chest portable-one image COMPARISON: 04/01/2023 FINDINGS: Interval removal of mediastinal drain and bilateral chest tubes and right IJ central venous catheter. The trachea is midline. The cardiomediastinal silhouette is within normal limits. Median sternotomy wires are present. Monitoring wires and leads are noted. There is blunting of both costophrenic angles with lung base opacities. IMPRESSION: Bibasilar opacities representing combination of atelectasis and/or small pleural effusions. Report Dictated on Electronically Signed By: Katja Mireles MD Electronically Signed Date/Time: 04/02/2023 9:42 AM EST [facility] [facility] (narrative) [facility] BASIC METABOLIC PANELon 03-21 Anion gap [Moles/Vol] 8 mmol/L Normal 3-13 [facility] Comment on above: Performed By: #### L [id number] ####Training Engineer: MADISON CHARLES ([id number])[address] Calcium [Mass/Vol] 8.9 mg/dL Normal 8.4-10.4 [facility] Comment on above: Performed By: #### L AB15 ####Training Engineer: MADISON CHARLES ([id number])[facility] ([facility])[address] [place] [address] Chloride [Moles/Vol] 99 mmol/L Normal 98-107 [facility] Comment on above: Performed By: #### L AB15 ####Training Engineer: MADISON CHARLES ([id number])[facility])[address] [place] [address] CO2 [Moles/Vol] 32 mmol/L High 22-30 [facility] Comment on above: Performed By: #### L AB15 ####Training Engineer: MADISON CHARLES ([id number])[facility])[address] [place] [address] Creatinine [Mass/Vol] 1.04 mg/dL Normal 0.66-1.25 [facility] Comment on above: Performed By: #### L AB15 ####Training Engineer: MADISON CHARLES ([id number])[facility])[address] [place] [address] [place] GLOMERULAR FILTRATION RATE ML/MIN/1.73 SQ M.PREDICTED 81.2 mL/min/1.73m*2 Normal >60.0 [facility] Comment on above: Result Comment: Calc ulation based on the Chronic Kidney Disease Epidemiology Collaboration (CKD-EPI) equation refit without adjustment for race Performed By: #### L AB15 ####Training Engineer: MADISON CHARLES ([id number])[facility])[address] [place] [address] Glucose [Mass/Vol] 106 mg/dL High 70-100 [facility] Comment on above: Performed By: #### L AB15 ####Training Engineer: MADISON CHARLES ([id number])[facility])[address] [place] [address] Potassium [Moles/Vol] 3.6 mmol/L Normal 3.5-5.1 [facility] Comment on above: Performed By: #### L AB15 ####Training Engineer: MADISON CHARLES ([id number])[facility])[address] [place] [address] Sodium [Moles/Vol] 139 mmol/L Normal 135-145 [facility] Comment on above: Performed By: #### L AB15 ####Training Engineer: MADISON CHARLES ([id number])[facility])[address] [place] [address] Urea nitrogen [Mass/Vol] 25 mg/dL High 9-20 [facility] Comment on above: Performed By: #### L AB15 ####Training Engineer: MADISON CHARLES ([id number])[facility] [place] [address] Basic metabolic 1998 panelon 04-01-2023 Anion gap [Moles/Vol] 8 mmol/L 3 - 13 mmol/L [facility] Calcium [Mass/Vol] 8.9 mg/dL 8.4 - 10. 4 mg/dL [facility] Chloride [Moles/Vol] 99 mmol/L 98 - 10 7 mmol/L [facility] CO2 [Moles/Vol] 32 mmol/L High 22 - 30 mmol/L [facility] Creatinine [Mass/Vol] 1.04 mg/dL 0.66 - 1.25 mg/dL [facility] GFR/1.73 sq M.predicted MDRD (S/P/Bld) [Vol rate/Area] 81.2 mL/min/{1.73_m2} - PINF [facility] Comment on above: Calculation based on the Chronic Kidney Disease Epidemiology Collaboration (CKD-EPI) equation refit without adjustment for race Glucose [Mass/Vol] 106 mg/dL High 70 - 100 mg/dL [facility] Interpretation and review of laboratory results Abnormal [facility] Potassium [Moles/Vol] 3.6 mmol/L 3.5 - 5.1 mmol/L [facility] Sodium [Moles/Vol] 139 mmol/L 135 - 145 mmol/L [facility] Urea nitrogen [Mass/Vol] 25 mg/dL High 9 - 20 mg/dL [facility] CBC (HEMOGRAM)on 04-01-2023 Erythrocyte distribution width (RBC) [Ratio] 13.8 % Normal 11.5-14.5 [facility] Comment on above: Performed By: #### L [id number] ####Training Engineer: MADISON CHARLES ([id number])[facility] ([facility])[address] [place] [address] ERYTHROCYTE MEAN CORPUSCULAR HEMOGLOBIN CONCENTRATION (G/DL) BY AUTOMATED 34.9 % Normal 32.0-36.0 [facility] Comment on above: Performed By: #### L [id number] ####Training Engineer: MADISON CHARLES ([id number])[facility] ([facility])[address] [place] [address] Hematocrit (Bld) [Volume fraction] 32.9 % Low 40.0-52.0 [facility] Comment on above: Performed By: #### L [id number] ####Training Engineer: MADISON CHARLES ([id number])[facility])[address] [place] [address] Hemoglobin (Bld) [Mass/Vol] 11.5 g/dL Low 13.0-18.0 [facility] Comment on above: Performed By: #### L [id number] ####Training Engineer: MADISON CHARLES ([id number])[facility] ([facility])[address] [place] [address] MCH (RBC) [Entitic mass] 29.0 pg Normal 26.0-34.0 [facility] Comment on above: Performed By: #### L [id number] ####Training Engineer: MADISON CHARLES ([id number])[facility] ([facility])[address] [place] [address] MCV (RBC) [Entitic vol] 83.2 fL Normal 80.0-98.0 [facility] Comment on above: Performed By: #### L [id number] ####Training Engineer: MADISON CHARLES ([id number])[facility])[address] [place] [address] Platelet mean volume (Bld) [Entitic vol] 8.2 fL Normal 7.4-12.4 [facility] Comment on above: Performed By: #### L [id number] ####Training Engineer: MADISON CHARLES ([id number])[facility] ([facility])[address] [place] [address] Platelets (Bld) [#/Vol] 200 10*3/uL Normal 140-440 [facility] Comment on above: Performed By: #### L [id number] ####Training Engineer: MADISON CHARLES ([id number])[facility])[address] [place] [address] RBC (Bld) [#/Vol] 3.95 10*6/uL Low 4.40-5.90 [facility] Comment on above: Performed By: #### L [id number] ####Training Engineer: MADISON CHARLES ([id number])[facility] ([facility])[address] [place] [address] WBC (Bld) [#/Vol] 7.9 10*3/uL Normal 3.6-10.7 [facility] Comment on above: Performed By: #### L [id number] ####Training Engineer: MADISON CHARLES ([id number])[facility] ([facility])[address] [place] [address] CBC panel Auto (Bld)Ordered By: Avery Matthews on 04-01-2023 Erythrocyte distribution width (RBC) [Ratio] 13.8 % 11.5 - 14.5 % [facility] Hematocrit (Bld) [Volume fraction] 32.9 % Low 40.0 - 52.0 % [facility] Hemoglobin (Bld) [Mass/Vol] 11.5 g/dL Low 13.0 - 18.0 g/dL [facility] Interpretation and review of laboratory results Abnormal [facility] MCH (RBC) [Entitic mass] 29.0 pg 26. 0 - 34.0 pg [facility] MCHC (RBC) [Mass/Vol] 34.9 % 32.0 - 36.0 % [facility] MCV (RBC) [Entitic vol] 83.2 fL 80.0 - 98.0 fL [facility] Platelet mean volume (Bld) [Entitic vol] 8.2 fL 7.4 - 12.4 fL [facility] Platelets (Bld) [#/Vol] 200 10*3/uL 140 - 440 10*3/uL [facility] RBC (Bld) [#/Vol] 3.95 10*6/uL Low 4.40 - 5.9 0 10*6/uL [facility] WBC (Bld) [#/Vol] 7.9 10*3/uL 3.6 - 10.7 10*3/uL [facility] IDNon 04-01-2023 IDN Problem: Pain - Adult Goal: Verbalizes/displays adequate comfort level or baseline comfort level Flowsheets (Taken 04/01/2023 0957) Verbalizes/displays adequate comfort level or baseline comfort level: Encourage patient to monitor pain and request assistance Assess pain using appropriate pain scale Administer analgesics based on type and severity of pain and evaluate response Implement non-pharmacological measures as appropriate and evaluate response Consider cultural and social influences on pain and pain management Notify Licensed Independent Practitioner if interventions unsuccessful or patient reports new pain Problem: Safety - Adult Goal: Free from fall injury Flowsheets (Taken 04/01/2023956) Free from fall injury: Instruct family/caregiver on patient safety Based on caregiver fall risk screen, instruct family/caregiver to ask for assistance with transferring infant if caregiver noted to have fall risk factors Problem: Discharge Planning Goal: Discharge to home or other facility with appropriate resources Flowsheets (Taken 04/01/2023956) Discharge to home or other facility with appropriate resources: Identify barriers to discharge with patient and caregiver Arrange for needed discharge resources and transportation as appropriate Identify discharge learning needs (meds, wound care, etc) Arrange for interpreters to assist at discharge as needed Refer to discharge planning if patient needs post-hospital services based on physician order or complex needs related to functional status, cognitive ability or social support system Problem: Chronic Conditions and Co-morbidities Goal: Patient's chronic conditions and co-morbidity symptoms are monitored and maintained or improved Flowsheets (Taken 04/01/2023956) Care Plan - Patient's Chronic Conditions and Co-Morbidity Symptoms are Monitored and Maintained or Improved: Collaborate with multidisciplinary team to address chronic and comorbid conditions and prevent exacerbation or deterioration Monitor and assess patient's chronic conditions and comorbid symptoms for stability, deterioration, or improvement Update acute care plan with appropriate goals if chronic or comorbid symptoms are exacerbated and prevent overall improvement and discharge Normal [facility] No Panel Informationon 04-01 Blood Expiration Date [id number] S [facility] scrible Crossmatch interpretation COMP [place] [employer] scrible Dispense Status Released from [employer] [facility] scrible Product Blood Type 5100 [facility] scrible PRODUCT CODE [id number] [facility] ABO O [facility] Unit Number [id number] [facility] He alth Unit Number [id number] [facility] alth Unit RH Positive [facility] Volume 300 mL [facility] Progress Noteon 04-01-2023 Progress Note Cardiothoracic Surgery Note PATIENT NAME: Chivo Livingston : 1960 (62 y.o.) TODAY'S DATE: 04/01/2023 Objective: BP 136/82 (BP Location: Right arm, Patient Position: Lying) Pulse 97 Temp 37 ?C (98.6 ?F) (Temporal) Resp 18 Ht 5' 6 (1.676 m) Wt 163 lb 12.8 oz (74.3 kg) SpO2 97% BMI 26.44 kg/m? Chest tubes assessed: no air leak, subcutaneous air noted. Chest tubes removed without difficulty and dressing applied. Patient tolerated well. Patient and nurse educated on possible complications to observe for. Will continue to monitor. Normal [facility] XR CHEST 1 VIEWon 04-01-2023 XR CHEST 1 VIEW [facility] Name[facility]IVO [facility] 1960 [id number] Exam Date/Time: 04/01/2023 05:50 Procedure: XR CHEST 1 VIEW Ordering Provider: STEINBERG JENNIFER Reason For Exam: Shortness of breath INDICATION: Inpatient. Shortness of breath. VIEWS: Chest portable-one image COMPARISON: 03/31/2023 FINDINGS: A right IJ central vascular catheter is present with tip overlying the right atria. A mediastinal drain and bilateral chest tubes are present. Median sternotomy wires and clips are present. The trachea is midline. The cardiomediastinal silhouette is enlarged. There is no sizable pneumothorax. Bibasilar opacities are present with blunting of the costophrenic angles. IMPRESSION: Bibasilar opacities representing pleural effusions and/or atelectasis, not significantly changed. Report Dictated on Electronically Signed By: Katja Mireles MD Electronically Signed Date/Time: 04/01/2023 8:27 AM EST Normal [facility] XR Chest Single viewon 04-01 Bibasilar opacities representing pleural effusions and/or atelectasis, not significantly changed. Report Dictated on Electronically Signed By: Katja Mireles MD Electronically Signed Date/Time: 04/01/2023 8:27 AM [facility] Patient Name: CHIVO LIVINGSTON : 1960 Exam Date/Time: 04/01/2023 05:50 Procedure: XR CHEST 1 VIEW Ordering Provider: STEINBERG JENNIFER Reason For Exam: Shortness of breath INDICATION: Inpatient. Shortness of breath. VIEWS: Chest portable-one image COMPARISON: 03/31/2023 FINDINGS: A right IJ central vascular catheter is present with tip overlying the right atria. A mediastinal drain and bilateral chest tubes are present. Median sternotomy wires and clips are present. The trachea is midline. The cardiomediastinal silhouette is enlarged. There is no sizable pneumothorax. Bibasilar opacities are present with blunting of the costophrenic angles. [facility] Katja Mireles MD - 04/01/2023 Patient Name: CHIVO LIVINGSTON : 1960 Exam Date/Time: 04/01/2023 05:50 Procedure: XR CHEST 1 VIEW Ordering Provider: STEINBERG JENNIFER Reason For Exam: Shortness of breath INDICATION: Inpatient. Shortness of breath. VIEWS: Chest portable-one image COMPARISON: 03/31/2023 FINDINGS: A right IJ central vascular catheter is present with tip overlying the right atria. A mediastinal drain and bilateral chest tubes are present. Median sternotomy wires and clips are present. The trachea is midline. The cardiomediastinal silhouette is enlarged. There is no sizable pneumothorax. Bibasilar opacities are present with blunting of the costophrenic angles. IMPRESSION: Bibasilar opacities representing pleural effusions and/or atelectasis, not significantly changed. Report Dictated on Electronically Signed By: Katja Mireles MD Electronically Signed Date/Time: 04/01/2023 8:27 AM [facility] Radiology Study observation (narrative) [facility] XR Chest Single viewOrdered By: Katja Mireles on 04-01-2023 [facility] Work Phone: BASIC METABOLIC PANELon 03-21 Anion gap [Moles/Vol] 6 mmol/L Normal 3-13 [facility] Comment on above: Performed By: #### L [id number] #### Training Engineer: MADISON CHARLES ([id number]) [facility] ([facility]) [address] [place] [address] Calcium [Mass/Vol] 8.4 mg/dL Normal 8.4-10.4 [facility] Comment on above: Performed By: #### L [id number] #### Training Engineer: MADISON CHARLES ([id number]) [facility] ([facility] [address] [place] [address] Chloride [Moles/Vol] 101 mmol/L Normal 98-107 [facility] Comment on above: Performed By: #### L [id number] #### Training Engineer: MADISON CHARLES ([id number]) [facility] ([facility] [address] [place] [address] [place] CO2 [Moles/Vol] 30 mmol/L Normal 22-30 [facility] Comment on above: Performed By: #### L [id number] #### Training Engineer: MADISON CHARLES ([id number]) [facility] ([facility]) [address] [place] [address] Creatinine [Mass/Vol] 1.11 mg/dL Normal 0.66-1.25 [facility] Comment on above: Performed By: #### L [id number] #### Training Engineer: MADISON CHARLES ([id number]) [facility] ([facility] [address] [place] [address] [place] GLOMERULAR FILTRATION RATE ML/MIN/1.73 SQ M.PREDICTED 75.1 mL/min/1.73m*2 Normal >60.0 [facility] Comment on above: Result Comment: Calc ulation based on the Chronic Kidney Disease Epidemiology Collaboration (CKD-EPI) equation refit without adjustment for race Performed By: #### L [id number] #### Training Engineer: MADISON CHARLES ([id number]) [facility] ([facility]) [address] [place] [address] Glucose [Mass/Vol] 101 mg/dL High 70-100 [facility] Comment on above: Performed By: #### L [id number] #### Training Engineer: MADISON CHARLES ([id number]) [facility] ([facility]) [address] [place] [address] Potassium [Moles/Vol] 3.6 mmol/L Normal 3.5-5.1 [facility] Comment on above: Performed By: #### L [id number] #### Training Engineer: MADISON CHARLES ([id number]) [facility]) [address] [place] [address] Sodium [Moles/Vol] 137 mmol/L Normal 135-145 [facility] Comment on above: Performed By: #### L [id number] #### Training Engineer: MADISON CHARLES ([id number]) [facility] [address] [place] [address] Urea nitrogen [Mass/Vol] 19 mg/dL Normal 9-20 [facility] Comment on above: Performed By: #### L [id number] #### Training Engineer: MADISON CHARLES ([id number]) [facility] [address] [place] [address] Basic metabolic 1998 panelon 03-31-2023 Anion gap [Moles/Vol] 6 mmol/L 3 - 13 mmol/L [facility] Calcium [Mass/Vol] 8.4 mg/dL 8.4 - 10. 4 mg/dL [facility] Chloride [Moles/Vol] 101 mmol/L 98 - 10 7 mmol/L [facility] CO2 [Moles/Vol] 30 mmol/L 22 - 30 mmol/L [facility] Creatinine [Mass/Vol] 1.11 mg/dL 0.66 - 1.25 mg/dL [facility] GFR/1.73 sq M.predicted MDRD (S/P/Bld) [Vol rate/Area] 75.1 mL/min/{1.73_m2} - PINF [facility] Comment on above: Calculation based on the Chronic Kidney Disease Epidemiology Collaboration (CKD-EPI) equation refit without adjustment for race Glucose [Mass/Vol] 101 mg/dL High 70 - 100 mg/dL [facility] Interpretation and review of laboratory results Abnormal [facility] Potassium [Moles/Vol] 3.6 mmol/L 3.5 - 5.1 mmol/L [facility] Sodium [Moles/Vol] 137 mmol/L 135 - 145 mmol/L [facility] Urea nitrogen [Mass/Vol] 19 mg/dL 9 - 20 mg/dL [facility] CARECOORDon 03-31-2023 [facility] Care Managment Initial Assessment Date: 03/31/2023 Patient Name: Chivo Livingston : 1960 Patient Information Source of Information: Patient Cognition/Language: WFL - Within Functional Limits Permission given to speak with 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 as indicated: Confirmation of Payer with patient/family: Yes Payer Name: [employer] [place]: No Confirmation of Primary Care Physician: Confirmed PCP Name: Suzi Gonzalez Seen in last 2 years?: Yes Primary Caregiver: Self If assistance needed, confirmed caregiver ready, willing and able to care for patient at discharge: Yes Confirmed with: - Adry Living Arrangements Current Residence: House Number of Floors 3 Number of Entry Steps: 5 or more Bed/Bath Levels: Both first floor Facility: Facility Name: Plan to Return: Lives with: Spouse/significant other, Extended family members Support Systems: Spouse/significant other, Family members Activities of Daily Living Ambulation: Independent Bathing/Dressing: Independent Elimination/Continen ce/Toileting: Independent Feeding: Independent Who Assists with Activities of Daily Living: Instrumental Activities of Daily Living Prescription Coverage: Yes Pharmacy Used: [facility] Medication Management: Independent Transportation/Shopp ing: Independent Transportation Mode: Car Needs Assistance with Transportation at Discharge: No Meal Preparation: Independent Laundry/Cleaning: Independent Finances/Bill Paying: Assistance Provider Finances/Bill Payer Assistance Provider Name: Communication: Independent Types of Care Services/Equipment Utilized Care Services: Dialysis Type: NA Durable Medical Equipment: Cane, Walker, Wheelchair (standard or power), Raised Toilet Seat, Bedside Commode, CPap (all in storage, not in current use, avail to patient if he needs it) Patient's Goal/Discharge Plan Patient expects to be discharged to: home Discharge Planning Actions: Continue to follow Patient's Choice Rights and [employer] and Collaborative Relationships Disclosed as Indicated for Post-Acute Care: Interdisciplinary Team Engagement: Home Health Care Social Work Referral for: Additional Information: Spoke with patient at bedside. Patient admitted to [facility] for [facility]G on 03/29. PT/OT evals pending. From home, indep with . Patient ambulating in room, sitting in chair at time of assessment. [facility] following for needs. Cardiac Rehab consulted. Endocrinology following for post op glycemic management. TCC to follow. Zohreh Willams RN Normal [facility] CBC (HEMOGRAM)on 03-31-2023 Erythrocyte distribution width (RBC) [Ratio] 13.7 % Normal 11.5-14.5 [facility] Comment on above: Performed By: #### L [id number] #### Training Engineer: MADISON CHARLES ([id number]) [address] ERYTHROCYTE MEAN CORPUSCULAR HEMOGLOBIN CONCENTRATION (G/DL) BY AUTOMATED 34.0 % Normal 32.0-36.0 [facility] Comment on above: Performed By: #### L [id number] #### Training Engineer: MADISON [id number]) [address] Hematocrit (Bld) [Volume fraction] 29.6 % Low 40.0-52.0 [facility] Comment on above: Performed By: #### L [id number] #### Training Engineer: MADISON CHARLES ([id number]) [address] Hemoglobin (Bld) [Mass/Vol] 10.1 g/dL Low 13.0-18.0 [facility] Comment on above: Performed By: #### L [id number] #### Training Engineer: MADISON [id number]) [address] MCH (RBC) [Entitic mass] 28.9 pg Normal 26.0-34.0 [facility] Comment on above: Performed By: #### L [id number] #### Training Engineer: MADISON CHARLES ([id number]) [facility]) [address] [place] [address] MCV (RBC) [Entitic vol] 84.9 fL Normal 80.0-98.0 [facility] Comment on above: Performed By: #### L [id number] #### Training Engineer: MADISON CHARLES ([id number]) [facility] ([facility]) [address] [place] [address] Platelet mean volume (Bld) [Entitic vol] 8.0 fL Normal 7.4-12.4 [facility] Comment on above: Performed By: #### L [id number] #### Training Engineer: MADISON CHARLES ([id number]) [facility]) [address] [place] [address] Platelets (Bld) [#/Vol] 150 10*3/uL Normal 140-440 [facility] Comment on above: Performed By: #### L [id number] #### Training Engineer: MADISON CHARLES ([id number]) [facility] ([facility]) [address] [place] [address] RBC (Bld) [#/Vol] 3.49 10*6/uL Low 4.40-5.90 [facility] Comment on above: Performed By: #### L [id number] #### Training Engineer: MADISON CHARLES ([id number]) [facility] ([facility]) [address] [place] [address] WBC (Bld) [#/Vol] 8.3 10*3/uL Normal 3.6-10.7 [facility] Comment on above: Performed By: #### L [id number] #### Training Engineer: MADISON CHARLES ([id number]) [facility]) [address] [place] [address] CBC panel Auto (Bld)Ordered By: Kvng Puentes on 03-31-2023 Erythrocyte distribution width (RBC) [Ratio] 13.7 % 11.5 - 14.5 % [facility] Hematocrit (Bld) [Volume fraction] 29.6 % Low 40.0 - 52.0 % [facility] Hemoglobin (Bld) [Mass/Vol] 10.1 g/dL Low 13.0 - 18.0 g/dL [facility] Interpretation and review of laboratory results Abnormal [facility] MCH (RBC) [Entitic mass] 28.9 pg 26. 0 - 34.0 pg [facility] MCHC (RBC) [Mass/Vol] 34.0 % 32.0 - 36.0 % [facility] MCV (RBC) [Entitic vol] 84.9 fL 80.0 - 98.0 fL [facility] Platelet mean volume (Bld) [Entitic vol] 8.0 fL 7.4 - 12.4 fL [facility] Platelets (Bld) [#/Vol] 150 10*3/uL 140 - 440 10*3/uL [facility] RBC (Bld) [#/Vol] 3.49 10*6/uL Low 4.40 - 5.9 0 10*6/uL [facility] WBC (Bld) [#/Vol] 8.3 10*3/uL 3.6 - 10.7 10*3/uL [facility] ECG 12-LEADon 03-31-2023 ECG 12-LEAD IMPRESSION: Sinus rhythm Minimal ST elevation, inferior leads Electronically Signed On 03-31-2023 14:56:36 EST by Dk Dunbar Normal [facility] Laboratory - Chemistry and C hemistry - challengeon 03-31-2023 Glucose [Mass/Vol] 105 mg/dL High 70 - 100 mg/dL [facility] Glucose [Mass/Vol] 103 mg/dL High 70 - 100 mg/dL [facility] Magnesium [Mass/Vol] 2.1 mg/dL 1.6 - 2 .3 mg/dL [facility] Laboratory - Coagulationon 0 03-31-2023 aPTT Coag (PPP) [Time] 33.0 s High 20.0 - 30.5 s [facility] INR Coag (PPP) [Relative time] 1.1 {INR} 0.9 - 1.1 [facility] Comment on above: Recommended Anticoag ulant Therapy: SEE BELOW ----- INR of 2.0 - 3.0 : - Prophylaxis of Venous Thrombosis (high-risk surgery) - Treatment of Venous Thrombosis - Treatment of Pulmonary Embolism (Includes tissue heart valves, Acute Myocardial Infarction to prevent systemic embolism, Valvular Heart Disease, and Atrial Fibrillation) ----- INR of 2.5 - 3.5 : - Mechanical Prosthetic Valves (high risk) - If oral anticoagulant therapy is used to prevent Myocardial Infarction PT Coag (Bld) [Time] 11.7 s 9.0 - 1 2.0 s [facility] MAGNESIUMon 03-31-2023 Magnesium [Mass/Vol] 2.1 mg/dL Normal 1.6-2.3 [facility] Comment on above: Performed By: #### L [id number] #### Training Engineer: MADISON CHARLES ([id number]) [facility] ([facility]) [address] [place] [address] Magnesium [Mass/Vol]on 03-31 Interpretation and review of laboratory results Normal [facility] No Panel Informationon 03-31 P [place] 20 degrees [facility] MN Interval 150 ms [facility] QRS [place] 19 degrees [facility] QRSD Interval 85 ms [facility] QT Interval 362 ms [facility] QTC Interval 415 ms [facility] T Wave [place] 43 degrees [facility] Sinus rhythm Minimal ST elevation, inferior leads Electronically Signed On 03-31-2023 14:56:36 EST by Dk Dunbar CV Dk Martinez MD - 03/31/2023 IMPRESSION: Sinus rhythm Minimal ST elevation, inferior leads Electronically Signed On 03-31-2023 14:56:36 EST by Dk Dunbar [facility] Interpretation and review of laboratory results Abnormal [facility] Performed by: [facility], [address] [place] [address] CLIA ID: [id number] [facility] Interpretation and review of laboratory results Abnormal [facility] Performed by: [facility], [address] [place] [address] CLIA ID: [id number] [facility] Interpretation and review of laboratory results Abnormal [facility] Radiology Study observation (narrative) [facility] Radiology Study observation (narrative) [facility] PROTIME AND APTTon aPTT Coag (Bld) [Time] 33.0 s High 20.0-30.5 [facility] Comment on above: Performed By: #### L [id number] #### Training Engineer: MADISON CHARLES ([id number]) [facility] [address] [place] [address] INR Coag (PPP) [Relative time] 1.1 {INR} Normal 0.9-1.1 [facility] Comment on above: Result Comment: Gabino mmended Anticoagulant Therapy: SEE BELOW ----- INR of 2.0 - 3.0 : - Prophylaxis of Venous Thrombosis (high-risk surgery) - Treatment of Venous Thrombosis - Treatment of Pulmonary Embolism (Includes tissue heart valves, Acute Myocardial Infarction to prevent systemic embolism, Valvular Heart Disease, and Atrial Fibrillation) ----- INR of 2.5 - 3.5 : - Mechanical Prosthetic Valves (high risk) - If oral anticoagulant therapy is used to prevent Myocardial Infarction Performed By: #### L [id number] #### Training Engineer: MADISON CHARLES ([id number]) [facility] ([facility]) [address] [place] [address] PT Coag (PPP) [Time] 11.7 s Normal 9.0-12.0 [facility] Comment on above: Performed By: #### L [id number] #### Training Engineer: MADISON CHARLES ([id number]) [facility]) [address] [place] [address] Progress Noteon 03-31-2023 Progress Note Department of Internal Medicine Division of Endocrinology, Diabetes, & Metabolism Endocrinology Note Patient Name: Chivo Livingston : 1960 AGE: 62 y.o. Room/Bed: T1-119/T1-119 A Admission Date: 03/28/2023 Visit Date: 03/31/2023 Reason for Endocrine Consult: post-op glycemic management Provider/Team Requesting Consult: CTS PCP: Suzi Encarnacion Outpt Tmd Teacher Assistant: No ASSESSMENT: Stress/Post-op Hyperglycemia CAD s/p CABG HTN PLAN: - discontinue SS insulin - no need for regular glucose monitoring - counseled pt regarding nutrition - discussed importance of healthy lifestyle - on amlodipine and statin - will sign off ANTICIPATED ENDOCRINE HOME GOING RECOMMENDATIONS: Optimized for Discharge from Endocrine standpoint: yes Home Going Endocrine Rx Recommendations-- none Outpt Follow Up-- PCP SUBJECTIVE/HPI: CHIEF COMPLAINT: No chief complaint on file. 62 yo male with PMH of HTN, HPL, MIKAELA on CPAP, post-covid lung disease, DVT (no longer on anticoagulation), BPH, GERD, was taken for a heart cath on 03/28/23. Cath showed multivessel CAD; sent to [facility] for CABG eval. 03/29/2023 s/p CABG Patient with no history of hypoglycemia or diabetes Last A1c/glucose data: 5.5% Interim history -pt was up in the recliner -awake and alert -off NE drip -has not eaten BF; will try soup later -ate most of his dinner yesterday -no nausea/vomiting -having more chest discomfort; still has chest tubes -no SOB -BG stable Glucose Date/Time Value Ref Range Status 03/31/2023 12:39 PM 105 (H) 70 - 100 mg/dL Final 03/31/2023 08:24 AM 103 (H) 70 - 100 mg/dL Final 03/30/2023 05:53 PM 93 70 - 100 mg/dL Final 03/30/2023 12:28 PM 126 (H) 70 - 100 mg/dL Final 03/30/2023 10:03 AM 130 (H) 70 - 100 mg/dL Final 03/30/2023 09:04 AM 91 70 - 100 mg/dL Final Review of Systems ROS negative except for those mentioned in HPI. OBJECTIVE: Vitals: 03/31/23 1100 03/31/23 1126 03/31/23 1151 03/31/23 1200 BP: 112/71 109/64 BP Location: Patient Position: Pulse: 97 93 98 Resp: 18 Temp: 37 ?C (98.6 ?F) TempSrc: Temporal SpO2: 96% 96% 95% Weight: Height: 5' 6 (1.676 m) Physical Exam Vitals reviewed. Constitutional: General: He is awake. He is not in acute distress. Appearance: Normal appearance. Eyes: Conjunctiva/sclera: Conjunctivae normal. Cardiovascular: Rate and Rhythm: Normal rate. Comments: Chest tubes noted Chest incision intact Pulmonary: Effort: Pulmonary effort is normal. No respiratory distress. Abdominal: General: There is no distension. Musculoskeletal: General: No swelling or deformity. Neurological: General: No focal deficit present. Mental Status: He is alert. Psychiatric: Mood and Affect: Mood normal. Behavior: Behavior normal. 24 hour intake/output: Intake/Output Summary (Last 24 hours) at 03/31/2023 1322 Last data filed at 03/31/2023 1200 Gross per 24 hour Intake 488 ml Output 2670 ml Net -2182 ml Diet: Adult diet Regular; Low Fat/Low Chol/High Fiber/2 gm Na Medications (as per EMR): HomeMeds: No current outpatient medications Scheduled Meds:acetaminophen, 1,000 mg, Oral, q8h amLODIPine, 2.5 mg, Oral, Daily aspirin, 81 mg, Oral, Daily chlorhexidine, 15 mL, Mouth/Throat, BID furosemide, 40 mg, IntraVENous, BID heparin, 5,000 Units, SubCUTAneous, BID Lidocaine, 1 patch, Topical, Daily metoprolol tartrate, 12.5 mg, Oral, BID mupirocin, , Nasal, BID pantoprazole, 40 mg, Oral, qAM AC polyethylene glycol (PEG) 3350, 17 g, Oral, Daily rosuvastatin, 40 mg, Oral, Daily senna-docusate sodium, 2 tablet, Oral, Nightly sodium chloride 0.9%, 10 mL, IntraVENous, 2 times per day Continuous Infusions: PRN Meds:PRN medications: calcium gluconate, dextrose, dextrose, glucagon (rDNA), glucose, ipratropium-albutero l, magnesium hydroxide, naloxone, ondansetron ODT OR ondansetron, oxyCODONE OR oxyCODONE, potassium chloride CR, sodium chloride, sodium chloride 0.9% Diagnostic Workup: I reviewed pertinent Laboratory results, Radiographic results, and Other Clinical Notes at the time of today's encounter. Labs: No components found for: LABA1C No components found for: EAG Lab Results Component Value Date NA 137 03/31/2023 K 3.6 03/31/2023 CL 101 03/31/2023 CO2 30 03/31/2023 BUN 19 03/31/2023 CREATININE 1.11 03/31/2023 GLUCOSE 101 (H) 03/31/2023 CALCIUM 8.4 03/31/2023 No results found for: CHLPL, CHOL No results found for: TRIG No results found for: HDL No results found for: LDLCALC No results found for: VLDL No results found for: CHOLHDLRATIO No results found for: [id number] No results found for: TSH, F1ZUZMD, P8ZMMOJ, THYROIDAB Radiology reportsas per the Radiologist Radiology: POCT glucose meter Result Date: 03/29/2023 Performed by: [facility], [address] [place] [address] CLIA ID: [id number] POCT glucose meter (more content not included)... Normal [employer] [facility] US Heart Transesophagealon 0 03-31-2023 Left Ventricle: Left ventricle size is normal. Normal wall thickness. Normal left ventricular systolic function. Normal wall motion. Right Ventricle: Right ventricle size is normal. Normal systolic function. No significant valvular abnormalities. Left Ventricle Left ventricle size is normal. Normal wall thickness. Normal left ventricular systolic function. Normal wall motion. Right Ventricle Right ventricle size is normal. Normal systolic function. Left Atrium Left atrium size is normal. Right Atrium Right atrium size is normal. Mitral Valve Valve structure is normal. Trace regurgitation. No stenosis noted. Tricuspid Valve Valve structure is normal. Trace regurgitation. Aortic Valve Trileaflet. No regurgitation. No stenosis. Pulmonic Valve Valve structure is normal. Trace regurgitation. Ascending Aorta Normal sized annulus, sinuses of Valsalva, ascending aorta, aortic arch and descending aorta. There is mild atherosclerosis in the descending aorta. Pericardium The pericardium is normal. No pericardial effusion. Septum No interatrial shunt visualized on color Doppler. Study Details Image quality: adequate. Heart rate: 101 bpm. Blood pressure: 98/63 mmHg. MARILEE probe number: 6. MARILEE probe was inserted by the anesthesiologist with no difficulty. No topical anesthesic. No complications. No contrast was given. See anesthesia notes for medications given. Echo Additional Conclusions No significant valvular abnormalities.Shahid pretty discussed with the surgical team. CV CPACS HEMO US Heart TransesophagealOrde red By: Oswaldo Figueroa on 03-31-2023 [employer] Work Phone: Vital signson 03-31-2023 Heart rate 79 /min bpm [employer] XR CHEST 1 VIEWon 03-31-2023 XR CHEST 1 VIEW Patient Name: CHIVO LIVINGSTON : 1960 Exam Date/Time: 03/31/2023 05:28 Procedure: XR CHEST 1 VIEW Ordering Provider: STEINBERG JENNIFER Reason For Exam: Shortness of breath PORTABLE CHEST X-RAY CLINICAL INDICATION: Shortness of breath A portable frontal view of the chest was obtained. COMPARISON: 03/30/2023 FINDINGS: Heart size is within normal limits. Sternotomy wires, right jugular catheter, mediastinal drain, and bilateral chest tubes are unchanged. There is streaky bilateral lower lobe atelectasis and small pleural effusions, similar to the prior study. No new areas of consolidation are seen. There is no evidence of pneumothorax. Bony structures are unremarkable. IMPRESSION: No significant change when compared with the previous study. Report Dictated on Electronically Signed By: Richard Tucker MD Electronically Signed Date/Time: 03/31/2023 5:29 AM EST Normal [facility] XR Chest Single viewon 03-31 No significant change when compared with the previous study. Report Dictated on Electronically Signed By: Rihcard Tucker MD Electronically Signed Date/Time: 03/31/2023 5:29 AM EST [facility] Patient Name: CHIVO LIVINGSTON : 1960 Exam Date/Time: 03/31/2023 05:28 Procedure: XR CHEST 1 VIEW Ordering Provider: STEINBERG JENNIFER Reason For Exam: Shortness of breath PORTABLE CHEST X-RAY CLINICAL INDICATION: Shortness of breath A portable frontal view of the chest was obtained. COMPARISON: 03/30/2023 FINDINGS: Heart size is within normal limits. Sternotomy wires, right jugular catheter, mediastinal drain, and bilateral chest tubes are unchanged. There is streaky bilateral lower lobe atelectasis and small pleural effusions, similar to the prior study. No new areas of consolidation are seen. There is no evidence of pneumothorax. Bony structures are unremarkable. [facility] Richard Tucker MD - 03/31/2023 [facility] Name[facility]IVO [facility]INGSTON [facility] 1960 [id number] Exam Date/Time: 03/31/2023 05:28 Procedure: XR CHEST 1 VIEW Ordering Provider: STEINBERG JENNIFER Reason For Exam: Shortness of breath PORTABLE CHEST X-RAY CLINICAL INDICATION: Shortness of breath A portable frontal view of the chest was obtained. COMPARISON: 03/30/2023 FINDINGS: Heart size is within normal limits. Sternotomy wires, right jugular catheter, mediastinal drain, and bilateral chest tubes are unchanged. There is streaky bilateral lower lobe atelectasis and small pleural effusions, similar to the prior study. No new areas of consolidation are seen. There is no evidence of pneumothorax. Bony structures are unremarkable. IMPRESSION: No significant change when compared with the previous study. Report Dictated on Electronically Signed By: Richard Tucker MD Electronically Signed Date/Time: 03/31/2023 5:29 AM EST [facility] Radiology Study observation (narrative) [facility] XR Chest Single viewOrdered By: Richard Tucker on 03-31-2023 [facility] BASIC METABOLIC PANELon 03-21 Anion gap [Moles/Vol] 6 mmol/L Normal 3-13 [facility] Comment on above: Performed By: #### L [id number] #### Training Engineer: MADISON CHARLES ([id number]) [facility] [address] [place] [address] Calcium [Mass/Vol] 8.1 mg/dL Low 8.4-10.4 [facility] Comment on above: Performed By: #### L [id number] #### Training Engineer: MADISON CHARLES ([id number]) [facility] ([facility]) [address] [place] [address] Chloride [Moles/Vol] 106 mmol/L Normal 98-107 [facility] Comment on above: Performed By: #### L [id number] #### Training Engineer: MADISON CHARLES ([id number]) [facility] ([facility]) [address] [place] [address] CO2 [Moles/Vol] 25 mmol/L Normal 22-30 [facility] Comment on above: Performed By: #### L [id number] #### Training Engineer: MADISON CHARLES ([id number]) [facility] ([facility]) [address] [place] [address] Creatinine [Mass/Vol] 1.08 mg/dL Normal 0.66-1.25 [facility] Comment on above: Performed By: #### L [id number] #### Training Engineer: MADISON CHARLES ([id number]) [facility] ([facility]) [address] [place] [address] GLOMERULAR FILTRATION RATE ML/MIN/1.73 SQ M.PREDICTED 77.6 mL/min/1.73m*2 Normal >60.0 [facility] Comment on above: Result Comment: Calc ulation based on the Chronic Kidney Disease Epidemiology Collaboration (CKD-EPI) equation refit without adjustment for race Performed By: #### L [id number] #### Training Engineer: MADISON CHARLES ([id number]) [facility] ([facility]) [address] [place] [address] Glucose [Mass/Vol] 129 mg/dL High 70-100 [facility] Comment on above: Performed By: #### L [id number] #### Training Engineer: MADISON CHARLES ([id number]) [facility] ([facility]) [address] [place] [address] Potassium [Moles/Vol] 5.0 mmol/L Normal 3.5-5.1 [facility] Comment on above: Performed By: #### L [id number] #### Training Engineer: MADISON CHARLES ([id number]) [facility]) [address] [place] [address] Sodium [Moles/Vol] 137 mmol/L Normal 135-145 [facility] Comment on above: Performed By: #### L [id number] #### Training Engineer: MADISON CHARLES ([id number]) [facility] ([facility]) [address] [place] [address] Urea nitrogen [Mass/Vol] 16 mg/dL Normal 9-20 [facility] Comment on above: Performed By: #### L [id number] #### Training Engineer: MADISON CHARLES ([id number]) [facility] [address] [place] [address] Basic metabolic 1998 panelOr dered By: Annelise Phillips on 03-30-2023 Anion gap [Moles/Vol] 6 mmol/L 3 - 13 mmol/L [facility] Calcium [Mass/Vol] 8.1 mg/dL Low 8.4 - 10. 4 mg/dL [facility] Chloride [Moles/Vol] 106 mmol/L 98 - 10 7 mmol/L [facility] CO2 [Moles/Vol] 25 mmol/L 22 - 30 mmol/L [facility] Creatinine [Mass/Vol] 1.08 mg/dL 0.66 - 1.25 mg/dL [facility] GFR/1.73 sq M.predicted MDRD (S/P/Bld) [Vol rate/Area] 77.6 mL/min/{1.73_m2} - PINF [facility] Comment on above: Calculation based on the Chronic Kidney Disease Epidemiology Collaboration (CKD-EPI) equation refit without adjustment for race Glucose [Mass/Vol] 129 mg/dL High 70 - 100 mg/dL [facility] Interpretation and review of laboratory results Abnormal [facility] Potassium [Moles/Vol] 5.0 mmol/L 3.5 - 5.1 mmol/L [facility] Sodium [Moles/Vol] 137 mmol/L 135 - 145 mmol/L [facility] Urea nitrogen [Mass/Vol] 16 mg/dL 9 - 20 mg/dL [facility] CALCIUM, IONIZEDon CALCIUM IONIZED 4.20 mg/dL Low 4.30-5.20 [facility] Comment on above: Order Comment: Obtai n PRN and check ionized Ca level if serum Ca level less than 8.0 Performed By: #### L AB54 ####Training Engineer: MADISON CHARLES ([id number])[facility])[address] [place] [address] PH, IONIZED CALCIUM 7.37 Normal 7.31-7.46 [facility] Comment on above: Order Comment: Obtai n PRN and check ionized Ca level if serum Ca level less than 8.0 Performed By: #### L AB54 ####Training Engineer: MADISON CHARLES ([id number])[facility] ([facility])[address] [place] [address] CBC (HEMOGRAM)on 03-30-2023 Erythrocyte distribution width (RBC) [Ratio] 13.8 % Normal 11.5-14.5 [facility] Comment on above: Performed By: #### L [id number] #### Training Engineer: MADISON CHARLES ([id number]) [facility]) [address] [place] [address] ERYTHROCYTE MEAN CORPUSCULAR HEMOGLOBIN CONCENTRATION (G/DL) BY AUTOMATED 34.4 % Normal 32.0-36.0 [facility] Comment on above: Performed By: #### L [id number] #### Training Engineer: MADISON CHARLES ([id number]) [facility] ([facility]) [address] [place] [address] Hematocrit (Bld) [Volume fraction] 30.0 % Low 40.0-52.0 [facility] Comment on above: Performed By: #### L [id number] #### Training Engineer: MADISON CHARLES ([id number]) [facility]) [address] [place] [address] Hemoglobin (Bld) [Mass/Vol] 10.3 g/dL Low 13.0-18.0 [facility] Comment on above: Performed By: #### L [id number] #### Training Engineer: MADISON CHARLES ([id number]) [address] MCH (RBC) [Entitic mass] 28.9 pg Normal 26.0-34.0 [facility] Comment on above: Performed By: #### L [id number] #### Training Engineer: MADISON CHARLES ([id number]) [facility]) [address] [place] [address] MCV (RBC) [Entitic vol] 84.0 fL Normal 80.0-98.0 [facility] Comment on above: Performed By: #### L [id number] #### Training Engineer: MADISON CHARLES ([id number]) [facility]) [address] [place] [address] Platelet mean volume (Bld) [Entitic vol] 8.5 fL Normal 7.4-12.4 [facility] Comment on above: Performed By: #### L [id number] #### Training Engineer: MADISON CHARLES ([id number]) [facility]) [address] [place] [address] Platelets (Bld) [#/Vol] 202 10*3/uL Normal 140-440 [facility] Comment on above: Performed By: #### L [id number] #### Training Engineer: MADISON CHARLES ([id number]) [facility] ([facility]) [address] [place] [address] RBC (Bld) [#/Vol] 3.57 10*6/uL Low 4.40-5.90 [facility] Comment on above: Performed By: #### L [id number] #### Training Engineer: MADISON CHARLES ([id number]) [facility]) [address] [place] [address] WBC (Bld) [#/Vol] 9.6 10*3/uL Normal 3.6-10.7 [facility] Comment on above: Performed By: #### L [id number] #### Training Engineer: MADISON CHARLES ([id number]) [facility]) [address] [place] [address] CBC panel Auto (Bld)Ordered By: Jori Cesar on 03-30-2023 Erythrocyte distribution width (RBC) [Ratio] 13.8 % 11.5 - 14.5 % [facility] Hematocrit (Bld) [Volume fraction] 30.0 % Low 40.0 - 52.0 % [facility] Hemoglobin (Bld) [Mass/Vol] 10.3 g/dL Low 13.0 - 18.0 g/dL [facility] Interpretation and review of laboratory results Abnormal [facility] MCH (RBC) [Entitic mass] 28.9 pg 26. 0 - 34.0 pg [facility] MCHC (RBC) [Mass/Vol] 34.4 % 32.0 - 36.0 % [facility] MCV (RBC) [Entitic vol] 84.0 fL 80.0 - 98.0 fL [facility] Platelet mean volume (Bld) [Entitic vol] 8.5 fL 7.4 - 12.4 fL [facility] Platelets (Bld) [#/Vol] 202 10*3/uL 140 - 440 10*3/uL [facility] RBC (Bld) [#/Vol] 3.57 10*6/uL Low 4.40 - 5.9 0 10*6/uL [facility] WBC (Bld) [#/Vol] 9.6 10*3/uL 3.6 - 10.7 10*3/uL [facility] Calcium.ionized [Moles/Vol]O rdered By: Dorothea Pacheco on 03-30-2023 Calcium.ionized (Bld) [Moles/Vol] 4.20 mg/dL Low 4.30 - 5.20 mg/dL [facility] Interpretation and review of laboratory results Abnormal [facility] PH, IONIZED CALCIUM 7.37 7.31 - 7.46 [facility] Consulton 03-30-2023 Consult See consult note. Normal [facility] ECG 12-LEADon 03-30-2023 ECG 12-LEAD IMPRESSION: Sinus rhythm Borderline T wave abnormalities Borderline LEFT VENTRICULAR HYPERTROPHY by voltage Electronically Signed On 03-30-2023 08:13:59 EST by Dk Dunbar Normal [facility] Laboratory - Chemistry and C hemistry - challengeon 03-30-2023 Glucose [Mass/Vol] 93 mg/dL 70 - 100 mg/dL [facility] Glucose [Mass/Vol] 126 mg/dL High 70 - 100 mg/dL [facility] Glucose [Mass/Vol] 130 mg/dL High 70 - 100 mg/dL [facility] Glucose [Mass/Vol] 91 mg/dL 70 - 100 mg/dL [facility] Glucose [Mass/Vol] 108 mg/dL High 70 - 100 mg/dL [facility] Glucose [Mass/Vol] 106 mg/dL High 70 - 100 mg/dL [facility] Glucose [Mass/Vol] 93 mg/dL 70 - 100 mg/dL [facility] Glucose [Mass/Vol] 108 mg/dL High 70 - 100 mg/dL [facility] Glucose [Mass/Vol] 120 mg/dL High 70 - 100 mg/dL [facility] Glucose [Mass/Vol] 109 mg/dL High 70 - 100 mg/dL [facility] Glucose [Mass/Vol] 113 mg/dL High 70 - 100 mg/dL [facility] Magnesium [Mass/Vol] 2.3 mg/dL 1.6 - 2 .3 mg/dL [facility] Glucose [Mass/Vol] 114 mg/dL High 70 - 100 mg/dL [facility] Glucose [Mass/Vol] 130 mg/dL High 70 - 100 mg/dL [facility] Laboratory - Coagulationon 0 03-30-2023 aPTT Coag (PPP) [Time] 29.0 s 20.0 - 30.5 s [facility] INR Coag (PPP) [Relative time] 1.1 {INR} 0.9 - 1.1 [facility] Comment on above: Recommended Anticoag ulant Therapy: SEE BELOW ----- INR of 2.0 - 3.0 : - Prophylaxis of Venous Thrombosis (high-risk surgery) - Treatment of Venous Thrombosis - Treatment of Pulmonary Embolism (Includes tissue heart valves, Acute Myocardial Infarction to prevent systemic embolism, Valvular Heart Disease, and Atrial Fibrillation) ----- INR of 2.5 - 3.5 : - Mechanical Prosthetic Valves (high risk) - If oral anticoagulant therapy is used to prevent Myocardial Infarction PT Coag (Bld) [Time] 11.4 s 9.0 - 1 2.0 s [facility] MAGNESIUMon 03-30-2023 Magnesium [Mass/Vol] 2.3 mg/dL Normal 1.6-2.3 [facility] Comment on above: Performed By: #### L [id number] #### Training Engineer: MADISON CHARLES ([id number]) [facility] ([facility]) [address] [place] [address] Magnesium [Mass/Vol]on 03-30 Interpretation and review of laboratory results Normal [facility] No Panel Informationon 03-30 Interpretation and review of laboratory results Normal [facility] Performed by: [facility], [address] [place] [address] CLIA ID: [id number] [facility] Interpretation and review of laboratory results Abnormal [facility] Performed by: [facility], [address] [place] [address] [place] [address] CLIA ID: [id number] [facility] Interpretation and review of laboratory results Abnormal [facility] Performed by: [facility], [address] [place] [address] CLIA ID: [id number] [facility] Interpretation and review of laboratory results Normal [facility] th Performed by: [facility], [address] [place] [address], [facility] [address] CLIA ID: [id number] [facility] Sinus rhythm Borderline T wave abnormalities Borderline LEFT VENTRICULAR HYPERTROPHY by voltage Electronically Signed On 03-30-2023 08:13:59 EST by Dk Dunbar CV Dk Martinez MD - 03/30/2023 IMPRESSION: Sinus rhythm Borderline T wave abnormalities Borderline LEFT VENTRICULAR HYPERTROPHY by voltage Electronically Signed On 03-30-2023 08:13:59 EST by Dk Dunbar [facility] Interpretation and review of laboratory results Abnormal [facility] th Performed by: [facility], [address] [place] [address] CLIA ID: [id number] [facility] Interpretation and review of laboratory results Abnormal [facility] Performed by: [facility], [address] [place] [address] [place] [address] CLIA ID: [id number] [facility] Interpretation and review of laboratory results Normal [facility] Performed by: [facility], [address] [place] [address] CLIA ID: [id number] [facility] Interpretation and review of laboratory results Abnormal [facility] Performed by: [facility], [address] [place] [address] [place] [address] CLIA ID: [id number] [facility] Interpretation and review of laboratory results Abnormal [facility] Performed by: [facility], [address] [place] [address], [place] [address] CLIA ID: [id number] [facility] Interpretation and review of laboratory results Abnormal [facility] Performed by: [facility], [address] [place] [address], [place] [address] CLIA ID: [id number] [facility] Interpretation and review of laboratory results Abnormal [facility] Performed by: [facility], [address] [place] [address], [facility] [address] CLIA ID: [id number] [facility] Interpretation and review of laboratory results Abnormal [facility] Performed by: [facility], [address] [place] [address], [facility] [address] CLIA ID: [id number] [facility] Interpretation and review of laboratory results Normal [facility] Interpretation and review of laboratory results Abnormal [facility] Performed by: [facility], [address] [place] [address], [facility] [address] CLIA ID: [id number] [facility] Radiology Study observation (narrative) [facility] Radiology Study observation (narrative) [facility] Radiology Study observation (narrative) [facility] Radiology Study observation (narrative) [facility] Radiology Study observation (narrative) [facility] Radiology Study observation (narrative) [facility] Radiology Study observation (narrative) [facility] Radiology Study observation (narrative) [facility] Radiology Study observation (narrative) [facility] Radiology Study observation (narrative) [facility] Radiology Study observation (narrative) [facility] Radiology Study observation (narrative) [facility] Radiology Study observation (narrative) [facility] No Panel InformationOrdered By: Dk Dunbar on 03-30-2023 P [place] 26 degrees [facility] Work Phone: MN Interval 174 ms [facility] Work Phone: QRS [place] 32 degrees [facility] Work Phone: QRSD Interval 90 ms [facility] h Work Phone: QT Interval 357 ms [facility] Work Phone: QTC Interval 393 ms [facility] Work Phone: T Wave [place] 51 degrees [facility] Work Phone: [facility] [employer] Phone: PROTIME AND APTTon aPTT Coag (Bld) [Time] 29.0 s Normal 20.0-30.5 [facility] Comment on above: Performed By: #### L [id number] #### Training Engineer: MADISON CHARLES ([id number]) [facility] [address] [place] [address] INR Coag (PPP) [Relative time] 1.1 {INR} Normal 0.9-1.1 [facility] Comment on above: Result Comment: Gabino mmended Anticoagulant Therapy: SEE BELOW ----- INR of 2.0 - 3.0 : - Prophylaxis of Venous Thrombosis (high-risk surgery) - Treatment of Venous Thrombosis - Treatment of Pulmonary Embolism (Includes tissue heart valves, Acute Myocardial Infarction to prevent systemic embolism, Valvular Heart Disease, and Atrial Fibrillation) ----- INR of 2.5 - 3.5 : - Mechanical Prosthetic Valves (high risk) - If oral anticoagulant therapy is used to prevent Myocardial Infarction Performed By: #### L [id number] #### Training Engineer: MADISON CHARLES ([id number]) [facility] [address] PT Coag (PPP) [Time] 11.4 s Normal 9.0-12.0 [facility] Comment on above: Performed By: #### L [id number] #### Training Engineer: MADISON CHARLES ([id number]) [facility]) [address] [place] [address] Progress Noteon 03-30-2023 Progress Note Department of Internal Medicine Division of Endocrinology, Diabetes, & Metabolism Endocrinology Note Patient Name: Chivo Livingston : 1960 AGE: 62 y.o. Room/Bed: T1-119/T1-119 A Admission Date: 03/28/2023 Visit Date: 03/30/2023 Reason for Endocrine Consult: post-op glycemic management Provider/Team Requesting Consult: CTS PCP: Suzi Encarnacion Outpt Tmd Teacher Assistant: No ASSESSMENT: Stress/Post-op Hyperglycemia CAD s/p CABG HTN PLAN: - transition to subcutaneous insulin today with Humalog SS - continue blood glucose monitoring - discussed postop hyperglycemia management and goals of therapy - patient will unlikely require any pharmacotherapy on discharge for hyperglycemia - carb control diet - on amlodipine and atorvastatin - will follow ANTICIPATED ENDOCRINE HOME GOING RECOMMENDATIONS: Optimized for Discharge from Endocrine standpoint: No Home Going Endocrine Rx Recommendations-- none Outpt Follow Up-- PCP SUBJECTIVE/HPI: CHIEF COMPLAINT: No chief complaint on file. 62 yo male with PMH of HTN, HPL, MIKAELA on CPAP, post-covid lung disease, DVT (no longer on anticoagulation), BPH, GERD, was taken for a heart cath on 03/28/23. Cath showed multivessel CAD; sent to [facility] for CABG eval. 03/29/2023 s/p CABG Patient with no history of hypoglycemia or diabetes Last A1c/glucose data: 5.5% Interim history -pt was up in the recliner -awake and alert -on minimal NE drip -had pancakes for BF -mild nausea earlier; no vomiting -no SOB -insulin drip 0-0.5/h -BG stable Glucose Date/Time Value Ref Range Status 03/30/2023 10:03 AM 130 (H) 70 - 100 mg/dL Final 03/30/2023 09:04 AM 91 70 - 100 mg/dL Final 03/30/2023 08:09 AM 108 (H) 70 - 100 mg/dL Final 03/30/2023 06:58 AM 106 (H) 70 - 100 mg/dL Final 03/30/2023 06:07 AM 93 70 - 100 mg/dL Final 03/30/2023 05:11 AM 108 (H) 70 - 100 mg/dL Final Review of Systems ROS negative except for those mentioned in HPI. OBJECTIVE: Vitals: 03/30/23 1031 03/30/23 1034 03/30/23 1040 03/30/23 1045 BP: BP Location: Patient Position: Pulse: 84 82 81 81 Resp: Temp: TempSrc: SpO2: (!) 89% 90% 92% 91% Weight: Height: Physical Exam Vitals reviewed. Constitutional: General: He is awake. He is not in acute distress. Appearance: Normal appearance. HENT: Head: Normocephalic. Eyes: Conjunctiva/sclera: Conjunctivae normal. Cardiovascular: Rate and Rhythm: Normal rate and regular rhythm. Comments: Chest tubes noted Chest incision intact Pulmonary: Effort: Pulmonary effort is normal. No respiratory distress. Abdominal: General: There is no distension. Palpations: Abdomen is soft. Musculoskeletal: General: No swelling. Neurological: General: No focal deficit present. Mental Status: He is alert. Psychiatric: Mood and Affect: Mood normal. Behavior: Behavior normal. 24 hour intake/output: Intake/Output Summary (Last 24 hours) at 03/30/2023 1055 Last data filed at 03/30/2023 1000 Gross per 24 hour Intake 4002 ml Output 3575 ml Net 427 ml Diet: Adult diet Regular; Low Fat/Low Chol/High Fiber/2 gm Na Medications (as per EMR): HomeMeds: No current outpatient medications Scheduled Meds:acetaminophen, 1,000 mg, Oral, q8h amLODIPine, 2.5 mg, Oral, Daily aspirin, 81 mg, Oral, Daily ceFAZolin, 2,000 mg, IntraVENous, q8h chlorhexidine, 15 mL, Mouth/Throat, BID furosemide, 40 mg, IntraVENous, BID heparin, 5,000 Units, SubCUTAneous, BID insulin lispro, 0-6 Units, SubCUTAneous, TID WC ketorolac, 15 mg, IntraVENous, q6h Lidocaine, 1 patch, Topical, Daily mupirocin, , Nasal, BID [START ON 03/31/2023] pantoprazole, 40 mg, Oral, qAM AC polyethylene glycol (PEG) 3350, 17 g, Oral, Daily rosuvastatin, 40 mg, Oral, Daily senna-docusate sodium, 2 tablet, Oral, Nightly sodium chloride 0.9%, 10 mL, IntraVENous, 2 times per day Continuous Infusions:norepineph rine, 0.01-0.2 mcg/kg/min, Last Rate: 0.01 mcg/kg/min (03/30/23 1000) PRN Meds:PRN medications: albumin human, calcium gluconate, dextrose, dextrose, glucagon (rDNA), glucose, ipratropium-albutero l, magnesium hydroxide, magnesium sulfate OR magnesium sulfate, norepinephrine, ondansetron ODT OR ondansetron, oxyCODONE OR oxyCODONE, perflutren protein A microsphere (Optison) 3 mL in sodium chloride (PF) 0.9 % 10 mL IV syringe, potassium chloride OR potassium chloride OR potassium chloride, potassium chloride CR, sodium chloride, sodium chloride 0.9% Diagnostic Workup: I reviewed pertinent Laboratory results, Radiographic results, and Other Clinical Notes at the time of today's encounter. Labs: No components found for: LABA1C No components found for: EAG Lab Results Component Value Date NA 137 03/30/2023 K 5.0 03/30/2023 CL 106 03/30/2023 CO2 25 03/30/2023 BUN 16 03/30/2023 CREATININE 1.08 03/30/2023 GLUCOSE 129 (H) 03/30/2023 CALCIUM 8.1 (L) 03/30/2023 No results fo (more content not included)... Normal [facility] Vital signsOrdered By: Dk Dunbar on 03-30-2023 Heart rate 74 /min bpm [employer] Work Phone: XR CHEST 1 VIEWon 03-30-2023 XR CHEST 1 VIEW Patient Name: CHIVO LIVINGSTON : 1960 Exam Date/Time: 03/30/2023 05:48 Procedure: XR CHEST 1 VIEW Ordering Provider: STEINBERG JENNIFER Reason For Exam: Shortness of breath PORTABLE CHEST CLINICAL INDICATION: Shortness of breath TECHNIQUE: Portable AP COMPARISON: 03/29/2023 FINDINGS: Endotracheal and enteric tubes have been removed. Mediastinal drain and bilateral chest tubes in similar position. Right IJ central line tip terminates over the cavoatrial junction. Low lung volumes with pulmonary vascular congestion. No focal consolidation or overt edema. No sizable pleural effusions or pneumothorax. The heart demonstrates normal size. Calcification of the thoracic aorta is noted. Status post median sternotomy. Degenerative change of the thoracic spine is noted. IMPRESSION: Interval removal of the endotracheal and enteric tubes. Otherwise, no significant change from the prior exam. Report Dictated on Electronically Signed By: Dk Duarte MD Electronically Signed Date/Time: 03/30/2023 6:54 AM EST Normal [facility] XR Chest Single viewon 03-30 Interval removal of the endotracheal and enteric tubes. Otherwise, no significant change from the prior exam. Report Dictated on Electronically Signed By: Dk Duarte MD Electronically Signed Date/Time: 03/30/2023 6:54 AM EST [facility] Patient Name: CHIVO LIVINGSTON : 1960 Exam Date/Time: 03/30/2023 05:48 Procedure: XR CHEST 1 VIEW Ordering Provider: STEINBERG JENNIFER Reason For Exam: Shortness of breath PORTABLE CHEST CLINICAL INDICATION: Shortness of breath TECHNIQUE: Portable AP COMPARISON: 03/29/2023 FINDINGS: Endotracheal and enteric tubes have been removed. Mediastinal drain and bilateral chest tubes in similar position. Right IJ central line tip terminates over the cavoatrial junction. Low lung volumes with pulmonary vascular congestion. No focal consolidation or overt edema. No sizable pleural effusions or pneumothorax. The heart demonstrates normal size. Calcification of the thoracic aorta is noted. Status post median sternotomy. Degenerative change of the thoracic spine is noted. [facility] Dk Duarte MD - 03/30/2023 Patient Name: CHIVO LIVINGSTON : 1960 Exam Date/Time: 03/30/2023 05:48 Procedure: XR CHEST 1 VIEW Ordering Provider: STEINBERG JENNIFER Reason For Exam: Shortness of breath PORTABLE CHEST CLINICAL INDICATION: Shortness of breath TECHNIQUE: Portable AP COMPARISON: 03/29/2023 FINDINGS: Endotracheal and enteric tubes have been removed. Mediastinal drain and bilateral chest tubes in similar position. Right IJ central line tip terminates over the cavoatrial junction. Low lung volumes with pulmonary vascular congestion. No focal consolidation or overt edema. No sizable pleural effusions or pneumothorax. The heart demonstrates normal size. Calcification of the thoracic aorta is noted. Status post median sternotomy. Degenerative change of the thoracic spine is noted. IMPRESSION: Interval removal of the endotracheal and enteric tubes. Otherwise, no significant change from the prior exam. Report Dictated on Electronically Signed By: Dk Duarte MD Electronically Signed Date/Time: 03/30/2023 6:54 AM EST [facility] Radiology Study observation (narrative) [facility] XR Chest Single viewOrdered By: Dk Duarte on 03-30-2023 [facility] Work Phone: [phone] 03-29-2023 [id number] Medical Writer following case for Discharge Needs. Normal [facility] BASIC METABOLIC PANELon Anion gap [Moles/Vol] 8 mmol/L Normal 3-13 [facility] Comment on above: Performed By: #### L [id number] #### Training Engineer: MADISON CHARLES ([id number]) [facility] ([facility]) [address] [place] [address] Calcium [Mass/Vol] 8.3 mg/dL Low 8.4-10.4 [facility] Comment on above: Performed By: #### L [id number] #### Training Engineer: MADISON CHARLES ([id number]) [facility] ([facility]) [address] [place] [address] [place] Chloride [Moles/Vol] 109 mmol/L High 98-107 [facility] Comment on above: Performed By: #### L [id number] #### Training Engineer: MADISON CHARLES ([id number]) [facility] ([facility]) [address] [place] [address] [place] CO2 [Moles/Vol] 22 mmol/L Normal 22-30 [facility] Comment on above: Performed By: #### L [id number] #### Training Engineer: MADISON CHARLES ([id number]) [facility] ([facility]) [address] [place] [address] [place] Creatinine [Mass/Vol] 0.92 mg/dL Normal 0.66-1.25 [facility] Comment on above: Performed By: #### L [id number] #### Training Engineer: MADISON CHARLES ([id number]) [facility]) [address] [place] [address] GLOMERULAR FILTRATION RATE ML/MIN/1.73 SQ M.PREDICTED >90.0 Normal >60.0 [facility] Comment on above: Result Comment: Calc ulation based on the Chronic Kidney Disease Epidemiology Collaboration (CKD-EPI) equation refit without adjustment for race Performed By: #### L [id number] #### Training Engineer: MADISON CHARLES ([id number]) [facility] ([facility]) [address] [place] [address] Glucose [Mass/Vol] 84 mg/dL Normal 70-100 [facility] Comment on above: Performed By: #### L [id number] #### Training Engineer: MADISON CHARLES ([id number]) [facility]) [address] [place] [address] Potassium [Moles/Vol] 3.9 mmol/L Normal 3.5-5.1 [facility] Comment on above: Performed By: #### L [id number] #### Training Engineer: MADISON CHARLES ([id number]) [facility]) [address] [place] [address] Sodium [Moles/Vol] 139 mmol/L Normal 135-145 [facility] Comment on above: Performed By: #### L [id number] #### Training Engineer: MADISON CHARLES ([id number]) [facility]) [address] [place] [address] Urea nitrogen [Mass/Vol] 17 mg/dL Normal 9-20 [facility] Comment on above: Performed By: #### L [id number] #### Training Engineer: MADISON CHARLES ([id number]) [facility] ([facility]) [address] [place] [address] BLOOD GAS ARTERIALon 024 Base excess Calc (Bld) [Moles/Vol] -1.4000 mmol/L Normal -3.0-3.0 [facility] Comment on above: Performed By: #### L [id number] ####Training Engineer: MADISON CHARLES ([id number])[facility])[address] [place] [address] [place] CO2 [Moles/Vol] 24.7 mmol/L Normal 23.0-27.0 [facility] Comment on above: Performed By: #### L [id number] ####Training Engineer: MADISON CHARLES ([id number])[facility] ([facility])[address] [place] [address] HCO3 (Bld) [Moles/Vol] 23.4 mmol/L Normal 21.0-25.0 [facility] Comment on above: Performed By: #### L [id number] ####Training Engineer: MADISON CHARLES ([id number])[facility] ([facility])[address] [place] [address] Hemoglobin (Bld) [Mass/Vol] 10.1 g/dL Normal Screen Only [facility] Comment on above: Performed By: #### L [id number] ####Training Engineer: MADISON CHARLES ([id number])[facility] ([facility])[address] [place] [address] OXYGEN SATURATION (%) IN ARTERIAL BLOOD 99.0 % Normal 95.0-100.0 [facility] Comment on above: Performed By: #### L [id number] ####Training Engineer: MADISON CHARLSE ([id number])[facility] ([facility])[address] [place] [address] PCO2 ARTERIAL 39.7 mm Hg Normal >35.0-<45.0 [facility] Comment on above: Performed By: #### L [id number] ####Training Engineer: MADISON CHARLES ([id number])[facility] ([facility])[address] [place] [address] PH ARTERIAL 7.389 Normal 7.350-7.450 [facility] Comment on above: Performed By: #### L [id number] ####Training Engineer: MADISON CHARLES ([id number])[facility] ([facility])[address] [place] [address] PO2 ARTERIAL 293.0 mm Hg High 80.0-100.0 [facility] Comment on above: Performed By: #### L [id number] ####Training Engineer: MADISON CHARLES ([id number])[facility] ([facility])[address] [place] [address] SOURCE OF OXYGEN Vent Normal [facility] Comment on above: Performed By: #### L [id number] ####Training Engineer: MADISON CHARLES ([id number])[facility] ([facility])[address] [place] [address] BLOOD GAS, VENOUSon 03-29-19 24 Base excess Calc (BldV) [Moles/Vol] -2.6000 mmol/L Normal -3.0-3.0 [facility] Comment on above: Performed By: #### L [id number] ####Training Engineer: MADISON CHARLES ([id number])[facility] ([facility])[address] [place] [address] CO2 [Moles/Vol] 26.7 mmol/L Normal 24.0-28.0 [facility] Comment on above: Performed By: #### L [id number] ####Training Engineer: MADISON CHARLES ([id number])[facility] ([facility])[address] [place] [address] HCO3 (Bld) [Moles/Vol] 25.0 mmol/L Normal 23.0-27.0 [facility] Comment on above: Performed By: #### L [id number] ####Training Engineer: MADISON CHARLES ([id number])[facility] ([facility])[address] [place] [address] Hemoglobin (Bld) [Mass/Vol] 10.7 g/dL Normal Screen Only [facility] Comment on above: Performed By: #### L [id number] ####Training Engineer: MADISON CHARLES ([id number])[facility])[address] [place] [address] OXYGEN (MM HG) IN VENOUS BLOOD 43.1 mm Hg Normal 30.0-50.0 [facility] Comment on above: Performed By: #### L [id number] ####Training Engineer: MADISON [id number])[facility])[address] [place] [address] OXYGEN SATURATION (%) IN VENOUS BLOOD 69.3 % Normal 60.0-80.0 [facility] Comment on above: Performed By: #### L [id number] ####Training Engineer: MADISON CHARLES ([id number])[facility])[address] [place] [address] PCO2, RENARD 56.9 mm Hg High 40.0-55.0 [facility] Comment on above: Performed By: #### L [id number] ####Training Engineer: MADISON CHARLES ([id number])[facility])[address] [place] [address] PH VENOUS 7.260 Low 7.330-7.430 [facility] Comment on above: Performed By: #### L [id number] ####Training Engineer: MADISON CHARLES ([id number])[facility])[address] [place] [address] SOURCE OF OXYGEN Nasal cannula Normal [facility] Comment on above: Performed By: #### L [id number] ####Training Engineer: MADISON CHARLES ([id number])[facility])[address] [place] [address] Basic metabolic 1998 panelon 03-29-2023 Anion gap [Moles/Vol] 8 mmol/L 3 - 13 mmol/L [facility] Calcium [Mass/Vol] 8.3 mg/dL Low 8.4 - 10. 4 mg/dL [facility] Chloride [Moles/Vol] 109 mmol/L High 98 - 10 7 mmol/L [facility] CO2 [Moles/Vol] 22 mmol/L 22 - 30 mmol/L [facility] Creatinine [Mass/Vol] 0.92 mg/dL 0.66 - 1.25 mg/dL [facility] GFR/1.73 sq M.predicted MDRD (S/P/Bld) [Vol rate/Area] - PINF [facility] Comment on above: Calculation based on the Chronic Kidney Disease Epidemiology Collaboration (CKD-EPI) equation refit without adjustment for race Glucose [Mass/Vol] 84 mg/dL 70 - 100 mg/dL [facility] Potassium [Moles/Vol] 3.9 mmol/L 3.5 - 5.1 mmol/L [facility] Sodium [Moles/Vol] 139 mmol/L 135 - 145 mmol/L [facility] Urea nitrogen [Mass/Vol] 17 mg/dL 9 - 20 mg/dL [facility] CALCIUM, IONIZEDon CALCIUM IONIZED 4.70 mg/dL Normal 4.30-5.20 [facility] Comment on above: Performed By: #### L [id number] #### Training Engineer: MADISON CHARLES ([id number]) [facility]) [address] [place] [address] PH, IONIZED CALCIUM 7.39 Normal 7.31-7.46 [facility] Comment on above: Performed By: #### L [id number] #### Training Engineer: MADISON CHARLES ([id number]) [facility]) [address] [place] [address] CARECOORDon 03-29-2023 [place] attempted, patient OOR in OR for CABG. Will remain intubated post op, will need to re-attempt in am. DCP- Anticipate home with home care post op. TCC to follow. Normal [facility] CBC (HEMOGRAM)on 03-29-2023 Erythrocyte distribution width (RBC) [Ratio] 13.9 % Normal 11.5-14.5 [facility] Comment on above: Performed By: #### L [id number] #### Training Engineer: MADISON CHARLES ([id number]) [facility]) [address] [place] [address] ERYTHROCYTE MEAN CORPUSCULAR HEMOGLOBIN CONCENTRATION (G/DL) BY AUTOMATED 34.3 % Normal 32.0-36.0 [facility] Comment on above: Performed By: #### L [id number] #### Training Engineer: MADISON CHARLES ([id number]) [facility]) [address] [place] [address] Hematocrit (Bld) [Volume fraction] 28.1 % Low 40.0-52.0 [facility] Comment on above: Performed By: #### L [id number] #### Training Engineer: MADISON CHARLES ([id number]) [facility] ([facility]) [address] [place] [address] Hemoglobin (Bld) [Mass/Vol] 9.6 g/dL Low 13.0-18.0 [facility] Comment on above: Performed By: #### L [id number] #### Training Engineer: MADISON CHARLES ([id number]) [facility] ([facility]) [address] [place] [address] MCH (RBC) [Entitic mass] 28.5 pg Normal 26.0-34.0 [facility] Comment on above: Performed By: #### L [id number] #### Training Engineer: MADISON CHARLES ([id number]) [facility] ([facility]) [address] [place] [address] MCV (RBC) [Entitic vol] 83.2 fL Normal 80.0-98.0 [facility] Comment on above: Performed By: #### L [id number] #### Training Engineer: MADISON CHARLES ([id number]) [facility]) [address] [place] [address] Platelet mean volume (Bld) [Entitic vol] 7.9 fL Normal 7.4-12.4 [facility] Comment on above: Result Comment: BRIGHT Beasley COMMENTS: Repeated Performed By: #### L [id number] #### Training Engineer: MADISON CHARLES ([id number]) [facility] ([facility]) [address] [place] [address] Platelets (Bld) [#/Vol] 142 10*3/uL Normal 140-440 [facility] Comment on above: Performed By: #### L [id number] #### Training Engineer: MADISON CHARLES ([id number]) [facility] ([facility]) [address] [place] [address] RBC (Bld) [#/Vol] 3.38 10*6/uL Low 4.40-5.90 [facility] Comment on above: Performed By: #### L [id number] #### Training Engineer: MADISON CHARLES ([id number]) [facility]) [address] [place] [address] WBC (Bld) [#/Vol] 8.4 10*3/uL Normal 3.6-10.7 [facility] Comment on above: Performed By: #### L [id number] #### Training Engineer: MADISON CHARLES ([id number]) [facility]) [address] [place] [address] Erythrocyte distribution width (RBC) [Ratio] 13.7 % Normal 11.5-14.5 [facility] Comment on above: Performed By: #### L [id number] ####Training Engineer: MADISON CHARLES ([id number])[facility])[address] [place] [address] ERYTHROCYTE MEAN CORPUSCULAR HEMOGLOBIN CONCENTRATION (G/DL) BY AUTOMATED 34.7 % Normal 32.0-36.0 [facility] Comment on above: Performed By: #### L [id number] ####Training Engineer: MADISON CHARLES ([id number])[facility])[address] [place] [address] Hematocrit (Bld) [Volume fraction] 42.5 % Normal 40.0-52.0 [facility] Comment on above: Performed By: #### L [id number] ####Training Engineer: MADISON CHARLES ([id number])[facility])[address] [place] [address] Hemoglobin (Bld) [Mass/Vol] 14.8 g/dL Normal 13.0-18.0 [facility] Comment on above: Performed By: #### L [id number] ####Training Engineer: MADISON CHARLES ([id number])[facility])[address] [place] [address] MCH (RBC) [Entitic mass] 28.7 pg Normal 26.0-34.0 [facility] Comment on above: Performed By: #### L [id number] ####Training Engineer: MADISON CHARLES ([id number])[facility])[address] [place] [address] MCV (RBC) [Entitic vol] 82.7 fL Normal 80.0-98.0 [facility] Comment on above: Performed By: #### L [id number] ####Training Engineer: MADISON CHARLES ([id number])[facility])[address] [place] [address] Platelet mean volume (Bld) [Entitic vol] 8.2 fL Normal 7.4-12.4 [facility] Comment on above: Performed By: #### L [id number] ####Training Engineer: MADISON CHARLES ([id number])[facility])[address] [place] [address] Platelets (Bld) [#/Vol] 237 10*3/uL Normal 140-440 [facility] Comment on above: Performed By: #### L [id number] ####Training Engineer: MADISON CHARLES ([id number])[facility])[address] [place] [address] RBC (Bld) [#/Vol] 5.14 10*6/uL Normal 4.40-5.90 [facility] Comment on above: Performed By: #### L [id number] ####Training Engineer: MADISON CHARLES ([id number])[facility])[address] [place] [address] WBC (Bld) [#/Vol] 7.1 10*3/uL Normal 3.6-10.7 [facility] Comment on above: Performed By: #### L [id number] ####Training Engineer: MADISON CHARLES ([id number])[facility])[address] [place] [address] CBC panel Auto (Bld)Ordered By: Cinthia Funes on 03-29-2023 Erythrocyte distribution width (RBC) [Ratio] 13.9 % 11.5 - 14.5 % [facility] Hematocrit (Bld) [Volume fraction] 28.1 % Low 40.0 - 52.0 % [facility] Hemoglobin (Bld) [Mass/Vol] 9.6 g/dL Low 13.0 - 18.0 g/dL [facility] Interpretation and review of laboratory results Abnormal [facility] MCH (RBC) [Entitic mass] 28.5 pg 26. 0 - 34.0 pg [facility] MCHC (RBC) [Mass/Vol] 34.3 % 32.0 - 36.0 % [facility] MCV (RBC) [Entitic vol] 83.2 fL 80.0 - 98.0 fL [facility] Platelet mean volume (Bld) [Entitic vol] 7.9 fL 7.4 - 12.4 fL [facility] Platelets (Bld) [#/Vol] 142 10*3/uL 140 - 440 10*3/uL [facility] RBC (Bld) [#/Vol] 3.38 10*6/uL Low 4.40 - 5.9 0 10*6/uL [facility] WBC (Bld) [#/Vol] 8.4 10*3/uL 3.6 - 10.7 10*3/uL [facility] Repeated [facility] CBC panel Auto (Bld)Ordered By: Stephanie Pedro on 03-29-2023 Erythrocyte distribution width (RBC) [Ratio] 13.7 % 11.5 - 14.5 % [facility] Hematocrit (Bld) [Volume fraction] 42.5 % 40.0 - 52.0 % [facility] Hemoglobin (Bld) [Mass/Vol] 14.8 g/dL 13.0 - 18.0 g/dL [facility] Interpretation and review of laboratory results Normal [facility] MCH (RBC) [Entitic mass] 28.7 pg 26. 0 - 34.0 pg [facility] MCHC (RBC) [Mass/Vol] 34.7 % 32.0 - 36.0 % [facility] MCV (RBC) [Entitic vol] 82.7 fL 80.0 - 98.0 fL [facility] Platelet mean volume (Bld) [Entitic vol] 8.2 fL 7.4 - 12.4 fL [facility] Platelets (Bld) [#/Vol] 237 10*3/uL 140 - 440 10*3/uL [facility] RBC (Bld) [#/Vol] 5.14 10*6/uL 4.40 - 5.9 0 10*6/uL [facility] WBC (Bld) [#/Vol] 7.1 10*3/uL 3.6 - 10.7 10*3/uL [facility] COMPREHENSIVE METABOLIC PANE Barber 03-29-2023 Albumin [Mass/Vol] 3.9 g/dL Normal 3.5-5.0 [facility] Comment on above: Performed By: #### L [id number] ####Training Engineer: MADISON CHARLES ([id number])[facility] ([facility])[address] [place] [address] ALP [Catalytic activity/Vol] 84 U/L Normal 38-126 [facility] Comment on above: Performed By: #### L [id number] ####Training Engineer: MADISON CHARLES ([id number])[facility])[address] [place] [address] ALT [Catalytic activity/Vol] 20 U/L Normal 0-49 [facility] Comment on above: Performed By: #### L [id number] ####Training Engineer: MADISON CHARLES ([id number])[facility] ([facility])[address] [place] [address] Anion gap [Moles/Vol] 11 mmol/L Normal 3-13 [facility] Comment on above: Performed By: #### L [id number] ####Training Engineer: MADISON CHARLES ([id number])[facility] ([facility])[address] [place] [address] AST [Catalytic activity/Vol] 27 U/L Normal 15-46 [facility] Comment on above: Performed By: #### L [id number] ####Training Engineer: MADISON CHARLES ([id number])[facility])[address] [place] [address] Bilirubin [Mass/Vol] 0.7 mg/dL Normal 0.2-1.3 [facility] Comment on above: Performed By: #### L [id number] ####Training Engineer: MADISON CHARLES ([id number])[facility] ([facility])[address] [place] [address] Calcium [Mass/Vol] 8.6 mg/dL Normal 8.4-10.4 [facility] Comment on above: Performed By: #### L [id number] ####Training Engineer: MADISON CHARLES ([id number])[facility] ([facility])[address] [place] [address] [place] Chloride [Moles/Vol] 105 mmol/L Normal 98-107 [facility] Comment on above: Performed By: #### L [id number] ####Training Engineer: MADISON CHARLES ([id number])[facility] ([facility])[address] [place] [address] CO2 [Moles/Vol] 22 mmol/L Normal 22-30 [facility] Comment on above: Performed By: #### L [id number] ####Training Engineer: MADISON CHARLES ([id number])[facility] ([facility])[address] [place] [address] Creatinine [Mass/Vol] 0.98 mg/dL Normal 0.66-1.25 [facility] Comment on above: Performed By: #### L [id number] ####Training Engineer: MADISON CHARLES ([id number])[facility])[address] [place] [address] [place] GLOMERULAR FILTRATION RATE ML/MIN/1.73 SQ M.PREDICTED 87.2 mL/min/1.73m*2 Normal >60.0 [facility] Comment on above: Result Comment: Calc ulation based on the Chronic Kidney Disease Epidemiology Collaboration (CKD-EPI) equation refit without adjustment for race Performed By: #### L [id number] ####Training Engineer: MADISON CHARLES ([id number])[facility] ([facility])[address] [place] [address] [place] Glucose [Mass/Vol] 121 mg/dL High 70-100 [facility] Comment on above: Performed By: #### L [id number] ####Training Engineer: MADISON [id number])[facility] ([facility])[address] [place] [address] Potassium [Moles/Vol] 3.7 mmol/L Normal 3.5-5.1 [facility] Comment on above: Performed By: #### L [id number] ####Training Engineer: MADISON CHARLES ([id number])[facility] [place] [address] Protein [Mass/Vol] 6.8 g/dL Normal 6.3-8.2 [facility] Comment on above: Performed By: #### L [id number] ####Training Engineer: MADISON CHARLES ([id number])[facility] ([facility])[address] [place] [address] Sodium [Moles/Vol] 138 mmol/L Normal 135-145 [facility] Comment on above: Performed By: #### L AB17 ####Training Engineer: MADISON CHARLES ([id number])[facility] ([facility])[address] [place] [address] Urea nitrogen [Mass/Vol] 19 mg/dL Normal 9-20 [facility] Comment on above: Performed By: #### L AB17 ####Training Engineer: MADISON CHARLES ([id number])[facility] ([facility])[address] [place] [address] Calcium.ionized [Moles/Vol]o n 03-29-2023 Calcium.ionized (Bld) [Moles/Vol] 4.70 mg/dL 4.30 - 5.20 mg/dL [facility] Interpretation and review of laboratory results Normal [facility] PH, IONIZED CALCIUM 7.39 7.31 - 7.46 [facility] Comprehensive metabolic 1998 panelon 03-29-2023 Albumin [Mass/Vol] 3.9 g/dL 3.5 - 5.0 g/dL [facility] ALP [Catalytic activity/Vol] 84 U/L 38 - 126 U/L [facility] ALT [Catalytic activity/Vol] 20 U/L 0 - 49 U/L [facility] Anion gap [Moles/Vol] 11 mmol/L 3 - 13 mmol/L [facility] AST [Catalytic activity/Vol] 27 U/L 15 - 46 U/L [facility] Bilirubin [Mass/Vol] 0.7 mg/dL 0.2 - 1 .3 mg/dL [facility] Calcium [Mass/Vol] 8.6 mg/dL 8.4 - 10. 4 mg/dL [facility] Chloride [Moles/Vol] 105 mmol/L 98 - 10 7 mmol/L [facility] CO2 [Moles/Vol] 22 mmol/L 22 - 30 mmol/L [facility] Creatinine [Mass/Vol] 0.98 mg/dL 0.66 - 1.25 mg/dL [facility] GFR/1.73 sq M.predicted MDRD (S/P/Bld) [Vol rate/Area] 87.2 mL/min/{1.73_m2} - PINF [facility] Comment on above: Calculation based on the Chronic Kidney Disease Epidemiology Collaboration (CKD-EPI) equation refit without adjustment for race Glucose [Mass/Vol] 121 mg/dL High 70 - 100 mg/dL [facility] Interpretation and review of laboratory results Abnormal [facility] Potassium [Moles/Vol] 3.7 mmol/L 3.5 - 5.1 mmol/L [facility] Protein [Mass/Vol] 6.8 g/dL 6.3 - 8.2 g/dL [facility] Sodium [Moles/Vol] 138 mmol/L 135 - 145 mmol/L [facility] Urea nitrogen [Mass/Vol] 19 mg/dL 9 - 20 mg/dL [facility] Consulton 03-29-2023 Consult Attestation signed by Bertha Buenrostro MD at 03/29/2023 7:37 PM I performed a history and physical examination of the patient. I have reviewed the patient's chart including pertinent history, medications, labs, radiology, and other reports. I reviewed the resident/TRINO's note, agree with the documented findings and plan of care (with modifications noted if any), and discussed the management plan. Pt is s/p CABG 03/29/23. No history of diabetes. He 2 siblings have DM. He is fairly active. 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 Patient now extubated. Currently complaining of some chest discomfort. No shortness of breath. BG 80-90s. Pt currently off insulin drip. He had a hypoglycemic episode coming back from surgery while on 2 units/h. Records reviewed. Lab Results Component Value Date HGBA1C 5.5 03/28/2023 Lab Results Component Value Date GLUCOSE 84 03/29/2023 CALCIUM 8.3 (L) 03/29/2023 NA 139 03/29/2023 K 3.9 03/29/2023 CO2 22 03/29/2023 CL 109 (H) 03/29/2023 BUN 17 03/29/2023 CREATININE 0.92 03/29/2023 BP 94/56 (BP Location: Right arm, Patient Position: Lying) Pulse 85 Temp 36.1 ?C (97 ?F) (Temporal) Resp 12 Ht 5' 6 (1.676 m) Wt 162 lb (73.5 kg) SpO2 93% BMI 26.15 kg/m? awake, alert, not in distress, O2 per NC, RRR, chest incision dressed, good pulses, clear breath sounds, +chest tubes, abdomen soft, non-tender, no edema, no focal deficits, normal mood and affect. Dx: Stress hyperglycemia. CAD s/p CABG. Plan: - continue blood glucose monitoring - will continue insulin infusion per protocol then transition to subcutaneous insulin likely tomorrow - discussed postop hyperglycemia management and goals of therapy - patient will unlikely require any pharmacotherapy on discharge for hyperglycemia - carb control diet - will follow Total time 30 minutes which include review of records, counseling, management, and coordination of care as documented in note. Department of Internal Medicine Division of Endocrinology, Diabetes, & Metabolism Endocrinology Note Patient Name: Chivo Livingston : 1960 AGE: 62 y.o. Room/Bed: T1-119/T1-119 A Admission Date: 03/28/2023 Visit Date: 03/29/2023 Reason for Endocrine Consult: post-op glycemic management Provider/Team Requesting Consult: CTS PCP: Suzi Encarnacion Outpt Tmd Teacher Assistant: No ASSESSMENT: Post-op Hyprglycemia HTN CAD s/p CABG PLAN: Continue insulin gtt protocol ICU goal <180 GMF goal <150 POCT BG every hour per protocol Hypoglycemia management per protocol Carb controlled diet when appropriate ANTICIPATED ENDOCRINE HOME GOING RECOMMENDATIONS: Optimized for Discharge from Endocrine standpoint: No Home Going Endocrine Rx Recommendations-- Likely home w/o OP glycemic agent Outpt Follow Up-- PCP SUBJECTIVE/HPI: CHIEF COMPLAINT: No chief complaint on file. 62 yo male with PMH of HTN, HPL, MIKAELA on CPAP, post-covid lung disease, DVT (no longer on anticoagulation), BPH, GERD, was taken for a heart cath on 03/28/23. Cath showed multivessel CAD; sent to [facility] for CABG eval. 03/29/2023 s/p CABG Type of DM: N/A Onset of DM: N/A Home DM Medication Regimen: N/A DM control (last A1c/glucose data): 5.5% History collected from family at bedside as patient intubated and sedated and unable to contribute at this time Patient with no history of hypoglycemia or diabetes Not on any glycemic medications in the outpatient setting Per bedside RN did require brief use of insulin drip protocol postoperatively for now with low blood sugars requiring D50. Last blood glucose was 86. Insulin drip remains off due to the same Relevant history CAD status post CABG Hypertension GFR greater than 90 No recent TSH or lipid panel on file Current use of norepinephrine, nitroglycerin, amiodarone, propofol Glucose Date/Time Value Ref Range Status 03/29/2023 12:59 PM 86 70 - 100 mg/dL Final 03/29/2023 12:27 PM 88 70 - 100 mg/dL Final 03/29/2023 12:03 PM 63 (L) 70 - 100 mg/dL Final Review of Systems Unable to perform ROS: Intubated ROS negative except for those mentioned in HPI. OBJECTIVE: Vitals: 03/29/23 1215 03/29/23 1230 03/29/23 1245 03/29/23 1300 BP: BP Location: Patient Position: Pulse: 84 76 76 81 Resp: 19 14 15 16 Temp: TempSrc: SpO2: 100% 100% 100% 100% Weight: Height: Physical Exam Vitals reviewed. Constitutional: General: He is not in acute distress. Appearance: Normal appearance. He is ill-appearing. HENT: Head: Normocephalic. Cardiovascular: Comments: Chest tubes noted Pulmonary: Comments: Intubated Abdominal: Comments: Stratton noted Neurological: Comments: Sedated 24 hour intake/output: Intake/Output Summary (Last 24 hours) at 03/29/2023 1321 (more content not included)... Normal [facility] Consult Attestation signed by Mayo Alvarez MD at 03/29/2023 1:50 PM I have personally performed a [id number] diagnostic evaluation on this patient on date of service 03/29/23. History, labs, imaging studies, and electronic medical record have been reviewed by me. This note documented by the []senior data warehouse architect [x]TRINO reflects my history, exam, and medical decision making. I have reviewed and agree with the care plan. Changes were made in the orders as necessary. ROS documentation was reviewed and negative unless otherwise stated in HPI. Additional pertinent interval history, ROS, and physical exam findings: 62yoM with CAD. Not on any meds prior to seeing cards a few weeks ago. Was admitted for elective cath and found to have multi-vessel CAD. Has PMH of COVID infection in 2020 - was sent home on O2 for 10 days and required OAC for DVT. Post-op is not on pressors. On nitroglycerin for radial graft. Unlabored on vent and clear to auscultation. Not following commands. CXR essentially clear. Assessment: Post-op pulmonary management POD#0 CABG 3v MIKAELA on CPAP Remote DVT in setting of COVID Plan: Taper off sedation and SBT when awake. Volume for hypotension if need be given clear CXR. CPAP when extubated. [facility]: Critical Care Consultation Note Date: 03/29/23 PATIENT NAME: Chivo Livingston : 1960 (62 y.o.) Reason for Consult: Critical Care & Vent Management HPI: 62 yo male with PMH of HTN, HPL, MIKAELA on CPAP, post-covid lung disease, DVT (no longer on anticoagulation), BPH, GERD. He was admitted with worsening angina for which he had a CTA and Stress test as an OP. He then saw Dr. Jaeger in [place] for a heart cath and was found to have MVCAD, ostial LAD, diag 1, diag2, and prox OM. He was sent to [facility] for CABG eval. He does have a family hx of CAD in his father and brother (both in 50s). On 03/29/23 he presents for CABG as an OP. Surgery: 03/29/23 Starkey: CABGx 3 Left radial Left leg harvest (Official Report Pending) Interval History: 03/29/23: POD #0: Patient arrived to the unit, intubated and sedated. Surgical hand off completed below. Surgery Hand Off: Arrival Time in CTVICU: 1200 Complications/Pertin ent Events: None Last Paralytic: 0900 Medications given in route: None Gtts OR report Propofol: 15 Insulin: 2 Amicar: 29 Current gtts upon arrival Propofol: 15 Insulin: 2 Amicar: 29 Devices: Epicardial wires: yes [x] no [] IABP: yes [] no [x] LVAD: yes [] no [x] Speed: Equipment: Back up controller yes [] no [x] Blood Transfusions Intra Op: yes [] no [x] CellSaver: 500 Vent FiO2 70% Peep 9 Rate 14 Review of Systems Reason unable to perform ROS: Intubated and Sedated. Allergies: Patient has no known allergies. Past Medical History: has a past medical history of Coronary artery disease and HTN (hypertension). Past Surgical History: has a past surgical history that includes Appendectomy and Eye surgery. Social History: reports that he has never smoked. He has never used smokeless tobacco. He reports that he does not currently use alcohol. He reports that he does not currently use drugs. Family History: family history is not on file. Medications: Prior to Admission medications Not on File Objective: BP 98/63 (BP Location: Left arm, Patient Position: Lying) Pulse 96 Temp 37.4 ?C (99.3 ?F) (Temporal) Resp 18 Ht 5' 6 (1.676 m) Wt 162 lb 4.1 oz (73.6 kg) SpO2 95% BMI 26.19 kg/m? Intake/Output Summary (Last 24 hours) at 03/29/2023 1131 Last data filed at 03/29/2023 1030 Gross per 24 hour Intake 845 ml Output 275 ml Net 570 ml Physical Exam Constitutional: Interventions: He is sedated and intubated. HENT: Mouth/Throat: Comments: ETT in place Neck: Vascular: No JVD. Trachea: Trachea normal. Cardiovascular: Rate and Rhythm: Normal rate and regular rhythm. Pulses: Radial pulses are 2+ on the right side and 2+ on the left side. Heart sounds: Normal heart sounds, S1 normal and S2 normal. Pulmonary: Effort: He is intubated. Breath sounds: Decreased breath sounds present. Abdominal: General: Bowel sounds are absent. Musculoskeletal: Right lower leg: No edema. Left lower leg: No edema. Skin: Findings: Bruising and ecchymosis present. Comments: Right Cordis Right Radial Art line CT x 3 Left Radial Arterial Site Diagnostics: Reviewed in EMR Labs: Reviewed in EMR BMP: Recent Labs 03/28/236 03/29/23 0409 NA 138 138 K 3.6 3.7 CL 108* 105 CO2 20* 22 BUN 17 19 CREATININE 0.86 0.98 CALCIUM 8.4 8.6 CBC: Recent Labs 03/28/236 03/29/23 0409 WBC 10.1 7.1 HGB 14.7 14.8 HCT 43.0 4 (more content not included)... Normal [facility] ECG 12-LEADon 03-29-2023 ECG 12-LEAD IMPRESSION: Sinus rhythm Electronically Signed On 03-29-2023 13:38:04 EST by Jayden Chan Normal [facility] FIBRINOGENon 03-29-2023 FIBRINOGEN 205 mg/dL Normal 200-400 [facility] Comment on above: Performed By: #### L [id number], [id number] ####Training Engineer: MADISON CHARLES ([id number])[facility] ([facility])[address] [place] [address] Fibrinogen Coag (PPP) [Mass/ Vol]on 03-29-2023 Interpretation and review of laboratory results Normal [facility] - Chemistry and C hemistry - challengeon 03-29-2023 Glucose [Mass/Vol] 118 mg/dL High 70 - 100 mg/dL [facility] Glucose [Mass/Vol] 120 mg/dL High 70 - 100 mg/dL [facility] scrible Glucose [Mass/Vol] 150 mg/dL High 70 - 100 mg/dL [facility] Glucose [Mass/Vol] 114 mg/dL High 70 - 100 mg/dL [facility] Glucose [Mass/Vol] 132 mg/dL High 70 - 100 mg/dL [facility] Glucose [Mass/Vol] 103 mg/dL High 70 - 100 mg/dL [facility] Glucose [Mass/Vol] 89 mg/dL 70 - 100 mg/dL [facility] Glucose [Mass/Vol] 106 mg/dL High 70 - 100 mg/dL [facility] Glucose [Mass/Vol] 89 mg/dL 70 - 100 mg/dL [facility] Glucose [Mass/Vol] 96 mg/dL 70 - 100 mg/dL [facility] Glucose [Mass/Vol] 86 mg/dL 70 - 100 mg/dL [facility] Glucose [Mass/Vol] 88 mg/dL 70 - 100 mg/dL [facility] scrible Magnesium [Mass/Vol] 3.7 mg/dL High 1.6 - 2 .3 mg/dL [facility] Glucose [Mass/Vol] 63 mg/dL Low 70 - 100 mg/dL [facility] - Chemistry and C hemistry - challengeOrdered By: Lawanda Brasher on 03-29-2023 Base excess Calc (BldV) [Moles/Vol] -2.6000 mmol/L -3.0 - 3.0 mmol/L [facility] CO2 (BldV) [Partial pressure] 56.9 mm[Hg] High [facility] CO2 [Moles/Vol] 26.7 mmol/L 24.0 - 28.0 mmol/L [facility] HCO3 (Bld) [Moles/Vol] 25.0 mmol/L 23.0 - 27.0 mmol/L [facility] Oxygen (BldV) [Partial pressure] 43.1 mm[Hg] [facility] pH (BldV) 7.260 [pH] Low 7.330 - 7.430 [facility] - Chemistry and C hemistry - challengeOrdered By: Sravan Low on 03-29-2023 Base excess Calc (Bld) [Moles/Vol] -1.4000 mmol/L -3.0 - 3.0 mmol/L [facility] CO2 (Bld) [Partial pressure] 39.7 mm[Hg] - PINF [facility] CO2 [Moles/Vol] 24.7 mmol/L 23.0 - 27.0 mmol/L [facility] HCO3 (Bld) [Moles/Vol] 23.4 mmol/L 21.0 - 25.0 mmol/L [facility] Oxygen (Bld) [Partial pressure] 293.0 mm[Hg] High [facility] pH (Bld) 7.389 [pH] 7.350 - 7.450 [facility] - Coagulationon 0 03-29-2023 aPTT Coag (PPP) [Time] 27.5 s 20.0 - 30.5 s [facility] Fibrinogen Coag (PPP) [Mass/Vol] 205 mg/dL 200 - 400 mg/dL [facility] INR Coag (PPP) [Relative time] 1.3 {INR} High 0.9 - 1.1 [facility] Comment on above: Recommended Anticoag ulant Therapy: SEE BELOW ----- INR of 2.0 - 3.0 : - Prophylaxis of Venous Thrombosis (high-risk surgery) - Treatment of Venous Thrombosis - Treatment of Pulmonary Embolism (Includes tissue heart valves, Acute Myocardial Infarction to prevent systemic embolism, Valvular Heart Disease, and Atrial Fibrillation) ----- INR of 2.5 - 3.5 : - Mechanical Prosthetic Valves (high risk) - If oral anticoagulant therapy is used to prevent Myocardial Infarction PT Coag (Bld) [Time] 13.5 s High 9.0 - 1 2.0 s [facility] - Hematology and Cell countsOrdered By: Lawanda Brasher on 03-29-2023 Hemoglobin (Bld) [Mass/Vol] 10.7 g/dL Screen Only [facility] - Hematology and Cell countsOrdered By: Sravan Low on 03-29-2023 Hemoglobin (Bld) [Mass/Vol] 10.1 g/dL Screen Only [facility] MAGNESIUMon 03-29-2023 Magnesium [Mass/Vol] 3.7 mg/dL High 1.6-2.3 [facility] Comment on above: Performed By: #### L [id number] #### Training Engineer: MADISON CHARLES ([id number]) [facility] ([facility]) [address] [place] [address] No Panel Informationon 03-29 Interpretation and review of laboratory results Abnormal [facility] th Performed by: [facility], [address] [place] [address] CLIA ID: [id number] [facility] Interpretation and review of laboratory results Abnormal [facility] Performed by: [facility], [address] [place] [address] CLIA ID: [id number] [facility] Interpretation and review of laboratory results Abnormal [facility] Performed by: [facility], [address] [place] [address] CLIA ID: [id number] [facility] Interpretation and review of laboratory results Abnormal [facility] Performed by: [facility], [address] [place] [address] CLIA ID: [id number] [facility]rible [facility] Interpretation and review of laboratory results Abnormal [facility] Performed by: [facility], [address] [place] [address] CLIA ID: [id number] [facility] Interpretation and review of laboratory results Abnormal [facility] Performed by: [facility], [address] [place] [address] CLIA ID: [id number] [facility] Interpretation and review of laboratory results Normal [facility] Performed by: [facility], [address] [place] [address] CLIA ID: [id number] [facility] Interpretation and review of laboratory results Abnormal [facility] Performed by: [facility], [address] [place] [address] CLIA ID: [id number] [facility] Interpretation and review of laboratory results Normal [facility] Performed by: [facility], [address] [place] [address] CLIA ID: [id number] [facility] Interpretation and review of laboratory results Normal [facility] Performed by: [facility], [address] [place] [address] CLIA ID: [id number] [facility] Sinus rhythm Electronically Signed On 03-29-2023 13:38:04 EST by Jayden Chan CV Jayden Jenkins MD - 03/29/2023 IMPRESSION: Sinus rhythm Electronically Signed On 03-29-2023 13:38:04 EST by Jayden Chan [facility] Interpretation and review of laboratory results Normal [facility] Performed by: [facility], [address] [place] [address] CLIA ID: [id number] [facility] Interpretation and review of laboratory results Normal [facility] Performed by: [facility], [address] [place] [address] CLIA ID: [id number] [facility] Interpretation and review of laboratory results Abnormal [facility] Interpretation and review of laboratory results Abnormal [facility] Interpretation and review of laboratory results Abnormal [facility] Performed by: [facility], [address] [place] [address] CLIA ID: [id number] [facility] Radiology Study observation (narrative) [facility] Rad[facility] Study observation (narrative) [facility] Radiology Study observation (narrative) [facility] Rad[facility] Study observation (narrative) [facility] (narrative) [facility] observation (narrative) [facility] observation (narrative) [facility] observation (narrative) [facility] Radiology Study observation (narrative) [facility] Radiology Study observation (narrative) [facility] Radiology Study observation (narrative) [facility] Radiology Study observation (narrative) [facility] No Panel InformationOrdered By: Lawanda Brasher on 03-29-2023 Interpretation and review of laboratory results Abnormal [facility] Source Of Oxygen Nasal cannula [facility] No Panel InformationOrdered By: Jayden Chan on 03-29-2023 P [place] 37 degrees [facility] Work Phone: MN Interval 148 ms [facility] Work Phone: QRS [place] 11 degrees [facility] Work Phone: QRSD Interval 90 ms [facility] h Work Phone: QT Interval 362 ms [facility] Work Phone: QTC Interval 408 ms [facility] Work Phone: T Wave [place] 61 degrees [facility] Work Phone: [facility] Work Phone: No Panel InformationOrdered By: Sravan Low on 03-29-2023 Interpretation and review of laboratory results Abnormal [facility] Source Of Oxygen Vent [facility] Op Noteon 03-29-2023 Op Note Cardiothoracic Surgery Operative Report Pre-operative Diagnosis: CAD Post-operative Diagnosis: CAD Procedure: CABG X 3: JACOBSEN to LAD, left radial artery to D1, reverse saphenous vein graft to D2; endoscopic vein harvesting left lower extremity (knee to mid-thigh); endoscopic left radial artery harvest; intraoperative MARILEE Surgeon: Rambo Starkey MD Residential Substance Abuse Counselor(s): [] Radha De Luna [x] Nai Bates [x] Joel El [] Jole Carcamo [] Other Anesthesia: General Estimated blood loss: Difficult to estimate due to the nature of the surgery. Cell Saver and pump suction utilized. Total IV fluids: See anesthesia and perfusion record Blood Transfusion?: no Drains: Bilateral pleural and mediastinal Specimens: None Complications: None Condition: Stable Prophylactic Antibiotics: Yes 1st or 2nd generation cephalosporin given (or other antibiotic in the event of an allergy) within 1 hour of surgical incision (two hours if receiving Vancomycin or flouroquinolone) If NO, indication reason why: [] Patient on continuous antibiotics for documented preoperative infection [] Other: The STS Risk Calculator score was calculated and discussed with the patient/family prior to surgery. Yes: [x] No: [] Not a risk calculated procedure [] Emergent or Emergent/Salvage Used of CAR: Yes No due to: [] Subclavian stenosis [] Emergent or Emergent/Salvage [] Prior cardiothoracic surgery [] Prior mediastinal radiation [] No bypassable LAD disease, LAD not needed/bypassed: (This can include clean LAD, diffusely diseased LAD or other condition resulting in the LAD not being bypassed). Beta-aba within 24 hours prior to surgical incision: [] Yes - please see documentation in EMR [] No [] Allergy [] Heart block [] COPD [] Hypotension BP: [] Bradycardia HR: INDICATIONS FOR SURGERY: 62 yo male with PMH of HTN, HPL, MIKAELA on CPAP, post-covid lung disease, DVT (no longer on anticoagulation), BPH, GERD, cataract surgery, and appendectomy in '80s. He has been experiencing chest pain since November of 2022. The pain was initially with exertion and lasted for only a short period of time, but has gotten progressively worse over the last few months. He now has some radiation down left arm and gets diaphoretic at times. He follows with a media clerk (for post-covid symptoms), who ordered a CTA Chest and his PCP ordered a stress test. He was ultimately referred to Dr. Jaeger ([place] [employer]) and was taken for a heart cath on 03/28/23. Cath showed multivessel CAD including ostial LAD, diag 1, diag2, and prox OM. He was sent to [facility] for CABG eval. 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 He does have this chest pain intermittently that slows him down some, but in general he is active at baseline. He does have a family hx of CAD in his father and brother (both in 50s). DESCRIPTION OF PROCEDURE: Procedure Preparation: Patient was taken to the operative suite and placed under general endotracheal anesthesia. Monitoring lines were inserted by the department of anesthesia. Intraoperative transesophageal echocardiography was performed. The findings will follow under a separate dictation. The patient was positioned prepped and draped. Pressure and contact points were protected. An appropriate timeout was conducted. Conduit [place] [facility] Bypass: A LEFT upper extremity incision was made and the left radial artery was procured using an endoscopic harvesting technique. The radial artery was prepared in the usual fashion and the incisions were closed in the usual manner. The conduit had ADEQUATE caliber size and ADEQUATE flow. A LEFT lower extremity incision was made and the greater saphenous vein was procured using an endoscopic vein harvesting technique. The vein was prepared in the usual fashion and the incisions were closed in the usual manner. The vein had ADEQUATE caliber size and ADEQUATE flow. Simultaneously, a median sternotomy was employed and the left internal mammary artery was harvested in a skeletonized and pedicled fashion. The internal mammary artery had adequate caliber and flow. Prior to division of the left internal mammary artery, heparin was administered to obtain an ACT of greater than 400 seconds. The pericardium was open, marsupialized, and pursestrings were placed in preparation for central cannulation. Central cannulation progressed with a standard aortic cannula in the distal ascending aorta, a cardioplegia needle in the proximal ascending aorta and a multistage venous cannula via the right atrium into the inferior vena cava. Once cardiopulmonary bypass had been established examination of the heart, the coronary arteries, and overall anatomy was undertaken. Bypass graft length measurements were obtained with a heart full to adequately engaged the length of the bypass grafts. Subsequent (more content not included)... Normal [facility] PHOSPHORUSon 03-29-2023 Phosphate [Mass/Vol] 2.6 mg/dL Normal 2.5-4.5 [facility] Comment on above: Performed By: #### L [id number] #### Training Engineer: MADISON CHARLES ([id number]) [facility] [address] [place] [address] PROTIME AND APTTon aPTT Coag (Bld) [Time] 27.5 s Normal 20.0-30.5 [facility] Comment on above: Performed By: #### L [id number], [id number] ####Training Engineer: MADISON CHARLES ([id number])[facility] ([address] INR Coag (PPP) [Relative time] 1.3 {INR} High 0.9-1.1 [facility] Comment on above: Result Comment: Gabino mmended Anticoagulant Therapy: SEE BELOW ----- INR of 2.0 - 3.0 : - Prophylaxis of Venous Thrombosis (high-risk surgery) - Treatment of Venous Thrombosis - Treatment of Pulmonary Embolism (Includes tissue heart valves, Acute Myocardial Infarction to prevent systemic embolism, Valvular Heart Disease, and Atrial Fibrillation) ----- INR of 2.5 - 3.5 : - Mechanical Prosthetic Valves (high risk) - If oral anticoagulant therapy is used to prevent Myocardial Infarction Performed By: #### L [id number], [id number] ####Training Engineer: MADISON CHARLES ([id number])[facility])[address] [place] [address] PT Coag (PPP) [Time] 13.5 s High 9.0-12.0 [facility] Comment on above: Performed By: #### L [id number], [id number] ####Training Engineer: MADISON CHARLES ([id number])[facility] ([facility])[address] [place] [address] Phosphate [Moles/Vol]on Interpretation and review of laboratory results Normal [facility] Phosphate [Mass/Vol] 2.6 mg/dL 2.5 - 4 .5 mg/dL [facility] Progress Noteon 03-29-2023 Progress Note Tolerated SBT well. Pt extubated to 4lpm NC. No distress or stridor noted at this time. Normal [facility] Vital signsOrdered By: Lawanda santana on 03-29-2023 Oxygen saturation in Venous blood 69.3 % 60.0 - 80.0 % [facility] Vital signsOrdered By: Jayden Chan on 03-29-2023 Heart rate 76 /min bpm [facility] Work Phone: XR CHEST 1 VIEWon 03-29-2023 XR CHEST 1 VIEW Patient Name: CHIVO LIVIGNSTON : 1960 Exam Date/Time: 03/29/2023 12:18 Procedure: XR CHEST 1 VIEW Ordering Provider: STEINBERG JENNIFER Reason For Exam: Post op open heart surgery EXAMINATION: CHEST RADIOGRAPH (SINGLE VIEW AP OR PA) Clinical History: Post op open heart surgery Comparison: Radiograph 03/28/2023 RESULT: See impression IMPRESSION: Lines, tubes, and devices: Interval placement of endotracheal tube which terminates 4.6 cm above the rachid. Interval placement of NG/OG tube which extends below the diaphragm, sidehole in the expected location of stomach and tip extending below the [id number]. Interval placement of right IJ approach central venous catheter with tip at the right atrium. Interval placement of bibasilar chest tubes and mediastinal drain. Multiple additional lines project over partially obscure the chest/epigastric region. Lungs and pleura: Lung volumes which results in crowding of bronchovascular pulmonary vasculature. Mild streaky bibasilar atelectasis. No consolidation. No sizable pleural effusion or pneumothorax. Cardiomediastinal silhouette: Stable enlarged cardiac silhouette.Atheroscl erotic calcifications of the aortic arch. Interval median sternotomy for CABG. Other: Degenerative changes of the spine. Report Dictated on Electronically Signed By: José Manuel Berrios MD Electronically Signed Date/Time: 03/29/2023 12:25 PM [facility] XR Chest Single viewon 03-29 Lines, tubes, and devices: Interval placement of endotracheal tube which terminates 4.6 cm above the rachid. Interval placement of NG/OG tube which extends below the diaphragm, sidehole in the expected location of stomach and tip extending below the [id number]. Interval placement of right IJ approach central venous catheter with tip at the right atrium. Interval placement of bibasilar chest tubes and mediastinal drain. Multiple additional lines project over partially obscure the chest/epigastric region. Lungs and pleura: Lung volumes which results in crowding of bronchovascular pulmonary vasculature. Mild streaky bibasilar atelectasis. No consolidation. No sizable pleural effusion or pneumothorax. Cardiomediastinal silhouette: Stable enlarged cardiac silhouette.Atheroscl erotic calcifications of the aortic arch. Interval median sternotomy for CABG. Other: Degenerative changes of the spine. Report Dictated on Electronically Signed By: José Manuel Berrios MD Electronically Signed Date/Time: 03/29/2023 12:25 PM [facility] Patient Name: CHIVO LIVINGSTON : 1960 Exam Date/Time: 03/29/2023 12:18 Procedure: XR CHEST 1 VIEW Ordering Provider: STEINBERG JENNIFER Reason For Exam: Post op open heart surgery EXAMINATION: CHEST RADIOGRAPH (SINGLE VIEW AP OR PA) Clinical History: Post op open heart surgery Comparison: Radiograph 03/28/2023 RESULT: See impression [facility] José Manuel Berrios MD - 03/29/2023 Patient Name: CHIVO LIVINGSTON : 1960 Exam Date/Time: 03/29/2023 12:18 Procedure: XR CHEST 1 VIEW Ordering Provider: STEINBERG JENNIFER Reason For Exam: Post op open heart surgery EXAMINATION: CHEST RADIOGRAPH (SINGLE VIEW AP OR PA) Clinical History: Post op open heart surgery Comparison: Radiograph 03/28/2023 RESULT: See impression IMPRESSION: Lines, tubes, and devices: Interval placement of endotracheal tube which terminates 4.6 cm above the rachid. Interval placement of NG/OG tube which extends below the diaphragm, sidehole in the expected location of stomach and tip extending below the [id number]. Interval placement of right IJ approach central venous catheter with tip at the right atrium. Interval placement of bibasilar chest tubes and mediastinal drain. Multiple additional lines project over partially obscure the chest/epigastric region. Lungs and pleura: Lung volumes which results in crowding of bronchovascular pulmonary vasculature. Mild streaky bibasilar atelectasis. No consolidation. No sizable pleural effusion or pneumothorax. Cardiomediastinal silhouette: Stable enlarged cardiac silhouette.Atheroscl erotic calcifications of the aortic arch. Interval median sternotomy for CABG. Other: Degenerative changes of the spine. Report Dictated on Electronically Signed By: José Manuel Berrios MD Electronically Signed Date/Time: 03/29/2023 12:25 PM EST [facility] Radiology Study observation (narrative) [facility] XR Chest Single viewOrdered By: José Manuel Berrios on 03-29-2023 [facility] Work Phone: ABO and Rh group Confirm Nom (Bld)on 03-28-2023 ABO group Nom (Bld) O [facility] D Ag Ql (RBC) Positive [facility] BLOOD TYPE AND SCREEN GELon 03-28-2023 ABO GROUPING O Normal [facility] Comment on above: Order Comment: Speci men is valid for 3 days - nurse to verify valid specimen Performed By: #### L [id number] ####Training Engineer: MADISON CHARLES ([id number])[facility]OD [facility] ([facility])[address] [place] [address] RH TYPE IN BLOOD Positive Normal [facility] Comment on above: Order Comment: Speci men is valid for 3 days - nurse to verify valid specimen Performed By: #### L [id number] ####Training Engineer: MADISON CHARLES ([id number])[facility]LOOD [facility] ([facility])[address] [place] [address] Blood type and Crossmatch pa adeola (Bld)on 03-28-2023 ABO group Nom (Bld) O [facility] Blood group antibody screen GEL Ql Negative [facility] D Ag Ql (RBC) Positive [facility] CBC (HEMOGRAM)on 03-28-2023 Erythrocyte distribution width (RBC) [Ratio] 13.7 % Normal 11.5-14.5 [facility] Comment on above: Performed By: #### L [id number] #### Training Engineer: MADISON CHARLES ([id number]) [facility] ([facility]) [address] [place] [address] ERYTHROCYTE MEAN CORPUSCULAR HEMOGLOBIN CONCENTRATION (G/DL) BY AUTOMATED 34.2 % Normal 32.0-36.0 [facility] Comment on above: Performed By: #### L [id number] #### Training Engineer: MADISON CHARLES ([id number]) [facility]) [address] [place] [address] Hematocrit (Bld) [Volume fraction] 43.0 % Normal 40.0-52.0 [facility] Comment on above: Performed By: #### L [id number] #### Training Engineer: MADISON CHARLES ([id number]) [facility] ([facility]) [address] [place] [address] Hemoglobin (Bld) [Mass/Vol] 14.7 g/dL Normal 13.0-18.0 [facility] Comment on above: Performed By: #### L [id number] #### Training Engineer: MADISON CHARLES ([id number]) [facility] ([facility]) [address] [place] [address] MCH (RBC) [Entitic mass] 28.5 pg Normal 26.0-34.0 [facility] Comment on above: Performed By: #### L [id number] #### Training Engineer: MADISON CHARLES ([id number]) [facility] ([facility]) [address] [place] [address] MCV (RBC) [Entitic vol] 83.2 fL Normal 80.0-98.0 [facility] Comment on above: Performed By: #### L [id number] #### Training Engineer: MADISON CHARLES ([id number]) [facility] ([facility]) [address] [place] [address] Platelet mean volume (Bld) [Entitic vol] 8.0 fL Normal 7.4-12.4 [facility] Comment on above: Performed By: #### L [id number] #### Training Engineer: MADISON CHARLES ([id number]) [facility] ([facility]) [address] [place] [address] Platelets (Bld) [#/Vol] 251 10*3/uL Normal 140-440 [facility] Comment on above: Performed By: #### L [id number] #### Training Engineer: MADISON CHARLES ([id number]) [facility] ([facility]) [address] [place] [address] RBC (Bld) [#/Vol] 5.16 10*6/uL Normal 4.40-5.90 [facility] Comment on above: Performed By: #### L [id number] #### Training Engineer: MADISON CHARLES ([id number]) [facility] ([facility]) [address] [place] [address] WBC (Bld) [#/Vol] 10.1 10*3/uL Normal 3.6-10.7 [facility] Comment on above: Performed By: #### L [id number] #### Training Engineer: MADISON CHARLES ([id number]) [facility] ([facility]) [address] [place] [address] CBC panel Auto (Bld)on 03-28 Erythrocyte distribution width (RBC) [Ratio] 13.7 % 11.5 - 14.5 % [facility] Hematocrit (Bld) [Volume fraction] 43.0 % 40.0 - 52.0 % [facility] Hemoglobin (Bld) [Mass/Vol] 14.7 g/dL 13.0 - 18.0 g/dL [facility] Interpretation and review of laboratory results Normal [facility] MCH (RBC) [Entitic mass] 28.5 pg 26. 0 - 34.0 pg [facility] MCHC (RBC) [Mass/Vol] 34.2 % 32.0 - 36.0 % [facility] MCV (RBC) [Entitic vol] 83.2 fL 80.0 - 98.0 fL [facility] Platelet mean volume (Bld) [Entitic vol] 8.0 fL 7.4 - 12.4 fL [facility] Platelets (Bld) [#/Vol] 251 10*3/uL 140 - 440 10*3/uL [facility] RBC (Bld) [#/Vol] 5.16 10*6/uL 4.40 - 5.9 0 10*6/uL [facility] WBC (Bld) [#/Vol] 10.1 10*3/uL 3.6 - 10.7 10*3/uL [facility] COMPREHENSIVE METABOLIC PANE Barber 03-28-2023 Albumin [Mass/Vol] 4.0 g/dL Normal 3.5-5.0 [facility] Comment on above: Performed By: #### L [id number] #### Training Engineer: MADISON CHARLES ([id number]) [facility] ([facility]) [address] [place] [address] ALP [Catalytic activity/Vol] 84 U/L Normal 38-126 [facility] Comment on above: Performed By: #### L [id number] #### Training Engineer: MADISON CHARLES ([id number]) [facility] ([facility]) [address] [place] [address] [place] ALT [Catalytic activity/Vol] 21 U/L Normal 0-49 [facility] Comment on above: Performed By: #### L [id number] #### Training Engineer: MADISON CHARLES ([id number]) [facility] ([facility]) [address] [place] [address] Anion gap [Moles/Vol] 10 mmol/L Normal 3-13 [facility] Comment on above: Performed By: #### L [id number] #### Training Engineer: MADISON CHARLES ([id number]) [facility] ([facility]) [address] [place] [address] AST [Catalytic activity/Vol] 25 U/L Normal 15-46 [facility] Comment on above: Performed By: #### L [id number] #### Training Engineer: MADISON CHARLES ([id number]) [facility] ([facility]) [address] [place] [address] Bilirubin [Mass/Vol] 0.6 mg/dL Normal 0.2-1.3 [facility] Comment on above: Performed By: #### L [id number] #### Training Engineer: MADISON CHARLES ([id number]) [facility] ([facility]) [address] [place] [address] Calcium [Mass/Vol] 8.4 mg/dL Normal 8.4-10.4 [facility] Comment on above: Performed By: #### L [id number] #### Training Engineer: MADISON CHARLES ([id number]) [facility] ([facility]) [address] [place] [address] [place] Chloride [Moles/Vol] 108 mmol/L High 98-107 [facility] Comment on above: Performed By: #### L [id number] #### Training Engineer: MADISON CHARLES ([id number]) [facility] [address] [place] [address] [place] CO2 [Moles/Vol] 20 mmol/L Low 22-30 [facility] Comment on above: Performed By: #### L [id number] #### Training Engineer: MADISON CHARLES ([id number]) [facility] ([facility]) [address] [place] [address] [place] Creatinine [Mass/Vol] 0.86 mg/dL Normal 0.66-1.25 [facility] Comment on above: Performed By: #### L [id number] #### Training Engineer: MADISON CHARLES ([id number]) [facility] ([facility]) [address] [place] [address] [place] GLOMERULAR FILTRATION RATE ML/MIN/1.73 SQ M.PREDICTED >90.0 Normal >60.0 [facility] Comment on above: Result Comment: Calc ulation based on the Chronic Kidney Disease Epidemiology Collaboration (CKD-EPI) equation refit without adjustment for race Performed By: #### L [id number] #### Training Engineer: MADISON CHARLES ([id number]) [facility] ([facility]) [address] [place] [address] [place] Glucose [Mass/Vol] 98 mg/dL Normal 70-100 [facility] Comment on above: Performed By: #### L [id number] #### Training Engineer: MADISON CHARLES ([id number]) [facility] ([facility]) [address] [place] [address] [place] Potassium [Moles/Vol] 3.6 mmol/L Normal 3.5-5.1 [facility] Comment on above: Performed By: #### L [id number] #### Training Engineer: MADISON CHARLES ([id number]) [facility] ([facility]) [address] [place] [address] [place] Protein [Mass/Vol] 6.9 g/dL Normal 6.3-8.2 [facility] Comment on above: Performed By: #### L [id number] #### Training Engineer: MADISON CHARLES ([id number]) [facility] ([facility]) [address] [place] [address] Sodium [Moles/Vol] 138 mmol/L Normal 135-145 [facility] Comment on above: Performed By: #### L [id number] #### Training Engineer: MADISON CHARLES ([id number]) [facility] ([facility]) [address] [place] [address] Urea nitrogen [Mass/Vol] 17 mg/dL Normal 9-20 [facility] Comment on above: Performed By: #### L [id number] #### Training Engineer: MADISON CHARLES ([id number]) [facility] ([facility]) [address] [place] [address] Comprehensive metabolic 1998 panelon 03-28-2023 Albumin [Mass/Vol] 4.0 g/dL 3.5 - 5.0 g/dL [facility] ALP [Catalytic activity/Vol] 84 U/L 38 - 126 U/L [facility] ALT [Catalytic activity/Vol] 21 U/L 0 - 49 U/L [facility] Anion gap [Moles/Vol] 10 mmol/L 3 - 13 mmol/L [facility] AST [Catalytic activity/Vol] 25 U/L 15 - 46 U/L [facility] Bilirubin [Mass/Vol] 0.6 mg/dL 0.2 - 1 .3 mg/dL [facility] Calcium [Mass/Vol] 8.4 mg/dL 8.4 - 10. 4 mg/dL [facility] Chloride [Moles/Vol] 108 mmol/L High 98 - 10 7 mmol/L [facility] CO2 [Moles/Vol] 20 mmol/L Low 22 - 30 mmol/L [facility] Creatinine [Mass/Vol] 0.86 mg/dL 0.66 - 1.25 mg/dL [facility] GFR/1.73 sq M.predicted MDRD (S/P/Bld) [Vol rate/Area] - PINF [facility] Comment on above: Calculation based on the Chronic Kidney Disease Epidemiology Collaboration (CKD-EPI) equation refit without adjustment for race Glucose [Mass/Vol] 98 mg/dL 70 - 100 mg/dL [facility] Interpretation and review of laboratory results Abnormal [facility] Potassium [Moles/Vol] 3.6 mmol/L 3.5 - 5.1 mmol/L [facility] Protein [Mass/Vol] 6.9 g/dL 6.3 - 8.2 g/dL [facility] Sodium [Moles/Vol] 138 mmol/L 135 - 145 mmol/L [facility] Urea nitrogen [Mass/Vol] 17 mg/dL 9 - 20 mg/dL [facility] HEMOGLOBIN A1Con 03-28-2023 Glucose [Mass/Vol] 111 mg/dL Normal [facility] Comment on above: Performed By: #### L [id number] #### Training Engineer: MADISON CHARLES ([id number]) [facility] ([facility]) [address] [place] [address] HbA1c (Bld) [Mass fraction] 5.5 % Normal <5.7 [facility] Comment on above: Result Comment: Norm al less than 5.7% Prediabetes 5.7% to 6.4% Diabetes 6.5% or higher --HgbA1C levels may not be accurate in patients who have renal disease, received recent blood transfusions, are anemic, or who have dyshemoglobinemia. Performed By: #### L [id number] #### Training Engineer: MADISON CHARLES ([id number]) [facility] ([facility]) [address] [place] [address] Laboratory - Chemistry and C hemistry - challengeon 03-28-2023 Average glucose Estimated from glycated hemoglobin (Bld) [Mass/Vol] 111 mg/dL [facility] Laboratory - Hematology and Cell countson 03-28-2023 HbA1c (Bld) [Mass fraction] 5.5 % NINF - 5.7 % [facility] Comment on above: Normal less than 5.7 % Prediabetes 5.7% to 6.4% Diabetes 6.5% or higher --HgbA1C levels may not be accurate in patients who have renal disease, received recent blood transfusions, are anemic, or who have dyshemoglobinemia. MRSA BY PCRon 03-28-2023 MRSA BY PCR STAPHYLOCOCCUS AUREUS (A) Reference Detected Not Detected MECA GENE Reference Not Detected Not Detected ORDER COMMENTS: Methicillin-sensitiv e Staphylococcus aureus (MSSA) present; No MRSA detected Negative nasal MRSA PCR has a high negative predictive value for MRSA pneumonia. Consider stopping Vancomycin if no other clinical indication. Positive results do not necessarily indicate active infection with MSSA. Contact Antimicrobial Stewardship for further recommendations. Staphylococcus aureus nasal screen by real-time PCR. This test was modified and its performance characteristics determined by [facility]. The U. S. Food and Drug Administration has not approved or cleared this test; however, FDA clearance or approval is not currently required for clinical use. The results are not intended to be used as the sole means for clinical diagnosis or patient management decisions. Normal [facility] Comment on above: Performed By: #### L [id number] #### Training Engineer: MADISON CHARLES ([id number]) [facility] ([facility]) [address] [place] [address] MRSA DNA NORRIS+probe Ql (Nose) on 03-28-2023 Interpretation and review of laboratory results Abnormal [facility] mecA gene Not detected Not Detected [facility] Staphylococcus aureus Detected Abnormal Not Detected [facility] Methicillin-sensitiv e Staphylococcus aureus (MSSA) present; No MRSA detected Negative nasal MRSA PCR has a high negative predictive value for MRSA pneumonia. Consider stopping Vancomycin if no other clinical indication. Positive results do not necessarily indicate active infection with MSSA. Contact Antimicrobial Stewardship for further recommendations. Staphylococcus aureus nasal screen by real-time PCR. This test was modified and its performance characteristics determined by [facility]. The [place]. S. Food and Drug Administration has not approved or cleared this test; however, FDA clearance or approval is not currently required for clinical use. The results are not intended to be used as the sole means for clinical diagnosis or patient management decisions. [facility] No Panel InformationOrdered By: Radha Giron on 03-28-2023 Left CCA dist EDV 19.5 cm/s [facility] Work Phone: Left CCA dist PSV 86.8 cm/s [facility] Work Phone: Left CCA mid EDV 19.50 cm/s [facility] Work Phone: Left CCA mid PSV 78.30 cm/s [facility] Work Phone: Left CCA prox EDV 23.4 cm/s [facility] Work Phone: Left CCA prox PSV 123.2 cm/s [facility] Work Phone: Left ECA EDV 14.20 cm/s [facility] Work Phone: Left ECA PSV 117.1 cm/s [facility] Work Phone: Left ICA dist EDV 17.7 cm/s [facility] Work Phone: Left ICA dist PSV 51.3 cm/s [facility] Work Phone: Left ICA mid EDV 21.9 cm/s [facility] Work Phone: Left ICA mid PSV 68.0 cm/s [facility] Work Phone: Left ICA prox EDV 25.2 cm/s [facility] Work Phone: Left ICA prox PSV 62.5 cm/s [facility] Work Phone: Left ICA/CCA PSV 0.87 [facility] Work Phone: Left subclavian mid EDV 0.0 cm/s [facility] Work Phone: Left subclavian mid PSV 172.1 cm/s [facility] Work Phone: Left vertebral EDV 13.10 cm/s [facility] Work Phone: Left vertebral PSV 46.1 cm/s [facility] Work Phone: Right CCA dist EDV 17.0 cm/s [facility] Work Phone: Right cca dist PSV 80.1 cm/s [facility] Work Phone: Right CCA mid EDV 21.30 cm/s [facility] Work Phone: Right CCA mid PSV 92.10 cm/s [facility] Work Phone: Right CCA prox EDV 19.2 cm/s [facility] Work Phone: Right CCA prox PSV 82.3 cm/s [facility] Work Phone: Right ECA EDV 9.40 cm/s [facility] [employer] Work Phone: Right ECA PSV 86.7 cm/s [facility] Work Phone: Right ICA dist EDV 32.2 cm/s [facility] Work Phone: Right ICA dist PSV 92.1 cm/s [facility] Work Phone: Right ICA mid EDV 33.3 cm/s [facility] Work Phone: Right ICA mid PSV 82.3 cm/s [facility] Work Phone: Right ICA prox EDV 19.2 cm/s [facility] Work Phone: Right ICA prox PSV 68.1 cm/s [facility] Work Phone: Right ICA/CCA PSV 1.00 [facility] Work Phone: Right subclavian mid EDV 0.0 cm/s [facility] Work Phone: Right subclavian mid PSV 157.7 cm/s [facility] Work Phone: Right vertebral EDV 14.80 cm/s [facility] Work Phone: Right vertebral PSV 56.2 cm/s [facility] Work Phone: No Panel Informationon 03-28 <50% stenosis in the right internal carotid artery. Heterogeneous and calcific plaque (proximal) in the right internal carotid artery. <50% stenosis in the left internal carotid artery. Heterogeneous and calcific plaque (proximal) in the left internal carotid artery. Normal antegrade flow involving the right vertebral artery. Normal antegrade flow involving the left vertebral artery. Right Carotid Common Carotid Artery: Heterogeneous and calcific plaque (distal). Internal Carotid Artery: <50% stenosis. Minimal, heterogeneous and calcific plaque (proximal). External Carotid Artery: Minimal, heterogeneous and calcific plaque (proximal). Vertebral Artery: Flow is antegrade. Subclavian Artery: Normal. Left Carotid Common Carotid Artery: Patent. Internal Carotid Artery: <50% stenosis. Minimal, heterogeneous and calcific plaque (proximal). External Carotid Artery: Minimal and homogeneous plaque (prox). Vertebral Artery: Flow is antegrade. Subclavian Artery: Normal. [employer] Installer Details A mathur scale, color Doppler imaging and spectral Doppler analysis ultrasound was performed. During the study longitudinal views were obtained. Pulsed wave doppler was performed. The exam was performed with the patient in the supine position. Overall the study quality was good. CV CPACS Left arm BP 131 mmHg [facility] There are no changes to left PPG signals with radial artery compression indicative of a complete arch. No left wrist cuff utilized due to IV placement. Right arm and digits not assessed due to recent heart catherization via the right radial artery. Left Upper Arterial Upper arm PVR waveforms: normal. Lower arm PVR waveforms: normal. 1st digit PVR waveforms: normal. 2nd digit PVR waveforms: normal. 3rd digit PVR waveforms: normal. 4th digit PVR waveforms: normal. 5th digit PVR waveforms: normal. There are no changes to left PPG signals with radial artery compression indicative of a complete arch. No wrist cuff placed due to IV placement Left FA BP 134 with TIKI of 1.02 [employer]er Details A spectral Doppler analysis ultrasound was performed. Pulsed volume recording (PVR) and photo plethysmography was performed. Study was technically difficult due to: Heart cath via right radial artery. IV placement left wrist area.. CV CPACS Left GSV at Knee Diam 4.55 mm [facility] Left GSV BK Dist Diam 2.18 mm [facility] Left GSV BK Mid Diam 2.30 mm [facility] Left GSV BK Prox Diam 3.51 mm [facility] Left GSV Junc Diam 7.70 mm [facility] Left GSV Thigh Dist Diam 4.40 mm [facility] Left GSV Thigh Mid Diam 4.21 mm [facility] Left GSV Thigh Prox Diam 5.08 mm [facility] Right GSV at Knee Diam 4.33 mm [facility] Right GSV BK Dist Diam 2.21 mm [facility] Right GSV BK Mid Diam 2.46 mm [facility] Right GSV BK Prox Diam 3.60 mm [facility] Right GSV Junc Diam 7.96 mm [facility] Right GSV Thigh Dist Diam 4.88 mm [facility] Right GSV Thigh Mid Diam 4.69 mm [facility] Right GSV Thigh Prox Diam 5.08 mm [facility] Vessel diameters as noted in the table below. Bilateral Greater Saphenous Vein: Fully compressible. Right Lower Venous Greater Saphenous Vein: Fully compressible. Branches noted in mid thigh and proximal calf Left Lower Venous Greater Saphenous Vein: Fully compressible. Branches noted in mid thigh [employer] Installer Details A mathur scale ultrasound was performed. During the study transverse views were obtained. The exam was performed with the patient in the supine and reverse Trendelenburg position. Overall the study quality was good. CV CPACS [facility] Nursing Noteon 03-28-2023 Nursing Note Report received from Flynn Burns. Normal [facility] US Heart TransthoracicOrdere d By: Christelle Harrison on 03-28-2023 Aortic Root 3.0 cm [facility] Work Phone: [phone] Ascending Aorta 3.1 cm [facility] Work Phone: [phone] AV Area by Peak Velocity 1.8 cm2 [facility] Work Phone: [phone] AV Area by VTI 1.8 cm2 [facility] Work Phone: [phone] AV AT 76.12 ms [facility] Work Phone: 95 AV Mean Gradient 4 mmHg [facility] Work Phone: [phone] AV Mean Velocity 1.0 m/s [facility] Work Phone: 95 AV Peak Gradient 8 mmHg [facility] Work Phone: 95 AV Peak Velocity 1.5 m/s [facility] Work Phone: [phone] AV Velocity Ratio 0.60 [facility] Work Phone: [phone] AV VTI 24.6 cm [facility] Work Phone: [phone] E/E' Lateral 5.88 [facility] Work Phone: [phone] E/E' Ratio (Averaged) 6.85 [facility] Work Phone: E/E' Septal 7.83 [facility] Work Phone: [phone] EF BP 63 % 55 - 100 % [facility] Work Phone: Fractional Shortening 2D 31 % 28 - 44 % [facility] Work Phone: Interpretation and review of laboratory results Abnormal [facility] Work Phone: [phone] IVC Diameter 1.2 cm [facility] Work Phone: [phone] IVSd 1.0 cm 0.6 - 1.0 cm [facility] Work Phone: [phone] LA Diameter 3.5 cm [facility] Work Phone: LA Volume 2C 30 mL 18 - 58 mL [facility] Work Phone: LA Volume 4C 23 mL 18 - 58 mL [facility] Work Phone: LA Volume A/L 26 mL [facility] Work Phone: LA Volume BP 26 mL 18 - 58 mL [facility] Work Phone: LA/AO Root Ratio 1.17 [facility] Work Phone: LV E' Lateral Velocity 8 cm/s [facility] Work Phone: [phone] LV E' Septal Velocity 6 cm/s [facility] Work Phone: LV EDV A2C 46 mL [facility] Work Phone: LV EDV A4C 57 mL [facility] Work Phone: [phone] LV EDV BP 52 mL Abnormal 67 - 155 mL [facility] Work Phone: [phone] LV Ejection Fraction A2C 58 % [facility] Work Phone: LV Ejection Fraction A4C 67 % [facility] Work Phone: [phone] LV ESV A2C 19 mL [facility] Work Phone: LV ESV A4C 19 mL [facility] Work Phone: LV ESV BP 19 mL Abnormal 22 - 58 mL [facility] Work Phone: LV Mass 2D 137.2 g 88 - 224 g [facility] Work Phone: [phone] LV RWT Ratio 0.48 [facility] Work Phone: [phone] LVIDd 4.2 cm 4.2 - 5.9 cm [facility] Work Phone: [phone] LVIDs 2.9 cm [facility] Work Phone: [phone] LVOT Area 2.8 cm2 [facility] Work Phone: [phone] LVOT Cardiac Output 3.5 liter/mi nut e [facility] Work Phone: [phone] LVOT Diameter 1.9 cm [facility] [employer] Work Phone: [phone] LVOT Mean Gradient 2 mmHg [employer] Work Phone: [phone] LVOT Peak Gradient 3 mmHg [facility] Work Phone: [phone] LVOT Peak Velocity 0.9 m/s [employer] Work Phone: [phone] LVOT SV 42.8 ml [facility] Work Phone: [phone] LVOT VTI 15.1 cm [facility] Work Phone: [phone] LVOT:AV VTI Index 0.61 [facility] [employer] [facility] Work Phone: [phone] LVPWd 1.0 cm 0.6 - 1.0 cm [facility] Work Phone: [phone] MV A Velocity 0.60 m/s [facility] Work Phone: [phone] MV E Velocity 0.47 m/s [facility] Work Phone: [phone] MV E Wave Deceleration Time 251.7 ms [facility] Work Phone: [phone] MV E/A 0.78 [facility] Work Phone: [phone] RA Area 4C 28.2 mL [facility] Work Phone: [phone] RA Area 4C 27.3 mL [facility] Work Phone: [phone] RV Basal Dimension 3.9 cm [facility] Work Phone: [phone] RV Free Wall Peak S' 13 cm/s [facility] Work Phone: [phone] RV Longitudinal Dimension 7.8 cm [facility] Work Phone: [phone] RV Mid Dimension 2.7 cm [facility] Work Phone: [phone] TAPSE 2.3 cm 1.7 cm [facility] Work Phone: [phone] [facility] Work Phone: [phone] US Heart Transthoracicon Left Ventricle: Left ventricle size is normal. Normal wall thickness. Normal left ventricular systolic function. EF by 2D Simpsons Biplane is 63%. Normal wall motion. Normal diastolic function. Right Ventricle: Right ventricle size is normal. Normal systolic function. No significant valvular abnormalities. Left Ventricle Left ventricle size is normal. Normal wall thickness. Normal left ventricular systolic function. EF by 2D Simpsons Biplane is 63%. Normal wall motion. Normal diastolic function. Right Ventricle Right ventricle size is normal. Normal systolic function. Left Atrium Left atrium size is normal. Left atrium size is normal (LA volume index 16-34 mL/m2). Right Atrium Right atrium size is normal. IVC/SVC IVC diameter is normal and decreases greater than 50% during inspiration; therefore the estimated right atrial pressure is normal (~3 mmHg). Mitral Valve No regurgitation. No stenosis noted. Tricuspid Valve Not well visualized. Trace regurgitation. Unable to assess RVSP. Aortic Valve Trileaflet. No cusp thickening. No cusp calcification. No regurgitation. No stenosis. AV mean gradient is 4 mmHg. AV peak velocity is 1.5 m/s. Pulmonic Valve The pulmonic valve visualization is suboptimal but appears to be functioning normally. Trace regurgitation. Ascending Aorta Normal sized sinuses of Valsalva and ascending aorta. Pericardium No pericardial effusion. Septum No interatrial shunt visualized on color Doppler. Study Details Image quality: adequate. Heart rate: 78 bpm. Blood pressure: 135/82 mmHg. No contrast was given. Echo Additional Conclusions No significant valvular abnormalities. Wall Scoring Baseline Score Index: 1.00 The left ventricular wall motion is normal. CV CPACS XR CHEST 1 VIEWon 03-28-2023 XR CHEST 1 VIEW [facility] 1960 [id number] Exam Date/Time: 03/28/2023 14:41 Procedure: XR CHEST 1 VIEW Ordering Provider: STEINBERG JENNIFER Reason For Exam: preop eval EXAMINATION: Portable chest INDICATION: preop eval FINDINGS: There is no focal consolidation, sizable pleural effusion or pneumothorax. The cardiac silhouette is enlarged. There is moderate calcification of the thoracic aorta. Small to moderate osteophytes of the spine are present at multiple levels. IMPRESSION: Cardiomegaly. Report Dictated on Electronically Signed By: Hernandez Gonzalez MD Electronically Signed Date/Time: 03/28/2023 2:50 PM EST [facility] XR Chest Single viewon 03-28 Cardiomegaly. Report Dictated on Electronically Signed By: Hernandez Gonzalez MD Electronically Signed Date/Time: 03/28/2023 2:50 PM EST [facility] Patient Name: CHIVO LIVINGSTON : 1960 Exam Date/Time: 03/28/2023 14:41 Procedure: XR CHEST 1 VIEW Ordering Provider: STEINBERG JENNIFER Reason For Exam: preop eval EXAMINATION: Portable chest INDICATION: preop eval FINDINGS: There is no focal consolidation, sizable pleural effusion or pneumothorax. The cardiac silhouette is enlarged. There is moderate calcification of the thoracic aorta. Small to moderate osteophytes of the spine are present at multiple levels. [facility] Hernandez Gonzalez MD - 03/28/2023 Patient Name: CHIVO LIVINGSTON : 1960 Exam Date/Time: 03/28/2023 14:41 Procedure: XR CHEST 1 VIEW Ordering Provider: STEINBERG JENNIFER Reason For Exam: preop eval EXAMINATION: Portable chest INDICATION: preop eval FINDINGS: There is no focal consolidation, sizable pleural effusion or pneumothorax. The cardiac silhouette is enlarged. There is moderate calcification of the thoracic aorta. Small to moderate osteophytes of the spine are present at multiple levels. IMPRESSION: Cardiomegaly. Report Dictated on Electronically Signed By: Hernandez Gonzalez MD Electronically Signed Date/Time: 03/28/2023 2:50 PM EST [facility] Radiology Study observation (narrative) [facility] XR Chest Single viewOrdered By: Hernandez Gonzalez on 03-28-2023 [facility] Work Phone: Absolute lymphocyte countOrd ered By: Jose Daniel Jaeger on 03-23-2023 Lymphocytes Auto (Unsp spec) [#/Vol] 1.28 10*3/uL 0.83-4.51 [facility] Automated lymphocyte count a s percentage of total leukocytesOrdered By: Jose Daniel Jaeger on 03-23-2023 Lymphocytes/100 WBC Auto (Unsp spec) 20.6 % 19-41 [facility] Basophil percentageOrdered B y: Jose Daniel Jaeger on 03-23-2023 Basophils/100 WBC (Bld) 0.6 % 0-1 [facility] Chloride [Moles/Vol] 109 mmol/L 98-107 [facility] Eosinophils/100 WBC (Bld) 3.2 % 0-5 [facility] Glucose [Mass/Vol] 97 mg/dL 74-106 [facility] Hemoglobin (Bld) [Mass/Vol] 15.2 g/dL 13.0-16.5 [facility] Monocytes/100 WBC (Bld) 9.2 % 0-10 [facility] Neutrophils (Bld) [#/Vol] 4.1 10*3/uL 2.0-7.7 [facility] Neutrophils/100 WBC (Bld) 66.2 % 47-70 [facility] Potassium [Moles/Vol] 4.4 mmol/L 3.5-5.1 [facility] Sodium [Moles/Vol] 139 mmol/L 136-145 [facility] WBC (Bld) [#/Vol] 6.2 10*3/uL 4.4-11.0 [facility] Determination of erythrocyte mean corpuscular volume (MCV)Ordered By: Jose Daniel Jaeger on 03-23-2023 MCV (RBC) [Entitic vol] 85.0 fL 80-94 [facility] Erythrocyte distribution wid th ratioOrdered By: Jose Daniel Mil on 03-23-2023 Erythrocyte distribution width (RBC) [Ratio] 12.7 % 11.6-14.6 [facility] Erythrocyte distribution wid th standard deviationOrdered By: Jose Daniel Mil on 03-23-2023 Erythrocyte distribution width (RBC) [Entitic vol] 38.9 fL 35.1-43.9 [facility] Hematocrit Auto (Bld) [Volum e fraction]Ordered By: Jose Daniel Mil on 03-23-2023 Hematocrit (Bld) [Volume fraction] 47.0 % 40-54 [facility] Immature granulocytes/100 WB C Auto (Bld)Or[facility] Immature granulocytes/100 WBC (Bld) 0.200 % 0.0-0.9 [facility] Comment on above: IG% - Immature Granu locytes (promyelocytes, myelocytes and metamyelocytes) > 1% indicates that a LEFT SHIFT is Present. Laboratory - Chemistry and C hemistry - challengeOrdered By: Jose Daniel Mil on 03-23-2023 CO2 [Moles/Vol] 29.0 mmol/L 21.0-32.0 [facility] Urea nitrogen/Creatinine [Mass ratio] 16.4 mg/mg 10-20 [facility] Laboratory - Hematology and Cell countsOrdered By: Jose Daniel Mil on 03-23-2023 MCH (RBC) [Entitic mass] 27.5 pg 27.0-32.0 [facility] MCHC (RBC) [Mass/Vol] 32.3 g/dL 32-36 [facility] Nucleated RBC/100 WBC (Bld) [Ratio] 0 % 0-5 [facility] Platelets (Bld) [#/Vol] 277 10*3/uL 150-450 [facility] No Panel InformationOrdered By: Jose Daniel Jaeger on 03-23-2023 Estimated GFR (MDRD) Amer 82 mL/min >60 [facility] Comment on above: GFR Calc Estimated GFR (MDRD) Non-Af Amer 68 mL/min >60 [facility] Comment on above: Non- GFR Calc Platelet mean volume Ronaldo-Ec ker (Bld) [Entitic vol]Ordered By: Jose Daniel Jaeger on 03-23-2023 Platelet mean volume (Bld) [Entitic vol] 10.0 fL 6.2-12.0 [facility] RBC Auto (Bld) [#/Vol]Ordere d By: Jose Daniel Jaeger on 03-23-2023 RBC (Bld) [#/Vol] 5.53 10*6/uL 4.6-6.2 [facility] Serum or plasma calcium naye urement (mass/volume)Ordered By: Jose Daniel Jaeger on 03-23-2023 Calcium [Mass/Vol] 9.6 mg/dL 8.5-10.1 [facility] Serum or plasma creatinine m easurement (mass/volume)Ordered By: Jose Daniel Jaeger on 03-23-2023 Creatinine [Mass/Vol] 1.16 mg/dL 0.70-1.30 [facility] Comment on above: The validity of the calculated GFR & GFRAA in patients over 70 years has not been determined. Clinical correlation is essential. Serum or plasma urea nitroge n measurement (mass/volume)Ordered By: Jose Daniel Jaeger on 03-23-2023 Urea nitrogen [Mass/Vol] 19 mg/dL 7-18 [facility] Thin prep Papanicolaou smear with manual screeningOrdered By: Jose Daniel Jaeger on 03-23-2023 Thin prep Papanicolaou smear with manual screening 1 5-15 [facility] Basophil percentageOrdered B y: Jose Daniel Jaeger on 03-13-2023 Basophil percentage < 1.0 mg/dL 0.70-1.30 [facility] No Panel InformationOrdered By: Jose Daniel Jaeger on 03-13-2023 Bedside Estimated GFR (eGFR) > 60.0000 mL/min >60 [facility] NM MYOCARDIAL SPECT STRESS/R ESTon 02-07-2023 NM MYOCARDIAL SPECT STRESS/REST ORIGINAL NM MYOCARDIAL SPECT STRESS/REST CLINICAL STATEMENT: Chest pain TECHNIQUE: Lexiscan dose:0.4 mg Radiopharmaceutical (stress): Tc-99m Sestamibi Dose: 30.9 mCi Radiopharmaceutical (rest): Tc-99m Sestamibi Dose: 10.1 mCi SPECT acquisition and processing Reconstruction and reorientation of SPECT images into short axis, vertical and horizontal long axis planes Quantitative LVEF assessment COMPARISON: None available REPORT: Gated SPECT images reveal normal LV size and systolic function normal thickening of all the myocardial segments LVEF is 56% myocardial segmental perfusion reveals mild hypoperfusion involving the apical segments and rest as well as post stress images suggestive of apical thinning. Technically adequate study, LV end-diastolic volume is 70 mL. No studies are available for comparison IMPRESSION: Normal myocardial segmental perfusion. Apical thinning is noted, normal variant. Normal LV size and systolic function LVEF is 56%. Interpreted By: Vikash Caldera MD Preliminary Report By: Vikash Caldera MD Electronically Signed By: Vikash Caldera MD Dictated Date: 02/07/2023 11:53:13 AM Prelim Date: 02/07/2023 11:53:13 AM Sign Date: 02/07/2023 11:57:19 AM Ordering Provider:Suzi Encarnacion [facility] ([place]) Basophil percentageOrdered B y: Suzi Encarnacion on 01-18-2023 Bilirubin [Mass/Vol] 0.70 mg/dL 0.20-1.00 [facility] Comment on above: For patients on eltr ombopag therapy, use of Dimension [place] TBIL is not recommended. Chloride [Moles/Vol] 107 mmol/L 98-107 [facility] Cholesterol [Mass/Vol] 167 mg/dL <200 [facility] Comment on above: <200 mg/dL Desirable 200-240 mg/dL Borderline >240 mg/dL High Risk Glucose [Mass/Vol] 71 mg/dL 74-106 [facility] Potassium [Moles/Vol] 4.4 mmol/L 3.5-5.1 [facility] Protein [Mass/Vol] 7.7 g/dL 6.4-8.2 [facility] Sodium [Moles/Vol] 141 mmol/L 136-145 [facility] Triglyceride [Mass/Vol] 168 mg/dL <199 [facility] Comment on above: The drugs N-Acetylcy steine and Metamizole may falsely depress this assay.Serum Triglycerides Reference Interval Normal <150 mg/dL Borderline high 150 - 199 mg/dL High 200 - 499 mg/dL Very High > or = 500 mg/dL Laboratory - Chemistry and C hemistry - challengeOrdered By: Suzi Encarnacion on 01-18-2023 ALP [Catalytic activity/Vol] 95 U/L 45-117 [facility] ALT [Catalytic activity/Vol] 24 U/L 16-61 [facility] CO2 [Moles/Vol] 30.0 mmol/L 21.0-32.0 [facility] Globulin (S) [Mass/Vol] 3.9 g/dL 2.2-4.2 [facility] Urea nitrogen/Creatinine [Mass ratio] 15.7 mg/mg 10-20 [facility] No Panel InformationOrdered By: Suzi Encarnacion on 01-18-2023 Estimated GFR (MDRD) Amer 83 mL/min >60 [facility] Comment on above: GFR Calc Estimated GFR (MDRD) Non-Af Amer 68 mL/min >60 [facility] Comment on above: Non- GFR Calc Prostate Specific Antigen Screen 0.68 ng/mL 0.00-4.00 [facility] Comment on above: This test was perfor med using the TPSA assay method for the[employer] chemistry system. Values obtained with differentassay methods cannot be used interchangably.When changing PSA assays in the course of monitoring apatient, additional sequential testing should be carriedout to confirm baseline values. Serum or plasma albumin naye urement (mass/volume)Ordered By: Suzi Encarnacion on 01-18-2023 Albumin [Mass/Vol] 3.8 g/dL 3.2-5.0 [facility] Serum or plasma albumin/glob ulin mass ratioOrdered By: Suzi Encarnacion on 01-18-2023 Albumin/Globulin [Mass ratio] 1.0 {ratio} 0.9-2.4 [facility] Serum or plasma calcium naye urement (mass/volume)Ordered By: Suzi Encarnacion on 01-18-2023 Calcium [Mass/Vol] 9.1 mg/dL 8.5-10.1 [facility] Serum or plasma cholesterol in HDL measurement (mass/volume)Ordered By: Suzi Encarnacion on 01-18-2023 Cholesterol in HDL [Mass/Vol] 39 mg/dL >40 [facility] Comment on above: The drugs N-Acetylcy steine and Metamizole may falsely depress this assay. Reference Range HDL <40 mg/dL Low HDL Cholesterol HDL >or= 60 mg/dL High HDL Cholesterol Serum or plasma cholesterol in VLDL measurement (mass/volume)Ordered By: Suzi Encarnacion on 01-18-2023 Cholesterol in VLDL [Mass/Vol] 34 mg/dL 5-40 [facility] Serum or plasma creatinine m easurement (mass/volume)Ordered By: Suzi Encarnacion on 01-18-2023 Creatinine [Mass/Vol] 1.15 mg/dL 0.70-1.30 [facility] Comment on above: The validity of the calculated GFR & GFRAA in patients over 70 years has not been determined. Clinical correlation is essential. Serum or plasma low density lipoprotein (LDL) cholesterol measurement (mass/volume)Ordered By: Suzi Encarnacion on 01-18-2023 Cholesterol in LDL [Mass/Vol] 94 mg/dL 0-130 [facility] Serum or plasma urea nitroge n measurement (mass/volume)Ordered By: Suzi Encarnacion on 01-18-2023 Urea nitrogen [Mass/Vol] 18 mg/dL 7-18 [facility] Thin prep Papanicolaou smear with manual screeningOrdered By: Suzi Encarnacion on 01-18-2023 Thin prep Papanicolaou smear with manual screening 20 U/L 15-37 [facility] Thin prep Papanicolaou smear with manual screening 4 5-15 [facility] Erythrocyte sedimentation ra verna 06-13-2021 ESR (Bld) [Velocity] 2 mm/h 0-20 [facility] Work Phone: No Panel Informationon 06-13 C-Reactive Protein High Sensitivity 3.16 mg/L [facility] Work Phone: Comment on above: Low Relative Risk of CVD <1.0 mg/L Average Relative Risk of CVD 1.0 - 3.0 mg/L High Relative Risk of CVD >3.0 mg/L LABORATORYOrdered By: Adry Breen on 05-08-2021 Creatinine [Mass/Vol] 1.06 mg/dL Invalid Interpretation Code 0.70 - 1.30 mg/dL AO ADM SS LABORATORYOrdered By: SYSTEM SYSTEM on 05-08-2021 GFR 86 ml/min/1.73sqm Invalid Interpretation Code AO Chemistry S GFR Non- 71 ml/min/1.73sqm Inval id Interpretation Code AO Chemistry S Vital Signs Date Time Vital Sign Value Performing Clinician Jamari almendarez 11-04-2024 09:03-0400 Body height 167.64 cm Suzi Encarnacion CTC OPERATOR-C Work Phone: [facility] 11-04-2024 09:03-0400 Body mass index (BMI) [Ratio] 27.4 kg/m2 Suzi Brewster CTC OPERATOR-C Work Phone: [facility] 11-04-2024 09:03-0400 Body weight 77.11 kg Suzi Encarnacion CTC OPERATOR-C Work Phone: [facility] 11-04-2024 09:03-0400 Diastolic blood pressure 84 mm[Hg] Suzi Martinezkins CTC OPERATOR-C Work Phone: [facility] 11-04-2024 09:03-0400 Heart rate 54 /min Suzi Brewster CTC OPERATOR-C Work Phone: [facility] 11-04-2024 09:03-0400 Respiratory rate 16 /min Suzi Brewster CTC OPERATOR-C Work Phone: [facility] 11-04-2024 09:03-0400 Systolic blood pressure 134 mm[Hg] Suzi Encarnacion CTC OPERATOR-C Work Phone: [facility] 05-05-2024 08:16-0400 Body height 167.64 cm Suzi Brewster CTC OPERATOR-C Work Phone: [facility] 05-05-2024 08:16-0400 Body mass index (BMI) [Ratio] 27.9 kg/m2 Suzi Brewster CTC OPERATOR-C Work Phone: [facility] 05-05-2024 08:16-0400 Body weight 78.47 kg Suzi Martinezkins CTC OPERATOR-C Work Phone: [facility] 05-05-2024 08:16-0400 Diastolic blood pressure 73 mm[Hg] Suzi Encarnacion CTC OPERATOR-C Work Phone: [facility] 05-05-2024 08:16-0400 Heart rate 82 /min Suzi Encarnacion CTC OPERATOR-C Work Phone: [facility] 05-05-2024 08:16-0400 Respiratory rate 18 /min Suzi Encarnacion CTC OPERATOR-C Work Phone: [facility] 05-05-2024 08:16-0400 Systolic blood pressure 122 mm[Hg] Suzi Encarnacion CTC OPERATOR-C Work Phone: [facility] 06-18-2023 08:08-0400 Body height 167.64 cm CTC OPERATOR-C Suzi Encarnacion CTC OPERATOR Work Phone: [facility] 06-18-2023 08:08-0400 Body weight 74.84 kg CTC OPERATOR-C Suzi Encarnacion CTC OPERATOR Work Phone: [facility] 05-22-2023 10:43-0400 Diastolic blood pressure 72 mm[Hg] CTC OPERATOR-C Suzi Encarnacion CTC OPERATOR Work Phone: [facility] 05-22-2023 10:43-0400 Systolic blood pressure 116 mm[Hg] CTC OPERATOR-C Suzi Encarnacion CTC OPERATOR Work Phone: [facility] 05-22-2023 10:39-0400 Body mass index (BMI) [Ratio] 27.2 kg/m2 CTC OPERATOR-C Suzi Encarnacion CTC OPERATOR Work Phone: [facility] 05-22-2023 10:39-0400 Heart rate 86 /min CTC OPERATOR-C Suzi Encarnacion CTC OPERATOR Work Phone: [facility] 05-22-2023 10:39-0400 SaO2% (BldA) [Mass fraction] 97 % CTC OPERATOR-C Suzi Encarnacion CTC OPERATOR Work Phone: [facility] 05-22-2023 10:19-0400 Body height 167.64 cm CTC OPERATOR-C Suzi Encarnacion CTC OPERATOR Work Phone: [facility] 05-22-2023 10:19-0400 Body weight 76.65 kg CTC OPERATOR-C Suzi Encarnacion CTC OPERATOR Work Phone: [facility] 05-02-2023 09:05-0400 Body mass index (BMI) [Ratio] 27.1 kg/m2 CTC OPERATOR-C Suzi Lupkins CTC OPERATOR Work Phone: [facility] 05-02-2023 09:05-0400 Body weight 76.2 kg CTC OPERATOR-C Suzi Lupkins CTC OPERATOR Work Phone: [facility] 05-02-2023 09:05-0400 Diastolic blood pressure 77 mm[Hg] CTC OPERATOR-C Suzi Lupkins CTC OPERATOR Work Phone: [facility] 05-02-2023 09:05-0400 Heart rate 77 /min CTC OPERATOR-C Suzi Alysha CTC OPERATOR Work Phone: [facility] 05-02-2023 09:05-0400 Respiratory rate 16 /min CTC OPERATOR-C Suzi Lupkins CTC OPERATOR Work Phone: [facility] 05-02-2023 09:05-0400 Systolic blood pressure 119 mm[Hg] CTC OPERATOR-C Suzi Lupkins CTC OPERATOR Work Phone: [facility] 04-08-2023 12:51-0500 Body height 167.6 cm Katja Steinberg APRN - WELFARE WORKER Work Phone: [facility] 04-08-2023 12:51-0500 Body mass index (BMI) [Ratio] 26.5 kg/m2 Katja Steinberg MEDICAL OFFICE SUPERVISOR - WELFARE WORKER Work Phone: [facility] 04-08-2023 12:51-0500 Body weight 74.48 kg Katja Steinberg MEDICAL OFFICE SUPERVISOR - WELFARE WORKER Work Phone: [facility] 04-08-2023 12:51-0500 Diastolic blood pressure 79 mm[Hg] Katja Steinberg MEDICAL OFFICE SUPERVISOR - WELFARE WORKER Work Phone: [facility] 04-08-2023 12:51-0500 Heart rate 77 /min Katja Ohluis TOLBERT - WELFARE WORKER Work Phone: [facility] 04-08-2023 12:51-0500 Systolic blood pressure 132 mm[Hg] Katja Ohleilanihansel DIDI Luque CNP Work Phone: [facility] 04-02-2023 12:13-0500 Body temperature 97.7 [degF] Pinky Nelson MD Work Phone: [facility] 04-02-2023 12:13-0500 Diastolic blood pressure 81 mm[Hg] Pinky Nelson MD Work Phone: [facility] 04-02-2023 12:13-0500 Heart rate 98 /min Pinky Nelson MD Work Phone: [facility] 04-02-2023 12:13-0500 Respiratory rate 16 /min Pinky Nelson MD Work Phone: [facility] 04-02-2023 12:13-0500 SaO2% (BldA) [Mass fraction] 97 % Pinky Nelson MD Work Phone: [facility] 04-02-2023 12:13-0500 Systolic blood pressure 127 mm[Hg] Pinky Nelson MD Work Phone: [facility] 04-02-2023 06:00-0500 Body mass index (BMI) [Ratio] 26.26 kg/m2 Pinky Nelson MD Work Phone: [facility] 04-02-2023 06:00-0500 Body weight 73.8 kg Pinky Nelson MD Work Phone: [facility] 03-31-2023 11:51-0500 Body height 167.6 cm Pinky Nelson MD Work Phone: [facility] 03-29-2023 11:47-0500 SaO2% (BldA) [Mass fraction] 99.0 % Pinky Nelson MD Work Phone: [facility] 03-28-2023 08:04-0500 Body height 167.64 cm CTC OPERATOR-C Suzi Encarnacion CTC OPERATOR Work Phone: [facility] 03-28-2023 08:04-0500 Body weight 76.65 kg CTC OPERATOR-C Suzi Encarnacion CTC OPERATOR Work Phone: [facility] 03-27-2023 08:16-0500 Body mass index (BMI) [Ratio] 27.2 kg/m2 CTC OPERATOR-C Suzi Encarnacion CTC OPERATOR Work Phone: [facility] 03-13-2023 13:49-0500 Diastolic blood pressure 70 mm[Hg] CTC OPERATOR-C Suzi Encarnacion CTC OPERATOR Work Phone: [facility] 03-13-2023 13:49-0500 Heart rate 83 /min CTC OPERATOR-C Suzi Encarnacion CTC OPERATOR Work Phone: [facility] 03-13-2023 13:49-0500 Systolic blood pressure 131 mm[Hg] CTC OPERATOR-C Suzi Encarnacion CTC OPERATOR Work Phone: [facility] 03-13-2023 13:27-0500 Body height 167.64 cm CTC OPERATOR-C Suzi Encarnacion CTC OPERATOR Work Phone: [facility] 03-13-2023 13:27-0500 Body mass index (BMI) [Ratio] 25.8 kg/m2 CTC OPERATOR-C Suzi Encarnacion CTC OPERATOR Work Phone: [facility] 03-13-2023 13:27-0500 Body temperature 97 [degF] CTC OPERATOR-C Suzi Encarnacion CTC OPERATOR Work Phone: [facility] 03-13-2023 13:27-0500 Body weight 72.57 kg CTC OPERATOR-C Suzi Encarnacion CTC OPERATOR Work Phone: [facility] 03-13-2023 13:27-0500 Respiratory rate 18 /min CTC OPERATOR-C Suzi Encarnacion CTC OPERATOR Work Phone: [facility] 03-13-2023 13:27-0500 SaO2% (BldA) [Mass fraction] 97 % CTC OPERATOR-C Suzi Encarnacion CTC OPERATOR Work Phone: [facility] 02-28-2023 09:01-0500 Body mass index (BMI) [Ratio] 27.2 kg/m2 CTC OPERATOR-C Suzi Encarnacion CTC OPERATOR Work Phone: [facility] 02-28-2023 09:01-0500 Body weight 76.65 kg CTC OPERATOR-C Suzi Encarnacion CTC OPERATOR Work Phone: [facility] 02-28-2023 09:01-0500 Diastolic blood pressure 94 mm[Hg] CTC OPERATOR-C Suzi Encarnacion CTC OPERATOR Work Phone: [facility] 02-28-2023 09:01-0500 Heart rate 77 /min CTC OPERATOR-C Suzi Encarnacion CTC OPERATOR Work Phone: [facility] 02-28-2023 09:01-0500 Respiratory rate 16 /min CTC OPERATOR-C Suzi Encarnacion CTC OPERATOR Work Phone: [facility] 02-28-2023 09:01-0500 Systolic blood pressure 145 mm[Hg] CTC OPERATOR-C Suzi Encarnacion CTC OPERATOR Work Phone: [facility] Encounters Encounter Date Encounter Type Care Provider Facility Start: 11-04-2024 End: 11-04-2024 ambulatory Suzi Encarnacion CTC OPERATOR-C Work Phone: -[facility] Start: 11-04-2024 End: 11-04-[address] Jose Daniel Jaeger MD -[facility] Work Phone: Start: 07-16-2024 ambulatory Suzi Encarnacion CTC OPERATOR Facility:[facility] Start: 07-15-2024 Encounter for genera l adult medical examination without abnormal findings Suzi Encarnacion CTC OPERATOR [facility] Start: 07-10-2024 End: 07-10-2024 ambulatory Suzi Encarnacion CTC OPERATOR-C Work Phone: [facility] Work Phone: Start: 07-10-2024 End: 07-10-2024 Patient encounter procedure Suzi Encarnacion CTC OPERATOR-C -Laboratory Work Phone: Start: 07-10-2024 End: 07-10-2024 ambulatory Suzi Encarnacion CTC OPERATOR Facility:[facility] Start: 06-30-2024 End: 06-30-2024 ambulatory Suzi Encarnacion CTC OPERATOR-C Work Phone: [facility] Work Phone: Start: 06-30-2024 End: 06-30-[address] Jose Daniel Jaeger MD -Laboratory Work Phone: Start: 06-30-2024 End: 06-30-2024 ambulatory Jose Daniel Mil Facility:[facility] Start: 05-05-2024 End: 05-05-[address] Jose Daniel Jaeger MD -[facility] Work Phone: Start: 05-05-2024 End: 05-05-2024 ambulatory Jose Daniel Mil [place] Start: 02-03-2024 End: 02-03-2024 ambulatory Jose Daniel Mil Facility:[facility] Start: 01-01-2024 End: 01-01-2024 Emergency department patient visit [facility] Facility:[facility] Start: 11-11-2023 End: 11-11-2023 ambulatory Jose Daniel Mil [place] [place] Start: 06-17-2023 End: 06-18-2023 ambulatory CTC OPERATOR-C Suzi Encarnacion CTC OPERATOR Work Phone: [facility] Work Phone: Start: 06-17-2023 End: 06-18-2023 Discharged Recurring CTC OPERATOR-C Suzi Encarnacion CTC OPERATOR Work Phone: [facility] Work Phone: Start: 05-27-2023 Registered Recurring CTC OPERATOR-C Wero Encarnacion CTC OPERATOR Work Phone: [facility] Work Phone: Start: 05-22-2023 End: 05-22-2023 ambulatory CTC OPERATOR-C Suzi Encarnacion CTC OPERATOR [facility] Phone: [facility] [facility] Work Phone: Start: 05-22-2023 End: 05-22-2023 Patient encounter procedure CTC OPERATOR-Mario Finney Alysha CTC OPERATOR Work Phone: [facility]-Cardiac Rehab Work Phone: Start: 05-09-2023 End: 05-09-2023 Postop follow up visit related to original px Katja Steinberg MEDICAL OFFICE SUPERVISOR - WELFARE WORKER Work Phone: [facility] Cardiovascular & Thoracic Surgery Comment on above: CAD in [place] artery (Primary Dx); S/P CABG (coronary artery bypass graft) Start: 05-09-2023 End: 05-10-2023 ambulatory KATJA OHCHI [facility] Start: 05-02-2023 End: 05-02-2023 Patient encounter procedure CTC OPERATOR-Mario Finney Alysha CTC OPERATOR Work Phone: [facility] Work Phone: Start: 04-26-2023 Non-patient / Non-visit CTC OPERATOR-C Gale Encarnacion CTC OPERATOR Work Phone: [facility] Start: 04-24-2023 End: 04-24-2023 ambulatory KATJA OHCHI [facility] Start: 04-24-2023 End: 04-24-2023 Postop follow up visit related to original px Katja Steinberg MEDICAL OFFICE SUPERVISOR - WELFARE WORKER Work Phone: [facility] Cardiovascular & Thoracic Surgery Comment on above: CAD in [place] artery (Primary Dx); S/P CABG (coronary artery bypass graft) Start: 04-08-2023 End: 04-08-2023 ambulatory KATJA STEINBERG [facility] Start: 04-08-2023 End: 04-08-2023 Postop follow up visit related to original px Katja Ohluis MEDICAL OFFICE SUPERVISOR - WELFARE WORKER Work Phone: [facility] Cardiovascular & Thoracic Surgery Comment on above: CAD in [place] artery (Primary Dx); S/P CABG (coronary artery bypass graft) Start: 03-28-2023 End: 04-02-2023 Evaluation and management of inpatient PCP NONE [facility] Start: 03-28-2023 End: 04-02-2023 Evaluation and management of inpatient Pinky Nelson MD Work Phone: [facility] Cardiac Thoracic Vascular Intensive Care Unit CTV ICU T1 Comment on above: CAD in [place] artery (Primary Dx) Start: 03-28-2023 End: 03-28-2023 Admission to same day surgery center CTC OPERATOR-C Suzi Encarnacion CTC OPERATOR Work Phone: [facility]-Mrb Engineer/Special Procedures Work Phone: Start: 03-28-2023 End: 03-28-2023 ambulatory CTC OPERATOR-C Suzi Encarnacion CTC OPERATOR Work Phone: [facility] Work Phone: Start: 03-14-2023 Non-patient / Non-visit CTC OPERATOR-C Gale Encarnacion CTC OPERATOR Work Phone: [facility] Start: 03-13-2023 End: 03-13-2023 ambulatory CTC OPERATOR-C Suzi Encarnacion CTC OPERATOR Work Phone: [facility] Work Phone: Start: 03-13-2023 End: 03-13-2023 Patient encounter procedure CTC OPERATOR-Mario Encarnacion CTC OPERATOR Work Phone: [facility]-Cat Scan, [facility] Work Phone: Start: 02-28-2023 End: 02-28-2023 Patient encounter procedure CTC OPERATOR-Mario Encarnacion CTC OPERATOR Work Phone: [facility] Work Phone: Start: 02-12-2023 End: 02-12-2023 ambulatory [facility] Work Phone: Start: 02-12-2023 End: 02-12-2023 Patient encounter procedure [facility]-Cat Scan, [facility] Work Phone: Start: 02-07-2023 End: 02-08-2023 ambulatory SUZI ENCARNACION MEDICAL OFFICE SUPERVISOR - WELFARE WORKER Facility:B Start: 02-06-2023 End: 02-06-2023 ambulatory [facility] Work Phone: Start: 02-06-2023 End: 02-06-2023 Patient encounter procedure [facility]-Radiology, [place] Work Phone: Start: 01-31-2023 ambulatory SUZI BASHIR MEDICAL OFFICE SUPERVISOR - WELFARE WORKER Facility:[facility] Start: 01-18-2023 End: 01-18-2023 ambulatory [facility] Work Phone: Start: 01-18-2023 End: 01-18-2023 Patient encounter procedure [facility]-Laboratory Work Phone: Start: 04-20-2022 End: 04-20-2022 ambulatory [facility] Work Phone: Start: 04-20-2022 End: 04-20-2022 Patient encounter procedure [facility] Scan, [facility] Start: 06-13-2021 End: 06-13-2021 Patient encounter procedure [facility]-Laboratory, [place] Start: 05-08-2021 End: 05-08-2021 Patient encounter procedure SUZI ENCARNACION MEDICAL OFFICE SUPERVISOR - WELFARE WORKER [facility] Start: 02-09-2021 End: 02-09-2021 Patient encounter procedure BETY CHAPPELL DO [facility] Procedures Date Procedure Procedure Detail Performing Clinician Start: 07-10-2024 Prostate specific an tigen measurement Suzi Encarnacion CTC OPERATOR-C Work Phone: Comment on above: This test was perfor med using the [employer] tPSA method. Measured values of a patient sample can vary depending on the testing procedure used. PSA values determined on patient samples by different testing procedures cannot be used interchangeably. If there is a change in PSA assays while monitoring therapy, sequential testing should be performed to confirm baseline values. Start: 04-02-2023 Radiologic exam ches t single view Katja Steinberg MEDICAL OFFICE SUPERVISOR - WELFARE WORKER Work Phone: Start: 04-02-2023 Basic metabolic pane l calcium total Katja Steinberg MEDICAL OFFICE SUPERVISOR - WELFARE WORKER Work Phone: Start: 04-01-2023 Radiologic exam ches t single view Katja Steinberg MEDICAL OFFICE SUPERVISOR - WELFARE WORKER Work Phone: Start: 04-01-2023 Basic metabolic pane l calcium total Katja Steinberg MEDICAL OFFICE SUPERVISOR - WELFARE WORKER Work Phone: Start: 04-01-2023 Compatibility each u nit electronic Katja Steinberg MEDICAL OFFICE SUPERVISOR - WELFARE WORKER Work Phone: Start: 03-31-2023 Glucose quantitative blood xcpt reagent strip Rambotroy Starkey MD Work Phone: Start: 03-31-2023 Glucose quantitative blood xcpt reagent strip Rambo Starkey MD Work Phone: Start: 03-31-2023 Radiologic exam ches t single view Katja Steinberg MEDICAL OFFICE SUPERVISOR - WELFARE WORKER Work Phone: Start: 03-31-2023 Basic metabolic pane l calcium total Katja Steinberg MEDICAL OFFICE SUPERVISOR - WELFARE WORKER Work Phone: Start: 03-30-2023 Glucose quantitative blood xcpt reagent strip Rambo Starkey MD Work Phone: Start: 03-30-2023 Glucose quantitative blood xcpt reagent strip Rambo Starkey MD Work Phone: Start: 03-30-2023 Glucose quantitative blood xcpt reagent strip Rambo Starkey MD Work Phone: Start: 03-30-2023 End: 03-30-2023 Glucose quantitative blood xcpt reagent strip Rambo Starkey MD Work Phone: Start: 03-30-2023 Glucose quantitative blood xcpt reagent strip Rambo Starkey MD Work Phone: Start: 03-30-2023 Radiologic exam ches t single view Katja Steinberg MEDICAL OFFICE SUPERVISOR [facility] Work Phone: Start: 03-30-2023 Ecg routine ecg w/le ast 12 lds trcg only w/o i&r Katja Steinberg MEDICAL OFFICE SUPERVISOR [facility] Work Phone: Start: 03-30-2023 End: 03-30-2023 Glucose quantitative blood xcpt reagent strip Rambo Starkey MD Work Phone: Start: 03-30-2023 End: 03-30-2023 Glucose quantitative blood xcpt reagent strip Rambo Starkey MD Work Phone: Start: 03-30-2023 Glucose quantitative blood xcpt reagent strip Rambo Starkey MD Work Phone: Start: 03-30-2023 End: 03-30-2023 Basic metabolic panel calcium total Katja Steinberg MEDICAL OFFICE SUPERVISOR [facility] Work Phone: Start: 03-29-2023 End: 03-29-2023 Glucose quantitative blood xcpt reagent strip Rambo Starkey MD Work Phone: Start: 03-29-2023 End: 03-29-2023 Glucose quantitative blood xcpt reagent strip Rambo Starkey MD Work Phone: Start: 03-29-2023 End: 03-29-2023 Glucose quantitative blood xcpt reagent strip Rambo Starkey MD Work Phone: Start: 03-29-2023 Blood gases any combination ph pco2 po2 co2 hco3 Westley Carcamo MEDICAL OFFICE SUPERVISOR [facility] Work Phone: Start: 03-29-2023 End: 03-29-2023 Glucose quantitative blood xcpt reagent strip Rambo Starkey MD Work Phone: Start: 03-29-2023 Echo transesophag r- t 2d w/prb img acquisj i&r Katja Steinberg MEDICAL OFFICE SUPERVISOR - WELFARE WORKER Work Phone: Start: 03-29-2023 End: 03-29-2023 Glucose quantitative blood xcpt reagent strip Rambo Starkey MD Work Phone: Start: 03-29-2023 Radiologic exam ches t single view Katja Steinberg MEDICAL OFFICE SUPERVISOR - WELFARE WORKER Work Phone: Start: 03-29-2023 Ecg routine ecg w/le ast 12 lds trcg only w/o i&r Katja Steinberg MEDICAL OFFICE SUPERVISOR - WELFARE WORKER Work Phone: Start: 03-29-2023 End: 03-29-2023 Basic metabolic panel calcium total Pinky Nelson MD Work Phone: Start: 03-29-2023 Blood gases any combination ph pco2 po2 co2 hco3 Pinky Nelson MD Work Phone: Start: 03-29-2023 End: 03-29-2023 Cabg w/arterial graft three arterial grafts Rambo Starkey MD Work Phone: Start: 03-29-2023 End: 03-29-2023 Echo transesophag r-t 2d w/prb img acquisj i&r Rambo Starkey MD Work Phone: Start: 03-29-2023 Ecg routine ecg w/le ast 12 lds trcg only w/o i&r Katja Steinberg MEDICAL OFFICE SUPERVISOR - WELFARE WORKER Work Phone: Start: 03-29-2023 End: 03-29-2023 Comprehensive metabolic panel Katja Steinberg MEDICAL OFFICE SUPERVISOR - WELFARE WORKER Work Phone: Start: 03-28-2023 Antibody screen ANTIONE STEINBERG Comment on above: Order Comment: Speci men is valid for 3 days - nurse to verify valid specimen Performed By: #### L [id number] ####Training Engineer: MADISON CHARLES ([id number])[facility] BLOOD [facility] ([address] Start: 02-08-2024 Iadna s aureus methicillin resist amp probe tq Katja Steinberg MEDICAL OFFICE SUPERVISOR RAREFORM Work Phone: Start: 03-28-2023 ABO and Rh group [Ty pe] in Blood by Confirmatory method Katja Steinberg MEDICAL OFFICE SUPERVISOR RAREFORM Work Phone: Start: 03-28-2023 Blood typing serolog ic rh (d) Katja Steinberg MEDICAL OFFICE SUPERVISOR RAREFORM Work Phone: Start: 03-28-2023 Comprehensive metabo lic panel Katja Steinberg MEDICAL OFFICE SUPERVISOR RAREFORM Work Phone: Start: 03-28-2023 BEDSIDE SPIROMETRY Nakia Steinberg MEDICAL OFFICE SUPERVISOR RAREFORM Work Phone: Start: 03-28-2023 Echo tthrc r-t 2d w/wom-mode compl spec&colr d Westley Carcamo [employer] Work Phone: Start: 03-28-2023 Non-invas physiologi c std extremity art 2 level Katja Steinberg MEDICAL OFFICE SUPERVISOR RAREFORM Work Phone: Start: 03-28-2023 Dup-scan xtr veins complete bilateral study Katja Steinberg MEDICAL OFFICE SUPERVISOR RAREFORM Work Phone: Start: 03-28-2023 Duplex scan extracra nial art compl bi study Katja Steinberg MEDICAL OFFICE SUPERVISOR RAREFORM Work Phone: Start: 03-28-2023 Radiologic exam ches t single view Katja Steinberg MEDICAL OFFICE SUPERVISOR RAREFORM Work Phone: Start: 03-21-2023 History of coronary artery bypass grafting History of coronary artery bypass graft x 3 CTC OPERATOR-C Suzi Encarnacion CTC OPERATOR Work Phone: Comment on above: JACOBSEN to LAD, LRA to D1, RSVG to D2 Start: 03-13-2023 CT angiography of coronary arteries CTC OPERATOR-Mario Encarnacion CTC OPERATOR Work Phone: Start: 02-12-2023 CT angiography of ch est with contrast Start: 02-06-2023 Plain chest X-ray Start: 04-20-2022 CT of chest without contrast History of appendectomy History of appendectomy( Confirmed ) BETY TA DO History of coronary artery bypass grafting S/P CABG (coronary artery bypass graft) Katja Steinberg MEDICAL OFFICE SUPERVISOR - WELFARE WORKER Work Phone: History of coronary artery bypass grafting S/P CABG (coronary artery bypass graft) Kataj Steinberg MEDICAL OFFICE SUPERVISOR - WELFARE WORKER Work Phone: History of coronary artery bypass grafting S/P CABG (coronary artery bypass graft) Katja Steinberg MEDICAL OFFICE SUPERVISOR - WELFARE WORKER Work Phone: Plan of Treatment Date Care Activity Detail Author Start: 08-30-2027 DTaP/Tdap/Td Vaccines (2 - Td or Tdap) DTaP/Tdap/Td Vaccines (2 - Td or Tdap) [facility] Start: 03-28-2024 Diabetes mellitus screening Diabetes Screening [facility] Start: 04-26-2023 Patient referral [facility] Work Phone: Start: 04-24-2023 End: 04-24-2023 Telemedicine consultation with patient 04/24/2023 11:30 AM EST Telemedicine [facility] Cardiovascular & Thoracic Surgery [address] [place] [id number] Katja Steinberg APRN - CNP [address] [place] [id number] [facility] Thoracic [facility] Start: 04-08-2023 End: 04-08-2023 Patient encounter procedure 04/08/2023 1:00 PM EST Office Visit [facility] Cardi[facility] Thoracic Surgery [address] [place] [address] Katja Steinberg APRN - CNP [address] [place] [address] [facility] Thoracic Surgery Start: 03-28-2023 Patient discharge [facility] Start: 03-13-2023 Following clinical pathway protocol [facility] Start: 03-13-2023 Oxygen therapy [facility] Start: 03-13-2023 [facility] Start: 10-19-2022 COVID-19 Vaccine ( season) COVID-19 Vaccine ( season) [facility] Start: 10-19-2022 Influenza vaccination Influenza Vaccine (#1) [facility] Start: 2020 RSV Immunization aged 60 or older (1 - 1-dose 60+ series) RSV Immunization aged 60 or older (1 - 1-dose 60+ series) [facility] Start: 2010 Zoster Vaccines (1 of 2) Zoster Vaccines (1 of 2) [facility] Start: 1978 Hepatitis C screening Hepatitis C Screening [facility] Start: 1972 Depression Screening Depression Screening [facility] Start: 1966 Pneumococcal Vaccine: Pediatrics (0 to 5 Years) and At-Risk Patients (6 to 64 Years) (1 of 2 - PCV) Pneumococcal Vaccine: Pediatrics (0 to 5 Years) and At-Risk Patients (6 to 64 Years) (1 of 2 - PCV) [facility] Start: 1961 MMR Vaccines (1 of 1 - Standard series) MMR Vaccines (1 of 1 - Standard series) [facility] Start: 03-29-1961 COVID-19 Vaccine (#1) COVID-19 Vaccine (#1) [facility] Start: 1960 HIV screening HIV Screening [facility] Start: 1960 Lipid panel Lipid Panel [facility] Start: 1960 Screening for malignant neoplasm of colon [facility] metabo lic 1999 panel - Serum or Plasma [facility] metabo lic 1999 panel - Serum or Plasma [facility] Creatine kinase [Enzymatic activity/volume] in Serum or Plasma [facility] Creatine kinase [Enzymatic activity/volume] in Serum or Plasma [facility] Lipid 1995 panel - Serum or Plasma [facility] Lipid 1996 panel - Serum or Plasma [facility] Lipid 1995 panel - Serum or Plasma [facility] Patient referral [facility] Work Phone: [facility] Payers Date Payer Category Payer Self-pay [id number] 2022 Unknown [id number] 2022 Unknown [employer]CH[employer] [id number] 2022-Present [address] [place] [address] Exchange Plan [id number] 1960 Unknown [id number] 1960 Unknown [id number] Unknown [id number] Unknown [id number] Unknown [id number] Unknown [id number] Unknown [id number] Unknown [id number] Unknown [id number] Unknown [id number] Social History Date Type Detail Facility Start: 12-12-2018 End: 01-01-2024 Never smoked tobacco (finding) [facility] Start: 1960 Sex Assigned At Male [facility] Start: 01-29-2021 End: 05-22-2023 Tobacco smoking status TNIS Unknown if ever smoked [facility] Start: 03-28-2023 Tobacco use and exposure Smokeless tobacco non-user [facility] Start: 03-28-2023 End: 04-08-2023 Alcohol intake Ex-drinker (finding) [facility] Start: 03-28-2023 History of Social function [facility] Start: 03-28-2023 Humiliation, Afraid, Rape, and Kick questionnaire [HARK] [facility] Within the last year , have you been afraid of your partner or ex-partner? No [facility] How often to you hav e a drink containing alcohol? Monthly or less [facility] How many standard dr inks containing alcohol do you have on a typical day? Patient does not drink [facility] How often do you hav e 6 or more drinks on 1 occasion? Never [facility] How hard is it for y ou to pay for the very basics like food, housing, medical care, and heating Not very hard [facility] (I/We) worried whechris er (my/our) food would run out before (I/we) got money to buy more. Never true [facility] Start: 03-28-2023 Gender identity Identifies as male gender (finding) [facility] Start: 03-28-2023 Sexual orientation Heterosexual (finding) [facility] Medical Equipment Procedure Code Equipment Code Equipment Origin al Text Equipment Identifier Dates 0.01-0.2 mcg/kg/ min 73.6 kg (0.69-13.8 mL/hr), IntraVENous, Continuous PRN, Initiate if Cardiac Index above 2.0; SBP less than 90 mmHg or MAP less than 65 mmHg; and PAD above 18, Starting on Sat03/29/23 at 1200, Recovery & On Unit, Infuse via central line. If Titrate Infusion? is No: Disregard instructions below. If Titrate infusion? is Yes: Titrate in increments of 0.02 mcg/kg/min no faster than every 5 minutes to goal. When approaching therapeutic goal or weaning off, smaller titration increments of 0.01 mcg/kg/min no faster than every 5 minutes may be used to maintain goal. , Goal Maintain SBP greater than 90 and less than 130 Goal Maintain MAP greater than 65 and less than 80, Titrate Infusion: Yes, Infusion Dose: Other, Infusion Dose: 0.01 mcg/kg/min, Goal of Therapy is: MAP great than 65 mmHg, SBP greater than 90 mmHg, Contact Provider if: Patient is receiving the maximum dose and is not achieving the goal of therapy [id number] Start: 03-29-2023 End: 03-31-2023 Mental Status Date Assessment Result Facility 03-13-2023 Cognitive function Awake;Alert;Appropriat e [facility] Work Phone: Clinical Notes 03-28-2023 to 11-04-2024 Note Date & Type Note Facility 11-04-2024 Progress note [facility] 11-04-2024 Progress note Note Date/Time November 04, 2024 9:26am [facility] [address] [place] [address] OFFICE VISIT Date of Service: 11/04/24 MR#: [id number] Acct: [id number] Name: CHIVO LIVINGSTON Rep #: [id number] : 1960 Provider: Dr. Arcadio Jaeger MD Age/Sex: 64/M Location: [facility] Status: Signed HPI HPI History of Present Illness Details: This gentleman with history of coronary artery disease has had CABG done in March of last year with a JACOBSEN to the LAD, radial artery graft to D1 and veingraft to D2 is here for follow-up visit. Denies any angina pectoris. No shortness of breath. No palpitations. No orthopnea or PND. No ankle edema. Patient occasionally has discomfort at his sternotomy site that lasts for a few seconds only. Intake Vital Signs 05/05/24 08:16 11/04/24 09:03 Height 5 ft 6 in 5 ft 6 in Weight: 173 lb 170 lb BMI 27.9 27.4 BP 122/73 H 134/84 H Blood Pressure Location Lt brachial Rt brachial Position Sitting Sitting Respiration 18 16 Pulse 82 54 L Pulse Source NIBP Monitor Intake Visit Reasons: 6 M FU Medical Economics Consultant Required: No Accompanied by: Is patient in pain?: No Allergies No Known Allergies Allergy (Verified 11/04/24 09:03) Medications ?Medication ?Instructions ?Recorded ?Confirmed ?Type pantoprazole 40 mg tablet,delayed 40 mg PO DAILY 07/1411/04/24 History release acetaminophen 500 mg tablet 1,000 mg PO BID PRN 10/14/24 History ferrous sulfate 325 mg (65 mg 325 mg PO QDAY 11/11/23 11/04/24 History iron) tablet (Feosol) lester rodgers 450 mg capsule 450 mg PO QDAY 11/11/23 History aspirin 81 mg tablet,delayed 81 mg PO DAILY #90 tabs 0 09/04/24 11/04/24 Rx release metoprolol tartrate 25 mg tablet 25 mg PO BID #180 tab s 09/04/24 11/04/24 Rx rosuvastatin 20 mg tablet 20 mg PO QDAY #90 tabs 09/0411/04/24 Rx kwzohigw-eudngows-vdogq acid 400 1 tab PO DAILY 11/04/24 History mcg-vit K 20 mcg-lycop 300 mcg tablet (One-A-Day Men's Multivitamin) Ejection fraction %: 63 Have you fallen in the past year?: No PFSH Medical History Abnormal coronary angiogram Dyslipidemia Hypertension Coronary artery disease Chest pain TRAN (dyspnea on exertion) Hyposomnia COVID-[address] of the chest Aortic valve regurgitation BPH (benign prostatic hyperplasia) Deep venous thrombosis (DVT) of both peroneal veins Ground glass opacity present on imaging of lung Grade I diastolic dysfunction Chest pain on exertion Dyspnea MIKAELA (obstructive sleep apnea) Unspecified renal colic GERD (gastroesophageal reflux disease) Kidney stone Surgical History History of coronary artery bypass graft x 3 (~03/29/23) History of left heart catheterization (LHC) (~03/28/23) Hx of appendectomy Family History Mother Heart disease hypertrophic cardiomyopathy Social History household members: spouse housing: house current occupational status: employed Smoking Status: Never smoker alcohol intake: never substance use type: does not use caffeine: Yes Type: carbonated beverages and tea ROS Const Const: Negative for fatigue or weakness Eyes Eyes: Negative for change in vision ENT ENT: Negative for dizziness or balance problems Cardio Chest Pain: Yes Character: dull Location: mid sternal Duration: hours Palpitations: No Edema: None Resp Respiratory: Negative for SOB with activity, SOB at rest or SOB orthopnea\SOB lying down GI GI: Positive for heartburn (protonix effective); Negative nausea Musc Musc: Negative for balance problems Neuro Neuro: Positive for lightheadedness (x one. getting up too quick); Negative for dizziness, near syncope, syncope or weakness Endo Endo: Negative for fatigue Cardiology Exam Const Appearance: comfortable and no acute distress Nutritional Appearance: well nourished Orientation: oriented to person Neck Neck: no JVD Carotids: Negative bruit Chest Auscultation: Bilateral: Clear to Auscultation Cardio Rate: regular rate Rhythm: regular rhythm Heart sounds: S1 normal and S2 normal Neuro General: patient alert, patient awake and patient oriented x3 Extremities Lower Extremity Edema: None: Bilateral Supplemental Info Supplemental Information Labs: LDL Cholesterol, (0-130) 32 mg/dL HDL Cholesterol, (40-) 34 mg/dL L Cholesterol, (<=200) 106 mg/dL Triglycerides, (-199) 161 mg/dL Diagnostics: Electrocardiogram Cardiac Catheterization Chest X-Ray Chest CTA Abdomen/Pelvis CT Coronary Angiography CT Venous Doppler Study Past Visits: Cardiology Visit Today Assessment and Plan Assessment and Plan (1) Coronary artery disease: Status: Chronic Comment: CABG in March 2023. JACOBSEN to the LAD, radial artery graft to the first diagonal and vein graft to the second diagonal. Plan: Status post CABG. Stable. Continue aspirin. Beta-blockers. Statins. (2) Hypertension: Status: Chronic Plan: Beta-blockers. (3) Grade I diastolic dysfunction: Status: Chronic Plan: Risk factor modification. No heart failure. Continue to monitor. (4) Dyslipidemia: Status: Chronic Plan: Rosuvastatin. Repeat lipid profile. (5) MIKAELA (obstructive sleep apnea): Status: Chronic Plan: As per sleep medicine. Plan Details Follow Up: 6 Months Coding Level of Care Code Off vis,est,level 4 Diagnoses Coronary artery disease I25.10 Hypertension I10 Grade I diastolic dysfunction I51.89 Dyslipidemia E78.5 MIKAELA (obstructive sleep apnea) G47.33 Coding Level of Care Code Off vis,est,level 4 Diagnoses Coronary artery disease I25.10 Hypertension I10 Grade I diastolic dysfunction I51.89 Dyslipidemia E78.5 MIKAELA (obstructive sleep apnea) G47.33 Clinical Quality Measures Falls Risk Screening/Assistive Devices Have you fallen in the past year?: No Cardiac Ejection fraction %: 63 11/04/24 0926 <Electronically signed by Jose Daniel Jaeger MD> Date _ Jose Daniel Jaeger MD Cosigner Signature: Date (if applicable) CC: CTC OPERATORJj Encarnacion ~ [place] Work Phone: [phone] 279-273903-18-2025 Evaluation note* Diagnosis Onset Date Resolution Status Admit Date Coronary artery disease chronic M 2024 2:09pm Dyslipidemia chronic May 05, 2024 2:09pm Grade I diastolic dysfunction chroni c May 05, 2024 2:09pm Hypertension chronic May 05, 2024 2:09pm MIKAELA (obstructive sleep apnea) chroni c May 05, 2024 2:09pm [facility] Work Phone: 1(410) 424-104503-21-2024 History of Present illness Narrative* Katja Steinberg, MEDICAL OFFICE SUPERVISOR - WELFARE WORKER - 05/09/2023 12:30 PM EDT Images from the original note were not included. [facility]: [facility] [address] [facility] [address] Dept: [phone] Dept Loc: [phone] Visit type: Established patient - Virtual Reason for Visit: Postop follow up Assessment/Plan Diagnosis: 1. CAD in [place] artery 2. S/P CABG (coronary artery bypass graft) 03/29/23: CABG x3 (JACOBSEN-LAD, radial-D1, SVG-D2), LLE EVH, L radial endoscopic harvest, MARILEE with Dr. Starkey Plan: POD#41 Day from Discharge (04/02/23) #37 -Reviewed current meds Continue as ordered -Surgical Incisions: Per patient-healing appropriately, well approximated, no s/s of infection -Physical therapy as outlined in discharge instructions: starting cardiac rehab in 2 weeks -Acute Post-Operative Pain Tx plan: OTC as needed -Wires Only Weight restriction measures 5-8 weeks from date of surgery- 20lbs weight restriction approximate end date: 05/24/23 Disposition: F/U with cardiology as scheduled F/U with CTS PRN Patient verbalized understanding of plan and stated they would call if any questions or concerns arise. Treatment Team: PCP: Suzi Encarnacion Cardiology: [place] [facility] Patient was seen today via Telehealth by agreement and consent. I used the following Telehealth technology: Audio capability only. Total length of call 20 minutes. The patient was offered and advisedvideo for a more comprehensive evaluation, but the patient declined or was unable to use video. Patient location: Patient Location: Home. This patient encounter is appropriate and reasonable underthe circumstances: transportation issues . The patient has been advised of the potential risks and limitations of this mode of treatment (including but not limited to the absence of in-person examination) and has agreed to be treated in a remote fashion in spite of them. Any and all of the patient's/patient's family's questions on this issue have been answered and I have made no promises or guarantees to the patient. The patient has also been advised to contact this office for worsening conditions or problems, and seek emergency medical treatment and/or call 911 if the patient deems either nec essary. The patient stated that they are currently in the [facility]. If the patient is a minor,permission has been obtained by the parent or guardian for the patient to receive medical care at this visit. Patient identification was verified at the start of the visit: yes Total time spent on this encounter: 30 minutes Subjective HPI:62 yo male with PMH of HTN, HPL, MIKAELA on CPAP, post-covid lung disease, DVT (no longer on anticoagulation), BPH, GERD. He was admitted with worsening angina for which he had a CTA and Stress test as an OP. He then saw Dr. Jaeger in [place] for a heart cath and was found to have MVCAD, ostial LAD,diag 1, and diag2. He was sent to [facility] for CABG eval. He does have a family hx of CAD in his father and brother (both in 50s). He was taken for CABG x3 on 03/29/[address] Starkey. He had an uncomplicated recovery and will d/c home on POD #4 with 4 day lasix. 05/09/23: Spoke with patient for f/u VV. He continues to recover well. He is anxious to get back towork and continue to increase activity. He is no longer taking pain medication. He has seen his Technical Staff Engineer at [place] and is planning to start cardiac rehab there. He has been checking his BP intermittently, typically 120s/80s. He will continue to monitor it. Review of Systems Constitutional: Negative for diaphoresis, fatigue and fever. Respiratory: Negative for cough, shortness of breath and wheezing. Cardiovascular: Negative for chest pain, palpitations and leg swelling. Skin: Negative for rash. Objective Patient reported: none noted Wt Readings from Last 3 Encounters: 04/08/23 164 lb 3.2 oz (74.5 kg) 04/02/23 162 lb 11.2 oz (73.8 kg) Physical exam deferred due to virtual visit-with audio (telephone) capabilities only Labs/Imaging/Testing: reviewed EMR, see A&P for pertinent diagnostic results related to office visit Disclaimer INFORMED CONSENT:The nature and purpose of the proposed treatment or procedure have been discussed.The risks and benefits of the proposed treatment or procedures have been reviewed. Alternatives have been reviewed in addition to the risks and benefits of not receiving treatments or undergoing procedures. Pursuant to this discussion, the patient agrees to undergo the proposed treatment or procedure. Captured images seen in this note from are not a substitute for a comprehensive interpretation of the entire data set as reflected by the interpreting physician with regard to radiology, echocardiography, and other diagnostic images. This note may have been dictated using [employer] Edition 2.6 and/or [employer] Voice Recognition Feature. The document was proofread, however unrecognized voice recognition table assembler errors may be present. documented in this [facility]03-06-2024 History of Present illness Narrative* DIDI Calles CNP - 04/24/2023 11:30 AM EST Images from the original note were not included. [facility]: [facility] [address] [facility] [address] Dept: [phone] Dept Loc: [phone] Visit type: Established patient - Virtual Reason for Visit: Postop Assessment/Plan Diagnosis: 1. CAD in [place] artery 2. S/P CABG (coronary artery bypass graft) 03/29/23: CABG x3 (JACOBSEN-LAD, radial-D1, SVG-D2), LLE EVH, L radial endoscopic harvest, MARILEE with Dr. Starkey Plan: POD#26 Day from Discharge (04/02/23) #22 -Reviewed current meds - Continue ASA, statin, BB - Amlodipine x30 days for radial graft, end date 04/27 - once completed will continue to monitor BP -Surgical Incisions: Per patient-healing appropriately, well approximated, no s/s of infection -Physical therapy: Okay to start cardiac rehab -Acute Post-Operative Pain Tx plan: OTC as needed, taking 1/2 oxycodone nightly -Wires Only Weight restriction measures 1-4 weeks from date of surgery- 10lbs weight restriction: 04/26/23 5-8 weeks from date of surgery- 20lbs weight restriction approximate end date: 05/24/23 Disposition: FU with CTS 2 week VV FU with Cardiology ([facility]) 05/01 Patient verbalized understanding of plan and stated they would call if any questions or concerns arise. Treatment Team: PCP: Suzi Encarnacion Cardiology: [facility] Patient was seen today via Telehealth by agreement and consent. I used the following Telehealth technology: Audio capability only. Total length of call 25 minutes. The patient was offered and advisedvideo for a more comprehensive evaluation, but the patient declined or was unable to use video. Patient location: VV Patient Location: Home. This patient encounter is appropriate and reasonable underthe circumstances: transportation issues . The patient has been advised of the potential risks and limitations of this mode of treatment (including but not limited to the absence of in-person examination) and has agreed to be treated in a remote fashion in spite of them. Any and all of the patient's/patient's family's questions on this issue have been answered and I have made no promises or guarantees to the patient. The patient has also been advised to contact this office for worsening conditions or problems, and seek emergency medical treatment and/or call 911 if the patient deems either nec essary. The patient stated that they are currently in the state [facility]. If the patient is a minor,permission has been obtained by the parent or guardian for the patient to receive medical care at this visit. Patient identification was verified at the start of the visit: yes Total time spent on this encounter: 35 minutes Subjective HPI: 62 yo male with PMH of HTN, HPL, MIKAELA on CPAP, post-covid lung disease, DVT (no longer on anticoagulation), BPH, GERD. He was admitted with worsening angina for which he had a CTA and Stress testas an OP. He then saw Dr. Jaeger in [place] for a heart cath and was found to have MVCAD, ostial LAD, diag 1, and diag2. He was sent to [facility] for CABG eval. He does have a family hx of CAD in his fatherand brother (both in 50s). He was taken for CABG x3 on 03/29/[address] Starkey. He had an uncomplicated recovery and will d/c home on POD #4 with 4 day lasix. 04/24/23: Spoke with patient for VV follow up. Overall he is doing very well from a surgical standpoint. He would like to be able to do more, but understands the recovery process is slow. He is walking and keeping track of his steps. Reviewed his vital signs which are WNL. He denies cough, incisional issues, leg swelling or weight gain. Does have some intermittent MSI discomfort/pain and has someSOB with activity. His main issue is difficulty sleeping. He does not wish to try a sleep aid at this time. Review of Systems Constitutional: Positive for activity change and fatigue. Negative for diaphoresis and fever. Respiratory: Positive for shortness of breath (with acitivity). Negative for cough and wheezing. Cardiovascular: Negative for chest pain, palpitations and leg swelling. Gastrointestinal: Negative for abdominal distention, constipation and diarrhea. Objective Patient reported: 04/20- 119/80 3/4- 123/68 3/5- 130/80 3/6- 120/79 Wt Readings from Last 3 Encounters: 04/08/23 164 lb 3.2 oz (74.5 kg) 04/02/23 162 lb 11.2 oz (73.8 kg) Physical exam deferred due to virtual visit-with audio (telephone) capabilities only Labs/Imaging/Testing: reviewed EMR, see A&P for pertinent diagnostic results related to office visit Disclaimer INFORMED CONSENT:The nature and purpose of the proposed treatment or procedure have been discussed.The risks and benefits of the proposed treatment or procedures have been reviewed. Alternatives have been reviewed in addition to the risks and benefits of not receiving treatments or undergoing procedures. Pursuant to this discussion, the patient agrees to undergo the proposed treatment or procedure. Captured images seen in this note from are not a substitute for a comprehensive interpretation of the entire data set as reflected by the interpreting physician with regard to radiology, echocardiography, and other diagnostic images. This note may have been dictated using [employer] Practice Edition 2.6 and/or [employer] Voice Recognition Feature. The document was proofread, however unrecognized voice recognition table assembler errors may be present. documented in this [facility]02-19-2024 History of Present illness Narrative* DIDI Calles CNP - 04/08/2023 1:00 PM EST Images from the original note were not included. [facility]: [facility] [address] [facility] [address] Dept: [phone] Dept Loc: [phone] Visit type: Established patient Reason for Visit: Post-op Assessment and Plan 1. CAD in [place] artery 2. S/P CABG (coronary artery bypass graft) 03/29/23: CABG x3 (JACOBSEN-LAD, radial-D1, SVG-D2), LLE EVH, L radial endoscopic harvest, MARILEE with Dr. Starkey POD#10 Day from Discharge (04/02/23) #6 -Reviewed current meds: - Continue ASA, statin, BB - Amlodipine x30 days for radial graft - once completed will continue to monitor BP -Surgical Incisions: healing appropriately, well approximated, no s/s of infection. -Physical therapy as outlined in discharge instructions.Not ready for Cardiac Rehab and Not ready to drive. -Acute Post-Operative Pain controlled. Patient taking narcotic opioid medication. Tx plan: Continueto use narcotic/opioid analgesic medication and Over The Counter-Tylenol (acetaminophen) 500 mg 1-2tablets every 6 hours. No more than 4,000 mg in 24 hour period. Weight restriction measures 1-4 weeks from date of surgery- 10lbs weight restriction: 04/26/23 5-8 weeks from date of surgery- 20lbs weight restriction: 05/24/23 Disposition: FU with CTS 2 weeks for VV FU with Cardiology ([place]) 05/01 Patient verbalized understanding of plan and stated they would call if any questions or concerns arise. Treatment Team: PCP: Suzi Encarnacion Subjective HPI: 62 yo male with PMH of HTN, HPL, MIKAELA on CPAP, post-covid lung disease, DVT (no longer on anticoagulation), BPH, GERD. He was admitted with worsening angina for which he had a CTA and Stress testas an OP. He then saw Dr. Jaeger in [place] for a heart cath and was found to have MVCAD, ostial LAD, diag 1, and diag2. He was sent to [facility] for CABG eval. He does have a family hx of CAD in his fatherand brother (both in 50s). He was taken for CABG x3 on 03/29/[address] Starkey. He had an uncomplicated recovery and will d/c home on POD #4 with 4 day lasix. 04/08/23: Patient seen for initial postop follow up. He is doing very well at home, getting around without any assist devices. His pain is controlled with Acetaminophen and Oxycodone at night. He denies any CP, SOB, leg swelling, or incisional issues. He is checking BP, HR, & SpO2, logs reviewed, all wnl. Has completed lasix. Is anxious to get back to work and increase his activity, reviewed lifting guidelines. Review of Systems Constitutional: Positive for activity change and fatigue. Negative for appetite change, diaphoresisand fever. Respiratory: Negative for cough, shortness of breath and wheezing. Cardiovascular: Negative for chest pain, palpitations and leg swelling. Gastrointestinal: Negative for abdominal distention, constipation and diarrhea. Skin: Negative for color change, pallor and rash. No Known Allergies Outpatient Medications Prior to Visit Medication Sig Dispense Refill acetaminophen (Tylenol) 500 MG tablet Take 2 tablets (1,000 mg) by mouth in the morning and 2 tablets (1,000 mg) at noon and 2 tablets (1,000 mg) before bedtime. Do all this for 10 days. amLODIPine (Norvasc) 2.5 MG tablet Take 1 tablet (2.5 mg) by mouth daily. 30 tablet 0 aspirin 81 MG EC tablet Take 1 tablet (81 mg) by mouth daily. 30 tablet 1 metoprolol tartrate (Lopressor) 25 MG tablet Take 1 tablet (25 mg) by mouth 2 times daily. 60 tablet 1 oxyCODONE (Roxicodone) 5 MG immediate release tablet Take 1 tablet (5 mg) by mouth every 6 hours asneeded for severe pain (7-10) for up to 7 days. 28 tablet 0 rosuvastatin (Crestor) 40 MG tablet Take 1 tablet (40 mg) by mouth daily. 30 tablet 1 furosemide (Lasix) 40 MG tablet Take 1 tablet (40 mg) by mouth daily for 4 doses. 4 tablet 0 No facility-administered medications prior to visit. Past Medical History: Diagnosis Date Coronary artery disease HTN (hypertension) Objective Patient reported: No flowsheet data found. Vitals: 04/08/23 1251 BP: 132/79 Pulse: 77 Wt Readings from Last 3 Encounters: 04/08/23 164 lb 3.2 oz (74.5 kg) 04/02/23 162 lb 11.2 oz (73.8 kg) Physical Exam Cardiovascular: Rate and Rhythm: Normal rate and regular rhythm. Heart sounds: Normal heart sounds. Pulmonary: Effort: Pulmonary effort is normal. Breath sounds: Normal breath sounds. Abdominal: General: Bowel sounds are normal. Palpations: Abdomen is soft. Tenderness: There is no abdominal tenderness. Skin: General: Skin is warm and dry. Comments: Surgical Incisions: well approximate; clean dry with no drainage noted. Surrounding skin no redness, warmth, or signs of infection noted. Neurological: Mental Status: He is alert and oriented to person, place, and time. Data Reviewed and Summarized Labs/Imaging/Testing: reviewed EMR, see A&P for pertinent diagnostic results related to office visit DIDI Calles CNP documented in this [facility]02-19-2024 Instructions* Patient Instructions* DIDI Calles CNP - 04/08/2023 1:00 PM EST No driving until 04/26/23 Weight restriction measures 1-4 weeks from date of surgery- 10lbs weight restriction: 04/26/23 5-8 weeks from date of surgery- 20lbs weight restriction: 05/24/23 documented in this [facility]02-13-2024 NotePIV removed, Tele removed. Patient education provided, all questions answered. Patient and spouse verbalize understanding. All belongings with spouse. Patient discharged with no distress noted. Respirations equal and unlabored. Patient in private vehicle to home.[facility]02-13-2024 NoteDischarge Summary: Cardiothoracic Surgery Chivo Livingston, 62 y.o., 1960 ADMIT DATE: 03/28/2023 DISCHARGE DATE: 04/02/2023 VISIT STATUS: Admission CODE STATUS: Full Code DISCHARGING SURGEON: Rambo Starkey MD, Office Number: [phone] DISCHARGE DIAGNOSES: CAD S/P CABG x 3 HTN HLD Post operative Pulm Management: Normal Post-operative Course Post-operative Atrial Fibrillation: []Yes [x] No Acute blood loss anemia BMI CLASSIFICATION:Overweight (BMI 25.0-29.9) TREATMENT TEAM: Primary Care Physician: Suzi Encarnacion Technical Staff Engineer: SURGERY: 03/29/22: CABG x3 (JACOBSEN-LAD, radial-D1, SVG-D2), LLE EVH, L radial endoscopic harvest, MARILEE with Dr. Starkey HOSPITAL COURSE: 62 yo male with PMH of HTN, HPL, MIKAELA on CPAP, post-covid lung disease, DVT (no longer on anticoagulation), BPH, GERD. He was admitted with worsening angina for which he had a CTA and Stress test as an OP. He then saw Dr. Jaeger in [place] for a heart cath and was found to have MVCAD, ostial LAD, diag 1, and diag2. He was sent to [facility] for CABG eval. He does have a family hx of CAD in his father and brother (both in 50s). He was taken for CABG x3 on 03/29/[address] Starkey. He had an uncomplicated recovery and will d/c home on POD #4 with 4 day lasix. DIAGNOSTICS: BP 127/81 (BP Location: Right arm, Patient Position: Sitting) Pulse 98 Temp 36.5 ?C (97.7 ?F) (Temporal) Resp 16 Ht 5' 6 (1.676 m) Wt 162 lb 11.2 oz (73.8 kg) SpO2 97% BMI 26.26 kg/m? Recent Labs 03/31/23 0245 04/01/23 0154 04/02/23 0501 CREATININE 1.11 1.04 0.95 HGB 10.1* 11.5* 11.8* PLT 150 200 241 WBC 8.3 7.9 7.8 INR 1.1 -- -- NA 137 139 138 K 3.6 3.6 4.2 DISCHARGE MEDICATIONS: Medication List START taking these medications acetaminophen 500 MG tablet Commonly known as: Tylenol Take 2 tablets (1,000 mg) by mouth in the morning and 2 tablets (1,000 mg) at noon and 2 tablets (1,000 mg) before bedtime. Do all this for 10 days. amLODIPine 2.5 MG tablet Commonly known as: Norvasc Take 1 tablet (2.5 mg) by mouth daily. Start taking on: April 03, 2023 aspirin 81 MG EC tablet Take 1 tablet (81 mg) by mouth daily. Start taking on: April 03, 2023 furosemide 40 MG tablet Commonly known as: Lasix Take 1 tablet (40 mg) by mouth daily for 4 doses. Start taking on: April 03, 2023 metoprolol tartrate 25 MG tablet Commonly known as: Lopressor Take 1 tablet (25 mg) by mouth 2 times daily. oxyCODONE 5 MG immediate release tablet Commonly known as: Roxicodone Take 1 tablet (5 mg) by mouth every 6 hours as needed for severe pain (7-10) for up to 7 days. rosuvastatin 40 MG tablet Commonly known as: Crestor Take 1 tablet (40 mg) by mouth daily. Start taking on: April 03, 2023 Where to Get Your Medications These medications were sent to [facility] [address], [place] [address] Hours: Saturday to Saturday 10 am to 6 pm amLODIPine 2.5 MG tablet aspirin 81 MG EC tablet furosemide 40 MG tablet metoprolol tartrate 25 MG tablet oxyCODONE 5 MG immediate release tablet rosuvastatin 40 MG tablet You can get these medications from any pharmacy You don't need a prescription for these medications acetaminophen 500 MG tablet ACTIVITY: activity as tolerated, strict post-sternotomy/post-thoracotomy sternal precautions as outlined in the home going instructions, and no driving or operating heavy machinery until released by provider STRICT POST-STERNOTOMY/POST-THORACOTOMY PRECAUTIONS OUTLINED IN THE HOME GOING INSTRUCTIONS FOLLOW UP: 04/08/23 @ [address] [address], [place] [address] Dept: [phone] Dept CORE CARDIAC MEDICATIONS PRESCRIBED AT DISCHARGE: Beta-aba prescribed at discharge: [x] Yes [] No - reason why: ACEi or ARB prescribed at discharge: [] Yes [x] No - reason why: n/a Statin prescribed at discharge: [x] Yes [] No - reason why: Anti-platelet agent prescribed at discharge: [x] Yes [] No - reason why: If yes, type: Post-operative Atrial Fibrillation: []Yes [x] No OAC: [] Yes [x] No Initial Post-op RBC transfusion date/reason: none noted during post-operative course Chronic Lung Disease: Unknown DISPOSITION: Home A copy of the discharge instructions which included the medications at the time of discharge, follow-up appointments, phone numbers to call with questions, activity, restrictions, and limitations was provided to the patient or their family. We greatly appreciate the opportunity to participate in the care of your patient. If you have any additional questions or concerns regarding any aspects of their care or management please do not hesitate to contact us. SIGNED: DIDI Calles CNP 04/02/2023, 2:09 [facility] 04-02-2023 Nurse Note* Kate Barksdale RN - 04/02/2023 4:03 PM EST PIV removed, Tele removed. Patient education provided, all questions answered. Patient and spouse verbalize understanding. All belongings with spouse. Patient discharged with no distress noted. Respirations equal and unlabored. Patient in private vehicle to home. [id number]* Kate Barksdale RN - 04/02/2023 4:03 PM EST PIV removed, Tele removed. Patient education provided, all questions answered. Patient and spouse verbalize understanding. All belongings with spouse. Patient discharged with no distress noted. Respirations equal and unlabored. Patient in private vehicle to home. * Keya Gary RN - 03/28/2023 11:54 AM EST Report received from Flynn Burns. documented in this [facility]SGalion [facility] [id number] NoteStart PACC Note Home Health Referral Educated patient and Adry on Home Care and services available. Patient offered choice of available HHC and agreeable to SN services with [facility]. Care Types: [facility] Isolation Precautions: No active isolations Social Determinates of Health: Tobacco Use: Low Risk (03/28/2023) Patient History Smoking Tobacco Use: Never Smokeless Tobacco Use: Never Passive Exposure: Not on file Social History Substance and Sexual Activity Alcohol Use Not Currently Social History Substance and Sexual Activity Drug Use Not Currently Does the patient have any financial resource strain? No Does the patient have any food insecurities? No Does the patient have any housing instabilities? No If any of the above is noted as yes - consider a CAKE PULLER evaluation once the patient returns home. START PATIENT REGISTRATION INFORMATION Order Information Order Signing Physician: Rambo Starkey MD Service Ordered RN ?: Yes Service Ordered PT ?: No Service Ordered OT ?: No Service Ordered ST ?: No Service Ordered CAKE PULLER?:No Service Ordered LABOR CREW SUPERVISOR?: No Following Physician: Rambo Starkey MD Following Physician Overseeing Physician: Rambo Starkey MD (Required for Residents only) Agreeable to Follow? Yes Date/Time of Call 04/02/23 1:33 PM, Spoke with: cabg protocol Care Coordination Same Day SOC?: No Primary Care Physician: Suzi Encarnacion Primary Care Physician Primary Care Physician Address: [address] [place] [address] / [place] [address] Visit Instructions: N/A Service Discharge Location Type: Home with Home Health Care Service Facility Name: N/A Service Floor Facility: N/A Service Room No: N/A Demographics Patient Last Name: Arron Patient First Name: Chivo Language/Communication Barrier: no Service Address: [address] [place] [address] Service City: [facility] ST: [place] Service ZIP: [address] Service (home) Other phone numbers: No relevant phone numbers on file. Emergency Contact: Extended Emergency Contact Information Primary Emergency Contact: Adry Livingston Mobile Relation: Spouse Preferred language: [employer] Consultant needed? 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 Do you have any upper respiratory symptoms (cough, SOB, Fever)? No 2. Have you been exposed to anyone with COVID-19 Virus? No Answer only if pending or positive for COVID-19? 1. Agreeable to wear PPE at each visit? No 2. Is the hospital supplying them with PPE upon Discharge? No Start PACC Summary General Report/ Additional Comments CABG Surgical site care: -Surgical incisions leave open to air, cleanse daily with mild soap & warm water, pat dry, no lotion or powders on incision. Respiratory Care: -Cough and Deep Breath; Use incentive spirometry 10 times every hour while awake for 2 weeks. Additional Orders: -Sternal precautions (no lifting, pushing, pulling >10 lbs) for 6 weeks-use heart pillow -Vitals per home health protocol-call for fever and chills -Daily weights- call for weight gain: 2-3lbs in one day; 5lbs in 3 days. -Wear TEDs during day and off at night. Activity/Weight Bearing: -Up with assistance: up in chair for all meals, ambulate 3-4 times a day -Stretching exercises per PT discharge instructions Discharge Date: pending Referral Source-PACC: (Hospital/Unit): [facility] / T1-119/T1119 A End PACC [facility]02-13-2024 Hospital Discharge instructions* Discharge Instructions* Katja Steinberg, DIDI - WELFARE WORKER - 04/02/2023 2:03 PM EST Images from the original note were not included. [facility]: Cardiothoracic Surgery [address] [place] [address]. [address] [facility] #[phone] Notify us if the following occur - Increased tenderness, redness, or swelling of your incisions. - Any drainage from the chest incision (clear or pink drainage from the leg incision or chest tube site is common). - Angina symptoms like those you had before surgery - Sharp pain in chest, neck or shoulder that is worse when taking a deep breath - Persistent fever greater than 100 degrees F or 38 degrees C - Flu-like symptoms-chills, aches, fever, increased fatigue - Heart rate faster than 150 beats/minute with shortness of breath or new irregular heart rate. - Any unusual bleeding - Shortness of breath not relieved by rest - Weight gain of three pounds in one day or five pounds over one week Activity Instructions - Sternal Precautions for 6 weeks - Do not lift, push, or pull anything heavier than 10 pounds for 6 weeks (a gallon of milk weighs 8pounds). - Do not drive until you have been given permission by your surgeon/provider and until you are off narcotic/opioid pain medication - It is ok to sleep on your side if you prop pillows to support your back. Do not sleep on your stomach. - Walk at least 4 times a day, start with 5 minute intervals, increase minutes walked each day. Do not walk on a treadmill - Balance rest and activity during your recovery - Use the stairs, but go slowly, Use the handrail for balance but do not pull yourself up with yourarms. - Shower daily. Do not take your heart medication right before you shower. You could become lightheaded from your blood pressure and heart medication. Always have someone nearby to assist you. - Do not take a tub bath or use a hot tub until all incision are completely healed (no scab). - Put mya hose on in AM and remove at bedtime. Elevate your feet above level of heart when you are sitting. - Cough and deep breathe and use incentive spirometer every hour (10x/hour while awake for two weeks). Other Instructions - Weigh yourself daily at the same time (after you urinate but before breakfast) - Keep a record of your daily weight, and bring to your first post op office visit - Take all medications as prescribed. Bring all your medication bottles to any follow up office visit Incision Care - Wash your sternal incision with anti-bacterial soap and warm water. Pat dry, and leave open to air. Do not use any lotions, or powders, or ointments. * Discharge Instr - MIKEY* Katja Peterson RN - 04/02/2023 1:31 PM EST Continuity of Care Form Patient Name: Chivo Livingston : 1960 Admit date: 03/28/2023 Discharge date: Code Status Order: Full Code Advance Directives: N Admitting Physician: Rambo Starkey MD PCP: Suzi Encarnacion Discharging Nurse: Discharging Hospital Unit/Room#: T1-119/T1-119 A Discharging Unit Phone Number: Emergency Contact: Extended Emergency Contact Information Primary Emergency Contact: Adry Livingston Mobile Relation: Spouse Preferred language: [employer] Consultant needed? No Past Surgical History: Past Surgical History: Procedure Laterality Date APPENDECTOMY EYE SURGERY Immunization History: There is no immunization history on file for this patient. Active Problems: Medical Problems Problem List * (Principal) CAD in naknek artery Isolation/Infection: No active isolations No active infections Nurse Assessment: Last Vital Signs: BP 114/83 Pulse 99 Temp 36.7 C (98.1 F) (Temporal) Resp 20 Ht 1.676 m (5'6) Wt 73.8 kg (162 lb 11.2 oz) SpO2 97% BMI 26.26 kg/m Last documented pain score (0-10 scale): Last Weight: Wt Readings from Last 1 Encounters: 04/02/23 73.8 kg (162 lb 11.2 oz) Mental Status: {MIKEY Patient Mental Status:30660} IV Access: {MIKEY IV Access:30196} Nursing Mobility/ADLs: Walking {CHARLENE ADL:31890::Independent} Transfer {CHARLENE ADL:58062::Independent} Bathing {CHARLENE ADL:42424::Independent} Dressing {CHARLENE ADL:65312::Independent} Toileting {CHARLENE ADL:34977::Independent} Feeding {CHARLENE ADL:33159::Independent} Holter Scanning Technician {CHARLENE ADL:98866::Independent} Med Delivery {yes/no:20216} Wound Care Documentation and Therapy: Wound/Incision 03/29/23 Incision Sternum (Active) Site Assessment Clean;Dry;Intact 04/02/23 0400 Odor None 04/02/23 0400 Drainage Amount None 04/02/23 0400 Treatments Cleansed;Site care 04/02/23 0400 Primary Dressing Liquid Adhesive (Dermabond) 04/02/23 0753 Dressing Status Clean, dry & intact 04/02/23 0753 Number of days: 4 Wound/Incision 03/29/23 Incision Forearm Anterior;Left (Active) Site Assessment Clean;Dry;Intact 04/02/23 0400 Odor None 04/02/23 0400 Drainage Amount None 04/02/23 0400 Treatments Cleansed;Site care 04/02/23 0400 Primary Dressing Liquid Adhesive (Dermabond);Steri-strips 04/02/23 0753 Dressing Status Clean, dry & intact 04/02/23 0753 Number of days: 4 Wound/Incision 03/29/23 Incision Leg Left (Active) Site Assessment Clean;Dry;Intact 04/02/23 0400 Odor None 04/02/23 0400 Drainage Amount None 04/02/23 0400 Treatments Site care;Cleansed 04/02/23 0753 Primary Dressing Liquid Adhesive (Dermabond);Open to air 04/02/23 0753 Dressing Status Clean, dry & intact 04/01/23 1641 Number of days: 4 Elimination: Continence: Bowel: {yes/no:75161} Bladder: {yes/no:89791} Urinary Catheter: {MIKEY Urinary Catheter:63824} Colostomy/Ileostomy/Ileal Conduit: {YES / NO:} Date of Last BM: Intake/Output Summary (Last 24 hours) at 04/02/2023 1331 Last data filed at 04/02/2023 0600 Gross per 24 hour Intake 50 ml Output 300 ml Net -250 ml I/O last 3 completed shifts: In: 50 (0.7 mL/kg) [P.O.:50] Out: 2360 (32 mL/kg) [Urine:2300 (0.9 mL/kg/hr); Chest Tube:60] Weight: 73.8 kg Safety Concerns: {MIKEY Safety Concerns:67592} Impairments/Disabilities: {MIKEY Impairments/Disabilities:62352} Nutrition Therapy: Current Nutrition Therapy: {MIKEY Diet List:48951} Routes of Feeding: {routes of feedin} Liquids: {liquid consistency:21245} Daily Fluid Restriction: {daily fluid restriction:36062} Last Modified Barium Swallow with Video (Video Swallowing Test): {done not done:96013} Treatments at the Time of Hospital Discharge: Respiratory Treatments: Oxygen Therapy: {Therapy; copd oxygen:92209} Ventilator: {MIKEY Ventilator:92046} Rehab Therapies: {GEN THERAPY DISCIPLINE SCAL:3928711} Weight Bearing Status/Restrictions: {POD WEIGHT BEARIN} Other Medical Equipment (for information only, NOT a DME order): {Assistive Devices DME:49109} Other Treatments: Patient's personal belongings (please select all that are sent with patient): {MIKEY Patient Belongings:92506} RN SIGNATURE: {E-signature:20502} CASE MANAGEMENT/SOCIAL WORK SECTION Inpatient Status Date: Readmission Risk Assessment Score: @READMISSIONRISKDETAILS@ Discharging to Facility/ Agency Name: [facility] Address: [address] [place] [address] Dialysis Facility (if applicable) Name: Address: Dialysis Schedule: Phone: Fax: Solder Cream Maker/Senior Research Scientist signature: {E-signature:94584} PHYSICIAN SECTION Prognosis: {Rehab Prognosis:88410} Condition at Discharge: {Patient Condition:63849} Rehab Potential (if transferring to Rehab): {Rehab Prognosis:35374} Recommended Labs or Other Treatments After Discharge: Physician Certification: I certify the above information and transfer of Chivo Livingston is necessary for the continuing treatment of the diagnosis listed and that he requires {MIKEY Level of Care:21681} for {greater less than:72153} 30 days. Update Admission H&P: {MIKEY Changes in H&P:76858} PHYSICIAN SIGNATURE: {E-signature:18036} documented in this [facility]02-13-2024 Miscellaneous Notes* Care Coordination - Unknown Case Management - 04/02/2023 1:50 PM EST Patient Choice Patient Name: CHIVO LIVINGSTON Date of : 1960 All Providers Sent Referral Name: [facility] Phone: [phone] Address: [address] [place] [address] * Home Care - Katja Peterson RN - 04/02/2023 1:33 PM EST Start PACC Note Home Health Referral Educated patient and Adry on Home Care and services available. Patient offered choice of available HHC and agreeable to SN services with [facility] Care. Care Types: [facility] Isolation Precautions: No active isolations Social Determinates of Health: Tobacco Use: Low Risk (03/28/2023) Patient History Smoking Tobacco Use: Never Smokeless Tobacco Use: Never Passive Exposure: Not on file Social History Substance and Sexual Activity Alcohol Use Not Currently Social History Substance and Sexual Activity Drug Use Not Currently Does the patient have any financial resource strain? No Does the patient have any food insecurities? No Does the patient have any housing instabilities? No If any of the above is noted as yes - consider a CAKE PULLER evaluation once the patient returns home. START PATIENT REGISTRATION INFORMATION Order Information Order Signing Physician: Rambo Starkey MD Service Ordered RN ?: Yes Service Ordered PT ?: No Service Ordered OT ?: No Service Ordered ST ?: No Service Ordered CAKE PULLER?:No Service Ordered LABOR CREW SUPERVISOR?: No Following Physician: Rambo Starkey MD Following Physician Overseeing Physician: Rambo Starkey MD (Required for Residents only) Agreeable to Follow? Yes Date/Time of Call 04/02/23 1:33 PM, Spoke with: cabg protocol Care Coordination Same Day SOC?: No Primary Care Physician: Suzi Encarnacion Primary Care Physician Primary Care Physician Address: [address] [place] [address] / [facility] [address] Visit Instructions: N/A Service Discharge Location Type: Home with Home Health Care Service Facility Name: N/A Service Floor Facility: N/A Service Room No: N/A Demographics Patient Last Name: Arron Patient First Name: Chivo Language/Communication Barrier: no Service Address: [address] [place] [address] Service City: [facility] ST: [place] Service ZIP: [address] Service (home) Other phone numbers: No relevant phone numbers on file. Emergency Contact: Extended Emergency Contact Information Primary Emergency Contact: Adry Livingston Mobile Relation: Spouse Preferred language: [employer] Economics Consultant needed? 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 Do you have any upper respiratory symptoms (cough, SOB, Fever)? No 2. Have you been exposed to anyone with COVID-19 Virus? No Answer only if pending or positive for COVID-19? 1. Agreeable to wear PPE at each visit? No 2. Is the hospital supplying them with PPE upon Discharge? No Start PACC Summary General Report/ Additional Comments CABG Surgical site care: -Surgical incisions leave open to air, cleanse daily with mild soap & warm water, pat dry, no lotion or powders on incision. Respiratory Care: -Cough and Deep Breath; Use incentive spirometry 10 times every hour while awake for 2 weeks. Additional Orders: -Sternal precautions (no lifting, pushing, pulling >10 lbs) for 6 weeks-use heart pillow -Vitals per home health protocol-call for fever and chills -Daily weights- call for weight gain: 2-3lbs in one day; 5lbs in 3 days. -Wear TEDs during day and off at night. Activity/Weight Bearing: -Up with assistance: up in chair for all meals, ambulate 3-4 times a day -Stretching exercises per PT discharge instructions Discharge Date: pending Referral Source-PACC: (Hospital/Unit): [facility] / T1-119/T1-119 A End PACC Note * Care Coordination - Sridevi Farrell RN - 04/02/2023 1:22 PM EST Spoke with patient and at bedside, anticipate discharge later today. Aware [facility] will set up home care, no DME needed, all questions answered. * Care Plan - Kate Barksdale RN - 04/02/2023 8:35 AM EST Problem: Problem Interventions Goal: Assess Nutritional Intake Outcome: Progressing Goal: Dietary Supplements Outcome: Progressing Problem: Pain - Adult Goal: Verbalizes/displays adequate comfort level or baseline comfort level Outcome: Progressing Flowsheets (Taken 04/01/2023 3556) Verbalizes/displays adequate comfort level or baseline comfort level: Encourage patient to monitor pain and request assistance Assess pain using appropriate pain scale Administer analgesics based on type and severity of pain and evaluate response Implement non-pharmacological measures as appropriate and evaluate response Consider cultural and social influences on pain and pain management Notify Licensed Independent Practitioner if interventions unsuccessful or patient reports new pain Problem: Safety - Adult Goal: Free from fall injury Outcome: Progressing Flowsheets (Taken 04/01/2023956) Free from fall injury: Instruct family/caregiver on patient safety Based on caregiver fall risk screen, instruct family/caregiver to ask for assistance with transferring infant if caregiver noted to have fall risk factors Problem: Discharge Planning Goal: Discharge to home or other facility with appropriate resources Outcome: Progressing Flowsheets (Taken 04/01/2023956) Discharge to home or other facility with appropriate resources: Identify barriers to discharge with patient and caregiver Arrange for needed discharge resources and transportation as appropriate Identify discharge learning needs (meds, wound care, etc) Arrange for interpreters to assist at discharge as needed Refer to discharge planning if patient needs post-hospital services based on physician order or complex needs related to functional status, cognitive ability or social support system Problem: Chronic Conditions and Co-morbidities Goal: Patient's chronic conditions and co-morbidity symptoms are monitored and maintained or improved Outcome: Progressing Flowsheets (Taken 04/01/2023956) Care Plan - Patient's Chronic Conditions and Co-Morbidity Symptoms are Monitored and Maintained or Improved: Collaborate with multidisciplinary team to address chronic and comorbid conditions and prevent exacerbation or deterioration Monitor and assess patient's chronic conditions and comorbid symptoms for stability, deterioration,or improvement Update acute care plan with appropriate goals if chronic or comorbid symptoms are exacerbated and prevent overall improvement and discharge Problem: Knowledge Deficit Goal: Patient/family/caregiver demonstrates understanding of disease process, treatment plan, medications, and discharge instructions Outcome: Progressing Flowsheets (Taken 04/02/2023833) Patient/family/caregiver demonstrates understanding of disease process, treatment plan, medications, and discharge instructions: Complete learning assessment and assess knowledge base Provide teaching via preferred learning methods Provide teaching at level of understanding Problem: Potential for Compromised Skin Integrity Goal: Skin Integrity is Maintained or Improved Outcome: Progressing Flowsheets (Taken 04/02/2023833) Skin integrity is maintained or improved: Monitor patient's hygiene practices Alternate a full bath with partial baths for elderly Avoid shearing Turn patient Identify patients at risk for skin breakdown on admission and per policy Assess and monitor skin integrity Collaborate with interdisciplinary team and initiate plans and interventions as needed Relieve pressure to bony prominences Keep skin clean and dry Encourage use of lotion/moisturizer on skin Goal: Nutritional status is improving Outcome: Progressing Flowsheets (Taken 04/02/2023 0834) Nutritional status is improving: Monitor and assess patient for malnutrition (ex- brittle hair, bruises, dry skin, pale skin and conjunctiva, muscle wasting, smooth red tongue, and disorientation) Collaborate with interdisciplinary team and initiate plan and interventions as ordered Monitor patient's weight and dietary intake as ordered or per policy Utilize nutrition screening tool and intervene per policy Allow adequate time for meals Assist patient with eating Determine patient's food preferences and provide high-protein, high-caloric foods as appropriate Encourage patient to take dietary supplement as ordered Collaborate with clinical film touch up inspector Include patient/family/caregiver in decisions related to nutrition Problem: Urinary Incontinence Goal: Perineal skin integrity is maintained or improved Outcome: Progressing Flowsheets (Taken 04/02/2023 0834) Perineal skin integrity is maintained or improved: Assess genitourinary system, perineal skin, labs (urinalysis), and history of incontinence to include past management, aggravating, and alleviating factors Collaborate with interdisciplinary team including wound, ostomy, and continence nurse and initiate plans and interventions as needed Keep skin clean and dry Apply urine containment device Apply skin protectant Develop skin care regimen Provide privacy when changing patient's incontinence device to maintain their dignity * Care Coordination - Sridevi Farrell RN - 04/01/2023 11:12 AM EST Images from the original note were not included. Care Management Progress Note Patient remains in CTV ICU s/p CABG x 3 POD # 3. VSS, on RA, in NSR on tele, chest tubes removed, added MOM today-no BM yet, BB increased, holding diuresis, low dose amlodipine for radial graft, endocrine signed off and PT/OT evals pending. DCP-home with home care, [place] following. Discharge Milestones and Delays Expected Date/Time: 04/04/[address] discharge order Complete med reconciliation Case mgmt discharge readiness Clinical Stability Diagnsotic Workup Expected Discharge History Expected Date/Time Set By Reviewed At 04/04/2023 Zohreh Willams RN 03/31/2023 1:48 PM tcc estimates 04/04/2023 Zohreh Willams RN 03/31/2023 1:48 PM 04/04/2023 Katja Steinberg APRN - SIDNEY 03/28/2023 1:58 PM Length of Stay (Days): 4 GMLOS: 1.8 * Care Plan - Kate Barksdale RN - 04/01/2023 9:57 AM EST Problem: Pain - Adult Goal: Verbalizes/displays adequate comfort level or baseline comfort level Flowsheets (Taken 04/01/2023956) Verbalizes/displays adequate comfort level or baseline comfort level: Encourage patient to monitor pain and request assistance Assess pain using appropriate pain scale Administer analgesics based on type and severity of pain and evaluate response Implement non-pharmacological measures as appropriate and evaluate response Consider cultural and social influences on pain and pain management Notify Licensed Independent Practitioner if interventions unsuccessful or patient reports new pain Problem: Safety - Adult Goal: Free from fall injury Flowsheets (Taken 04/01/2023956) Free from fall injury: Instruct family/caregiver on patient safety Based on caregiver fall risk screen, instruct family/caregiver to ask for assistance with transferring if caregiver noted to have fall risk factors Problem: Discharge Planning Goal: Discharge to home or other facility with appropriate resources Flowsheets (Taken 04/01/2023956) Discharge to home or other facility with appropriate resources: Identify barriers to discharge with patient and caregiver Arrange for needed discharge resources and transportation as appropriate Identify discharge learning needs (meds, wound care, etc) Arrange for interpreters to assist at discharge as needed Refer to discharge planning if patient needs post-hospital services based on physician order or complex needs related to functional status, cognitive ability or social support system Problem: Chronic Conditions and Co-morbidities Goal: Patient's chronic conditions and co-morbidity symptoms are monitored and maintained or improved Flowsheets (Taken 04/01/2023956) Care Plan - Patient's Chronic Conditions and Co-Morbidity Symptoms are Monitored and Maintained or Improved: Collaborate with multidisciplinary team to address chronic and comorbid conditions and prevent exacerbation or deterioration Monitor and assess patient's chronic conditions and comorbid symptoms for stability, deterioration,or improvement Update acute care plan with appropriate goals if chronic or comorbid symptoms are exacerbated and prevent overall improvement and discharge * Care Coordination - Zohreh Willams RN - 03/31/2023 1:43 PM EST Care Managment Initial Assessment Date: 03/31/2023 Patient Name: Chivo Livingston : 1960 Patient Information Source of Information: Patient Cognition/Language: WFL - Within Functional Limits Permission given to speak with patient high school admissions representative/caregiver as indicated: Confirmation of Payer with patient/family: Yes Payer Name: [employer] [place] : No Confirmation of Primary Care Physician: Confirmed PCP Name: Suzi Gonzalez Seen in last 2 years?: Yes Primary Caregiver: Self If assistance needed, confirmed caregiver ready, willing and able to care for patient at discharge:Yes Confirmed with: - Adry Living Arrangements Current Residence: House Number of Floors 3 Number of Entry Steps: 5 or more Bed/Bath Levels: Both first floor Facility: Facility Name: Plan to Return: Lives with: Spouse/significant other, Extended family members Support Systems: Spouse/significant other, Family members Activities of Daily Living Ambulation: Independent Bathing/Dressing: Independent Elimination/Continence/Toileting: Independent Feeding: Independent Who Assists with Activities of Daily Living: Instrumental Activities of Daily Living Prescription Coverage: Yes Pharmacy Used: [facility] Medication Management: Independent Transportation/Shopping: Independent Transportation Mode: Car Needs Assistance with Transportation at Discharge: No Meal Preparation: Independent Laundry/Cleaning: Independent Finances/Bill Paying: Assistance Provider Finances/Bill Payer Assistance Provider Name: Communication: Independent Types of Care Services/Equipment Utilized Care Services: Dialysis Type: NA Durable Medical Equipment: Cane, Walker, Wheelchair (standard or power), Raised Toilet Seat, Bedside Commode, CPap (all in storage, not in current use, avail to patient if he needs it) Patient's Goal/Discharge Plan Patient expects to be discharged to: home Discharge Planning Actions: Continue to follow Patient's Choice Rights and [employer] and Collaborative Relationships Disclosed as Indicated for Post-Acute Care: Interdisciplinary Team Engagement: Home Health Care Social Work Referral for: Additional Information: Spoke with patient at bedside. Patient admitted to [facility] for CABG on 03/29. PT/OT evals pending. From home, indep with . Patient ambulating in room, sitting in chair at time of assessment. ATKINSON following for needs. Cardiac Rehab consulted. Endocrinology following for post op glycemic management. TCC to follow. Zohreh Willams RN * Home Care - Romy Leon RN - 03/29/2023 10:10 AM EST Medical Writer following case for Discharge Needs. * Care Coordination - Sridevi Farrell RN - 03/29/2023 7:51 AM EST IA attempted, patient OOR in OR for CABG. Will remain intubated post op, will need to re-attempt in am. DCP- Anticipate home with home care post op. TCC to follow. * Op Note - Rambo Starkey MD - 03/29/2023 7:45 AM EST Cardiothoracic Surgery Operative Report Pre-operative Diagnosis: CAD Post-operative Diagnosis: CAD Procedure: CABG X 3: JACOBSEN to LAD, left radial artery to D1, reverse saphenous vein graft to D2; endoscopic vein harvesting left lower extremity (knee to mid- thigh); endoscopic left radial artery harvest; intraoperative MARILEE Surgeon: Rambo Starkey MD Residential Substance Abuse Counselor(s): [] Radha De Luna [x] Nai Bates [x] Joel El [] Joel Carcamo [] Other Anesthesia: General Estimated blood loss: Difficult to estimate due to the nature of the surgery. Cell Saver and pump suction utilized. Total IV fluids: See anesthesia and perfusion record Blood Transfusion?: no Drains: Bilateral pleural and mediastinal Specimens: None Complications: None Condition: Stable Prophylactic Antibiotics: Yes 1st or 2nd generation cephalosporin given (or other antibiotic in the event of an allergy) within 1hour of surgical incision (two hours if receiving Vancomycin or flouroquinolone) If NO, indication reason why: [] Patient on continuous antibiotics for documented preoperative infection [] Other: The STS Risk Calculator score was calculated and discussed with the patient/family prior to surgery. Yes: [x] No: [] Not a risk calculated procedure [] Emergent or Emergent/Salvage Used of CAR: Yes No due to: [] Subclavian stenosis [] Emergent or Emergent/Salvage [] Prior cardiothoracic surgery [] Prior mediastinal radiation [] No bypassable LAD disease, LAD not needed/bypassed: (This can include clean LAD, diffusely diseased LAD or other condition resulting in the LAD not being bypassed). Beta-aba within 24 hours prior to surgical incision: [] Yes - please see documentation in EMR [] No [] Allergy [] Heart block [] COPD [] Hypotension BP: [] Bradycardia HR: INDICATIONS FOR SURGERY: 62 yo male with PMH of HTN, HPL, MIKAELA on CPAP, post-covid lung disease, DVT (no longer on anticoagulation), BPH, GERD, cataract surgery, and appendectomy in '80s. He has been experiencing chest pain since November of 2022. The pain was initially with exertion and lasted for only a short period of time, but has gotten progressively worse over the last few months. He now has some radiation down left arm and gets diaphoretic at times. He follows with a media clerk (for post-covid symptoms), who ordered a CTA Chest and his PCP ordered a stress test. He was ultimately referred to Dr. Jaeger ([place] [employer]) and was taken for a heart cath on 03/28/23. Cath showed multivessel CAD including ostial LAD, diag 1, diag2, and prox OM. He was sent to [facility] for CABG eval. 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 He does have this chest pain intermittently that slows him down some, but in general he is active at baseline. He does have a family hx of CAD in his father and brother (both in 50s). DESCRIPTION OF PROCEDURE: Procedure Preparation: Patient was taken to the operative suite and placed under general endotracheal anesthesia. Monitoring lines were inserted by the department of anesthesia. Intraoperative transesophageal echocardiography was performed. The findings will follow under a separate dictation. The patient was positioned prepped and draped. Pressure and contact points were protected. An appropriate timeout was conducted. Conduit [place] and Institution of Cardiopulmonary Bypass: A LEFT upper extremity incision was made and the left radial artery was procured using an endoscopic harvesting technique. The radial artery was prepared in the usual fashion and the incisions were closed in the usual manner. The conduit had ADEQUATE caliber size and ADEQUATE flow. A LEFT lower extremity incision was made and the greater saphenous vein was procured using an endoscopic vein harvesting technique. The vein was prepared in the usual fashion and the incisions were closed in the usual manner. The vein had ADEQUATE caliber size and ADEQUATE flow. Simultaneously, a median sternotomy was employed and the left internal mammary artery was harvestedin a skeletonized and pedicled fashion. The internal mammary artery had adequate caliber and flow. Prior to division of the left internal mammary artery, heparin was administered to obtain an ACT of greater than 400 seconds. The pericardium was open, marsupialized, and pursestrings were placed in preparation for central cannulation. Central cannulation progressed with a standard aortic cannula inthe distal ascending aorta, a cardioplegia needle in the proximal ascending aorta and a multistage venous cannula via the right atrium into the inferior vena cava. Once cardiopulmonary bypass had been established examination of the heart, the coronary arteries, and overall anatomy was undertaken. Bypass graft length measurements were obtained with a heart full to adequately engaged the length of the bypass grafts. Subsequently, the aorta was crossclamped and cardioplegia was administered. A minimum of 1 L of cardioplegia was initially administered and then intermittent aliquots of cold blood were given between each distal anastomosis. Coronary Artery Bypass Grafting: All DISTAL ANASTOMOSES were performed first in a similar fashion as follows: The target coronary artery was identified, an arteriotomy was performed, and the bypass conduit was grafted end-to-side with a running 7-0 Prolene suture in an open fashion. Each anastomosis was probed prior to completion with a 1.5 mm probe to assure patency and then infused with saline at the conclusion of the anastomosis to assure adequate flow. Once we had weaned off cardiopulmonary bypass, all bypass conduits wereinterrogated with a Doppler to assure excellent flow. Bypass #1: Reverse saphenous vein graft grafted to the second diagonal coronary artery. The target coronary artery was ADEQUATE and the graft had ADEQUATE caliber. This anastomosis proceeded smoothly and there was good flow. Bypass #2: The radial artery was grafted to the first diagonal coronary artery. The target coronary artery was ADEQUATE and the graft had ADEQUATE caliber. This anastomosis proceeded smoothly and there was good flow. Bypass #3: Pedicled and skeletonized left internal mammary artery grafted to the mid left anterior descending coronary artery The target coronary artery was ADEQUATE and the graft had ADEQUATE caliber. This anastomosis proceeded smoothly and there was good flow. A hotshot was administered and the cross-clamp was removed. A partial occluding clamp was placed onthe ascending aorta and proximal anastomoses were constructed end-to-side with the ascending aorta.The conduits were grafted end-to-side with a running 6-0 Prolene suture. Care was taken to avoid kinking or twisting of the conduits. Adequate tension was visualized. Radiopaque markers (hemoclips) we re placed on each proximal anastomosis. Inspection of all anastomoses was undertaken prior to weaning from cardiopulmonary bypass. Weaning and Separation from Cardiopulmonary Bypass and Closure: We weaned and from cardiopulmonary bypass. Support with vasoactive agents was NOT NEEDED. Once adequate cardiac function had been identified, protamine was administered. Decannulation ensued and purse strings were secured. Temporary pacing wires were applied. Chest tubes were inserted in the mediastinum and EACH pleural space. Once hemostasis was achieved ,we proceeded with closure. The sternum was reapproximated [id number] wires and the overlying tissues were closed in multiple layers. The patient was transported to the intensive care unit in serious but stable condition. documented in this [facility]02-13-2024 Note* Care Coordination - Unknown Case Management - 04/02/2023 1:50 PM EST Patient Choice Patient Name: CHIVO LIVINGSTON Date of : 1960 All Providers Sent Referral Name: [facility] Phone: [phone] Address: [address] [place] [id number] [id number]* Care Coordination - Unknown Case Management - 04/02/2023 1:50 PM EST Patient Choice Patient Name: CHIVO LIVINGSTON Date of : 1960 All Providers Sent Referral Name: [facility] Phone: [phone] Address: [address] [place] [id number] [id number]* Home Care - Katja Peterson RN - 04/02/2023 1:33 PM EST Start PACC Note Home Health Referral Educated patient and Adry on Home Care and services available. Patient offered choice of available HHC and agreeable to SN services with [facility]. Care Types: [facility] Isolation Precautions: No active isolations Social Determinates of Health: Tobacco Use: Low Risk (03/28/2023) Patient History Smoking Tobacco Use: Never Smokeless Tobacco Use: Never Passive Exposure: Not on file Social History Substance and Sexual Activity Alcohol Use Not Currently Social History Substance and Sexual Activity Drug Use Not Currently Does the patient have any financial resource strain? No Does the patient have any food insecurities? No Does the patient have any housing instabilities? No If any of the above is noted as yes - consider a CAKE PULLER evaluation once the patient returns home. START PATIENT REGISTRATION INFORMATION Order Information Order Signing Physician: Rambo Starkey MD Service Ordered RN ?: Yes Service Ordered PT ?: No Service Ordered OT ?: No Service Ordered ST ?: No Service Ordered CAKE PULLER?:No Service Ordered LABOR CREW SUPERVISOR?: No Following Physician: Rambo Starkey MD Following Physician Overseeing Physician: Rambo Starkey MD (Required for Residents only) Agreeable to Follow? Yes Date/Time of Call 04/02/23 1:33 PM, Spoke with: cabg protocol Care Coordination Same Day SOC?: No Primary Care Physician: Suzi Encarnacion Primary Care Physician Primary Care Physician Address: [address] [place] [address] / [place] [address] Visit Instructions: N/A Service Discharge Location Type: Home with Home Health Care Service Facility Name: N/A Service Floor Facility: N/A Service Room No: N/A Demographics Patient Last Name: Arron Patient First Name: Chivo Language/Communication Barrier: no Service Address: [address] [place] [address] Service City: [facility] ST: [place] Service ZIP: [address] Service (home) Other phone numbers: No relevant phone numbers on file. Emergency Contact: Extended Emergency Contact Information Primary Emergency Contact: Adry Livingston Mobile Relation: Spouse Preferred language: [employer] Consultant needed? 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 Do you have any upper respiratory symptoms (cough, SOB, Fever)? No 2. Have you been exposed to anyone with COVID-19 Virus? No Answer only if pending or positive for COVID-19? 1. Agreeable to wear PPE at each visit? No 2. Is the hospital supplying them with PPE upon Discharge? No Start PACC Summary General Report/ Additional Comments CABG Surgical site care: -Surgical incisions leave open to air, cleanse daily with mild soap & warm water, pat dry, no lotion or powders on incision. Respiratory Care: -Cough and Deep Breath; Use incentive spirometry 10 times every hour while awake for 2 weeks. Additional Orders: -Sternal precautions (no lifting, pushing, pulling >10 lbs) for 6 weeks-use heart pillow -Vitals per home health protocol-call for fever and chills -Daily weights- call for weight gain: 2-3lbs in one day; 5lbs in 3 days. -Wear TEDs during day and off at night. Activity/Weight Bearing: -Up with assistance: up in chair for all meals, ambulate 3-4 times a day -Stretching exercises per PT discharge instructions Discharge Date: pending Referral Source-PACC: (Hospital/Unit): [facility] / T1-119/T1-119 A End PACC Note [id number]* Home Care - Katja Peterson RN - 04/02/2023 1:33 PM EST Start PACC Note Home Health Referral Educated patient and Adry on Home Care and services available. Patient offered choice of available HHC and agreeable to SN services with [facility]. Care Types: [facility] Isolation Precautions: No active isolations Social Determinates of Health: Tobacco Use: Low Risk (03/28/2023) Patient History Smoking Tobacco Use: Never Smokeless Tobacco Use: Never Passive Exposure: Not on file Social History Substance and Sexual Activity Alcohol Use Not Currently Social History Substance and Sexual Activity Drug Use Not Currently Does the patient have any financial resource strain? No Does the patient have any food insecurities? No Does the patient have any housing instabilities? No If any of the above is noted as yes - consider a CAKE PULLER evaluation once the patient returns home. START PATIENT REGISTRATION INFORMATION Order Information Order Signing Physician: Rambo Starkey MD Service Ordered RN ?: Yes Service Ordered PT ?: No Service Ordered OT ?: No Service Ordered ST ?: No Service Ordered CAKE PULLER?:No Service Ordered LABOR CREW SUPERVISOR?: No Following Physician: Rambo Starkey MD Following Physician Overseeing Physician: Rambo Starkey MD (Required for Residents only) Agreeable to Follow? Yes Date/Time of Call 04/02/23 1:33 PM, Spoke with: cabg protocol Care Coordination Same Day SOC?: No Primary Care Physician: Suzi Encarnacion Primary Care Physician Primary Care Physician Address: [address] [place] [address] / [place] [address] Visit Instructions: N/A Service Discharge Location Type: Home with Home Health Care Service Facility Name: N/A Service Floor Facility: N/A Service Room No: N/A Demographics Patient Last Name: Arron Patient First Name: Chivo Language/Communication Barrier: no Service Address: [address] [place] [address] Service City: [facility] ST: [place] Service ZIP: [address] Service (home) Other phone numbers: No relevant phone numbers on file. Emergency Contact: Extended Emergency Contact Information Primary Emergency Contact: Adry Livingston Mobile Relation: Spouse Preferred language: [employer] Consultant needed? 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 Do you have any upper respiratory symptoms (cough, SOB, Fever)? No 2. Have you been exposed to anyone with COVID-19 Virus? No Answer only if pending or positive for COVID-19? 1. Agreeable to wear PPE at each visit? No 2. Is the hospital supplying them with PPE upon Discharge? No Start PACC Summary General Report/ Additional Comments CABG Surgical site care: -Surgical incisions leave open to air, cleanse daily with mild soap & warm water, pat dry, no lotion or powders on incision. Respiratory Care: -Cough and Deep Breath; Use incentive spirometry 10 times every hour while awake for 2 weeks. Additional Orders: -Sternal precautions (no lifting, pushing, pulling >10 lbs) for 6 weeks-use heart pillow -Vitals per home health protocol-call for fever and chills -Daily weights- call for weight gain: 2-3lbs in one day; 5lbs in 3 days. -Wear TEDs during day and off at night. Activity/Weight Bearing: -Up with assistance: up in chair for all meals, ambulate 3-4 times a day -Stretching exercises per PT discharge instructions Discharge Date: pending Referral Source-PACC: (Hospital/Unit): [facility] / / A End PACC Note [id number]* Care Coordination - Sridevi Farrell RN - 04/02/2023 1:22 PM EST Spoke with patient and at bedside, anticipate discharge later today. Aware [place] will set up home care, no DME needed, all questions answered. [id number] [facility]* Care Coordination - Sridevi Farrell RN - 04/02/2023 1:22 PM EST Spoke with patient and at bedside, anticipate discharge later today. Aware [place] will set up home care, no DME needed, all questions answered. [id number] NoteOCCUPATIONAL THERAPY [facility] Initial Evaluation Name/MRN: Chivo Livingston ([id number]) Evaluation Date: 04/02/2023 Date of : 1960 Admission Date: 03/28/2023 1:14 PM Age: 62 y.o. Room/Bed: / A Discharge Recommendation: Home with assist PRN Equipment Needed: No Assessment IMPRESSION: Patient is a 62-year-old male hospitalized s/p CABG x 3 on 03/29. Patient is functionally independent with self-care tasks and functional mobility at baseline. Patient is limited by the deficits listed below. Patient is Modified Independent for UB ADLs, Modified Independent LB ADLs and Modified Independent toileting. Patient is Modified Independent for transfers/functional mobility. Recommending Home with Assist PRN upon discharge. Performance Deficits /Impairments: N/A Prognosis: Good Decision Making: Low Complexity Subjective Patient sitting in recliner; patient agreeable to therapy evaluation. Pain: RN managing pain. Past Medical History: Past Medical History: Diagnosis Date Coronary artery disease HTN (hypertension) Past Surgical History: Past Surgical History: Procedure Laterality Date APPENDECTOMY EYE SURGERY Admission Diagnosis: Patient Active Problem List Diagnosis Date Noted CAD in naknek artery 03/28/2023 Medical Precautions: No active isolations Proper PPE donned/doffed in accordance with facility standards. Fall Risk: Cates Fall Risk Score: 35 (Medium Risk) Precautions/Restrictions: Sternal Precautions: No Pushing, No Pulling, No Lifting Greater Than 10 lbs Lines/Drains/Airways: PIV Family/Caregiver Present: none Overall Cognitive Status: WNL Overall Orientation Status: Oriented x4 Social/Functional History Patient admitted from home. Lives With: Spouse Type of Home: single family home Home Layout: Single Level Home Home Access: Stairs to Enter with Rails (# of stairs: 5-8) Bathroom Shower/Tub: WIS with access to shower chair Toilet: N/A Home Equipment: none Homemaking Responsibilities: Independent Receives Help From: Spouse Active Bark Press Operator: Yes Prior Level of Function ADL Assistance: Independent Ambulation Assistance: Independent Transfer Assistance: Independent Objective ADLs LE Dressing: Modified Independent, donning/doffing socks using figure four method Upper Extremity Assessment AROM: WFL PROM: WFL Strength: WFL Vision: no visual deficits Hearing: normal Bed Mobility NT- patient in recliner pre/post therapy evaluation Transfers/Functional Mobility Sit to stand: Modified Independent Stand to sit: Modified Independent Toilet: Modified Independent Sitting balance: Modified Independent Standing balance: Modified Independent Functional mobility: Modified Independent Patient OR with transfers and ambulation. Good follow through of sternal precautions with transfer on/off commode. Patient with FAIR+ standing balance and tolerance. No LOB noted. Device(s) used: none AM-PAC AM-PAC Inpatient Daily Activity Raw Score: 24 ADL Inpatient CMS G-Code Modifier: CH Plan No skilled acute OT indicated at this time. Please reconsult should changes occur. Safety/Education Safety Safety Devices in place: All fall risk precautions in place, call light within reach, left in chair, and nurse notified Restraints: No Education Education Given To: patient Education Provided: OT Role, Plan of Care, Precautions, and Discharge Recommendations Education Method: Verbal Barriers to Learning: None Education Outcome: Verbalized Understanding Goals Patient Stated Goal: to go home Therapy Time Individual Co-treatment Time In 1029 Time Out 1039 Minutes 10 Jany Sanchez OT Patient's Occupational Therapy Plan of Care supervision is transferred to a [facility] Services Occupational Therapist. Goals and/or treatment plan was established in collaboration with patient/family/other representatives.[facility]02-13-2024 History of Present illness Narrative* Jany Sanchez OT - 04/02/2023 10:39 AM EST Images from the original note were not included. OCCUPATIONAL THERAPY [facility] Initial Evaluation Name/MRN: Chivo Livingston ([id number]) Evaluation Date: 04/02/2023 Date of : 1960 Admission Date: 03/28/2023 1:14 PM Age: 62 y.o. Room/Bed: T1-119/T1-119 A Discharge Recommendation: Home with assist PRN Equipment Needed: No Assessment IMPRESSION: Patient is a 62-year-old male hospitalized s/p CABG x 3 on 03/29. Patient is functionallyindependent with self-care tasks and functional mobility at baseline. Patient is limited by the deficits listed below. Patient is Modified Independent for UB ADLs, Modified Independent LB ADLs and Modified Independent toileting. Patient is Modified Independent for transfers/functional mobility. Recommending Home with Assist PRN upon discharge. Performance Deficits /Impairments: N/A Prognosis: Good Decision Making: Low Complexity Subjective Patient sitting in recliner; patient agreeable to therapy evaluation. Pain: RN managing pain. Past Medical History: Past Medical History: Diagnosis Date Coronary artery disease HTN (hypertension) Past Surgical History: Past Surgical History: Procedure Laterality Date APPENDECTOMY EYE SURGERY Admission Diagnosis: Patient Active Problem List Diagnosis Date Noted CAD in naknek artery 03/28/2023 Medical Precautions: No active isolations Proper PPE donned/doffed in accordance with facility standards. Fall Risk: Cates Fall Risk Score: 35 (Medium Risk) Precautions/Restrictions: Sternal Precautions: No Pushing, No Pulling, No Lifting Greater Than 10 lbs Lines/Drains/Airways: PIV Family/Caregiver Present: none Overall Cognitive Status: WNL Overall Orientation Status: Oriented x4 Social/Functional History Patient admitted from home. Lives With: Spouse Type of Home: single family home Home Layout: Single Level Home Home Access: Stairs to Enter with Rails (# of stairs: 5-8) Bathroom Shower/Tub: WIS with access to shower chair Toilet: N/A Home Equipment: none Homemaking Responsibilities: Independent Receives Help From: Spouse Active Bark Press Operator: Yes Prior Level of Function ADL Assistance: Independent Ambulation Assistance: Independent Transfer Assistance: Independent Objective ADLs LE Dressing: Modified Independent, donning/doffing socks using figure four method Upper Extremity Assessment AROM: WFL PROM: WFL Strength: WFL Vision: no visual deficits Hearing: normal Bed Mobility NT- patient in recliner pre/post therapy evaluation Transfers/Functional Mobility Sit to stand: Modified Independent Stand to sit: Modified Independent Toilet: Modified Independent Sitting balance: Modified Independent Standing balance: Modified Independent Functional mobility: Modified Independent Patient OR with transfers and ambulation. Good follow through of sternal precautions with transfer on/off commode. Patient with FAIR+ standing balance and tolerance. No LOB noted. Device(s) used: none AM-PAC AM-PAC Inpatient Daily Activity Raw Score: 24 ADL Inpatient CMS G-Code Modifier: CH Plan No skilled acute OT indicated at this time. Please reconsult should changes occur. Safety/Education Safety Safety Devices in place: All fall risk precautions in place, call light within reach, left in chair, and nurse notified Restraints: No Education Education Given To: patient Education Provided: OT Role, Plan of Care, Precautions, and Discharge Recommendations Education Method: Verbal Barriers to Learning: None Education Outcome: Verbalized Understanding Goals Patient Stated Goal: to go home Therapy Time Individual Co-treatment Time In 1029 Time Out 1039 Minutes 10 Jany Sanchez OT Patient's Occupational Therapy Plan of Care supervision is transferred to a [facility] Occupational Therapist. Goals and/or treatment plan was established in collaboration with patient/family/other representatives. * Vita Hanna, WET PRESS TENDER - 04/02/2023 9:26 AM EST Images from the original note were not included. PHYSICAL THERAPY [facility] Treatment Note Name/MRN: Chivo Livingston ([id number]) Date of : 1960 Age: 62 y.o. Room/Bed: T1-119/T1-119 A Discharge Recommendation: Home with assist PRN Equipment Needed: No Prior Level of Function ADL Assistance: Independent Ambulation Assistance: Independent Transfer Assistance: Independent Assessment Pt at supervision level for all mobility. No LOB. Pt compliant with sternal precautions. Pt progressing toward all PT goals. Recommend home with PRN assist at discharge. Subjective Pt sitting up in the chair, agrees to PT. Pain: 0-10 pain scale: 3/10 Location: chest/incision Medical Precautions: No active isolations Proper PPE donned/doffed in accordance with facility standards. Fall Risk: Cates Fall Risk Score: 35 (Medium Risk) Precautions/Restrictions: Sternal Precautions: No Pushing, No Pulling, No Lifting Greater Than 10 lbs and Keep your move in the tube. tele Overall Cognitive Status: WNL Overall Orientation Status: Oriented x4 Family/Caregiver Present: none Objective Ambulation Ambulation 1 Assistive device(s) used: none Assist level: Supervision Distance (ft): 350 ft Quality of gait: No LOB Transfers/Mobility Sit to stand: Supervision Stand to sit: Supervision Exercises Exercises Upper Extremity: P&C exercises # 1-9 x 10 reps each Bed Mobility Supine to sit: Supervision Sit to supine: Supervision Rolling to right: Supervision Stairs Stairs 1 Assistive device(s) used: none Assist level: Supervision # of steps: 8 Rails: right Additional factors: reciprocal going up, reciprocal going down Plan Continue acute PT per plan of care. Safety/Education Safety Safety Devices in place: call light within reach, left in chair, nurse notified, and no alarms engaged upon entry Restraints: No Education Education Given To: patient Education Provided: PT Role, PT Goals, Gait Training, Plan of Care, Home Exercise Program, Precautions, Transfer Training, and Discharge Recommendations Education Method: Verbal and Printed Information Barriers to Learning: None Education Outcome: Verbalized Understanding and Demonstrated Understanding Outcome Measures AM-PAC AM-PAC Inpatient Mobility Raw Score : 24 AM-PAC Inpatient Mobility Raw Score (No Stairs) : 20 JH-HLM -HLM Score: Walked 250 ft or more (i.e. several laps on unit) Goals Patient Stated Goal: To go home. Encounter Problems Encounter Problems (Active) Cardiac Patient will perform bed mobility with modified independence in order to improve independence and prepare for out of bed mobility. (Progressing) Start: 04/01/23 Expected End: 04/29/23 Patient will complete sit to stand transfer with independence to none in order to improve safety and prepare for out of bed mobility. (Progressing) Start: 04/01/23 Expected End: 04/29/23 Patient will ambulate 350 feet or ambulate 5 minutes with modified independence with RPE of 14 or lower. (Progressing) Start: 04/01/23 Expected End: 04/29/23 Patient will ascend and descend 5 # stairs with modified independence rail for balance only. (Progressing) Start: 04/01/23 Expected End: 04/29/23 Patient will be independent with P&C exercises. (Progressing) Start: 04/01/23 Expected End: 04/29/23 Patient will be independent with managing secretions and home walking program. (Progressing) Start: 04/01/23 Expected End: 04/29/23 Pain - Adult Therapy Time Individual Co-treatment Time In 0855 Time Out 0920 Minutes 25 Timed Code Treatment Minutes: (GT, TP) Vita Hanna PTA * Jim Dalton PT - 04/01/2023 11:27 AM EST Images from the original note were not included. PHYSICAL THERAPY [facility] Initial Evaluation Name/MRN: Chivo Livingston ([id number]) Evaluation Date: 04/01/2023 Date of : 1960 Admission Date: 03/28/2023 1:14 PM Age: 62 y.o. Room/Bed: T1-119/T1-119 A Discharge Recommendation: Home with assist PRN Equipment Needed: No Assessment IMPRESSION: Pt ambulated functional distance. Noted gait deviation but no overt LOB. Denied shortness of breath after gait. Anticipate discharge to home with assist as needed. Diagnosis: CAD, s/p CABG x 3 Prognosis: good Performance Deficits /Impairments: Increased Pain, Decreased Functional Mobility, and Decreased Endurance Decision Making: Low Complexity Subjective Pt sitting on chair, agree with PT treatment. RN cleared for PT. Pain: [place]is[place] Pain Ratin = Hurts a little bit Pain Location: incision Past Medical History: Past Medical History: Diagnosis Date Coronary artery disease HTN (hypertension) Past Surgical History: Past Surgical History: Procedure Laterality Date APPENDECTOMY EYE SURGERY Admission Diagnosis: Patient Active Problem List Diagnosis Date Noted CAD in [place] artery 03/28/2023 Medical Precautions: No active isolations Proper PPE donned/doffed in accordance with facility standards. Fall Risk: Cates Fall Risk Score: 45 (High Risk) Precautions/Restrictions: Sternal Precautions: No Pushing, No Pulling, No Lifting Greater Than 10 lbs and Keep your move in the tube. tele Family/Caregiver Present: spouse Overall Cognitive Status: WNL Overall Orientation Status: Oriented x4 Vision: not assessed this session Hearing: normal Social/Functional History Patient admitted from home. Lives With: Spouse Type of Home: single family home Home Layout: Single Level Home Home Access: Stairs to Enter with Rails (# of stairs: 5-8) Bathroom Shower/Tub: Toilet: N/A Home Equipment: none Homemaking Responsibilities: Independent Receives Help From: Spouse Active Bark Press Operator: Yes Prior Level of Function ADL Assistance: Independent Ambulation Assistance: Independent Transfer Assistance: Independent Objective Lower Extremity Assessment AROM: WNL PROM: WNL Strength: WFL Bed Mobility: NA Transfers Sit to stand: Supervision Stand to sit: Supervision Ambulation Ambulation 1 Assistive device(s) used: none Assist level: SBA Distance (ft): 250 Quality of gait: No LOB, slow augustine, path deviations Balance: Posture: fair Sitting - Static: Modified Independent Sitting - Dynamic: Modified Independent Standing - Static: Supervision Standing - Dynamic: Supervision Outcome Measures AM-PAC How much HELP from another person do you currently need Turning from your back to your side while in a flat bed without using bedrails?: A Little Moving from lying on your back to sitting on the side of a flat bed without using bedrails?: None Moving to and from a bed to a chair (including a wheelchair)?: None Standing up from a chair using your arms (wheelchair or bedside chair)?: None Walking in a hospital room?: None Stair climbing assessed?: No AM-PAC Inpatient Mobility Raw Score (No Stairs) : 19 JH-HLM -HLM Score: Walked 250 ft or more (i.e. several laps on unit) Plan Pt would benefit from skilled acute PT services to address Strengthening, Balance Training, Functional Mobility Training, Endurance Training, Gait Training, Stair Training, and chest PT . Frequency: 5x/week for 4 weeks Barriers: Pain and Decreased endurance Safety/Education Safety Safety Devices in place: left in chair, nurse notified, no alarms engaged upon entry, and spouse present Restraints: No Education Education Given To: patient Education Provided: PT Role, PT Goals, Plan of Care, Precautions, and Energy Conservation Education Method: Verbal Barriers to Learning: None Education Outcome: Verbalized Understanding and Continued Education Needed Goals Patient Stated Goal: To go home. Encounter Problems Encounter Problems (Active) Cardiac Patient will perform bed mobility with modified independence in order to improve independence and prepare for out of bed mobility. Start: 04/01/23 Expected End: 04/29/23 Patient will complete sit to stand transfer with independence to none in order to improve safety and prepare for out of bed mobility. Start: 04/01/23 Expected End: 04/29/23 Patient will ambulate 350 feet or ambulate 5 minutes with modified independence with RPE of 14 or lower. Start: 04/01/23 Expected End: 04/29/23 Patient will ascend and descend 5 # stairs with modified independence rail for balance only. Start: 04/01/23 Expected End: 04/29/23 Patient will be independent with P&C exercises. Start: 04/01/23 Expected End: 04/29/23 Patient will be independent with managing secretions and home walking program. Start: 04/01/23 Expected End: 04/29/23 Pain - Adult Therapy Time Individual Co-treatment Time In 1055 Time Out 1113 Minutes 18 iJm Dalton PT Patient's Physical Therapy Plan of Care supervision is transferred to a [facility] Physical Therapist. Goals and/or treatment plan was established in collaboration with patient/family/other representatives. * Timmy Niño, DIDI - WELFARE WORKER - 04/01/2023 9:04 AM EST Images from the original note were not included. Cardiothoracic Surgery Note PATIENT NAME: Chivo Livingston : 1960 (62 y.o.) TODAY'S DATE: 04/01/2023 Objective: BP 136/82 (BP Location: Right arm, Patient Position: Lying) Pulse 97 Temp 37 C (98.6 F) (Temporal) Resp 18 Ht 5' 6 (1.676 m) Wt 163 lb 12.8 oz (74.3 kg) SpO2 97% BMI 26.44 kg/m Chest tubes assessed: no air leak, subcutaneous air noted. Chest tubes removed without difficulty and dressing applied. Patient tolerated well. Patient and nurse educated on possible complications toobserve for. Will continue to monitor. * DIDI Koch CNP - 04/01/2023 6:13 AM EST Images from the original note were not included. Cardiothoracic Surgery/[facility] Progress Note PATIENT NAME: Chivo Livingston DATE: 04/01/23 HPI: 62 yo male with PMH of HTN, HPL, MIKAELA on CPAP, post-covid lung disease, DVT (no longer on anticoagulation), BPH, GERD. He was admitted with worsening angina for which he had a CTA and Stress test as an OP. He then saw Dr. Jaeger in [place] for a heart cath and was found to have MVCAD, ostial LAD, diag 1, diag2, and prox OM. He was sent to [facility] for CABG eval. He does have a family hx of CAD in his father and brother (both in 50s). On 03/29/23 he presents for CABG as an OP. Surgery/Procedure: 03/29/23 Starkey: CABGx 3 Left radial Left leg harvest (Official Report Pending) Interval History: 04/01/23, POD# 03: Afebrile, NSR on tele, BP stable, on RA. Sitting up in chair this AM, pain tolerable, mostly noted around chest tube sites. No BM yet but passing gas. Walking unit with nursing, states last walk was without walker. No acute issues overnight. Review of Systems Constitutional: Negative for chills, diaphoresis and fever. Respiratory: Negative for cough, shortness of breath and wheezing. Cardiovascular: Negative for palpitations and leg swelling. Gastrointestinal: Negative for abdominal distention, abdominal pain, nausea and vomiting. Neurological: Negative for dizziness and light-headedness. Objective: CT output cc/24hrs: 130 UO cc/24hrs: 2,855 Vitals: BP: 136/82, MAP (mmHg): 99, BP Method: Automatic Heart Rate: 97 Resp: 18 Temp: 37 C (98.6 F), Temp Source: Temporal BMI (Calculated): 26.45 BMP: Recent Labs 03/29/23 1130 03/30/23 0009 03/31/23 0245 04/01/23 0154 NA 139 137 137 139 K 3.9 5.0 3.6 3.6 CL 109* 106 101 99 CO2 22 25 30 32* BUN 17 16 19 25* CREATININE 0.92 1.08 1.11 1.04 CALCIUM 8.3* 8.1* 8.4 8.9 MG 3.7* 2.3 2.1 -- PHOS 2.6 -- -- -- CBC: Recent Labs 03/30/23 00003/31/23 0245 04/01/23 0154 WBC 9.6 8.3 7.9 HGB 10.3* 10.1* 11.5* HCT 30.0* 29.6* 32.9* PLT 202 150 200 MCV 84.0 84.9 83.2 RDW 13.8 13.7 13.8 INR: Recent Labs 03/29/23 1130 03/30/23 0009 03/31/23 0245 INR 1.3* 1.1 1.1 Physical Exam Vitals reviewed. Constitutional: General: He is not in acute distress. Appearance: He is not ill-appearing or diaphoretic. Neck: Comments: R central line. Cardiovascular: Rate and Rhythm: Regular rhythm. Tachycardia present. Pulses: Normal pulses. Heart sounds: No murmur heard. Pulmonary: Effort: Pulmonary effort is normal. Breath sounds: No wheezing, rhonchi or rales. Comments: Diminished in bases bilaterally. Abdominal: General: There is distension. Palpations: Abdomen is soft. Tenderness: There is no abdominal tenderness. Comments: Chest tubes. Musculoskeletal: General: No swelling. Skin: General: Skin is warm and dry. Capillary Refill: Capillary refill takes less than 2 seconds. Findings: Bruising present. Comments: MSI well approximated. No redness, warmth or drainage noted. Left radial site without drainage or hematoma. Neurological: General: No focal deficit present. Mental Status: He is alert and oriented to person, place, and time. Assessment: CAD S/P CABG x 3 HTN HLD Post operative Pulm Management: Normal Post-operative Course Post-operative Atrial Fibrillation: []Yes [x] No Plan: Patient Status: Telemetry Continue aspirin, statin and BB. -Increase metoprolol to 25mg BID today. -Titrate as BP tolerates. Low dose amlodipine for radial graft for total of 30 days. Continue PO pain regimen. Bowel regimen, add MOM today. -Can add lactulose tomorrow if no BM today. Encourage PO intake. Hold diuresis. Per chart -3.5L. Off O2. Will remove chest tubes today. Remove introducer later today. Progressive mobility, out of bed for meals. Endocrinology signed off. -No home going needs. PT/OT: Will need assessed. Pulmonary hygiene: IS and Acapella GI prophy: PO protonix DVT prophy:TEDs, SCDs, and Heparin SubQ Disposition: Progressing well. Likely can DC home by midweek. Central Line: [x]Yes [] No Arterial Line: []Yes [x] No Stratton: []Yes [x] No Restraints: []Yes [x] No Patient discussed and plan of day developed from multidisciplinary rounds between Cardiothoracic Surgery (Cardiothoracic Surgeon, TRINO) and Critical Care Attending Cardiac Core Medications: ASA, Statin, and BB EF: Normal (03/29/23) Blood Conservation: None noted in post-operative period Technical Staff Engineer: Dr. Jaeger * Bertha Buenrostro MD - 03/31/2023 1:22 PM EST Department of Internal Medicine Division of Endocrinology, Diabetes, & Metabolism Endocrinology Note Patient Name: Chivo Livingston : 1960 AGE: 62 y.o. Room/Bed: T1-119/T1-119 A Admission Date: 03/28/2023 Visit Date: 03/31/2023 Reason for Endocrine Consult: post-op glycemic management Provider/Team Requesting Consult: CTS PCP: Suzi Encarnacion Outpt Tmd Teacher Assistant: No ASSESSMENT: Stress/Post-op Hyperglycemia CAD s/p CABG HTN PLAN: - discontinue SS insulin - no need for regular glucose monitoring - counseled pt regarding nutrition - discussed importance of healthy lifestyle - on amlodipine and statin - will sign off ANTICIPATED ENDOCRINE HOME GOING RECOMMENDATIONS: Optimized for Discharge from Endocrine standpoint: yes Home Going Endocrine Rx Recommendations-- none Outpt Follow Up-- PCP SUBJECTIVE/HPI: CHIEF COMPLAINT: No chief complaint on file. 62 yo male with PMH of HTN, HPL, MIKAELA on CPAP, post-covid lung disease, DVT (no longer on anticoagulation), BPH, GERD, was taken for a heart cath on 03/28/23. Cath showed multivessel CAD; sent to [facility] for CABG eval. 03/29/2023 s/p CABG Patient with no history of hypoglycemia or diabetes Last A1c/glucose data: 5.5% Interim history -pt was up in the recliner -awake and alert -off NE drip -has not eaten BF; will try soup later -ate most of his dinner yesterday -no nausea/vomiting -having more chest discomfort; still has chest tubes -no SOB -BG stable Glucose Date/Time Value Ref Range Status 03/31/2023 12:39 PM 105 (H) 70 - 100 mg/dL Final 03/31/2023 08:24 AM 103 (H) 70 - 100 mg/dL Final 03/30/2023 05:53 PM 93 70 - 100 mg/dL Final 03/30/2023 12:28 PM 126 (H) 70 - 100 mg/dL Final 03/30/2023 10:03 AM 130 (H) 70 - 100 mg/dL Final 03/30/2023 09:04 AM 91 70 - 100 mg/dL Final Review of Systems ROS negative except for those mentioned in HPI. OBJECTIVE: Vitals: 03/31/23 1100 03/31/23 1126 03/31/23 1151 03/31/23 1200 BP: 112/71 109/64 BP Location: Patient Position: Pulse: 97 93 98 Resp: 18 Temp: 37 C (98.6 F) TempSrc: Temporal SpO2: 96% 96% 95% Weight: Height: 5' 6 (1.676 m) Physical Exam Vitals reviewed. Constitutional: General: He is awake. He is not in acute distress. Appearance: Normal appearance. Eyes: Conjunctiva/sclera: Conjunctivae normal. Cardiovascular: Rate and Rhythm: Normal rate. Comments: Chest tubes noted Chest incision intact Pulmonary: Effort: Pulmonary effort is normal. No respiratory distress. Abdominal: General: There is no distension. Musculoskeletal: General: No swelling or deformity. Neurological: General: No focal deficit present. Mental Status: He is alert. Psychiatric: Mood and Affect: Mood normal. Behavior: Behavior normal. 24 hour intake/output: Intake/Output Summary (Last 24 hours) at 03/31/2023 1322 Last data filed at 03/31/2023 1200 Gross per 24 hour Intake 488 ml Output 2670 ml Net -2182 ml Diet: Adult diet Regular; Low Fat/Low Chol/High Fiber/2 gm Na Medications (as per EMR): HomeMeds: No current outpatient medications Scheduled Meds:acetaminophen, 1,000 mg, Oral, q8h amLODIPine, 2.5 mg, Oral, Daily aspirin, 81 mg, Oral, Daily chlorhexidine, 15 mL, Mouth/Throat, BID furosemide, 40 mg, IntraVENous, BID heparin, 5,000 Units, SubCUTAneous, BID Lidocaine, 1 patch, Topical, Daily metoprolol tartrate, 12.5 mg, Oral, BID mupirocin, , Nasal, BID pantoprazole, 40 mg, Oral, qAM AC polyethylene glycol (PEG) 3350, 17 g, Oral, Daily rosuvastatin, 40 mg, Oral, Daily senna-docusate sodium, 2 tablet, Oral, Nightly sodium chloride 0.9%, 10 mL, IntraVENous, 2 times per day Continuous Infusions: PRN Meds:PRN medications: calcium gluconate, dextrose, dextrose, glucagon (rDNA), glucose, ipratropium-albuterol, magnesium hydroxide, naloxone, ondansetron ODT OR ondansetron, oxyCODONE OR oxyCODONE, potassium chloride CR, sodium chloride, sodium chloride 0.9% Diagnostic Workup: I reviewed pertinent Laboratory results, Radiographic results, and Other Clinical Notes at the timeof today's encounter. Labs: No components found for: LABA1C No components found for: EAG Lab Results Component Value Date NA 137 03/31/2023 K 3.6 03/31/2023 CL 101 03/31/2023 CO2 30 03/31/2023 BUN 19 03/31/2023 CREATININE 1.11 03/31/2023 GLUCOSE 101 (H) 03/31/2023 CALCIUM 8.4 03/31/2023 No results found for: CHLPL, CHOL No results found for: TRIG No results found for: HDL No results found for: LDLCALC No results found for: VLDL No results found for: CHOLHDLRATIO No results found for: [id number] No results found for: TSH, [id number], [id number], THYROIDAB Radiology reportsas per the Radiologist Radiology: POCT glucose meter Result Date: 03/29/2023 Performed by: [id number], [address] [place] [id number] CLIA ID: [id number] POCT glucose meter Result Date: 03/29/2023 Performed by: [id number], [address] [place] [id number] CLIA ID: [id number] XR chest 1 view Result Date: 03/29/2023 Patient Name: CHIVO LIVINGSTON : 1960 [facility]#: [id number] Date/Time: 03/29/2023 12:18 Procedure: XR CHEST 1 VIEW Ordering Provider: STEINBERG JENNIFER Reason For Exam: Post op open heart surgery EXAMINATION: CHEST RADIOGRAPH (SINGLE VIEW AP OR PA) Clinical History: Post op open heart surgery Comparison: Radiograph 03/28/2023 RESULT: See impression Lines, tubes, and devices: Interval placement of endotracheal tube which terminates 4.6 cm above the rachid. Interval placement of NG/OG tube which extends below the diaphragm, sidehole in the expected location of stomach and tip extending below the [id number]. Interval placement of right IJ approach central venous catheter with tip at the right atrium. Interval placement of bibasilar chest tubes and mediastinal drain. Multiple additional lines project over partially obscure the chest/epigastric region. Lungs and pleura: Lung volumes which results in crowding of bronchovascular pulmonary vasculature. Mild streaky bibasilar atelectasis. No consolidation. No sizable pleural effusion or pneumothorax. Cardiomediastinal silhouette: Stable enlarged cardiac silhouette.Atherosclerotic calcifications of the aortic arch. Interval median sternotomy for CABG. Other: Degenerative changes of the spine. Report Dictated on Electronically Signed By: MD Shane Currie Signed Date/Time: 03/29/2023 12:25 PM EST ECG 12 lead Sinus rhythm Ventricular premature complex Borderline T wave abnormalities POCT glucose meter Result Date: 03/29/2023 Performed by: [facility], [address] [place] [address] CLIA ID: [id number] ECG 12 lead Sinus rhythm Vascular US carotid artery duplex bilateral Result Date: 03/28/2023 <50% stenosis in the right internal carotid artery. Heterogeneous and calcific plaque (proximal)in the right internal carotid artery. <50% stenosis in the left internal carotid artery. Heterogeneous and calcific plaque (proximal) in the left internal carotid artery. Normal antegrade flow involving the right vertebral artery. Normal antegrade flow involving the left vertebral artery. Vascular US palmar arch evaluation Result Date: 03/28/2023 There are no changes to left PPG signals with radial artery compression indicative of a complete arch. No left wrist cuff utilized due to IV placement. Right arm and digits not assessed due to recentheart catherization via the right radial artery. Vascular US lower extremity vein mapping for bypass bilateral Result Date: 03/28/2023 Vessel diameters as noted in the table below. Bilateral Greater Saphenous Vein: Fully compressible. Transthoracic echocardiogram (TTE) complete with contrast, bubble, strain, and 3D PRN Result Date: 03/28/2023 Left Ventricle: Left ventricle size is normal. Normal wall thickness. Normal left ventricular systolic function. EF by 2D Simpsons Biplane is 63%. Normal wall motion. Normal diastolic function. RightVentricle: Right ventricle size is normal. Normal systolic function. No significant valvular abnormalities. XR chest 1 view Result Date: 03/28/2023 [facility] 1960 [id number] Date/Time: 03/28/2023 14:41 Procedure: XR CHEST 1 VIEW Ordering Provider: STEINBERG JENNIFER Reason For Exam: preop eval EXAMINATION: Portable chest INDICATION: preop eval FINDINGS: There is no focal consolidation, sizable pleural effusion or pneumothorax. The cardiac silhouette is enlarged. There is moderate calcification of the thoracic aorta. Small to moderate osteophytes of the spine arepresent at multiple levels. Cardiomegaly. Report Dictated on Electronically Signed By: Hernandez Gonzalez MD Electronically Signed Date/Time: 03/28/2023 2:50 PM EST History/Other: Past Medical History: Past Medical History: Diagnosis Date Coronary artery disease HTN (hypertension) Past Surgical History: Past Surgical History: Procedure Laterality Date APPENDECTOMY EYE SURGERY Allergy(ies): No Known Allergies Family History: No family history on file. Social History: Social History Tobacco Use Smoking status: Never Smokeless tobacco: Never Vaping Use Vaping Use: Never used Substance Use Topics Alcohol use: Not Currently Drug use: Not Currently Portions of the information within this encounter were entered using an electronic dictation system. Best attempts were made to edit/proofread the information prior to note completion. Despite the review of information, some errors may remain. If there are questions related to the information contained within the note please contact the signing physician directly. I spent 25 minutes with the pt which involved coordination of care, medical evaluation, review of records, and/or counseling of the pt regarding his/her condition/disease state/prognosis on the date of this note. * Melissa William RD - 03/31/2023 12:06 PM EST Nutrition Assessment Type and Reason for Visit: Patient Education (Open Heart Diet Edu) Nutrition Recommendations/Plan: Patient currently on a Regular; Low Fat/Low Chol/High Fiber/2 gm Na diet which is appropriate. Per MNT protocol, will initiate Ensure HP BID (8 oz provides 160 kcal, 16 g protein), as well as Sawyer 1x/day (1 pkt provides 90 kcal, 2.5 g protein, and 14 g aa) Please record % meal and oral nutrition supplement consumed in flow sheet for most accurate nutrient intake assessment Provided and reviewed Heart Healthy Diet materials. RD's contact information provided. Will continue to monitor weight changes, labs, and overall nutrition status. RD will continue to follow up weekly. Malnutrition Assessment: Malnutrition Status: No malnutrition Context: Acute Illness Findings of the 6 clinical characteristics of malnutrition: Energy Intake: No significant decrease in energy intake Weight Loss: No significant weight loss Body Fat Loss: No significant body fat loss Muscle Mass Loss: No significant muscle mass loss Fluid Accumulation: No significant fluid accumulation Camera Engineer Strength: Not Performed Nutrition Assessment: 62 yo male with PMH of HTN, HPL, MIKAELA on CPAP, post-covid lung disease, DVT (no longer on anticoagulation), BPH, GERD. He was admitted with worsening angina for which he had a CTA and Stress test as an OP. He then saw Dr. Jaeger in [place] for a heart cath and was found to have MVCAD, ostial LAD, diag 1, diag2, and prox OM. He was sent to [facility] for CABG eval. He does have a family hx of CAD in his father and brother (both in 50s). On 03/29/23 he presents for CABG as an OP. s/p CABGx 3 Left radial Left leg harvest. RD consulted for Open Heart Diet Edu. Pt currently on a Regular; Low Fat/Low Chol/High Fiber/2 gm Na diet. Pt reports appetite is getting better but has been dealing with some bouts of nausea. Pt reports typically eating three meals per day, at bedside stating she does the cooking at home. Pt packs lunches. usually consisting of a sandwich with lunch meat, cheeses, some type of fruit, maybe a cookie. RD discussed Heart Healthy Diet and recommended alternate options for certain food choices pt/ were making. Pt and very accepting to education and materials to take home. RD provided contact information as well. Pt reports UBW 160#, with no recent weight changes. Pt reports last BM 03/28/23. Pt accepting to Sawyer for wound healing and Chocolate Ensure. Estimated Daily Nutrient Needs: Energy Requirements Based On: Kcal/kg Weight Used for Energy Requirements: Kirk Weight for Energy Calculation (kg): 65 kg Total Energy Requirements (kcals/day): 2417-8616 kcal/day (25-30) Weight Used for Protein Requirements: Kirk Weight in Kg Used for Protein Requirements: 65 kg Estimated Total Protein (g/day): 72-85 g/day (1.1-1.3) Estimated Daily Total Fluid (ml/day): Per MD recommendations Nutrition Related Findings: Andrew: 20. I&O: -1065. Multiple surgical incisions. Labs: Glucose 103, Hgb 10.1, Hct 29.6. Meds: Lasix, Insulin, Lopressor, Miralax, Senokot, calcium gluconate Wound Type: Multiple, Surgical Incision Current Nutrition Therapies: Adult diet Regular; Low Fat/Low Chol/High Fiber/2 gm Na Current Oral Intake Average Meal Intake: 51-75% Average Supplements Intake: None Ordered Anthropometric Measures: Height: 167.6 cm (5' 6) Current Body Weight: 76.2 kg (168 lb) (03/31/23) Weight Source: Standing Scale Admission Body Weight: 73.5 kg (162 lb) Usual Body Weight: 72.6 kg (160 lb) % Weight Change (Calculated): 5 Kirk Body Weight (lbs) (Calculated): 142 lbs Kirk Body Weight (Kg) (Calculated): 65 kg % Kirk Body Weight (Calculated): 118.3 % BMI (kg/m2) (Calculated): 27.1 Weight Adjustment For: No Adjustment BMI Categories: Overweight (BMI 25.0-29.9) Nutrition Diagnosis: Increased nutrient needs related to (increased demand for wound healing) as evidenced by wounds Nutrition Interventions: Nutrition Education/Counseling: Education completed Coordination of Nutrition Care: Continue to monitor while inpatient Nutrition Education Educated on Heart Healthy Diet Learners: Patient and Significant Other Readiness: Eager Method: Explanation and Handout Response: Verbalizes Understanding Contact name and number provided. Goals: Goals: Meet at least 75% of estimated needs, by next RD assessment Nutrition Monitoring and Evaluation: Behavioral-Environmental Outcomes: None Identified Food/Nutrient Intake Outcomes: Food and Nutrient Intake, Supplement Intake Physical Signs/Symptoms Outcomes: Biochemical Data, Chewing or Swallowing, GI Status, Nausea or Vomiting, Skin, Weight, Constipation, Nutrition Focused Physical Findings, Hemodynamic Status, Fluid Status or Edema Discharge Planning: Too soon to determine Melissa William RD Contact: *[phone] * Mayo Alvarez MEDICAL OFFICE SUPERVISOR - WELFARE WORKER - 03/31/2023 10:03 AM EST Images from the original note were not included. Cardiothoracic Surgery/[facility] Progress Note PATIENT NAME: Chivo Livingston DATE: 03/31/23 HPI: 62 yo male with PMH of HTN, HPL, MIKAELA on CPAP, post-covid lung disease, DVT (no longer on anticoagulation), BPH, GERD. He was admitted with worsening angina for which he had a CTA and Stress test as an OP. He then saw Dr. Jaeger in [place] for a heart cath and was found to have MVCAD, ostial LAD, diag 1, diag2, and prox OM. He was sent to [facility] for CABG eval. He does have a family hx of CAD in his father and brother (both in 50s). On 03/29/23 he presents for CABG as an OP. Surgery: 03/29/23 Starkey: CABGx 3 Left radial Left leg harvest (Official Report Pending) Interval History: 03/31/23, POD#2 - pt doing well, CT are causing him pain on inspiration, he is in chair off oxygen,CXR and labs are stable. No new complaints Review of Systems Constitutional: Negative for diaphoresis, fatigue and fever. Respiratory: Negative for cough, shortness of breath and wheezing. Cardiovascular: Negative for chest pain, palpitations and leg swelling. Gastrointestinal: Negative for abdominal distention, constipation and diarrhea. Skin: Negative for color change, pallor and rash. Objective: Vitals: BP: 123/68, MAP (mmHg): 83, BP Method: Automatic Heart Rate: 98 Resp: 19 Temp: 36.9 C (98.4 F), Temp Source: Temporal BMI (Calculated): 27.2 Pacer Wires: capped CXR: BMP: Recent Labs 03/29/23 1130 03/30/23 0009 03/31/23 0245 NA 139 137 137 K 3.9 5.0 3.6 CL 109* 106 101 CO2 22 25 30 BUN 17 16 19 CREATININE 0.92 1.08 1.11 CALCIUM 8.3* 8.1* 8.4 MG 3.7* 2.3 2.1 PHOS 2.6 -- -- CBC: Recent Labs 03/29/23 1130 03/29/23 1611 03/30/23 0009 03/31/23 0245 WBC 8.4 -- 9.6 8.3 HGB 9.6* 10.7 10.3* 10.1* HCT 28.1* -- 30.0* 29.6* PLT 142 -- 202 150 MCV 83.2 -- 84.0 84.9 RDW 13.9 -- 13.8 13.7 INR: Recent Labs 03/29/23 1130 03/30/23 0009 03/31/23 0245 INR 1.3* 1.1 1.1 Physical Exam Cardiovascular: Rate and Rhythm: Normal rate and regular rhythm. Heart sounds: Normal heart sounds. No murmur heard. No friction rub. Pulmonary: Effort: Pulmonary effort is normal. Skin: General: Skin is warm and dry. Capillary Refill: Capillary refill takes less than 2 seconds. Findings: Bruising and ecchymosis present. Comments: MSCI intact CT sites intact Left radial arterial site Neurological: Mental Status: He is alert. Psychiatric: Behavior: Behavior is cooperative. Assessment: CAD S/P CABG x 3 EF preserved HTN HLD Post operative Pulm Management: Normal Post-operative Course Post-operative Atrial Fibrillation: []Yes [x] No Plan: Patient Status: ICU GDMT for CAD EF normal - asa - crestor - BB Amlodipine for Rad art graft Lasix 40 mg BID Bowel regiment PT/OT: TBD Pulmonary hygiene: IS and Acapella GI prophy: PO protonix DVT prophy:TEDs, SCDs, and Heparin SubQ Disposition: Central Line: [x]Yes [] No Arterial Line: []Yes [x] No Stratton: [x]Yes [] No Restraints: []Yes [x] No Patient discussed and plan of day developed from multidisciplinary rounds between Cardiothoracic Surgery (Cardiothoracic Surgeon, TRINO) and Critical Care Attending Cardiac Core Medications: ASA, Plavix, and BB EF: 60% 04/13 Blood Conservation: None noted in post-operative period Technical Staff Engineer: Dr. Jaeger * Bertha Buenrostro MD - 03/30/2023 10:55 AM EST Department of Internal Medicine Division of Endocrinology, Diabetes, & Metabolism Endocrinology Note Patient Name: Chivo Livingston : 1960 AGE: 62 y.o. Room/Bed: [facility]/[address] Admission Date: 03/28/2023 Visit Date: 03/30/2023 Reason for Endocrine Consult: post-op glycemic management Provider/Team Requesting Consult: CTS PCP: Suzi Encarnacion Outpt Tmd Teacher Assistant: No ASSESSMENT: Stress/Post-op Hyperglycemia CAD s/p CABG HTN PLAN: - transition to subcutaneous insulin today with Humalog SS - continue blood glucose monitoring - discussed postop hyperglycemia management and goals of therapy - patient will unlikely require any pharmacotherapy on discharge for hyperglycemia - carb control diet - on amlodipine and atorvastatin - will follow ANTICIPATED ENDOCRINE HOME GOING RECOMMENDATIONS: Optimized for Discharge from Endocrine standpoint: No Home Going Endocrine Rx Recommendations-- none Outpt Follow Up-- PCP SUBJECTIVE/HPI: CHIEF COMPLAINT: No chief complaint on file. 62 yo male with PMH of HTN, HPL, MIKAELA on CPAP, post-covid lung disease, DVT (no longer on anticoagulation), BPH, GERD, was taken for a heart cath on 03/28/23. Cath showed multivessel CAD; sent to [facility] for CABG eval. 03/29/2023 s/p CABG Patient with no history of hypoglycemia or diabetes Last A1c/glucose data: 5.5% Interim history -pt was up in the recliner -awake and alert -on minimal NE drip -had pancakes for BF -mild nausea earlier; no vomiting -no SOB -insulin drip 0-0.5/h -BG stable Glucose Date/Time Value Ref Range Status 03/30/2023 10:03 AM 130 (H) 70 - 100 mg/dL Final 03/30/2023 09:04 AM 91 70 - 100 mg/dL Final 03/30/2023 08:09 AM 108 (H) 70 - 100 mg/dL Final 03/30/2023 06:58 AM 106 (H) 70 - 100 mg/dL Final 03/30/2023 06:07 AM 93 70 - 100 mg/dL Final 03/30/2023 05:11 AM 108 (H) 70 - 100 mg/dL Final Review of Systems ROS negative except for those mentioned in HPI. OBJECTIVE: Vitals: 03/30/23 1031 03/30/23 1034 03/30/23 1040 03/30/23 1045 BP: BP Location: Patient Position: Pulse: 84 82 81 81 Resp: Temp: TempSrc: SpO2: (!) 89% 90% 92% 91% Weight: Height: Physical Exam Vitals reviewed. Constitutional: General: He is awake. He is not in acute distress. Appearance: Normal appearance. HENT: Head: Normocephalic. Eyes: Conjunctiva/sclera: Conjunctivae normal. Cardiovascular: Rate and Rhythm: Normal rate and regular rhythm. Comments: Chest tubes noted Chest incision intact Pulmonary: Effort: Pulmonary effort is normal. No respiratory distress. Abdominal: General: There is no distension. Palpations: Abdomen is soft. Musculoskeletal: General: No swelling. Neurological: General: No focal deficit present. Mental Status: He is alert. Psychiatric: Mood and Affect: Mood normal. Behavior: Behavior normal. 24 hour intake/output: Intake/Output Summary (Last 24 hours) at 03/30/2023 1055 Last data filed at 03/30/2023 1000 Gross per 24 hour Intake 4002 ml Output 3575 ml Net 427 ml Diet: Adult diet Regular; Low Fat/Low Chol/High Fiber/2 gm Na Medications (as per EMR): HomeMeds: No current outpatient medications Scheduled Meds:acetaminophen, 1,000 mg, Oral, q8h amLODIPine, 2.5 mg, Oral, Daily aspirin, 81 mg, Oral, Daily ceFAZolin, 2,000 mg, IntraVENous, q8h chlorhexidine, 15 mL, Mouth/Throat, BID furosemide, 40 mg, IntraVENous, BID heparin, 5,000 Units, SubCUTAneous, BID insulin lispro, 0-6 Units, SubCUTAneous, TID WC ketorolac, 15 mg, IntraVENous, q6h Lidocaine, 1 patch, Topical, Daily mupirocin, , Nasal, BID [START ON 03/31/2023] pantoprazole, 40 mg, Oral, qAM AC polyethylene glycol (PEG) 3350, 17 g, Oral, Daily rosuvastatin, 40 mg, Oral, Daily senna-docusate sodium, 2 tablet, Oral, Nightly sodium chloride 0.9%, 10 mL, IntraVENous, 2 times per day Continuous Infusions:norepinephrine, 0.01-0.2 mcg/kg/min, Last Rate: 0.01 mcg/kg/min (03/30/23 1000) PRN Meds:PRN medications: albumin human, calcium gluconate, dextrose, dextrose, glucagon (rDNA), glucose, ipratropium-albuterol, magnesium hydroxide, magnesium sulfate OR magnesium sulfate, norepinephrine, ondansetron ODT OR ondansetron, oxyCODONE OR oxyCODONE, perflutren protein A microsphere (Optison) 3 mL in sodium chloride (PF) 0.9 % 10 mL IV syringe, potassium chloride OR potassium chloride OR potassium chloride, potassium chloride CR, sodium chloride, sodium chloride 0.9% Diagnostic Workup: I reviewed pertinent Laboratory results, Radiographic results, and Other Clinical Notes at the timeof today's encounter. Labs: No components found for: LABA1C No components found for: EAG Lab Results Component Value Date NA 137 03/30/2023 K 5.0 03/30/2023 CL 106 03/30/2023 CO2 25 03/30/2023 BUN 16 03/30/2023 CREATININE 1.08 03/30/2023 GLUCOSE 129 (H) 03/30/2023 CALCIUM 8.1 (L) 03/30/2023 No results found for: CHLPL, CHOL No results found for: TRIG No results found for: HDL No results found for: LDLCALC No results found for: VLDL No results found for: CHOLHDLRATIO No results found for: [id number] No results found for: TSH, F2ORWBK, Y6HNCJC, THYROIDAB Radiology reportsas per the Radiologist Radiology: POCT glucose meter Result Date: 03/29/2023 Performed by: [facility], [address] [place], [place] [id number] CLIA ID: [id number] POCT glucose meter Result Date: 03/29/2023 Performed by: [id number], [address] [place] [id number] CLIA ID: [id number] XR chest 1 view Result Date: 03/29/2023 Patient Name: CHIVO LIVINGSTON : 1960 Date/Time: 03/29/2023 12:18 Procedure: XR CHEST 1 VIEW Ordering Provider: STEINBERG JENNIFER Reason For Exam: Post op open heart surgery EXAMINATION: CHEST RADIOGRAPH (SINGLE VIEW AP OR PA) Clinical History: Post op open heart surgery Comparison: Radiograph 03/28/2023 RESULT: See impression Lines, tubes, and devices: Interval placement of endotracheal tube which terminates 4.6 cm above the rachid. Interval placement of NG/OG tube which extends below the diaphragm, sidehole in the expected location of stomach and tip extending below the [id number]. Interval placement of right IJ approach central venous catheter with tip at the right atrium. Interval placement of bibasilar chest tubes and mediastinal drain. Multiple additional lines project over partially obscure the chest/epigastric region. Lungs and pleura: Lung volumes which results in crowding of bronchovascular pulmonary vasculature. Mild streaky bibasilar atelectasis. No consolidation. No sizable pleural effusion or pneumothorax. Cardiomediastinal silhouette: Stable enlarged cardiac silhouette.Atherosclerotic calcifications of the aortic arch. Interval median sternotomy for CABG. Other: Degenerative changes of the spine. Report Dictated on Electronically Signed By: MD Shane Currie Signed Date/Time: 03/29/2023 12:25 PM EST ECG 12 lead Sinus rhythm Ventricular premature complex Borderline T wave abnormalities POCT glucose meter Result Date: 03/29/2023 Performed by: [id number], [address] [place] [id number] CLIA ID: [id number] ECG 12 lead Sinus rhythm Vascular US carotid artery duplex bilateral Result Date: 03/28/2023 <50% stenosis in the right internal carotid artery. Heterogeneous and calcific plaque (proximal)in the right internal carotid artery. <50% stenosis in the left internal carotid artery. Heterogeneous and calcific plaque (proximal) in the left internal carotid artery. Normal antegrade flow involving the right vertebral artery. Normal antegrade flow involving the left vertebral artery. Vascular US palmar arch evaluation Result Date: 03/28/2023 There are no changes to left PPG signals with radial artery compression indicative of a complete arch. No left wrist cuff utilized due to IV placement. Right arm and digits not assessed due to recentheart catherization via the right radial artery. Vascular US lower extremity vein mapping for bypass bilateral Result Date: 03/28/2023 Vessel diameters as noted in the table below. Bilateral Greater Saphenous Vein: Fully compressible. Transthoracic echocardiogram (TTE) complete with contrast, bubble, strain, and 3D PRN Result Date: 03/28/2023 Left Ventricle: Left ventricle size is normal. Normal wall thickness. Normal left ventricular systolic function. EF by 2D Simpsons Biplane is 63%. Normal wall motion. Normal diastolic function. RightVentricle: Right ventricle size is normal. Normal systolic function. No significant valvular abnormalities. XR chest 1 view Result Date: 03/28/2023 Patient Name: CHIVO LIVINGSTON : 1960 Date/Time: 03/28/2023 14:41 Procedure: XR CHEST 1 VIEW Ordering Provider: STEINBERG JENNIFER Reason For Exam: preop eval EXAMINATION: Portable chest INDICATION: preop eval FINDINGS: There is no focal consolidation, sizable pleural effusion or pneumothorax. The cardiac silhouette is enlarged. There is moderate calcification of the thoracic aorta. Small to moderate osteophytes of the spine arepresent at multiple levels. Cardiomegaly. Report Dictated on Electronically Signed By: Hernandez Gonzalez MD Electronically Signed Date/Time: 03/28/2023 2:50 PM EST History/Other: Past Medical History: Past Medical History: Diagnosis Date Coronary artery disease HTN (hypertension) Past Surgical History: Past Surgical History: Procedure Laterality Date APPENDECTOMY EYE SURGERY Allergy(ies): No Known Allergies Family History: No family history on file. Social History: Social History Tobacco Use Smoking status: Never Smokeless tobacco: Never Vaping Use Vaping Use: Never used Substance Use Topics Alcohol use: Not Currently Drug use: Not Currently Portions of the information within this encounter were entered using an electronic dictation system. Best attempts were made to edit/proofread the information prior to note completion. Despite the review of information, some errors may remain. If there are questions related to the information contained within the note please contact the signing physician directly. I spent 35 minutes with the pt which involved coordination of care, medical evaluation, review of records, and/or counseling of the pt regarding his/her condition/disease state/prognosis on the date of this note. * Mayo Gale Alvarez APRN - WELFARE WORKER - 03/30/2023 10:44 AM EST Images from the original note were not included. Cardiothoracic Surgery/[facility] Progress Note PATIENT NAME: Chivo Livingston DATE: 03/30/23 HPI: 62 yo male with PMH of HTN, HPL, MIKAELA on CPAP, post-covid lung disease, DVT (no longer on anticoagulation), BPH, GERD. He was admitted with worsening angina for which he had a CTA and Stress test as an OP. He then saw Dr. Jaeger in [place] for a heart cath and was found to have MVCAD, ostial LAD, diag 1, diag2, and prox OM. He was sent to [facility] for CABG eval. He does have a family hx of CAD in his father and brother (both in 50s). On 03/29/23 he presents for CABG as an OP. Surgery: 03/29/23 Starkey: CABGx 3 Left radial Left leg harvest (Official Report Pending) Interval History: 03/30/23, POD#1 - pt sitting up in chair doing well, still requiring levophed and is also on nitro gtt for his radial graft. His pain is controlled, labs unremarkable, CXR clear. Review of Systems Constitutional: Negative for diaphoresis, fatigue and fever. Respiratory: Negative for cough, shortness of breath and wheezing. Cardiovascular: Negative for chest pain, palpitations and leg swelling. Gastrointestinal: Negative for abdominal distention, constipation and diarrhea. Skin: Negative for color change, pallor and rash. Objective: Vitals: BP: 94/56, MAP (mmHg): 69, BP Method: Arterial line Heart Rate: 91 Resp: 19 Temp: 36.1 C (97 F), Temp Source: Temporal BMI (Calculated): 27.45 Pacer Wires: capped CXR: BMP: Recent Labs 03/29/23 0409 03/29/23 1130 03/30/23 0009 NA 138 139 137 K 3.7 3.9 5.0 CL 105 109* 106 CO2 22 22 25 BUN 19 17 16 CREATININE 0.98 0.92 1.08 CALCIUM 8.6 8.3* 8.1* MG -- 3.7* 2.3 PHOS -- 2.6 -- CBC: Recent Labs 03/29/23 0409 03/29/23 1129 03/29/23 1130 03/29/23 1611 03/30/23 0009 WBC 7.1 -- 8.4 -- 9.6 HGB 14.8 < > 9.6* 10.7 10.3* HCT 42.5 -- 28.1* -- 30.0* PLT 237 -- 142 -- 202 MCV 82.7 -- 83.2 -- 84.0 RDW 13.7 -- 13.9 -- 13.8 < > = values in this interval not displayed. INR: Recent Labs 03/29/23 11303/30/23 0009 INR 1.3* 1.1 Physical Exam Cardiovascular: Rate and Rhythm: Normal rate and regular rhythm. Heart sounds: Normal heart sounds. No murmur heard. No friction rub. Pulmonary: Effort: Pulmonary effort is normal. Skin: General: Skin is warm and dry. Capillary Refill: Capillary refill takes less than 2 seconds. Findings: Bruising and ecchymosis present. Comments: MSCI intact CT sites intact Left radial arterial site re-dressed Neurological: Mental Status: He is alert. Psychiatric: Behavior: Behavior is cooperative. Assessment: CAD S/P CABG x 3 EF preserved HTN HLD Post operative Pulm Management: Normal Post-operative Course Post-operative Atrial Fibrillation: []Yes [x] No Plan: Patient Status: ICU GDMT for CAD EF normal - asa - crestor - Hold BB DC nitro gtt transition to amlodipine Wean oxygen and Levophed Lasix 40 mg BID PT/OT: TBD Pulmonary hygiene: IS and Acapella GI prophy: PO protonix DVT prophy:TEDs, SCDs, and Heparin SubQ Disposition: Central Line: [x]Yes [] No Arterial Line: [x]Yes [] No Stratton: [x]Yes [] No Restraints: []Yes [x] No Patient discussed and plan of day developed from multidisciplinary rounds between Cardiothoracic Surgery (Cardiothoracic Surgeon, TRINO) and Critical Care Attending Cardiac Core Medications: ASA, Plavix, and No BB due to hypotension EF: 60% 04/13 Blood Conservation: None noted in post-operative period Technical Staff Engineer: Dr. Jaeger * Barb Aquino RCP - 03/29/2023 2:41 PM EST Tolerated SBT well. Pt extubated to 4lpm NC. No distress or stridor noted at this time. documented in this [facility]02-13-2024 NoteCardiothoracic Surgery/[facility] Progress Note PATIENT NAME: Chivo Livingston DATE: 04/02/23 HPI: 62 yo male with PMH of HTN, HPL, MIKAELA on CPAP, post-covid lung disease, DVT (no longer on anticoagulation), BPH, GERD. He was admitted with worsening angina for which he had a CTA and Stress test as an OP. He then saw Dr. Jaeger in [place] for a heart cath and was found to have MVCAD, ostial LAD, diag 1, diag2, and prox OM. He was sent to [facility] for CABG eval. He does have a family hx of CAD in his father and brother (both in 50s). On 03/29/23 he presents for CABG as an OP. Surgery/Procedure: 03/29/22: CABG x3 (JACOBSEN-LAD, radial-D1, SVG-D2), LLE EVH, L radial endoscopic harvest, MARILEE with Dr. Starkey Interval History: 04/02/23, POD# 4: VSS overnight, Afebrile, NSR on tele, on RA. Walking laps in hallway with standby assist. +BM yesterday. Doing very well, would like to work with therapy today and will talk with about discharge. Review of Systems Constitutional: Positive for activity change and fatigue. Negative for appetite change, diaphoresis and fever. Respiratory: Negative for cough, shortness of breath and wheezing. Cardiovascular: Negative for chest pain, palpitations and leg swelling. Gastrointestinal: Negative for abdominal distention, constipation and diarrhea. Skin: Negative for color change, pallor and rash. Objective: Last BM Date: 04/01/23 Vitals: BP: 126/75, MAP (mmHg): 90, BP Method: Automatic Heart Rate: 105 Resp: 20 Temp: 36.7 ?C (98.1 ?F), Temp Source: Temporal BMI (Calculated): 26.27 CXR: BMP: Recent Labs 03/31/2324404/01/23 0154 04/02/23 0501 NA 137 139 138 K 3.6 3.6 4.2 CL 101 99 102 CO2 30 32* 29 BUN 19 25* 27* CREATININE 1.11 1.04 0.95 CALCIUM 8.4 8.9 9.1 MG 2.1 -- -- CBC: Recent Labs 03/31/2324404/01/23 0154 04/02/23 0501 WBC 8.3 7.9 7.8 HGB 10.1* 11.5* 11.8* HCT 29.6* 32.9* 34.0* PLT 150 200 241 MCV 84.9 83.2 83.5 RDW 13.7 13.8 13.9 INR: Recent Labs 03/31/23244 INR 1.1 Physical Exam Cardiovascular: Rate and Rhythm: Normal rate and regular rhythm. Heart sounds: Normal heart sounds. No murmur heard. No friction rub. Pulmonary: Effort: Pulmonary effort is normal. Skin: General: Skin is warm and dry. Capillary Refill: Capillary refill takes less than 2 seconds. Findings: Bruising and ecchymosis present. Comments: Surgical Incisions: well approximate; clean dry with no drainage noted. Surrounding skin no redness, warmth, or signs of infection noted. Neurological: Mental Status: He is alert. Psychiatric: Behavior: Behavior is cooperative. Assessment: CAD S/P CABG x 3 HTN HLD Post operative Pulm Management: Normal Post-operative Course Post-operative Atrial Fibrillation: []Yes [x] No Acute blood loss anemia Plan: Patient Status: Telemetry Continue ASA, Statin, BB - Titrate BB up as BP allows Amlodipine 2.5 mg for radial graft- continue for 30 days postop Lasix 40mg PO x5 days - CXR more congested today Endocrinology signed off, no home needs PT/OT: 04/01- Home with assist PRN Pulmonary hygiene: IS and Acapella GI prophy: PO protonix DVT prophy:TEDs, SCDs, and Heparin SubQ Disposition: D/C later today vs tomorrow Central Line: []Yes [x] No Arterial Line: []Yes [x] No Stratton: []Yes [x] No Restraints: []Yes [x] No Patient discussed and plan of day developed from multidisciplinary rounds between Cardiothoracic Surgery (Cardiothoracic Surgeon, TRINO) and Critical Care Attending Cardiac Core Medications: ASA, Statin, and BB EF: Normal (03/29/23) Blood Conservation: None noted in post-operative period Technical Staff Engineer: Dr. Jaeger [facility]02-13-2024 Plan of care note* Care Plan - Kate Barksdale RN - 04/02/2023 8:35 AM EST Problem: Problem Interventions Goal: Assess Nutritional Intake Outcome: Progressing Goal: Dietary Supplements Outcome: Progressing Problem: Pain - Adult Goal: Verbalizes/displays adequate comfort level or baseline comfort level Outcome: Progressing Flowsheets (Taken 04/01/2023 8403) Verbalizes/displays adequate comfort level or baseline comfort level: Encourage patient to monitor pain and request assistance Assess pain using appropriate pain scale Administer analgesics based on type and severity of pain and evaluate response Implement non-pharmacological measures as appropriate and evaluate response Consider cultural and social influences on pain and pain management Notify Licensed Independent Practitioner if interventions unsuccessful or patient reports new pain Problem: Safety - Adult Goal: Free from fall injury Outcome: Progressing Flowsheets (Taken 04/01/2023956) Free from fall injury: Instruct family/caregiver on patient safety Based on caregiver fall risk screen, instruct family/caregiver to ask for assistance with transferring if caregiver noted to have fall risk factors Problem: Discharge Planning Goal: Discharge to home or other facility with appropriate resources Outcome: Progressing Flowsheets (Taken 04/01/2023956) Discharge to home or other facility with appropriate resources: Identify barriers to discharge with patient and caregiver Arrange for needed discharge resources and transportation as appropriate Identify discharge learning needs (meds, wound care, etc) Arrange for interpreters to assist at discharge as needed Refer to discharge planning if patient needs post-hospital services based on physician order or complex needs related to functional status, cognitive ability or social support system Problem: Chronic Conditions and Co-morbidities Goal: Patient's chronic conditions and co-morbidity symptoms are monitored and maintained or improved Outcome: Progressing Flowsheets (Taken 04/01/2023956) Care Plan - Patient's Chronic Conditions and Co-Morbidity Symptoms are Monitored and Maintained or Improved: Collaborate with multidisciplinary team to address chronic and comorbid conditions and prevent exacerbation or deterioration Monitor and assess patient's chronic conditions and comorbid symptoms for stability, deterioration,or improvement Update acute care plan with appropriate goals if chronic or comorbid symptoms are exacerbated and prevent overall improvement and discharge Problem: Knowledge Deficit Goal: Patient/family/caregiver demonstrates understanding of disease process, treatment plan, medications, and discharge instructions Outcome: Progressing Flowsheets (Taken 04/02/2023833) Patient/family/caregiver demonstrates understanding of disease process, treatment plan, medications, and discharge instructions: Complete learning assessment and assess knowledge base Provide teaching via preferred learning methods Provide teaching at level of understanding Problem: Potential for Compromised Skin Integrity Goal: Skin Integrity is Maintained or Improved Outcome: Progressing Flowsheets (Taken 04/02/2023833) Skin integrity is maintained or improved: Monitor patient's hygiene practices Alternate a full bath with partial baths for elderly Avoid shearing Turn patient Identify patients at risk for skin breakdown on admission and per policy Assess and monitor skin integrity Collaborate with interdisciplinary team and initiate plans and interventions as needed Relieve pressure to bony prominences Keep skin clean and dry Encourage use of lotion/moisturizer on skin Goal: Nutritional status is improving Outcome: Progressing Flowsheets (Taken 04/02/2023 0834) Nutritional status is improving: Monitor and assess patient for malnutrition (ex- brittle hair, bruises, dry skin, pale skin and conjunctiva, muscle wasting, smooth red tongue, and disorientation) Collaborate with interdisciplinary team and initiate plan and interventions as ordered Monitor patient's weight and dietary intake as ordered or per policy Utilize nutrition screening tool and intervene per policy Allow adequate time for meals Assist patient with eating Determine patient's food preferences and provide high-protein, high-caloric foods as appropriate Encourage patient to take dietary supplement as ordered Collaborate with clinical film touch up inspector Include patient/family/caregiver in decisions related to nutrition Problem: Urinary Incontinence Goal: Perineal skin integrity is maintained or improved Outcome: Progressing Flowsheets (Taken 04/02/2023 0834) Perineal skin integrity is maintained or improved: Assess genitourinary system, perineal skin, labs (urinalysis), and history of incontinence to include past management, aggravating, and alleviating factors Collaborate with interdisciplinary team including wound, ostomy, and continence nurse and initiate plans and interventions as needed Keep skin clean and dry Apply urine containment device Apply skin protectant Develop skin care regimen Provide privacy when changing patient's incontinence device to maintain their dignity [facility]02-12-2024 NoteReceived referral and reviewed chart. Phase II Cardiac Rehab Referral discussed with Chivo Livingston. Patient prefers cardiac rehab at a different location. Given information on cardiac rehab at preferred location. [facility]02-12-2024 Consult note* Cinthia Perry - 04/01/2023 1:47 PM ESTAssociated Order(s): IP CONSULT TO CARDIAC REHAB Received referral and reviewed chart. Phase II Cardiac Rehab Referral discussed with Chivo Livingston. Patient prefers cardiac rehab at a different location. Given information on cardiac re[facility] at preferred [id number] Cinthia Perry - 04/01/2023 1:47 PM EST Associated Order(s): IP CONSULT TO CARDIAC REHAB Received referral and reviewed chart. Phase II Cardiac Rehab Referral discussed with Chivo Livingston. Patient prefers cardiac rehab at a different location. Given information on cardiac rehab at preferred location. * Melissa William RD - 03/31/2023 12:13 PM ESTAssociated Order(s): IP CONSULT TO DIETITIAN Please see RD full assessment for Open [facility] Diet Education consult, dated 03/31/23. Melissa William RD Contact Info: *[phone] * Bertha Buenrostro MD - 03/29/2023 10:05 PM ESTAssociated Order(s): IP CONSULT TO ENDOCRINOLOGY See consult note. * Lauro Florence APRN - WELFARE WORKER - 03/29/2023 1:20 PM EST Department of Internal Medicine Division of Endocrinology, Diabetes, & Metabolism Endocrinology Note Patient Name: Chivo Livingston : 1960 AGE: 62 y.o. Room/Bed: T1119/[facility]119 A Admission Date: 03/28/2023 Visit Date: 03/29/2023 Reason for Endocrine Consult: post-op glycemic management Provider/Team Requesting Consult: CTS PCP: Suzi Encarnacion Outpt Tmd Teacher Assistant: No ASSESSMENT: Post-op Hyprglycemia HTN CAD s/p CABG PLAN: Continue insulin gtt protocol ICU goal <180 GMF goal <150 POCT BG every hour per protocol Hypoglycemia management per protocol Carb controlled diet when appropriate ANTICIPATED ENDOCRINE HOME GOING RECOMMENDATIONS: Optimized for Discharge from Endocrine standpoint: No Home Going Endocrine Rx Recommendations-- Likely home w/o OP glycemic agent Outpt Follow Up-- PCP SUBJECTIVE/HPI: CHIEF COMPLAINT: No chief complaint on file. 62 yo male with PMH of HTN, HPL, MIKAELA on CPAP, post-covid lung disease, DVT (no longer on anticoagulation), BPH, GERD, was taken for a heart cath on 03/28/23. Cath showed multivessel CAD; sent to [facility] for CABG eval. 03/29/2023 s/p CABG Type of DM: N/A Onset of DM: N/A Home DM Medication Regimen: N/A DM control (last A1c/glucose data): 5.5% History collected from family at bedside as patient intubated and sedated and unable to contribute at this time Patient with no history of hypoglycemia or diabetes Not on any glycemic medications in the outpatient setting Per bedside RN did require brief use of insulin drip protocol postoperatively for now with low blood sugars requiring D50. Last blood glucose was 86. Insulin drip remains off due to the same Relevant history CAD status post CABG Hypertension GFR greater than 90 No recent TSH or lipid panel on file Current use of norepinephrine, nitroglycerin, amiodarone, propofol Glucose Date/Time Value Ref Range Status 03/29/2023 12:59 PM 86 70 - 100 mg/dL Final 03/29/2023 12:27 PM 88 70 - 100 mg/dL Final 03/29/2023 12:03 PM 63 (L) 70 - 100 mg/dL Final Review of Systems Unable to perform ROS: Intubated ROS negative except for those mentioned in HPI. OBJECTIVE: Vitals: 03/29/23 1215 03/29/23 1230 03/29/23 1245 03/29/23 1300 BP: BP Location: Patient Position: Pulse: 84 76 76 81 Resp: 19 14 15 16 Temp: TempSrc: SpO2: 100% 100% 100% 100% Weight: Height: Physical Exam Vitals reviewed. Constitutional: General: He is not in acute distress. Appearance: Normal appearance. He is ill-appearing. HENT: Head: Normocephalic. Cardiovascular: Comments: Chest tubes noted Pulmonary: Comments: Intubated Abdominal: Comments: Stratton noted Neurological: Comments: Sedated 24 hour intake/output: Intake/Output Summary (Last 24 hours) at 03/29/2023 1321 Last data filed at 03/29/2023 1300 Gross per 24 hour Intake 2045 ml Output 2185 ml Net -140 ml Diet: NPO diet Medications (as per EMR): HomeMeds: No current outpatient medications Scheduled Meds:acetaminophen, 1,000 mg, Oral, q8h albumin human, 50 g, IntraVENous, Once ceFAZolin, 2,000 mg, IntraVENous, q8h chlorhexidine, 15 mL, Mouth/Throat, BID ketorolac, 15 mg, IntraVENous, q6h lactated ringers, 500 mL, IntraVENous, Once Lidocaine, 1 patch, Topical, Daily mupirocin, , Nasal, BID [START ON 03/30/2023] pantoprazole, 40 mg, IntraVENous, Daily polyethylene glycol (PEG) 3350, 17 g, Oral, Daily senna-docusate sodium, 2 tablet, Oral, Nightly sodium chloride 0.9%, 10 mL, IntraVENous, 2 times per day Continuous Infusions:EPINEPHrine, 0.01-0.2 mcg/kg/min insulin regular, 1-50 Units/hr, Last Rate: Stopped (03/29/23 1215) lactated ringers, 250 mL nitroglycerin, 5-300 mcg/min nitroglycerin, 5-200 mcg/min, Last Rate: 5 mcg/min (03/29/23 1229) nitroprusside, 0.1-3 mcg/kg/min norepinephrine, 0.01-0.2 mcg/kg/min propofol, 5-50 mcg/kg/min, Last Rate: 20 mcg/kg/min (03/29/23 1302) sodium chloride, 20 mL/hr, Last Rate: 20 mL/hr (03/29/23 1215) PRN Meds:PRN medications: albumin human, calcium gluconate, dextrose, dextrose, EPINEPHrine, glucagon (rDNA), glucose, ipratropium-albuterol, lactated ringers, magnesium hydroxide, magnesium sulfate OR magnesium sulfate, morphine sulfate OR morphine sulfate, nitroglycerin, nitroprusside, norepinephrine, ondansetron ODT OR ondansetron, oxyCODONE OR oxyCODONE, perflutren protein A microsphere (Optison) 3 mL in sodium chloride (PF) 0.9 % 10 mL IV syringe, potassium chloride OR potassium chloride OR potassium chloride, [START ON 03/30/2023] potassium chloride CR, sodium chloride, sodium chloride 0.9% Diagnostic Workup: I reviewed pertinent Laboratory results, Radiographic results, and Other Clinical Notes at the timeof today's encounter. Labs: No components found for: LABA1C No components found for: EAG Lab Results Component Value Date NA 139 03/29/2023 K 3.9 03/29/2023 CL 109 (H) 03/29/2023 CO2 22 03/29/2023 BUN 17 03/29/2023 CREATININE 0.92 03/29/2023 GLUCOSE 84 03/29/2023 CALCIUM 8.3 (L) 03/29/2023 No results found for: CHLPL, CHOL No results found for: TRIG No results found for: HDL No results found for: LDLCALC No results found for: VLDL No results found for: CHOLHDLRATIO No results found for: [id number] No results found for: TSH, V2BVJUB, S0OJIZB, THYROIDAB Radiology reportsas per the Radiologist Radiology: POCT glucose meter Result Date: 03/29/2023 Performed by: [facility], [address] [place] [id number] CLIA ID: [id number] POCT glucose meter Result Date: 03/29/2023 Performed by: [facility], [address] [place] [id number] CLIA ID: [id number] XR chest 1 view Result Date: 03/29/2023 Patient Name: CHIVO LIVINGSTON : 1960 Date/Time: 03/29/2023 12:18 Procedure: XR CHEST 1 VIEW Ordering Provider: STEINBERG JENNIFER Reason For Exam: Post op open heart surgery EXAMINATION: CHEST RADIOGRAPH (SINGLE VIEW AP OR PA) Clinical History: Post op open heart surgery Comparison: Radiograph 03/28/2023 RESULT: See impression Lines, tubes, and devices: Interval placement of endotracheal tube which terminates 4.6 cm above the rachid. Interval placement of NG/OG tube which extends below the diaphragm, sidehole in the expected location of stomach and tip extending below the adopu-xr-rjap. Interval placement of right IJ approach central venous catheter with tip at the right atrium. Interval placement of bibasilar chest tubes and mediastinal drain. Multiple additional lines project over partially obscure the chest/epigastric region. Lungs and pleura: Lung volumes which results in crowding of bronchovascular pulmonary vasculature. Mild streaky bibasilar atelectasis. No consolidation. No sizable pleural effusion or pneumothorax. Cardiomediastinal silhouette: Stable enlarged cardiac silhouette.Atherosclerotic calcifications of the aortic arch. Interval median sternotomy for CABG. Other: Degenerative changes of the spine. Report Dictated on Electronically Signed By: MD Shane Currie Signed Date/Time: 03/29/2023 12:25 PM EST ECG 12 lead Sinus rhythm Ventricular premature complex Borderline T wave abnormalities POCT glucose meter Result Date: 03/29/2023 Performed by: [facility], [address] [place] [address] CLIA ID: [id number] ECG 12 lead Sinus rhythm Vascular US carotid artery duplex bilateral Result Date: 03/28/2023 <50% stenosis in the right internal carotid artery. Heterogeneous and calcific plaque (proximal)in the right internal carotid artery. <50% stenosis in the left internal carotid artery. Heterogeneous and calcific plaque (proximal) in the left internal carotid artery. Normal antegrade flow involving the right vertebral artery. Normal antegrade flow involving the left vertebral artery. Vascular US palmar arch evaluation Result Date: 03/28/2023 There are no changes to left PPG signals with radial artery compression indicative of a complete arch. No left wrist cuff utilized due to IV placement. Right arm and digits not assessed due to recentheart catherization via the right radial artery. Vascular US lower extremity vein mapping for bypass bilateral Result Date: 03/28/2023 Vessel diameters as noted in the table below. Bilateral Greater Saphenous Vein: Fully compressible. Transthoracic echocardiogram (TTE) complete with contrast, bubble, strain, and 3D PRN Result Date: 03/28/2023 Left Ventricle: Left ventricle size is normal. Normal wall thickness. Normal left ventricular systolic function. EF by 2D Simpsons Biplane is 63%. Normal wall motion. Normal diastolic function. RightVentricle: Right ventricle size is normal. Normal systolic function. No significant valvular abnormalities. XR chest 1 view Result Date: 03/28/2023 Patient Name: CHIVO LIVINGSTON : 1960 [facility]#: [id number] Date/Time: 03/28/2023 14:41 Procedure: XR CHEST 1 VIEW Ordering Provider: STEINBERG JENNIFER Reason For Exam: preop eval EXAMINATION: Portable chest INDICATION: preop eval FINDINGS: There is no focal consolidation, sizable pleural effusion or pneumothorax. The cardiac silhouette is enlarged. There is moderate calcification of the thoracic aorta. Small to moderate osteophytes of the spine arepresent at multiple levels. Cardiomegaly. Report Dictated on Electronically Signed By: Hernandez Gonzalez MD Electronically Signed Date/Time: 03/28/2023 2:50 PM EST History/Other: Past Medical History: Past Medical History: Diagnosis Date Coronary artery disease HTN (hypertension) Past Surgical History: Past Surgical History: Procedure Laterality Date APPENDECTOMY EYE SURGERY Allergy(ies): No Known Allergies Family History: No family history on file. Social History: Social History Tobacco Use Smoking status: Never Smokeless tobacco: Never Vaping Use Vaping Use: Never used Substance Use Topics Alcohol use: Not Currently Drug use: Not Currently Portions of the information within this encounter were entered using an electronic dictation system. Best attempts were made to edit/proofread the information prior to note completion. Despite the review of information, some errors may remain. If there are questions related to the information contained within the note please contact the signing physician directly. I spent 15 minutes with the pt which involved coordination of care, medical evaluation, review of records, and/or counseling of the pt regarding his/her condition/disease state/prognosis on the date of this note. Associated attestation - Bertha Buenrostro MD - 03/29/2023 7:37 PM EST I performed a history and physical examination of the patient. I have reviewed the patient's chart including pertinent history, medications, labs, radiology, and other reports. I reviewed the resident/TRINO's note, agree with the documented findings and plan of care (with modifications noted if any),and discussed the management plan. Pt is s/p CABG 03/29/23. No history of diabetes. He 2 siblings have DM. He is fairly active. 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 Patient now extubated. Currently complaining of some chest discomfort. No shortness of breath. BG 80-90s. Pt currently off insulin drip. He had a hypoglycemic episode coming back from surgery while on 2 units/h. Records reviewed. Lab Results Component Value Date HGBA1C 5.5 03/28/2023 Lab Results Component Value Date GLUCOSE 84 03/29/2023 CALCIUM 8.3 (L) 03/29/2023 NA 139 03/29/2023 K 3.9 03/29/2023 CO2 22 03/29/2023 CL 109 (H) 03/29/2023 BUN 17 03/29/2023 CREATININE 0.92 03/29/2023 BP 94/56 (BP Location: Right arm, Patient Position: Lying) Pulse 85 Temp 36.1 C (97 F) (Temporal) Resp 12 Ht 5' 6 (1.676 m) Wt 162 lb (73.5 kg) SpO2 93% BMI 26.15 kg/m awake, alert, not in distress, O2 per NC, RRR, chest incision dressed, good pulses, clear breath sounds, +chest tubes, abdomen soft, non-tender, no edema, no focal deficits, normal mood and affect. Dx: Stress hyperglycemia. CAD s/p CABG. Plan: - continue blood glucose monitoring - will continue insulin infusion per protocol then transition to subcutaneous insulin likely tomorrow - discussed postop hyperglycemia management and goals of therapy - patient will unlikely require any pharmacotherapy on discharge for hyperglycemia - carb control diet - will follow Total time 30 minutes which include review of records, counseling, management, and coordination of care as documented in note. * Mayo Alvarez APRN - SIDNEY - 03/29/2023 11:31 AM EST Images from the original note were not included. [facility]: Critical Care Consultation Note Date: 03/29/23 PATIENT NAME: Chivo Livingston : 1960 (62 y.o.) Reason for Consult: Critical Care & Vent Management HPI: 62 yo male with PMH of HTN, HPL, MIKAELA on CPAP, post-covid lung disease, DVT (no longer on anticoagulation), BPH, GERD. He was admitted with worsening angina for which he had a CTA and Stress test as an OP. He then saw Dr. Jaeger in [place] for a heart cath and was found to have MVCAD, ostial LAD, diag 1, diag2, and prox OM. He was sent to [facility] for CABG eval. He does have a family hx of CAD in his father and brother (both in 50s). On 03/29/23 he presents for CABG as an OP. Surgery: 03/29/23 [place]: CABGx 3 Left radial Left leg harvest (Official Report Pending) Interval History: 03/29/23: POD #0: Patient arrived to the unit, intubated and sedated. Surgical hand off completed below. Surgery Hand Off: Arrival Time in CTVICU: 1200 Complications/Pertinent Events: None Last Paralytic: 0900 Medications given in route: None Gtts OR report Propofol: 15 Insulin: 2 Amicar: 29 Current gtts upon arrival Propofol: 15 Insulin: 2 Amicar: 29 Devices: Epicardial wires: yes [x] no [] IABP: yes [] no [x] LVAD: yes [] no [x] Speed: Equipment: Back up controller yes [] no [x] Blood Transfusions Intra Op: yes [] no [x] CellSaver: 500 Vent FiO2 70% Peep 9 Rate 14 Review of Systems Reason unable to perform ROS: Intubated and Sedated. Allergies: Patient has no known allergies. Past Medical History: has a past medical history of Coronary artery disease and HTN (hypertension). Past Surgical History: has a past surgical history that includes Appendectomy and Eye surgery. Social History: reports that he has never smoked. He has never used smokeless tobacco. He reports that he does not currently use alcohol. He reports that he does not currently use drugs. Family History: family history is not on file. Medications: Prior to Admission medications Not on File Objective: BP 98/63 (BP Location: Left arm, Patient Position: Lying) Pulse 96 Temp 37.4 C (99.3 F) (Temporal) Resp 18 Ht 5' 6 (1.676 m) Wt 162 lb 4.1 oz (73.6 kg) SpO2 95% BMI 26.19 kg/m Intake/Output Summary (Last 24 hours) at 03/29/2023 1131 Last data filed at 03/29/2023 1030 Gross per 24 hour Intake 845 ml Output 275 ml Net 570 ml Physical Exam Constitutional: Interventions: He is sedated and intubated. HENT: Mouth/Throat: Comments: ETT in place Neck: Vascular: No JVD. Trachea: Trachea normal. Cardiovascular: Rate and Rhythm: Normal rate and regular rhythm. Pulses: Radial pulses are 2+ on the right side and 2+ on the left side. Heart sounds: Normal heart sounds, S1 normal and S2 normal. Pulmonary: Effort: He is intubated. Breath sounds: Decreased breath sounds present. Abdominal: General: Bowel sounds are absent. Musculoskeletal: Right lower leg: No edema. Left lower leg: No edema. Skin: Findings: Bruising and ecchymosis present. Comments: Right Cordis Right Radial Art line CT x 3 Left Radial Arterial Site Diagnostics: Reviewed in EMR Labs: Reviewed in EMR BMP: Recent Labs 03/28/23 1646 03/29/23 0409 NA 138 138 K 3.6 3.7 CL 108* 105 CO2 20* 22 BUN 17 19 CREATININE 0.86 0.98 CALCIUM 8.4 8.6 CBC: Recent Labs 03/28/23 1646 03/29/23 0409 WBC 10.1 7.1 HGB 14.7 14.8 HCT 43.0 42.5 PLT 251 237 MCV 83.2 82.7 RDW 13.7 13.7 INR: No results for input(s): INR in the last 72 hours. Assessment: Post operative Pulm Management: Normal Post-operative Course Post-operative Atrial Fibrillation: []Yes [x] No Acute blood loss anemia/consumptive None Plan: - Will need GDMT for CAD EF preserved - await CXR - - Precedex PRN to get off of Propofol - Dilaudid for break through pain - Toradol added - Start nitro gtt for radial harvest keep for 24 hours - Transduce CVP PRN - Liberalize fluid administration PRN - Place Bear Hugger to prevent cold diuresis - Sugamadex - Hemodynamic goals: CI >2.0, SBP 90-130 mmHg, MAP 60-75 - PRN Hypertension 1st option Cardene gtt 2nd option or if Cardene unavailable Nitro -PRN Hypotension CI >2.0 euvolemic with low SVR- Levophed gtt CI <2.0 euvolemic - Epinephrine gtt - Temp pacing wires/mode: VV Back up - Chest tubes: no air leak or fluctuation noted, suction - 20cm - Cefazolin - surgical prophy for 5 doses total - Wean to Extubation: Arrival Time in unit: 6pm - Vent: ACVC+, TV 6ml/kg/min, rate 12, fio2 100% PEEP 8 VAP protocol: HOB >30 degrees; peridex BID - HgbA1c: 5.5 - Blood glucose 63 - Insulin gtt; per endo/protocol - GI prophy: Protonix IV daily Patient treatment plan and plan of care discuss with Dr. Mayo Alvarez Associated attestation - Mayo Alvarez MD - 03/29/2023 1:50 PM EST I have personally performed a krhy-[id number] diagnostic evaluation on this patient on date of service03/29/23. History, labs, imaging studies, and electronic medical record have been reviewed by me. This note documented by the []senior data warehouse architect [x]TRINO reflects my history, exam, and medical decision making. I have reviewed and agree with the care plan. Changes were made in the orders as necessary. ROS documentation was reviewed and negative unless otherwise stated in HPI. Additional pertinent interval history, ROS, and physical exam findings: 62yoM with CAD. Not on any meds prior to seeing cards a few weeks ago. Was admitted for elective cath and found to have multi-vessel CAD. Has PMH of COVID infection in 2020 - was sent home on O2 for 10 days and required OAC for DVT. Post-op is not on pressors. On nitroglycerin for radial graft. Unlabored on vent and clear to auscultation. Not following commands. CXR essentially clear. Assessment: Post-op pulmonary management POD#0 CABG 3v MIKAELA on CPAP Remote DVT in setting of COVID Plan: Taper off sedation and SBT when awake. Volume for hypotension if need be given clear CXR. CPAP when extubated. documented in this [facility]02-12-2024 NotePHYSICAL THERAPY [facility] Initial Evaluation Name/MRN: Chivo Livingston ([id number]) Evaluation Date: 04/01/2023 Date of : 1960 Admission Date: 03/28/2023 1:14 PM Age: 62 y.o. Room/Bed: T1-119/T1-119 A Discharge Recommendation: Home with assist PRN Equipment Needed: No Assessment IMPRESSION: Pt ambulated functional distance. Noted gait deviation but no overt LOB. Denied shortness of breath after gait. Anticipate discharge to home with assist as needed. Diagnosis: CAD, s/p CABG x 3 Prognosis: good Performance Deficits /Impairments: Increased Pain, Decreased Functional Mobility, and Decreased Endurance Decision Making: Low Complexity Subjective Pt sitting on chair, agree with PT treatment. RN cleared for PT. Pain: Artis[place] Pain Ratin = Hurts a little bit Pain Location: incision Past Medical History: Past Medical History: Diagnosis Date Coronary artery disease HTN (hypertension) Past Surgical History: Past Surgical History: Procedure Laterality Date APPENDECTOMY EYE SURGERY Admission Diagnosis: Patient Active Problem List Diagnosis Date Noted CAD in [place] artery 03/28/2023 Medical Precautions: No active isolations Proper PPE donned/doffed in accordance with facility standards. Fall Risk: Cates Fall Risk Score: 45 (High Risk) Precautions/Restrictions: Sternal Precautions: No Pushing, No Pulling, No Lifting Greater Than 10 lbs and Keep your move in the tube. tele Family/Caregiver Present: spouse Overall Cognitive Status: WNL Overall Orientation Status: Oriented x4 Vision: not assessed this session Hearing: normal Social/Functional History Patient admitted from home. Lives With: Spouse Type of Home: single family home Home Layout: Single Level Home Home Access: Stairs to Enter with Rails (# of stairs: 5-8) Bathroom Shower/Tub: Toilet: N/A Home Equipment: none Homemaking Responsibilities: Independent Receives Help From: Spouse Active Bark Press Operator: Yes Prior Level of Function ADL Assistance: Independent Ambulation Assistance: Independent Transfer Assistance: Independent Objective Lower Extremity Assessment AROM: WNL PROM: WNL Strength: WFL Bed Mobility: NA Transfers Sit to stand: Supervision Stand to sit: Supervision Ambulation Ambulation 1 Assistive device(s) used: none Assist level: SBA Distance (ft): 250 Quality of gait: No LOB, slow augustine, path deviations Balance: Posture: fair Sitting - Static: Modified Independent Sitting - Dynamic: Modified Independent Standing - Static: Supervision Standing - Dynamic: Supervision Outcome Measures AM-PAC How much HELP from another person do you currently need Turning from your back to your side while in a flat bed without using bedrails?: A Little Moving from lying on your back to sitting on the side of a flat bed without using bedrails?: None Moving to and from a bed to a chair (including a wheelchair)?: None Standing up from a chair using your arms (wheelchair or bedside chair)?: None Walking in a hospital room?: None Stair climbing assessed?: No AM-PAC Inpatient Mobility Raw Score (No Stairs) : 19 [facility] Score: Walked 250 ft or more (i.e. several laps on unit) Plan Pt would benefit from skilled acute PT services to address Strengthening, Balance Training, Functional Mobility Training, Endurance Training, Gait Training, Stair Training, and chest PT . Frequency: 5x/week for 4 weeks Barriers: Pain and Decreased endurance Safety/Education Safety Safety Devices in place: left in chair, nurse notified, no alarms engaged upon entry, and spouse present Restraints: No Education Education Given To: patient Education Provided: PT Role, PT Goals, Plan of Care, Precautions, and Energy Conservation Education Method: Verbal Barriers to Learning: None Education Outcome: Verbalized Understanding and Continued Education Needed Goals Patient Stated Goal: To go home. Encounter Problems Encounter Problems (Active) Cardiac Patient will perform bed mobility with modified independence in order to improve independence and prepare for out of bed mobility. Start: 04/01/23 Expected End: 04/29/23 Patient will complete sit to stand transfer with independence to none in order to improve safety and prepare for out of bed mobility. Start: 04/01/23 Expected End: 04/29/23 Patient will ambulate 350 feet or ambulate 5 minutes with modified independence with RPE of 14 or lower. Start: 04/01/23 Expected End: 04/29/23 Patient will ascend and descend 5 # stairs with modified independence rail for balance only. Start: 04/01/23 Expected End: 04/29/23 Patient will be independent with P&C exercises. Start: 04/01/23 Expected End: 04/29/23 Patient will be independent with managing secretions and home walking program. Start: 04/01/23 Expected End: 04/29/23 Pain - Adult Therapy Time Individual Co-treatment Time In 1055 Ti (more content not included)...[facility]02-12-2024 NoteCare Management Progress Note Patient remains in CTV ICU s/p CABG x 3 POD # 3. VSS, on RA, in NSR on tele, chest tubes removed, added MOM today-no BM yet, BB increased, holding diuresis, low dose amlodipine for radial graft, endocrine signed off and PT/OT evals pending. DCP-home with home care, [facility] following. Discharge Milestones and Delays Expected Date/Time: 04/04/[address] discharge order Complete med reconciliation Case mgmt discharge readiness Clinical Stability Diagnsotic Workup Expected Discharge History Expected Date/Time Set By Reviewed At 04/04/2023 Zohreh Willams RN 03/31/2023 1:48 PM tcc estimates 04/04/2023 Zohreh Willams RN 03/31/2023 1:48 PM 04/04/2023 Katja Steinberg, MEDICAL OFFICE SUPERVISOR - WELFARE WORKER 03/28/2023 1:58 PM Length of Stay (Days): 4 GMLOS: 1.8 [facility]02-12-2024 Note* Care Coordination - Sridevi Farrell RN - 04/01/2023 11:12 AM EST Images from the original note were not included. Care Management Progress Note Patient remains in CTV ICU s/p CABG x 3 POD # 3. VSS, on RA, in NSR on tele, chest tubes removed, added MOM today-no BM yet, BB increased, holding diuresis, low dose amlodipine for radial graft, endocrine signed off and PT/OT evals pending. DCP-home with home care, [facility] following. Discharge Milestones and Delays Expected Date/Time: 04/04/[address] discharge order Complete med reconciliation Case mgmt discharge readiness Clinical Stability Diagnsotic Workup Expected Discharge History Expected Date/Time Set By Reviewed At 04/04/2023 Zohreh Willams RN 03/31/2023 1:48 PM tcc estimates 04/04/2023 Zohreh Willams RN 03/31/2023 1:48 PM 04/04/2023 Katja Steinberg, MEDICAL OFFICE SUPERVISOR - WELFARE WORKER 03/28/2023 1:58 PM Length of Stay (Days): 4 [facility]MLOS[id number] Care Coordination - Sridevi Farrell RN - 04/01/2023 11:12 AM EST Images from the original note were not included. Care Management Progress Note Patient remains in CTV ICU s/p CABG x 3 POD # 3. VSS, on RA, in NSR on tele, chest tubes removed, added MOM today-no BM yet, BB increased, holding diuresis, low dose amlodipine for radial graft, endocrine signed off and PT/OT evals pending. DCP-home with home care, [place] following. Discharge Milestones and Delays Expected Date/Time: 04/04/[address] discharge order Complete med reconciliation Case mgmt discharge readiness Clinical Stability Diagnsotic Workup Expected Discharge History Expected Date/Time Set By Reviewed At 04/04/2023 Zohreh Willams RN 03/31/2023 1:48 PM tcc estimates 04/04/2023 Zohreh Willams RN 03/31/2023 1:48 PM 04/04/2023 Katja Steinberg, MEDICAL OFFICE SUPERVISOR - WELFARE WORKER 03/28/2023 1:58 PM Length of Stay (Days): 4 GMLOS: 1.8 [facility] [id number] Plan of care note* Care Plan - Kate Barksdale RN - 04/01/2023 9:57 AM EST Problem: Pain - Adult Goal: Verbalizes/displays adequate comfort level or baseline comfort level Flowsheets (Taken 04/01/2023 09) Verbalizes/displays adequate comfort level or baseline comfort level: Encourage patient to monitor pain and request assistance Assess pain using appropriate pain scale Administer analgesics based on type and severity of pain and evaluate response Implement non-pharmacological measures as appropriate and evaluate response Consider cultural and social influences on pain and pain management Notify Licensed Independent Practitioner if interventions unsuccessful or patient reports new pain Problem: Safety - Adult Goal: Free from fall injury Flowsheets (Taken 04/01/2023956) Free from fall injury: Instruct family/caregiver on patient safety Based on caregiver fall risk screen, instruct family/caregiver to ask for assistance with transferring infant if caregiver noted to have fall risk factors Problem: Discharge Planning Goal: Discharge to home or other facility with appropriate resources Flowsheets (Taken 04/01/2023956) Discharge to home or other facility with appropriate resources: Identify barriers to discharge with patient and caregiver Arrange for needed discharge resources and transportation as appropriate Identify discharge learning needs (meds, wound care, etc) Arrange for interpreters to assist at discharge as needed Refer to discharge planning if patient needs post-hospital services based on physician order or complex needs related to functional status, cognitive ability or social support system Problem: Chronic Conditions and Co-morbidities Goal: Patient's chronic conditions and co-morbidity symptoms are monitored and maintained or improved Flowsheets (Taken 04/01/2023956) Care Plan - Patient's Chronic Conditions and Co-Morbidity Symptoms are Monitored and Maintained or Improved: Collaborate with multidisciplinary team to address chronic and comorbid conditions and prevent exacerbation or deterioration Monitor and assess patient's chronic conditions and comorbid symptoms for stability, deterioration,or improvement Update acute care plan with appropriate goals if chronic or comorbid symptoms are exacerbated and prevent overall improvement and discharge [facility]02-12-2024 NoteCardiothoracic Surgery/CCM Progress Note PATIENT NAME: Chivo Livingston DATE: 04/01/23 HPI: 62 yo male with PMH of HTN, HPL, MIKAELA on CPAP, post-covid lung disease, DVT (no longer on anticoagulation), BPH, GERD. He was admitted with worsening angina for which he had a CTA and Stress test as an OP. He then saw Dr. Jaeger in [place] for a heart cath and was found to have MVCAD, ostial LAD, diag 1, diag2, and prox OM. He was sent to [facility] for CABG eval. He does have a family hx of CAD in his father and brother (both in 50s). On 03/29/23 he presents for CABG as an OP. Surgery/Procedure: 03/29/23 Starkey: CABGx 3 Left radial Left leg harvest (Official Report Pending) Interval History: 04/01/23, POD# 03: Afebrile, NSR on tele, BP stable, on RA. Sitting up in chair this AM, pain tolerable, mostly noted around chest tube sites. No BM yet but passing gas. Walking unit with nursing, states last walk was without walker. No acute issues overnight. Review of Systems Constitutional: Negative for chills, diaphoresis and fever. Respiratory: Negative for cough, shortness of breath and wheezing. Cardiovascular: Negative for palpitations and leg swelling. Gastrointestinal: Negative for abdominal distention, abdominal pain, nausea and vomiting. Neurological: Negative for dizziness and light-headedness. Objective: CT output cc/24hrs: 130 UO cc/24hrs: 2,855 Vitals: BP: 136/82, MAP (mmHg): 99, BP Method: Automatic Heart Rate: 97 Resp: 18 Temp: 37 ?C (98.6 ?F), Temp Source: Temporal BMI (Calculated): 26.45 BMP: Recent Labs 03/29/23 1130 03/30/23 0009 03/31/23 0245 04/01/23 0154 NA 139 137 137 139 K 3.9 5.0 3.6 3.6 CL 109* 106 101 99 CO2 22 25 30 32* BUN 17 16 19 25* CREATININE 0.92 1.08 1.11 1.04 CALCIUM 8.3* 8.1* 8.4 8.9 MG 3.7* 2.3 2.1 -- PHOS 2.6 -- -- -- CBC: Recent Labs 03/30/23 0009 03/31/23 0245 04/01/23 0154 WBC 9.6 8.3 7.9 HGB 10.3* 10.1* 11.5* HCT 30.0* 29.6* 32.9* PLT 202 150 200 MCV 84.0 84.9 83.2 RDW 13.8 13.7 13.8 INR: Recent Labs 03/29/23 1130 03/30/23 0009 03/31/23 0245 INR 1.3* 1.1 1.1 Physical Exam Vitals reviewed. Constitutional: General: He is not in acute distress. Appearance: He is not ill-appearing or diaphoretic. Neck: Comments: R central line. Cardiovascular: Rate and Rhythm: Regular rhythm. Tachycardia present. Pulses: Normal pulses. Heart sounds: No murmur heard. Pulmonary: Effort: Pulmonary effort is normal. Breath sounds: No wheezing, rhonchi or rales. Comments: Diminished in bases bilaterally. Abdominal: General: There is distension. Palpations: Abdomen is soft. Tenderness: There is no abdominal tenderness. Comments: Chest tubes. Musculoskeletal: General: No swelling. Skin: General: Skin is warm and dry. Capillary Refill: Capillary refill takes less than 2 seconds. Findings: Bruising present. Comments: MSI well approximated. No redness, warmth or drainage noted. Left radial site without drainage or hematoma. Neurological: General: No focal deficit present. Mental Status: He is alert and oriented to person, place, and time. Assessment: CAD S/P CABG x 3 HTN HLD Post operative Pulm Management: Normal Post-operative Course Post-operative Atrial Fibrillation: []Yes [x] No Plan: Patient Status: Telemetry Continue aspirin, statin and BB. -Increase metoprolol to 25mg BID today. -Titrate as BP tolerates. Low dose amlodipine for radial graft for total of 30 days. Continue PO pain regimen. Bowel regimen, add MOM today. -Can add lactulose tomorrow if no BM today. Encourage PO intake. Hold diuresis. Per chart -3.5L. Off O2. Will remove chest tubes today. Remove introducer later today. Progressive mobility, out of bed for meals. Endocrinology signed off. -No home going needs. PT/OT: Will need assessed. Pulmonary hygiene: IS and Acapella GI prophy: PO protonix DVT prophy:TEDs, SCDs, and Heparin SubQ Disposition: Progressing well. Likely can DC home by midweek. Central Line: [x]Yes [] No Arterial Line: []Yes [x] No [place]: []Yes [x] No Restraints: []Yes [x] No Patient discussed and plan of day developed from multidisciplinary rounds between Cardiothoracic Surgery (Cardiothoracic Surgeon, TRINO) and Critical Care Attending Cardiac Core Medications: ASA, Statin, and BB EF: Normal (03/29/23) Blood Conservation: None noted in post-operative period Technical Staff Engineer: Dr. Jaeger [facility]02-11-[address] full assessment for Open Heart Diet Education consult, dated 03/31/23. Melissa William RD Contact Info: *[id number] NoteNutrition Assessment Type and Reason for Visit: Patient Education (Open Heart Diet Edu) Nutrition Recommendations/Plan: Patient currently on a Regular; Low Fat/Low Chol/High Fiber/2 gm Na diet which is appropriate. Per MNT protocol, will initiate Ensure HP BID (8 oz provides 160 kcal, 16 g protein), as well as [facility]yer 1x/day (1 pkt provides 90 kcal, 2.5 g protein, and 14 g aa) Please record % meal and oral nutrition supplement consumed in flow sheet for most accurate nutrient intake assessment Provided and reviewed Heart Healthy Diet materials. RD's contact information provided. Will continue to monitor weight changes, labs, and overall nutrition status. RD will continue to follow up weekly. Malnutrition Assessment: Malnutrition Status: No malnutrition Context: Acute Illness Findings of the 6 clinical characteristics of malnutrition: Energy Intake: No significant decrease in energy intake Weight Loss: No significant weight loss Body Fat Loss: No significant body fat loss Muscle Mass Loss: No significant muscle mass loss Fluid Accumulation: No significant fluid accumulation Camera Engineer Strength: Not Performed Nutrition Assessment: 62 yo male with PMH of HTN, HPL, MIKAELA on CPAP, post-covid lung disease, DVT (no longer on anticoagulation), BPH, GERD. He was admitted with worsening angina for which he had a CTA and Stress test as an OP. He then saw Dr. Jaeger in [place] for a heart cath and was found to have MVCAD, ostial LAD, diag 1, diag2, and prox OM. He was sent to [facility] for CABG eval. He does have a family hx of CAD in his father and brother (both in 50s). On 03/29/23 he presents for CABG as an OP. s/p CABGx 3 Left radial Left leg harvest. RD consulted for Open Heart Diet Edu. Pt currently on a Regular; Low Fat/Low Chol/High Fiber/2 gm Na diet. Pt reports appetite is getting better but has been dealing with some bouts of nausea. Pt reports typically eating three meals per day, at bedside stating she does the cooking at home. Pt packs lunches. usually consisting of a sandwich with lunch meat, cheeses, some type of fruit, maybe a cookie. RD discussed Heart Healthy Diet and recommended alternate options for certain food choices pt/ were making. Pt and very accepting to education and materials to take home. RD provided contact information as well. Pt reports UBW 160#, with no recent weight changes. Pt reports last BM 03/28/23. Pt accepting to [facility] for wound healing and Chocolate Ensure. Estimated Daily Nutrient Needs: Energy Requirements Based On: Kcal/kg Weight Used for Energy Requirements: Kirk Weight for Energy Calculation (kg): 65 kg Total Energy Requirements (kcals/day): 8369-1677 kcal/day (25-30) Weight Used for Protein Requirements: Kirk Weight in Kg Used for Protein Requirements: 65 kg Estimated Total Protein (g/day): 72-85 g/day (1.1-1.3) Estimated Daily Total Fluid (ml/day): Per MD recommendations Nutrition Related Findings: Andrew: 20. I&O: -1065. Multiple surgical incisions. Labs: Glucose 103, Hgb 10.1, Hct 29.6. Meds: Lasix, Insulin, Lopressor, Miralax, Senokot, calcium gluconate Wound Type: Multiple, Surgical Incision Current Nutrition Therapies: Adult diet Regular; Low Fat/Low Chol/High Fiber/2 gm Na Current Oral Intake Average Meal Intake: 51-75% Average Supplements Intake: None Ordered Anthropometric Measures: Height: 167.6 cm (5' 6) Current Body Weight: 76.2 kg (168 lb) (03/31/23) Weight Source: Standing Scale Admission Body Weight: 73.5 kg (162 lb) Usual Body Weight: 72.6 kg (160 lb) % Weight Change (Calculated): 5 Kirk Body Weight (lbs) (Calculated): 142 lbs Kirk Body Weight (Kg) (Calculated): 65 kg % Kirk Body Weight (Calculated): 118.3 % BMI (kg/m2) (Calculated): 27.1 Weight Adjustment For: No Adjustment BMI Categories: Overweight (BMI 25.0-29.9) Nutrition Diagnosis: Increased nutrient needs related to (increased demand for wound healing) as evidenced by wounds Nutrition Interventions: Nutrition Education/Counseling: Education completed Coordination of Nutrition Care: Continue to monitor while inpatient Nutrition Education Educated on Heart Healthy Diet Learners: Patient and Significant Other Readiness: Eager Method: Explanation and Handout Response: Verbalizes Understanding Contact name and number provided. Goals: Goals: Meet at least 75% of estimated needs, by next RD assessment Nutrition Monitoring and Evaluation: Behavioral-Environmental Outcomes: None Identified Food/Nutrient Intake Outcomes: Food and Nutrient Intake, Supplement Intake Physical Signs/Symptoms Outcomes: Biochemical Data, Chewing or Swallowing, GI Status, Nausea or Vomiting, Skin, Weight, Constipation, Nutrition Focused Physical Findings, Hemodynamic Status, Fluid Status or Edema Discharge Planning: Too soon to determine Melissa William RD Contact: *[address] [place], [place] [id number] Note* Care Coordination - Zohreh Willams RN - 03/31/2023 1:43 PM EST Care Managment Initial Assessment Date: 03/31/2023 Patient Name: Chivo Livingston : 1960 Patient Information Source of Information: Patient Cognition/Language: WFL - Within Functional Limits Permission given to speak with patient high school admissions representative/caregiver as indicated: Confirmation of Payer with patient/family: Yes Payer Name: [employer] [place]: No Confirmation of Primary Care Physician: Confirmed PCP Name: Suzi Gonzalez Seen in last 2 years?: Yes Primary Caregiver: Self If assistance needed, confirmed caregiver ready, willing and able to care for patient at discharge:Yes Confirmed with: - Adry Living Arrangements Current Residence: House Number of Floors 3 Number of Entry Steps: 5 or more Bed/Bath Levels: Both first floor Facility: Facility Name: Plan to Return: Lives with: Spouse/significant other, Extended family members Support Systems: Spouse/significant other, Family members Activities of Daily Living Ambulation: Independent Bathing/Dressing: Independent Elimination/Continence/Toileting: Independent Feeding: Independent Who Assists with Activities of Daily Living: Instrumental Activities of Daily Living Prescription Coverage: Yes Pharmacy Used: [facility] Medication Management: Independent Transportation/Shopping: Independent Transportation Mode: Car Needs Assistance with Transportation at Discharge: No Meal Preparation: Independent Laundry/Cleaning: Independent Finances/Bill Paying: Assistance Provider Finances/Bill Payer Assistance Provider Name: chris Communication: Independent Types of Care Services/Equipment Utilized Care Services: Dialysis Type: NA Durable Medical Equipment: Cane, Walker, Wheelchair (standard or power), Raised Toilet Seat, Bedside Commode, CPap (all in storage, not in current use, avail to patient if he needs it) Patient's Goal/Discharge Plan Patient expects to be discharged to: home Discharge Planning Actions: Continue to follow Patient's Choice Rights and [employer] and Collaborative Relationships Disclosed as Indicated for Post-Acute Care: Interdisciplinary Team Engagement: Home Health Care Social Work Referral for: Additional Information: Spoke with patient at bedside. Patient admitted to [facility] for [facility]G on 03/29. PT/OT evals pending. From home, indep with . Patient ambulating in room, sitting in chair at time of assessment. ATKINSON following for needs. Cardiac Rehab consulted. Endocrinology following for post op glycemic management. TCC to follow. Zohreh Willams RN [id number] Note* Care Coordination - Zohreh Willams RN - 03/31/2023 1:43 PM EST Care Managment Initial Assessment Date: 03/31/2023 Patient Name: Chivo Livingston : 1960 Patient Information Source of Information: Patient Cognition/Language: WFL - Within Functional Limits Permission given to speak with patient high school admissions representative/caregiver as indicated: Confirmation of Payer with patient/family: Yes Payer Name: [employer] [place]: No Confirmation of Primary Care Physician: Confirmed PCP Name: Suzi Albapkins Seen in last 2 years?: Yes Primary Caregiver: Self If assistance needed, confirmed caregiver ready, willing and able to care for patient at discharge:Yes Confirmed with: - Adry Living Arrangements Current Residence: House Number of Floors 3 Number of Entry Steps: 5 or more Bed/Bath Levels: Both first floor Facility: Facility Name: Plan to Return: Lives with: Spouse/significant other, Extended family members Support Systems: Spouse/significant other, Family members Activities of Daily Living Ambulation: Independent Bathing/Dressing: Independent Elimination/Continence/Toileting: Independent Feeding: Independent Who Assists with Activities of Daily Living: Instrumental Activities of Daily Living Prescription Coverage: Yes Pharmacy Used: [facility] Medication Management: Independent Transportation/Shopping: Independent Transportation Mode: Car Needs Assistance with Transportation at Discharge: No Meal Preparation: Independent Laundry/Cleaning: Independent Finances/Bill Paying: Assistance Provider Finances/Bill Payer Assistance Provider Name: Communication: Independent Types of Care Services/Equipment Utilized Care Services: Dialysis Type: NA Durable Medical Equipment: Cane, Walker, Wheelchair (standard or power), Raised Toilet Seat, Bedside Commode, CPap (all in storage, not in current use, avail to patient if he needs it) Patient's Goal/Discharge Plan Patient expects to be discharged to: home Discharge Planning Actions: Continue to follow Patient's Choice Rights and [employer] and Collaborative Relationships Disclosed as Indicated for Post-Acute Care: Interdisciplinary Team Engagement: Home Health Care Social Work Referral for: Additional Information: Spoke with patient at bedside. Patient admitted to [facility] for CABG on 03/29. PT/OT evals pending. From home, indep with . Patient ambulating in room, sitting in chair at time of assessment. ATKINSON following for needs. Cardiac Rehab consulted. Endocrinology following for post op glycemic management. TCC to follow. Zohreh Willams RN [facility] [id number] Consult note* Melissa William RD - 03/31/2023 12:13 PM EST Associated Order(s): IP CONSULT TO DIETITIAN Please see RD full assessment for Open Heart Diet Education consult, dated 03/31/23. Melissa William RD Contact Info: *[id number] [facility] [id number] NoteCardiothoracic Surgery/CCM Progress Note PATIENT NAME: Chivo Livingston DATE: 03/31/23 HPI: 62 yo male with PMH of HTN, HPL, MIKAELA on CPAP, post-covid lung disease, DVT (no longer on anticoagulation), BPH, GERD. He was admitted with worsening angina for which he had a CTA and Stress test as an OP. He then saw Dr. Jaeger in [place] for a heart cath and was found to have MVCAD, ostial LAD, diag 1, diag2, and prox OM. He was sent to [facility] for CABG eval. He does have a family hx of CAD in his father and brother (both in 50s). On 03/29/23 he presents for CABG as an OP. Surgery: 03/29/23 Starkey: CABGx 3 Left radial Left leg harvest (Official Report Pending) Interval History: 03/31/23, POD#2 - pt doing well, CT are causing him pain on inspiration, he is in chair off oxygen, CXR and labs are stable. No new complaints Review of Systems Constitutional: Negative for diaphoresis, fatigue and fever. Respiratory: Negative for cough, shortness of breath and wheezing. Cardiovascular: Negative for chest pain, palpitations and leg swelling. Gastrointestinal: Negative for abdominal distention, constipation and diarrhea. Skin: Negative for color change, pallor and rash. Objective: Vitals: BP: 123/68, MAP (mmHg): 83, BP Method: Automatic Heart Rate: 98 Resp: 19 Temp: 36.9 ?C (98.4 ?F), Temp Source: Temporal BMI (Calculated): 27.2 Pacer Wires: capped CXR: BMP: Recent Labs 03/29/23 1130 03/30/23 0009 03/31/23 0245 NA 139 137 137 K 3.9 5.0 3.6 CL 109* 106 101 CO2 22 25 30 BUN 17 16 19 CREATININE 0.92 1.08 1.11 CALCIUM 8.3* 8.1* 8.4 MG 3.7* 2.3 2.1 PHOS 2.6 -- -- CBC: Recent Labs 03/29/23 1130 03/29/23 1611 03/30/23 0009 03/31/23 0245 WBC 8.4 -- 9.6 8.3 HGB 9.6* 10.7 10.3* 10.1* HCT 28.1* -- 30.0* 29.6* PLT 142 -- 202 150 MCV 83.2 -- 84.0 84.9 RDW 13.9 -- 13.8 13.7 INR: Recent Labs 03/29/23 1130 03/30/23 0009 03/31/23 0245 INR 1.3* 1.1 1.1 Physical Exam Cardiovascular: Rate and Rhythm: Normal rate and regular rhythm. Heart sounds: Normal heart sounds. No murmur heard. No friction rub. Pulmonary: Effort: Pulmonary effort is normal. Skin: General: Skin is warm and dry. Capillary Refill: Capillary refill takes less than 2 seconds. Findings: Bruising and ecchymosis present. Comments: MSCI intact CT sites intact Left radial arterial site Neurological: Mental Status: He is alert. Psychiatric: Behavior: Behavior is cooperative. Assessment: CAD S/P CABG x 3 EF preserved HTN HLD Post operative Pulm Management: Normal Post-operative Course Post-operative Atrial Fibrillation: []Yes [x] No Plan: Patient Status: ICU GDMT for CAD EF normal - asa - crestor - BB Amlodipine for Rad art graft Lasix 40 mg BID Bowel regiment PT/OT: TBD Pulmonary hygiene: IS and Acapella GI prophy: PO protonix DVT prophy:TEDs, SCDs, and Heparin SubQ Disposition: Central Line: [x]Yes [] No Arterial Line: []Yes [x] No Stratton: [x]Yes [] No Restraints: []Yes [x] No Patient discussed and plan of day developed from multidisciplinary rounds between Cardiothoracic Surgery (Cardiothoracic Surgeon, TRINO) and Critical Care Attending Cardiac Core Medications: ASA, Plavix, and BB EF: 60% 04/13 Blood Conservation: None noted in post-operative period Technical Staff Engineer: Dr. Jaeger [facility]02-10-2024 NoteCardiothoracic Surgery/CCM Progress Note PATIENT NAME: Chivo Livingston DATE: 03/30/23 HPI: 62 yo male with PMH of HTN, HPL, MIKAELA on CPAP, post-covid lung disease, DVT (no longer on anticoagulation), BPH, GERD. He was admitted with worsening angina for which he had a CTA and Stress test as an OP. He then saw Dr. Jaeger in [place] for a heart cath and was found to have MVCAD, ostial LAD, diag 1, diag2, and prox OM. He was sent to [facility] for CABG eval. He does have a family hx of CAD in his father and brother (both in 50s). On 03/29/23 he presents for CABG as an OP. Surgery: 03/29/23 Starkey: CABGx 3 Left radial Left leg harvest (Official Report Pending) Interval History: 03/30/23, POD#1 - pt sitting up in chair doing well, still requiring levophed and is also on nitro gtt for his radial graft. His pain is controlled, labs unremarkable, CXR clear. Review of Systems Constitutional: Negative for diaphoresis, fatigue and fever. Respiratory: Negative for cough, shortness of breath and wheezing. Cardiovascular: Negative for chest pain, palpitations and leg swelling. Gastrointestinal: Negative for abdominal distention, constipation and diarrhea. Skin: Negative for color change, pallor and rash. Objective: Vitals: BP: 94/56, MAP (mmHg): 69, BP Method: Arterial line Heart Rate: 91 Resp: 19 Temp: 36.1 ?C (97 ?F), Temp Source: Temporal BMI (Calculated): 27.45 Pacer Wires: capped CXR: BMP: Recent Labs 03/29/23 0409 03/29/23 1130 03/30/23 0009 NA 138 139 137 K 3.7 3.9 5.0 CL 105 109* 106 CO2 22 22 25 BUN 19 17 16 CREATININE 0.98 0.92 1.08 CALCIUM 8.6 8.3* 8.1* MG -- 3.7* 2.3 PHOS -- 2.6 -- CBC: Recent Labs 03/29/23 0409 03/29/23 1129 03/29/23 1130 03/29/23 1611 03/30/23 0009 WBC 7.1 -- 8.4 -- 9.6 HGB 14.8 < > 9.6* 10.7 10.3* HCT 42.5 -- 28.1* -- 30.0* PLT 237 -- 142 -- 202 MCV 82.7 -- 83.2 -- 84.0 RDW 13.7 -- 13.9 -- 13.8 < > = values in this interval not displayed. INR: Recent Labs 03/29/23 1130 03/30/23 0009 INR 1.3* 1.1 Physical Exam Cardiovascular: Rate and Rhythm: Normal rate and regular rhythm. Heart sounds: Normal heart sounds. No murmur heard. No friction rub. Pulmonary: Effort: Pulmonary effort is normal. Skin: General: Skin is warm and dry. Capillary Refill: Capillary refill takes less than 2 seconds. Findings: Bruising and ecchymosis present. Comments: MSCI intact CT sites intact Left radial arterial site re-dressed Neurological: Mental Status: He is alert. Psychiatric: Behavior: Behavior is cooperative. Assessment: CAD S/P CABG x 3 EF preserved HTN HLD Post operative Pulm Management: Normal Post-operative Course Post-operative Atrial Fibrillation: []Yes [x] No Plan: Patient Status: ICU GDMT for CAD EF normal - asa - crestor - Hold BB DC nitro gtt transition to amlodipine Wean oxygen and Levophed Lasix 40 mg BID PT/OT: TBD Pulmonary hygiene: IS and Acapella GI prophy: PO protonix DVT prophy:TEDs, SCDs, and Heparin SubQ Disposition: Central Line: [x]Yes [] No Arterial Line: [x]Yes [] No Stratton: [x]Yes [] No Restraints: []Yes [x] No Patient discussed and plan of day developed from multidisciplinary rounds between Cardiothoracic Surgery (Cardiothoracic Surgeon, TRINO) and Critical Care Attending Cardiac Core Medications: ASA, Plavix, and No BB due to hypotension EF: 60% 04/13 Blood Conservation: None noted in post-operative period Technical Staff Engineer: Dr. Jaeger [facility]02-09-2024 Consult note* Bertha Buenrostro MD - 03/29/2023 10:05 PM ESTAssociated Order(s): IP CONSULT TO ENDOCRINOLOGY See consult note. [id number] NotePatient: Chivo Livingston Procedure Summary Date: 03/29/23 Room / Location: [address] Operating Room Anesthesia Start: 745 Anesthesia Stop: 121 Procedures: CORONARY ARTERY BYPASS GRAFT WITH TRANSESOPHAGEAL ECHOCARDIOGRAM (Chest) Echocardiography transesophageal real-time Diagnosis: Atherosclerotic heart disease of [place] coronary artery without angina pectoris (Atherosclerotic heart disease of [place] coronary artery without angina pectoris [I25.10]) Surgeons: Rambo Starkey MD Responsible Provider: Oswaldo Figueroa MD Anesthesia Type: general ASA Status: 4 Anesthesia Type: general Vitals Value Taken Time BP 101/50 03/29/23 1203 Temp 36.2 ?C (97.2 ?F) 03/29/23 1203 Pulse 75 03/29/23 1211 Resp 23 03/29/23 1211 SpO2 100 % 03/29/23 1211 Vitals shown include unfiled device data. Anesthesia Post Evaluation Patient location during evaluation: ICU Patient participation: complete - patient cannot participate Level of consciousness: intubated and sedated Pain management: adequate Airway patency: patent Dental Injury: no Cardiovascular status: acceptable and hemodynamically stable Respiratory status: acceptable, ETT, intubated and ventilator Hydration status: acceptable Nausea/Vomiting: controlled No notable events documented. Patient can be discharged once all PACU criteria has been met.[facility]02-09-2024 NotePatient: Chivo Livingston Procedure Summary Date: 03/29/23 Room / Location: [facility] OR [address] [place] [address] Operating Room Anesthesia Start: 745 Anesthesia Stop: Procedures: CORONARY ARTERY BYPASS GRAFT WITH TRANSESOPHAGEAL ECHOCARDIOGRAM (Chest) Echocardiography transesophageal real-time Diagnosis: Atherosclerotic heart disease of [place] coronary artery without angina pectoris (Atherosclerotic heart disease of [place] coronary artery without angina pectoris [I25.10]) Surgeons: Rambo Starkey MD Responsible Provider: Oswaldo Figueroa MD Anesthesia Type: general ASA Status: 4 Anesthesia Type: general Vitals Value Taken Time BP 101/50 03/29/23 1203 Temp 36.2 ?C (97.2 ?F) 03/29/23 1203 Pulse 77 03/29/23 1210 Resp 19 03/29/23 1210 SpO2 100 % 03/29/23 1209 Vitals shown include unfiled device data. Anesthesia Post Evaluation Patient location during evaluation: ICU Patient participation: complete - patient cannot participate Post-procedure mental status: sedated/intubated. Pain score: 0 Pain management: adequate Multimodal analgesia pain management approach Airway patency: patent Two or more strategies used to mitigate risk of obstructive sleep apnea Cardiovascular status: hemodynamically stable Respiratory status: acceptable, intubated, ventilator and ETT Hydration status: acceptable No notable events documented. Anesthesia Post Evaluation I completed my handoff to the receiving clinician during which we: 1. Identified the patient 2. Identified the responsible provider 3. Reviewed the pertinent medical history 4. Discussed the surgical course 5. Reviewed intra-op anesthesia management and issues during anesthesia 6. Set expectations for post-procedure period 7. Allowed opportunity for questions and acknowledgement of understanding.[facility]02-09-2024 Consult note* Lauro Florence APRN - WELFARE WORKER - 03/29/2023 1:20 PM EST Department of Internal Medicine Division of Endocrinology, Diabetes, & Metabolism Endocrinology Note Patient Name: Chivo Livingston : 1960 AGE: 62 y.o. Room/Bed: T1-119/T1-119 A Admission Date: 03/28/2023 Visit Date: 03/29/2023 Reason for Endocrine Consult: post-op glycemic management Provider/Team Requesting Consult: ELLEN PCP: Suzi Encarnacion Outpt Tmd Teacher Assistant: No ASSESSMENT: Post-op Hyprglycemia HTN CAD s/p CABG PLAN: Continue insulin gtt protocol ICU goal <180 GMF goal <150 POCT BG every hour per protocol Hypoglycemia management per protocol Carb controlled diet when appropriate ANTICIPATED ENDOCRINE HOME GOING RECOMMENDATIONS: Optimized for Discharge from Endocrine standpoint: No Home Going Endocrine Rx Recommendations-- Likely home w/o OP glycemic agent Outpt Follow Up-- PCP SUBJECTIVE/HPI: CHIEF COMPLAINT: No chief complaint on file. 62 yo male with PMH of HTN, HPL, MIKAELA on CPAP, post-covid lung disease, DVT (no longer on anticoagulation), BPH, GERD, was taken for a heart cath on 03/28/23. Cath showed multivessel CAD; sent to [facility] for CABG eval. 03/29/2023 s/p CABG Type of DM: N/A Onset of DM: N/A Home DM Medication Regimen: N/A DM control (last A1c/glucose data): 5.5% History collected from family at bedside as patient intubated and sedated and unable to contribute at this time Patient with no history of hypoglycemia or diabetes Not on any glycemic medications in the outpatient setting Per bedside RN did require brief use of insulin drip protocol postoperatively for now with low blood sugars requiring D50. Last blood glucose was 86. Insulin drip remains off due to the same Relevant history CAD status post CABG Hypertension GFR greater than 90 No recent TSH or lipid panel on file Current use of norepinephrine, nitroglycerin, amiodarone, propofol Glucose Date/Time Value Ref Range Status 03/29/2023 12:59 PM 86 70 - 100 mg/dL Final 03/29/2023 12:27 PM 88 70 - 100 mg/dL Final 03/29/2023 12:03 PM 63 (L) 70 - 100 mg/dL Final Review of Systems Unable to perform ROS: Intubated ROS negative except for those mentioned in HPI. OBJECTIVE: Vitals: 03/29/23 1215 03/29/23 1230 03/29/23 1245 03/29/23 1300 BP: BP Location: Patient Position: Pulse: 84 76 76 81 Resp: 19 14 15 16 Temp: TempSrc: SpO2: 100% 100% 100% 100% Weight: Height: Physical Exam Vitals reviewed. Constitutional: General: He is not in acute distress. Appearance: Normal appearance. He is ill-appearing. HENT: Head: Normocephalic. Cardiovascular: Comments: Chest tubes noted Pulmonary: Comments: Intubated Abdominal: Comments: Stratton noted Neurological: Comments: Sedated 24 hour intake/output: Intake/Output Summary (Last 24 hours) at 03/29/2023 1321 Last data filed at 03/29/2023 1300 Gross per 24 hour Intake 2045 ml Output 2185 ml Net -140 ml Diet: NPO diet Medications (as per EMR): HomeMeds: No current outpatient medications Scheduled Meds:acetaminophen, 1,000 mg, Oral, q8h albumin human, 50 g, IntraVENous, Once ceFAZolin, 2,000 mg, IntraVENous, q8h chlorhexidine, 15 mL, Mouth/Throat, BID ketorolac, 15 mg, IntraVENous, q6h lactated ringers, 500 mL, IntraVENous, Once Lidocaine, 1 patch, Topical, Daily mupirocin, , Nasal, BID [START ON 03/30/2023] pantoprazole, 40 mg, IntraVENous, Daily polyethylene glycol (PEG) 3350, 17 g, Oral, Daily senna-docusate sodium, 2 tablet, Oral, Nightly sodium chloride 0.9%, 10 mL, IntraVENous, 2 times per day Continuous Infusions:EPINEPHrine, 0.01-0.2 mcg/kg/min insulin regular, 1-50 Units/hr, Last Rate: Stopped (03/29/23 1215) lactated ringers, 250 mL nitroglycerin, 5-300 mcg/min nitroglycerin, 5-200 mcg/min, Last Rate: 5 mcg/min (03/29/23 1229) nitroprusside, 0.1-3 mcg/kg/min norepinephrine, 0.01-0.2 mcg/kg/min propofol, 5-50 mcg/kg/min, Last Rate: 20 mcg/kg/min (03/29/23 1302) sodium chloride, 20 mL/hr, Last Rate: 20 mL/hr (03/29/23 1215) PRN Meds:PRN medications: albumin human, calcium gluconate, dextrose, dextrose, EPINEPHrine, glucagon (rDNA), glucose, ipratropium-albuterol, lactated ringers, magnesium hydroxide, magnesium sulfate OR magnesium sulfate, morphine sulfate OR morphine sulfate, nitroglycerin, nitroprusside, norepinephrine, ondansetron ODT OR ondansetron, oxyCODONE OR oxyCODONE, perflutren protein A microsphere (Optison) 3 mL in sodium chloride (PF) 0.9 % 10 mL IV syringe, potassium chloride OR potassium chloride OR potassium chloride, [START ON 03/30/2023] potassium chloride CR, sodium chloride, sodium chloride 0.9% Diagnostic Workup: I reviewed pertinent Laboratory results, Radiographic results, and Other Clinical Notes at the timeof today's encounter. Labs: No components found for: LABA1C No components found for: EAG Lab Results Component Value Date NA 139 03/29/2023 K 3.9 03/29/2023 CL 109 (H) 03/29/2023 CO2 22 03/29/2023 BUN 17 03/29/2023 CREATININE 0.92 03/29/2023 GLUCOSE 84 03/29/2023 CALCIUM 8.3 (L) 03/29/2023 No results found for: CHLPL, CHOL No results found for: TRIG No results found for: HDL No results found for: LDLCALC No results found for: VLDL No results found for: CHOLHDLRATIO No results found for: [id number] No results found for: TSH, E0QYLKB, R8ZMADO, THYROIDAB Radiology reportsas per the Radiologist Radiology: POCT glucose meter Result Date: 03/29/2023 Performed by: [employer] [facility], [address] [place] [id number] CLIA ID: [id number] POCT glucose meter Result Date: 03/29/2023 Performed by: [employer] [facility], [address] [place] [id number] CLIA ID: [id number] XR chest 1 view Result Date: 03/29/2023 Patient Name: CHIVO LIVINGSTON : 1960 Date/Time: 03/29/2023 12:18 Procedure: XR CHEST 1 VIEW Ordering Provider: STEINBERG JENNIFER Reason For Exam: Post op open heart surgery EXAMINATION: CHEST RADIOGRAPH (SINGLE VIEW AP OR PA) Clinical History: Post op open heart surgery Comparison: Radiograph 03/28/2023 RESULT: See impression Lines, tubes, and devices: Interval placement of endotracheal tube which terminates 4.6 cm above the rachid. Interval placement of NG/OG tube which extends below the diaphragm, sidehole in the expected location of stomach and tip extending below the [id number]. Interval placement of right IJ approach central venous catheter with tip at the right atrium. Interval placement of bibasilar chest tubes and mediastinal drain. Multiple additional lines project over partially obscure the chest/epigastric region. Lungs and pleura: Lung volumes which results in crowding of bronchovascular pulmonary vasculature. Mild streaky bibasilar atelectasis. No consolidation. No sizable pleural effusion or pneumothorax. Cardiomediastinal silhouette: Stable enlarged cardiac silhouette.Atherosclerotic calcifications of the aortic arch. Interval median sternotomy for CABG. Other: Degenerative changes of the spine. Report Dictated on Electronically Signed By: MD Shane Currie Signed Date/Time: 03/29/2023 12:25 PM EST ECG 12 lead Sinus rhythm Ventricular premature complex Borderline T wave abnormalities POCT glucose meter Result Date: 03/29/2023 Performed by: [facility] [address] [place] [address] CLIA ID: [id number] ECG 12 lead Sinus rhythm Vascular US carotid artery duplex bilateral Result Date: 03/28/2023 <50% stenosis in the right internal carotid artery. Heterogeneous and calcific plaque (proximal)in the right internal carotid artery. <50% stenosis in the left internal carotid artery. Heterogeneous and calcific plaque (proximal) in the left internal carotid artery. Normal antegrade flow involving the right vertebral artery. Normal antegrade flow involving the left vertebral artery. Vascular US palmar arch evaluation Result Date: 03/28/2023 There are no changes to left PPG signals with radial artery compression indicative of a complete arch. No left wrist cuff utilized due to IV placement. Right arm and digits not assessed due to recentheart catherization via the right radial artery. Vascular US lower extremity vein mapping for bypass bilateral Result Date: 03/28/2023 Vessel diameters as noted in the table below. Bilateral Greater Saphenous Vein: Fully compressible. Transthoracic echocardiogram (TTE) complete with contrast, bubble, strain, and 3D PRN Result Date: 03/28/2023 Left Ventricle: Left ventricle size is normal. Normal wall thickness. Normal left ventricular systolic function. EF by 2D Simpsons Biplane is 63%. Normal wall motion. Normal diastolic function. RightVentricle: Right ventricle size is normal. Normal systolic function. No significant valvular abnormalities. XR chest 1 view Result Date: 03/28/2023 Patient Name: CHIVO LIVINGSTON : 1960 [facility]#: [id number] Date/Time: 03/28/2023 14:41 Procedure: XR CHEST 1 VIEW Ordering Provider: STEINBERG JENNIFER Reason For Exam: preop eval EXAMINATION: Portable chest INDICATION: preop eval FINDINGS: There is no focal consolidation, sizable pleural effusion or pneumothorax. The cardiac silhouette is enlarged. There is moderate calcification of the thoracic aorta. Small to moderate osteophytes of the spine arepresent at multiple levels. Cardiomegaly. Report Dictated on Electronically Signed By: Hernandez Gonzalez MD Electronically Signed Date/Time: 03/28/2023 2:50 PM EST History/Other: Past Medical History: Past Medical History: Diagnosis Date Coronary artery disease HTN (hypertension) Past Surgical History: Past Surgical History: Procedure Laterality Date APPENDECTOMY EYE SURGERY Allergy(ies): No Known Allergies Family History: No family history on file. Social History: Social History Tobacco Use Smoking status: Never Smokeless tobacco: Never Vaping Use Vaping Use: Never used Substance Use Topics Alcohol use: Not Currently Drug use: Not Currently Portions of the information within this encounter were entered using an electronic dictation system. Best attempts were made to edit/proofread the information prior to note completion. Despite the review of information, some errors may remain. If there are questions related to the information contained within the note please contact the signing physician directly. I spent 15 minutes with the pt which involved coordination of care, medical evaluation, review of records, and/or counseling of the pt regarding his/her condition/disease state/prognosis on the date of this note. Associated attestation - Bertha Buenrostro MD - 03/29/2023 7:37 PM EST I performed a history and physical examination of the patient. I have reviewed the patient's chart including pertinent history, medications, labs, radiology, and other reports. I reviewed the resident/TRINO's note, agree with the documented findings and plan of care (with modifications noted if any),and discussed the management plan. Pt is s/p CABG 03/29/23. No history of diabetes. He 2 siblings have DM. He is fairly active. 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 Patient now extubated. Currently complaining of some chest discomfort. No shortness of breath. BG 80-90s. Pt currently off insulin drip. He had a hypoglycemic episode coming back from surgery while on 2 units/h. Records reviewed. Lab Results Component Value Date HGBA1C 5.5 03/28/2023 Lab Results Component Value Date GLUCOSE 84 03/29/2023 CALCIUM 8.3 (L) 03/29/2023 NA 139 03/29/2023 K 3.9 03/29/2023 CO2 22 03/29/2023 CL 109 (H) 03/29/2023 BUN 17 03/29/2023 CREATININE 0.92 03/29/2023 BP 94/56 (BP Location: Right arm, Patient Position: Lying) Pulse 85 Temp 36.1 C (97 F) (Temporal) Resp 12 Ht 5' 6 (1.676 m) Wt 162 lb (73.5 kg) SpO2 93% BMI 26.15 kg/m awake, alert, not in distress, O2 per NC, RRR, chest incision dressed, good pulses, clear breath sounds, +chest tubes, abdomen soft, non-tender, no edema, no focal deficits, normal mood and affect. Dx: Stress hyperglycemia. CAD s/p CABG. Plan: - continue blood glucose monitoring - will continue insulin infusion per protocol then transition to subcutaneous insulin likely tomorrow - discussed postop hyperglycemia management and goals of therapy - patient will unlikely require any pharmacotherapy on discharge for hyperglycemia - carb control diet - will follow Total time 30 minutes which include review of records, counseling, management, and coordination of care as documented in note. [email or web address] Work Phone: [phone]) 804-819502-09-2024 Consult note* Mayo Alvarez APRN - SIDNEY - 03/29/2023 11:31 AM EST Images from the original note were not included. [facility]: Critical Care Consultation Note Date: 03/29/23 PATIENT NAME: Chivo Livingston : 1960 (62 y.o.) Reason for Consult: Critical Care & Vent Management HPI: 62 yo male with PMH of HTN, HPL, MIKAELA on CPAP, post-covid lung disease, DVT (no longer on anticoagulation), BPH, GERD. He was admitted with worsening angina for which he had a CTA and Stress test as an OP. He then saw Dr. Jaeger in [place] for a heart cath and was found to have MVCAD, ostial LAD, diag 1, diag2, and prox OM. He was sent to [facility] for CABG eval. He does have a family hx of CAD in his father and brother (both in 50s). On 03/29/23 he presents for CABG as an OP. Surgery: 03/29/23 Starkey: CABGx 3 Left radial Left leg harvest (Official Report Pending) Interval History: 03/29/23: POD #0: Patient arrived to the unit, intubated and sedated. Surgical hand off completed below. Surgery Hand Off: Arrival Time in CTVICU: 1200 Complications/Pertinent Events: None Last Paralytic: 0900 Medications given in route: None Gtts OR report Propofol: 15 Insulin: 2 Amicar: 29 Current gtts upon arrival Propofol: 15 Insulin: 2 Amicar: 29 Devices: Epicardial wires: yes [x] no [] IABP: yes [] no [x] LVAD: yes [] no [x] Speed: Equipment: Back up controller yes [] no [x] Blood Transfusions Intra Op: yes [] no [x] CellSaver: 500 Vent FiO2 70% Peep 9 Rate 14 Review of Systems Reason unable to perform ROS: Intubated and Sedated. Allergies: Patient has no known allergies. Past Medical History: has a past medical history of Coronary artery disease and HTN (hypertension). Past Surgical History: has a past surgical history that includes Appendectomy and Eye surgery. Social History: reports that he has never smoked. He has never used smokeless tobacco. He reports that he does not currently use alcohol. He reports that he does not currently use drugs. Family History: family history is not on file. Medications: Prior to Admission medications Not on File Objective: BP 98/63 (BP Location: Left arm, Patient Position: Lying) Pulse 96 Temp 37.4 C (99.3 F) (Temporal) Resp 18 Ht 5' 6 (1.676 m) Wt 162 lb 4.1 oz (73.6 kg) SpO2 95% BMI 26.19 kg/m Intake/Output Summary (Last 24 hours) at 03/29/2023 1131 Last data filed at 03/29/2023 1030 Gross per 24 hour Intake 845 ml Output 275 ml Net 570 ml Physical Exam Constitutional: Interventions: He is sedated and intubated. HENT: Mouth/Throat: Comments: ETT in place Neck: Vascular: No JVD. Trachea: Trachea normal. Cardiovascular: Rate and Rhythm: Normal rate and regular rhythm. Pulses: Radial pulses are 2+ on the right side and 2+ on the left side. Heart sounds: Normal heart sounds, S1 normal and S2 normal. Pulmonary: Effort: He is intubated. Breath sounds: Decreased breath sounds present. Abdominal: General: Bowel sounds are absent. Musculoskeletal: Right lower leg: No edema. Left lower leg: No edema. Skin: Findings: Bruising and ecchymosis present. Comments: Right Cordis Right Radial Art line CT x 3 Left Radial Arterial Site Diagnostics: Reviewed in EMR Labs: Reviewed in EMR BMP: Recent Labs 03/28/23 1646 03/29/23 0409 NA 138 138 K 3.6 3.7 CL 108* 105 CO2 20* 22 BUN 17 19 CREATININE 0.86 0.98 CALCIUM 8.4 8.6 CBC: Recent Labs 03/28/23 1646 03/29/23 0409 WBC 10.1 7.1 HGB 14.7 14.8 HCT 43.0 42.5 PLT 251 237 MCV 83.2 82.7 RDW 13.7 13.7 INR: No results for input(s): INR in the last 72 hours. Assessment: Post operative Pulm Management: Normal Post-operative Course Post-operative Atrial Fibrillation: []Yes [x] No Acute blood loss anemia/consumptive None Plan: - Will need GDMT for CAD EF preserved - await CXR - - Precedex PRN to get off of Propofol - Dilaudid for break through pain - Toradol added - Start nitro gtt for radial harvest keep for 24 hours - Transduce CVP PRN - Liberalize fluid administration PRN - Place Bear Hugger to prevent cold diuresis - Sugamadex - Hemodynamic goals: CI >2.0, SBP 90-130 mmHg, MAP 60-75 - PRN Hypertension 1st option Cardene gtt 2nd option or if Cardene unavailable Nitro -PRN Hypotension CI >2.0 euvolemic with low SVR- Levophed gtt CI <2.0 euvolemic - Epinephrine gtt - Temp pacing wires/mode: VV Back up - Chest tubes: no air leak or fluctuation noted, suction - 20cm - Cefazolin - surgical prophy for 5 doses total - Wean to Extubation: Arrival Time in unit: 6pm - Vent: ACVC+, TV 6ml/kg/min, rate 12, fio2 100% PEEP 8 VAP protocol: HOB >30 degrees; peridex BID - HgbA1c: 5.5 - Blood glucose 63 - Insulin gtt; per endo/protocol - GI prophy: Protonix IV daily Patient treatment plan and plan of care discuss with Dr. Mayo Alvarez Associated attestation - Mayo Alvarez MD - 03/29/2023 1:50 PM EST I have personally performed a [id number] diagnostic evaluation on this patient on date of service03/29/23. History, labs, imaging studies, and electronic medical record have been reviewed by me. This note documented by the []senior data warehouse architect [x]TRINO reflects my history, exam, and medical decision making. I have reviewed and agree with the care plan. Changes were made in the orders as necessary. ROS documentation was reviewed and negative unless otherwise stated in HPI. Additional pertinent interval history, ROS, and physical exam findings: 62yoM with CAD. Not on any meds prior to seeing cards a few weeks ago. Was admitted for elective cath and found to have multi-vessel CAD. Has PMH of COVID infection in 2020 - was sent home on O2 for 10 days and required OAC for DVT. Post-op is not on pressors. On nitroglycerin for radial graft. Unlabored on vent and clear to auscultation. Not following commands. CXR essentially clear. Assessment: Post-op pulmonary management POD#0 CABG 3v MIKAELA on CPAP Remote DVT in setting of COVID Plan: Taper off sedation and SBT when awake. Volume for hypotension if need be given clear CXR. CPAP when extubated. [id number] NoteCentral Venous Line: Date/Time: 03/29/2023 8:00 AM A central venous line was placed for the following indication(s): central venous access and CVP monitoring. Sterility preparation included the following: provider hand hygiene performed prior to central venous catheter insertion, all 5 sterile barriers used (gloves, gown, cap, mask, large sterile drape) during central venous catheter insertion, antiseptic used during central venous catheter insertion and skin prep agent completely dried prior to procedure. Medical reason for not performing maximal sterile barrier technique: no The patient was placed in Trendelenburg position. Right internal jugular vein was prepped. The site was prepped with Chlorhexidine. Size: 8.5 Fr Catheter type: introducer Number of Lumens: double lumen During the procedure, the following specific steps were taken: target vein identified, needle advanced into vein and blood aspirated and guidewire advanced into vein. Procedure performed using ultrasound guidance - Image permanently retained with wire or catheter in vein. Sterile gel and probe cover used in ultrasound-guided central venous catheter insertion. Intravenous verification was obtained by ultrasound. Post insertion care included: all ports aspirated, all ports flushed easily, guidewire removed intact, Biopatch applied, line sutured in place and dressing applied. During the procedure the patient experienced: patient tolerated procedure well with no complications. Staffing Performed: anesthesiologist Resident/LIGHT OIL OPERATOR: Xander Taylor APRN - RINKU Performed by: Xander Taylor APRN - RINKU Authorized by: Xander Taylor APRN - [facility]02-09-2024 NoteArterial Line: Date/Time: 03/29/2023 8:25 AM An arterial line was placed Procedure performed using ultrasound guidance - Image permanently retained with wire or catheter in vein.in the Procedural for the following indication(s): continuous blood pressure monitoring and blood sampling needed. A 20 gauge (size), 1 and 3/4 inch (length), Arrow (type) catheter was placed, into the Right secured by Tegaderm and tape. Staffing Performed: anesthesiologist Resident/LIGHT OIL OPERATOR: DIDI Salinas CRNA Performed by: DIDI Salinas CRNA Authorized by: DIDI Salinas CRNACorewell Health [facility]02-09-2024 NoteAirway Date/Time: 03/29/2023 7:44 AM Urgency: scheduled Airway not difficult General Information and Staff Patient location during procedure: Procedural Resident/LIGHT OIL OPERATOR: DIDI Salinas CRNA Performed: LIGHT OIL OPERATOR Performed by: DIDI Salinas CRNA Authorized by: DIDI Salinas CRNA Indications and Patient Condition Indications for airway management: anesthesia Preoxygenated: yes Patient position: sniffing MILS maintained throughout Mask difficulty assessment: 1 - vent by mask Final Airway Details Final airway type: endotracheal airway Successful airway: ETT Cuffed: yes Successful intubation technique: direct laryngoscopy Blade: Livingston Blade size: #3 Cormack-Lehane Classification: grade I - full view of glottis Placement verified by: chest auscultation Measured from: teeth Number of attempts at approach: 1 Ventilation between attempts: 2 hand mask [facility] of other approaches [facility]: [facility]* Home Care - Romy Leon RN - 03/29/2023 10:10 AM EST Medical Writer following case for Discharge Needs. [facility]02-09-2024 Note* Home Care - Romy Leon RN - 03/29/2023 10:10 AM EST Medical Writer following case for Discharge Needs. [facility]02-09-2024 NotePatient: Chivo Livingston Procedure Information Date/Time: 03/29/23 0730 Procedures: CORONARY ARTERY BYPASS GRAFT WITH TRANSESOPHAGEAL ECHOCARDIOGRAM (Chest) Echocardiography transesophageal real-time Location: [facility] Operating Room Surgeons: Rambo Stareky MD Relevant Problems Cardio (+) CAD in [place] artery Past Medical History: Past Medical History: No date: Coronary artery disease No date: HTN (hypertension) Past Surgical History: Past Surgical History: No date: APPENDECTOMY No date: EYE SURGERY Social History: TOBACCO: reports that he has never smoked. He has never used smokeless tobacco. ETOH: reports that he does not currently use alcohol. Social History Substance and Sexual Activity Drug Use Not Currently Family History: No family history on file. Screening: unknown Clinical information reviewed: Allergies Meds Physical Exam Airway Mallampati: II TM distance: >3 FB Neck ROM: full Mouth Open: normalendotracheal tube not in place Cardiovascular Dental dentition normal Pulmonary Abdominal Anesthesia Plan patient is NPO appropriate Any family history or previous problems with anesthesia no ASA 4 general Any family history or previous problems with anesthesia no The patient is not a current smoker. Anesthetic plan and risks discussed with patient. MIKAELA Screening Labs: Lab Results Component Value Date WBC 7.1 03/29/2023 HGB 14.8 03/29/2023 HCT 42.5 03/29/2023 MCV 82.7 03/29/2023 PLT 237 03/29/2023 Lab Results Component Value Date NA 138 03/29/2023 K 3.7 03/29/2023 CL 105 03/29/2023 CO2 22 03/29/2023 BUN 19 03/29/2023 CREATININE 0.98 03/29/2023 GLUCOSE 121 (H) 03/29/2023 CALCIUM 8.6 03/29/2023 PROT 6.8 03/29/2023 ALKPHOS 84 03/29/2023 AST 27 03/29/2023 ALT 20 03/29/2023 EGFR 87.2 03/29/2023 Transthoracic echocardiogram (TTE) complete with contrast, bubble, strain, and 3D PRN Result Date: 03/28/2023 ? Left?Ventricle: Left ventricle size is normal. Normal wall thickness. Normal left ventricular systolic function. EF by 2D Simpsons Biplane is 63%. Normal wall motion. Normal diastolic function. ? Right?Ventricle: Right ventricle size is normal. Normal systolic function. ? No significant valvular abnormalities. 03/28/23 ECG 12-LEAD (Preliminary) This result has not been signed. Information might be incomplete. Impression Sinus [facility]02-09-2024 Note* Care Coordination - Sridevi Farrell RN - 03/29/2023 7:51 AM EST IA attempted, patient OOR in OR for CABG. Will remain intubated post op, will need to re-attempt in am. DCP- Anticipate home with home care post op. TCC to follow. [facility]02-09-2024 Note* Care Coordination - Sridevi Farrell RN - 03/29/2023 7:51 AM EST IA attempted, patient OOR in OR for CABG. Will remain intubated post op, will need to re-attempt in am. DCP- Anticipate home with home care post op. TCC to follow. [facility]02-09-2024 Note* Op Note - Rambo Starkey MD - 03/29/2023 7:45 AM EST Cardiothoracic Surgery Operative Report Pre-operative Diagnosis: CAD Post-operative Diagnosis: CAD Procedure: CABG X 3: JACOBSEN to LAD, left radial artery to D1, reverse saphenous vein graft to D2; endoscopic vein harvesting left lower extremity (knee to mid- thigh); endoscopic left radial artery harvest; intraoperative MARILEE Surgeon: Rambo Starkey MD Residential Substance Abuse Counselor(s): [] Radha De Luna [x] Nai Bates [x] Joel El [] Joel Carcamo [] Other Anesthesia: General Estimated blood loss: Difficult to estimate due to the nature of the surgery. Cell Saver and pump suction utilized. Total IV fluids: See anesthesia and perfusion record Blood Transfusion?: no Drains: Bilateral pleural and mediastinal Specimens: None Complications: None Condition: Stable Prophylactic Antibiotics: Yes 1st or 2nd generation cephalosporin given (or other antibiotic in the event of an allergy) within 1hour of surgical incision (two hours if receiving Vancomycin or flouroquinolone) If NO, indication reason why: [] Patient on continuous antibiotics for documented preoperative infection [] Other: The STS Risk Calculator score was calculated and discussed with the patient/family prior to surgery. Yes: [x] No: [] Not a risk calculated procedure [] Emergent or Emergent/Salvage Used of CAR: Yes No due to: [] Subclavian stenosis [] Emergent or Emergent/Salvage [] Prior cardiothoracic surgery [] Prior mediastinal radiation [] No bypassable LAD disease, LAD not needed/bypassed: (This can include clean LAD, diffusely diseased LAD or other condition resulting in the LAD not being bypassed). Beta-aba within 24 hours prior to surgical incision: [] Yes - please see documentation in EMR [] No [] Allergy [] Heart block [] COPD [] Hypotension BP: [] Bradycardia HR: INDICATIONS FOR SURGERY: 62 yo male with PMH of HTN, HPL, MIKAELA on CPAP, post-covid lung disease, DVT (no longer on anticoagulation), BPH, GERD, cataract surgery, and appendectomy in '80s. He has been experiencing chest pain since November of 2022. The pain was initially with exertion and lasted for only a short period of time, but has gotten progressively worse over the last few months. He now has some radiation down left arm and gets diaphoretic at times. He follows with a media clerk (for post-covid symptoms), who ordered a CTA Chest and his PCP ordered a stress test. He was ultimately referred to Dr. Jaeger ([place] [employer] Engineer) and was taken for a heart cath on 03/28/23. Cath showed multivessel CAD including ostial LAD, diag 1, diag2, and prox OM. He was sent to [facility] for CABG eval. 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 He does have this chest pain intermittently that slows him down some, but in general he is active at baseline. He does have a family hx of CAD in his father and brother (both in 50s). DESCRIPTION OF PROCEDURE: Procedure Preparation: Patient was taken to the operative suite and placed under general endotracheal anesthesia. Monitoring lines were inserted by the department of anesthesia. Intraoperative transesophageal echocardiography was performed. The findings will follow under a separate dictation. The patient was positioned prepped and draped. Pressure and contact points were protected. An appropriate timeout was conducted. Conduit [place] and Institution of Cardiopulmonary Bypass: A LEFT upper extremity incision was made and the left radial artery was procured using an endoscopic harvesting technique. The radial artery was prepared in the usual fashion and the incisions were closed in the usual manner. The conduit had ADEQUATE caliber size and ADEQUATE flow. A LEFT lower extremity incision was made and the greater saphenous vein was procured using an endoscopic vein harvesting technique. The vein was prepared in the usual fashion and the incisions were closed in the usual manner. The vein had ADEQUATE caliber size and ADEQUATE flow. Simultaneously, a median sternotomy was employed and the left internal mammary artery was harvestedin a skeletonized and pedicled fashion. The internal mammary artery had adequate caliber and flow. Prior to division of the left internal mammary artery, heparin was administered to obtain an ACT of greater than 400 seconds. The pericardium was open, marsupialized, and pursestrings were placed in preparation for central cannulation. Central cannulation progressed with a standard aortic cannula inthe distal ascending aorta, a cardioplegia needle in the proximal ascending aorta and a multistage venous cannula via the right atrium into the inferior vena cava. Once cardiopulmonary bypass had been established examination of the heart, the coronary arteries, and overall anatomy was undertaken. Bypass graft length measurements were obtained with a heart full to adequately engaged the length of the bypass grafts. Subsequently, the aorta was crossclamped and cardioplegia was administered. A minimum of 1 L of cardioplegia was initially administered and then intermittent aliquots of cold blood were given between each distal anastomosis. Coronary Artery Bypass Grafting: All DISTAL ANASTOMOSES were performed first in a similar fashion as follows: The target coronary artery was identified, an arteriotomy was performed, and the bypass conduit was grafted end-to-side with a running 7-0 Prolene suture in an open fashion. Each anastomosis was probed prior to completion with a 1.5 mm probe to assure patency and then infused with saline at the conclusion of the anastomosis to assure adequate flow. Once we had weaned off cardiopulmonary bypass, all bypass conduits wereinterrogated with a Doppler to assure excellent flow. Bypass #1: Reverse saphenous vein graft grafted to the second diagonal coronary artery. The target coronary artery was ADEQUATE and the graft had ADEQUATE caliber. This anastomosis proceeded smoothly and there was good flow. Bypass #2: The radial artery was grafted to the first diagonal coronary artery. The target coronary artery was ADEQUATE and the graft had ADEQUATE caliber. This anastomosis proceeded smoothly and there was good flow. Bypass #3: Pedicled and skeletonized left internal mammary artery grafted to the mid left anterior descending coronary artery The target coronary artery was ADEQUATE and the graft had ADEQUATE caliber. This anastomosis proceeded smoothly and there was good flow. A hotshot was administered and the cross-clamp was removed. A partial occluding clamp was placed onthe ascending aorta and proximal anastomoses were constructed end-to-side with the ascending aorta.The conduits were grafted end-to-side with a running 6-0 Prolene suture. Care was taken to avoid kinking or twisting of the conduits. Adequate tension was visualized. Radiopaque markers (hemoclips) we re placed on each proximal anastomosis. Inspection of all anastomoses was undertaken prior to weaning from cardiopulmonary bypass. Weaning and Separation from Cardiopulmonary Bypass and Closure: We weaned and from cardiopulmonary bypass. Support with vasoactive agents was NOT NEEDED. Once adequate cardiac function had been identified, protamine was administered. Decannulation ensued and purse strings were secured. Temporary pacing wires were applied. Chest tubes were inserted in the mediastinum and EACH pleural space. Once hemostasis was achieved ,we proceeded with closure. The sternum was reapproximated [id number] wires and the overlying tissues were closed in multiple layers. The patient was transported to the intensive care unit in serious but stable condition. [employer] Phone: [phone] 460-914602-09-2024 Note* Op Note - Rambo Starkey MD - 03/29/2023 7:45 AM EST Cardiothoracic Surgery Operative Report Pre-operative Diagnosis: CAD Post-operative Diagnosis: CAD Procedure: CABG X 3: JACOBSEN to LAD, left radial artery to D1, reverse saphenous vein graft to D2; endoscopic vein harvesting left lower extremity (knee to mid- thigh); endoscopic left radial artery harvest; intraoperative MARILEE Surgeon: Rambo Starkey MD Residential Substance Abuse Counselor(s): [] Radha De Luna [x] Nai Bates [x] Joel El [] Joel Carcamo [] Other Anesthesia: General Estimated blood loss: Difficult to estimate due to the nature of the surgery. Cell Saver and pump suction utilized. Total IV fluids: See anesthesia and perfusion record Blood Transfusion?: no Drains: Bilateral pleural and mediastinal Specimens: None Complications: None Condition: Stable Prophylactic Antibiotics: Yes 1st or 2nd generation cephalosporin given (or other antibiotic in the event of an allergy) within 1hour of surgical incision (two hours if receiving Vancomycin or flouroquinolone) If NO, indication reason why: [] Patient on continuous antibiotics for documented preoperative infection [] Other: The STS Risk Calculator score was calculated and discussed with the patient/family prior to surgery. Yes: [x] No: [] Not a risk calculated procedure [] Emergent or Emergent/Salvage Used of CAR: Yes No due to: [] Subclavian stenosis [] Emergent or Emergent/Salvage [] Prior cardiothoracic surgery [] Prior mediastinal radiation [] No bypassable LAD disease, LAD not needed/bypassed: (This can include clean LAD, diffusely diseased LAD or other condition resulting in the LAD not being bypassed). Beta-aba within 24 hours prior to surgical incision: [] Yes - please see documentation in EMR [] No [] Allergy [] Heart block [] COPD [] Hypotension BP: [] Bradycardia HR: INDICATIONS FOR SURGERY: 62 yo male with PMH of HTN, HPL, MIKAELA on CPAP, post-covid lung disease, DVT (no longer on anticoagulation), BPH, GERD, cataract surgery, and appendectomy in '80s. He has been experiencing chest pain since November of 2022. The pain was initially with exertion and lasted for only a short period of time, but has gotten progressively worse over the last few months. He now has some radiation down left arm and gets diaphoretic at times. He follows with a media clerk (for post-covid symptoms), who ordered a CTA Chest and his PCP ordered a stress test. He was ultimately referred to Dr. Jaeger ([employer] Technical Staff Engineer) and was taken for a heart cath on 03/28/23. Cath showed multivessel CAD including ostial LAD, diag 1, diag2, and prox OM. He was sent to [facility] for CABG eval. 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 He does have this chest pain intermittently that slows him down some, but in general he is active at baseline. He does have a family hx of CAD in his father and brother (both in 50s). DESCRIPTION OF PROCEDURE: Procedure Preparation: Patient was taken to the operative suite and placed under general endotracheal anesthesia. Monitoring lines were inserted by the department of anesthesia. Intraoperative transesophageal echocardiography was performed. The findings will follow under a separate dictation. The patient was positioned prepped and draped. Pressure and contact points were protected. An appropriate timeout was conducted. Conduit [place] [facility]iop[facility] Bypass: A LEFT upper extremity incision was made and the left radial artery was procured using an endoscopic harvesting technique. The radial artery was prepared in the usual fashion and the incisions were closed in the usual manner. The conduit had ADEQUATE caliber size and ADEQUATE flow. A LEFT lower extremity incision was made and the greater saphenous vein was procured using an endoscopic vein harvesting technique. The vein was prepared in the usual fashion and the incisions were closed in the usual manner. The vein had ADEQUATE caliber size and ADEQUATE flow. Simultaneously, a median sternotomy was employed and the left internal mammary artery was harvestedin a skeletonized and pedicled fashion. The internal mammary artery had adequate caliber and flow. Prior to division of the left internal mammary artery, heparin was administered to obtain an ACT of greater than 400 seconds. The pericardium was open, marsupialized, and pursestrings were placed in preparation for central cannulation. Central cannulation progressed with a standard aortic cannula inthe distal ascending aorta, a cardioplegia needle in the proximal ascending aorta and a multistage venous cannula via the right atrium into the inferior vena cava. Once cardiopulmonary bypass had been established examination of the heart, the coronary arteries, and overall anatomy was undertaken. Bypass graft length measurements were obtained with a heart full to adequately engaged the length of the bypass grafts. Subsequently, the aorta was crossclamped and cardioplegia was administered. A minimum of 1 L of cardioplegia was initially administered and then intermittent aliquots of cold blood were given between each distal anastomosis. Coronary Artery Bypass Grafting: All DISTAL ANASTOMOSES were performed first in a similar fashion as follows: The target coronary artery was identified, an arteriotomy was performed, and the bypass conduit was grafted end-to-side with a running 7-0 Prolene suture in an open fashion. Each anastomosis was probed prior to completion with a 1.5 mm probe to assure patency and then infused with saline at the conclusion of the anastomosis to assure adequate flow. Once we had weaned off cardiopulmonary bypass, all bypass conduits wereinterrogated with a Doppler to assure excellent flow. Bypass #1: Reverse saphenous vein graft grafted to the second diagonal coronary artery. The target coronary artery was ADEQUATE and the graft had ADEQUATE caliber. This anastomosis proceeded smoothly and there was good flow. Bypass #2: The radial artery was grafted to the first diagonal coronary artery. The target coronary artery was ADEQUATE and the graft had ADEQUATE caliber. This anastomosis proceeded smoothly and there was good flow. Bypass #3: Pedicled and skeletonized left internal mammary artery grafted to the mid left anterior descending coronary artery The target coronary artery was ADEQUATE and the graft had ADEQUATE caliber. This anastomosis proceeded smoothly and there was good flow. A hotshot was administered and the cross-clamp was removed. A partial occluding clamp was placed onthe ascending aorta and proximal anastomoses were constructed end-to-side with the ascending aorta.The conduits were grafted end-to-side with a running 6-0 Prolene suture. Care was taken to avoid kinking or twisting of the conduits. Adequate tension was visualized. Radiopaque markers (hemoclips) we re placed on each proximal anastomosis. Inspection of all anastomoses was undertaken prior to weaning from cardiopulmonary bypass. Weaning and Separation from Cardiopulmonary Bypass and Closure: We weaned and from cardiopulmonary bypass. Support with vasoactive agents was NOT NEEDED. Once adequate cardiac function had been identified, protamine was administered. Decannulation ensued and purse strings were secured. Temporary pacing wires were applied. Chest tubes were inserted in the mediastinum and EACH pleural space. Once hemostasis was achieved ,we proceeded with closure. The sternum was reapproximated [id number] wires and the overlying tissues were closed in multiple layers. The patient was transported to the intensive care unit in serious but stable condition. [facility] [employer] Work Phone: [phone] Note Attestation signed by Rambo Starkey MD at 04/07/2023 6:21 AM DOS: 03-28-23 I personally performed a [id number] diagnostic evaluation on this patient I agree with the findings and plan of care as documented by the [facility] or resident. There has been no change in the physical exam or findings unless otherwise noted below. A total of 80 minutes were spent between the [id number] encounter, physical exam, reviewing the medical history, coordinating the patient's care, counseling/educating the patient, ordering medications/test/procedures, interpreting results and documenting clinical information in the patients electronic health record on the day of the encounter. The patient was seen and examined independently and relevant data reviewed by myself. A full chart review was performed. MVCAD - assess for surgical intervention. [facility]: Cardiothoracic Surgery H&P Note PATIENT NAME: Chivo Livingston : 1960 (62 y.o.) TODAY'S DATE: 03/28/2023 DATE OF ADMISSION: 03/28/2023 1:14 PM Subjective: CC: Chest pressure/pain HPI: 62 yo male with PMH of HTN, HPL, MIKAELA on CPAP, post-covid lung disease, DVT (no longer on anticoagulation), BPH, GERD, cataract surgery, and appendectomy in '80s. He has been experiencing chest pain since November of 2022. The pain was initially with exertion and lasted for only a short period of time, but has gotten progressively worse over the last few months. He now has some radiation down left arm and gets diaphoretic at times. He follows with a media clerk (for post-covid symptoms), who ordered a CTA Chest and his PCP ordered a stress test. He was ultimately referred to Dr. Jaeger ([place] Technical Staff Engineer) and was taken for a heart cath on 03/28/23. Cath showed multivessel CAD including ostial LAD, diag 1, diag2, and prox OM. He was sent to [facility] for CABG eval. 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 He does have this chest pain intermittently that slows him down some, but in general he is active at baseline. He does have a family hx of CAD in his father and brother (both in 50s). Review of Systems Constitutional: Positive for activity change. Negative for diaphoresis, fatigue, fever and unexpected weight change. Respiratory: Positive for chest tightness. Negative for cough, shortness of breath and wheezing. Cardiovascular: Negative for chest pain, palpitations and leg swelling. Gastrointestinal: Negative for abdominal distention, abdominal pain, constipation and diarrhea. Musculoskeletal: Negative for back pain, gait problem and myalgias. Skin: Negative for color change, pallor and rash. Allergies: Patient has no allergy information on record. Past Medical History: has no past medical history on file. Past Surgical History: has no past surgical history on file. Social History: Family History: Father- CABG in 50s Brother- OR/stents in 40s Medications: Prior to Admission medications Not on File Objective: Vitals: BP: 137/84, MAP (mmHg): 98, BP Method: Automatic Heart Rate: 79 Resp: 20 Temp: 36.3 ?C (97.4 ?F), Temp Source: Temporal No intake or output data in the 24 hours ending 03/28/23 5415 Physical Exam Constitutional: General: He is not in acute distress. Appearance: Normal appearance. HENT: Head: Normocephalic and atraumatic. Right Ear: External ear normal. Left Ear: External ear normal. Nose: Nose normal. Mouth/Throat: Lips: [place]. Dentition: Normal dentition. Eyes: General: Lids are normal. Conjunctiva/sclera: Conjunctivae normal. Neck: Trachea: Trachea normal. Cardiovascular: Rate and Rhythm: Normal rate and regular rhythm. Pulses: No decreased pulses. Heart sounds: Normal heart sounds. Heart sounds not distant. No murmur heard. No friction rub. Pulmonary: Effort: Pulmonary effort is normal. No accessory muscle usage. Breath sounds: Normal breath sounds and air entry. No stridor or decreased air movement. Abdominal: General: Bowel sounds are normal. Palpations: There is no mass. Tenderness: There is no abdominal tenderness. Hernia: No hernia is present. Musculoskeletal: Right lower leg: No edema. Left lower leg: No edema. Skin: General: Skin is warm. Capillary Refill: Capillary refill takes less than 2 seconds. Findings: No lesion, rash or wound. Comments: Color normal for ethnicity Neurological: Mental Status: He is alert. Psychiatric: Attention and Perception: Attention normal. Mood and Affect: Mood and affect normal. Behavior: Behavior is cooperative. Cognition and Memory: He does not exhibit impaired recent memory or impaired remote memory. Judgment: Judgment normal. Diagnostics: Reviewed in EMR Labs: R (more content not included)...[facility]02-08-2024 Nurse Note* Keya Gary RN - 03/28/2023 11:54 AM EST Report received from Flynn Burns. [facility]ments Appointment Date:02/16/2021 02:40:00 PM Scheduled Provider:SUZI ENCARNACION APRN, CNP Location:[facility] Appointment Type:PC OV Follow Up Appointment Date:02/28/2021 02:00:00 PM Scheduled Provider: Location:[facility] Appointment Type:CV Procedure - AOH Echo Future Scheduled Tests Radiology* CT Thorax w/ Contrast 04/30/21 * XR Chest 2 Views (PA & Lateral) 01/26/21 * XR Chest 2 Views (PA & Lateral) 02/09/21 [facility] Evaluation + Plan note Future Appointments Appointment Date:06/12/2021 08:20:00 AM Scheduled Provider:SUZI ENCARNACION APRN, CNP Location:[facility] Appointment Type:PC OV Follow Up Future Scheduled Tests Radiology* XR Chest 2 Views (PA & Lateral) 02/23/21 * XR Chest 2 Views (PA & Lateral) 01/26/21 * XR Chest 2 Views (PA & Lateral) 02/09/21 [facility] Evaluation noteNo assessment information available [facility] Work Phone: Evaluation note* Diagnosis Onset Date Resolution Status Chest pain chronic 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 Dyslipidemia chronic Grade I diastolic dysfunction chronic Hypertension chronic MIKAELA (obstructive sleep apnea) chronic [facility] Work Phone: Evaluation note* Diagnosis CAD in [place] artery- Primary CAD in [place] artery documented in this encounter [employer]* Diagnosis CAD in [place] artery- Primary S/P CABG (coronary artery bypass graft) Postsurgical aortocoronary bypass status documented in this encounter [employer]* Diagnosis CAD in [place] artery- Primary S/P CABG (coronary artery bypass graft) Postsurgical aortocoronary bypass status documented in this encounter [employer] note* Diagnosis CAD in [place] artery- Primary S/P CABG (coronary artery bypass graft) Postsurgical aortocoronary bypass status documented in this encounter [employer] note* Diagnosis Onset Date Resolution Status Chest pain chronic 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 Dyslipidemia chronic Grade I diastolic dysfunction chronic Hypertension chronic MIKAELA (obstructive sleep apnea) chronic 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 Dyslipidemia chronic Grade I diastolic dysfunction chronic Hypertension chronic MIKAELA (obstructive sleep apnea) chronic [facility] Work Phone: Evaluation note* Diagnosis Onset Date Resolution Status Admit Date Coronary artery disease chronic S eptember 2024 8:56am Dyslipidemia chronic November 042024 8:56am Grade I diastolic dysfunction chroni c November 04, 2024 8:56am Hypertension chronic November 042024 8:56am MIKAELA (obstructive sleep apnea) chroni c November 04, 2024 8:56am [facility] Work Phone: Hospital course Narrative No data available for this section [facility] Hospital Discharge instructions No data available for this section [facility] Reason for referral (narrative)* Consultation (Routine) - Pending Review Specialty Diagnoses / Procedures Referred By Vin t Referred To Contact Cardiology Diagnoses CAD in [place] artery S/P CABG (coronary artery bypass graft) Procedures [place] OFFICE/OUTPATIENT NEW HIGH MDM 60 MINUTES Katja Steinberg, DIDI Luque CNP [address] [address] Referral ID Status Reason Start Date Expiration Date Visits Requested Visits Authorized [id number] Pending Review Specialty Services Required 04/24/2023 04/23/2024 1 1 [facility]No reason for referral information availableWUniversity [facility] Work Phone: Advance Directives No Advanced Directives Records Found Advance Directive Response Recorded Date/ Time Living Will No January 29 12:43pm Power of Packing Line Operator No January 29, 2021 12:43pm Advance Directive Response Recorded Date/ Time Living Will No January 29 11:43am Power of Packing Line Operator No January 29, 2021 11:43am Advance Directive Response Recorded Date/ Time Advance Directives on File No 2023 8:04am Name of Medical Power of Packing Line Operator Adry (spouse ) March 28, 2023 8:04am Advance Directives Yes March 28, 2023 8:04am Living Will No January 29 11:43am Power of Packing Line Operator Yes March 28, 2023 8:04am Latest Code Status on File Code Status Date Activated Date Inactivated Comments Full Code 03/28/2023 1:58 PM 04/02/2023 6:06 PM Latest Code Status on File Code Status Date Activated Date Inactivated Comments Full Code 03/28/2023 1:58 PM 04/02/2023 6:06 PM Advance Directive Response Recorded Date/ Time Advance Directives on File No 2023 9:04am Name of Medical Power of Packing Line Operator Adry (spouse ) March 28, 2023 9:04am Advance Directives on File Yes May 22, 2023 10:39am Advance Directives Yes March 28, 2023 9:04am Living Will Yes May 22, 2023 10:39am Power of Packing Line Operator Yes May 21 10:39am Advance Directive Response Recorded Date/ Time Advance Directives Yes March 28, 2023 9:04am Chief Complaint and Reason for Visit Chief Complaint LUNG NODULE Chief Complaint STAT CHEST XRAY Shortness of breath Chief Complaint STAT CHEST XRAY Shortness of breath CP (SIBILIA) DYSPNEA DYSPNEA Reason for Visit Chest pain Coronary artery disease Dyslipidemia Grade I diastolic dysfunction Hypertension MIKAELA (obstructive sleep apnea) Chief Complaint STAT CHEST XRAY Shortness of breath CP (SIBILIA) DYSPNEA DYSPNEA CAD, CP Reason for Visit Chest pain Coronary artery disease Dyslipidemia Grade I diastolic dysfunction Hypertension MIKAELA (obstructive sleep apnea) Chief Complaint STAT CHEST XRAY Shortness of breath CP (SIBILIA) DYSPNEA DYSPNEA CAD, CP 3 M FU CABG CABG Reason for Visit Chest pain Coronary artery disease Dyslipidemia Grade I diastolic dysfunction Hypertension MIKAELA (obstructive sleep apnea) Coronary artery disease Dyslipidemia Grade I diastolic dysfunction Hypertension MIKAELA (obstructive sleep apnea) Chief Complaint CP (SIBILIA) DYSPNEA DYSPNEA CAD, CP 3 M FU CABG CABG Reason for Visit Chest pain Coronary artery disease Dyslipidemia Grade I diastolic dysfunction Hypertension MIKAELA (obstructive sleep apnea) Coronary artery disease Dyslipidemia Grade I diastolic dysfunction Hypertension MIKAELA (obstructive sleep apnea) Chief Complaint Admit Date 6 M FU May 05, 2024 2:0 9pm INT LABS June 30, 2024 7:34a m Reason for Visit Admit Date Coronary artery disease May 05, 2024 2:09pm Dyslipidemia May 05, 2024 2:0 9pm Grade I diastolic dysfunction April 2:09pm Hypertension May 05, 2024 2:0 9pm MIKAELA (obstructive sleep apnea) April 2:09pm Chief Complaint Admit Date 6 M FU November 04, 2024 8:56am Reason for Visit Admit Date Coronary artery disease November 04, 2024 8:56am Dyslipidemia November 04, 2024 8:56am Grade I diastolic dysfunction November 04, 2024 8:56am Hypertension November 04, 2024 8:56am MIKAELA (obstructive sleep apnea) November 04, 2024 8:56am Summary Purpose Family History No Family History Records Found Relationship Condition Age at Onset Recorded Date/T alejandra mother Cardiac disease Unknown Additional Source Comments Goals (unrecognized section and content) Goals may be documented in a n alternate section Care Teams (unrecognized sec tion and content) Team Status: Active Member Role Status Dates Suzi Encarnacion CTC OPERATOR, CTC OPERATOR-C Primary Care Provider Active Team Status: Inactive Member Role Status Dates Suzi Encarnacion CTC OPERATOR, CTC OPERATOR-C Primary Care Provider Active Dr. Marvin Rios MD Attending Provider, Referrin g Provider Active Team Status: Inactive Member Role Status Dates Suzi Encarnacion CTC OPERATOR, CTC OPERATOR-C Primary Care Provider, Attending Provider, Referring Provider Active Team Status: Active Member Role Status Dates Suzi Encarnacion CTC OPERATOR, CTC OPERATOR-C Primary Care Provider, Attending Provider, Referring Provider Active Team Status: Inactive Member Role Status Dates Suzi Encarnacion CTC OPERATOR, CTC OPERATOR-C Primary Care Provider, Referring Provider Active Dr. Jose Daniel Jaeger MD Attending Provider Active Team Status: Active Member Role Status Dates Suzi Encarnacion CTC OPERATOR, CTC OPERATOR-C Primary Care Provider Active Dr. Jose Daniel Jaeger MD Referring Provider, Other Provid er Active Dr. Angel Bains MD Attending Provider Active Team Status: Inactive Member Role Status Dates Suzi Encarnacion CTC OPERATOR, CTC OPERATOR-C Primary Care Provider Active Dr. Jose Daniel Jaeger MD Attending Provider, Referring Pr ovider Active Consumer Attorney Relationship Specialty Start Date End Date Suzi Encarnacion 49 [facility] [place] [address] PCP - General Nurse Practitioner 03/28/23 Consumer Attorney Relationship Specialty Start Date End Date Suzi Encarnacion [address] [facility] [place] [address] PCP - General Nurse Practitioner 03/28/23 Consumer Attorney Relationship Specialty Start Date End Date Suzi [facility]arnacion [address] [facility] [place] [address] PCP - General Nurse Practitioner 03/28/23 Consumer Attorney Relationship Specialty Start Date End Date Suzi Encarnacion [address] [place] [address] PCP - General Nurse Practitioner 03/28/23 Team Status: Active Member Role Status Dates Suzi Encarnacion CTC OPERATOR, CTC OPERATOR-C Primary Care Provider Active Dr. Jose Daniel Jaeger MD Attending Provider Active Team Status: Active Member Role Status Dates Suzi Encarnacion CTC OPERATOR, CTC OPERATOR-C Primary Care Provider Active Dr. Jose Daniel Jaeger MD Attending Provider, Referring Pr ovider Active Team Status: Inactive Member Role Status Dates Suzi Encarnacion CTC OPERATOR, CTC OPERATOR-C Primary Care Provider Active Start: May 05, 2024 End: May 05, 2024 Suzi Encarnacion CTC OPERATOR, CTC OPERATOR-C Referring Provider Ac tive Start: May 05, 2024 End: May 05, 2024 Dr. Jose Daniel Jaeger MD Attending Provider Active Start: May 05, 2024 End: May 05, 2024 Team Status: Inactive Member Role Status Dates Suzi Encarnacion CTC OPERATOR, CTC OPERATOR-C Primary Care Provider Active Start: June 30, 2024 End: June 30, 2024 Dr. Jose Daniel Jaeger MD Attending Provider Active Start: June 30, 2024 End: June 30, 2024 Dr. Jose Daniel Jaeger MD Referring Provider Active Start: June 30, 2024 End: June 30, 2024 Team Status: Inactive Member Role Status Dates Suzi Encarnacion CTC OPERATOR, CTC OPERATOR-C Primary Care Provider Active Start: July 10, 2024 End: July 10, 2024 Suzi Encarnacion CTC OPERATOR, CTC OPERATOR-C Attending Provider Ac tive Start: July 10, 2024 End: July 10, 2024 Suzi Encarnacion CTC OPERATOR, CTC OPERATOR-C Referring Provider Ac tive Start: July 10, 2024 End: July 10, 2024 Team Status: Active Member Role/Relationship Status Dates Suzi Encarnacion CTC OPERATOR, CTC OPERATOR-C Primary care physicia n Active Team Status: Inactive Member Role/Relationship Status Dates Suzi Encarnacion CTC OPERATOR, CTC OPERATOR-C Primary care physicia n Active Start: July 10, 2024 End: July 10, 2024 Suzi Encarnacion NP, CTC OPERATOR-C Attending physician A ctive Start: July 10, 2024 End: July 10, 2024 Suzi Encarnacion NP, CTC OPERATOR-C Referring Provider Adan tive Start: July 10, 2024 End: July 10, 2024 Team Status: Inactive Member Role/Relationship Status Dates Suzi Encarnacion NP, CTC OPERATOR-C Primary care physician Active Start: November 04, 2024 End: November 04, 2024 Suzi Encarnacion NP, CTC OPERATOR-C Referring Provider Active Start: October End: November 04, 2024 Dr. Jose Daniel Jaeger MD Attending physician Active Start: November 04, 2024 End: November 04, 2024 (unrecognized sect ion and content) No Status Records FoundNo Status Records FoundNo Status Records Found INFORMATION SOURCE (unrecogn ized section and content) DATE CREATED AUTHOR 02/09/2023 [facility] ([place]) DATE CREATED AUTHOR AUTHOR'S ORGANIZ ATION 05/17/2023 [facility] DATE CREATED AUTHOR AUTHOR'S ORGANIZ ATION 11/05/2024 [facility] Reason for Visit (unrecogniz ed section and content) Specialty Diagnoses / Procedures Referred By Vin vargas Referred To Contact Diagnoses CAD in [place] artery CAD Procedures . Pinky Nelson MD [address] [place] [address] [address] [place] [address] Referral ID Status Reason Start Date Expiration Date Visits Re quested Visits Authorized [id number] 1 1 Reason Comments Post-op Reason Comments Post-op Scheduled Active and Recently Administ ered Medications (unrecognized section and content) Medication Order 03/31/2023 04/01/2023 04/02/2023 acetaminophen (Tylenol) tablet 1,000 mg 1,000 mg, Oral, Every 8 hours, First dose on Sat03/29/23 at 1215, Recovery & On Unit 0456 (Given - Provider: Freda Grigsby RN)1236 (Given - Provider: Indiana Zaragoza RN)2011 (Given - Provider: Freda Grigsby RN) 040 (Given - Provider: Freda Grigsby RN)1203 (Given - Provider: Kate Barksdale RN)2034 (Given - Provider: Freda Grigsby RN) 050 (Given - Provider: Freda Grigsby RN)1211 (Given - Provider: Kate Barksdale RN) amLODIPine (Norvasc) tablet 2.5 mg 2.5 mg, Oral, Daily, First dose on 03/30/23 at 1100 08 (Given - Provider: Indiana Zaragoza RN) 09 (Given - Provider: Kate Barksdale RN) 075 (Given - Provider: Kate Barksdale RN) aspirin EC tablet 81 mg 81 mg, Oral, Daily, First dose on 03/30/23 at 1100, Do not crush, chew, or split. 825 (Given - Provider: Indiana Zaragoza RN) 912 (Given - Provider: Kate Barksdale RN) 075 (Given - Provider: Kate Barksdale RN) ceFAZolin in dextrose 4% (Ancef) IVPB 2,000 mg (COMPLETED) 2,000 mg, IntraVENous, Administer over 30 Minutes, Every 8 hours, First dose on Sat03/29/23 at 1800, For 5 doses, Phase II/On Unit, premix bag, Suspected Indication (Select all that apply): Surgical Prophylaxis 0242 (New Bag - Provider: Freda Grigsby RN)0312 (Stopped - Provider: Freda Grigsby RN) chlorhexidine (Peridex) 0.12 % solution 15 mL 15 mL, Mouth/Throat, 2 times daily, First dose on Sat03/29/23 at 1215, For 7 days, Phase II/On Unit, Rinse and spit. Do not swallow. 826 (Given - Provider: Indiana Zaragoza RN)2011 (Given - Provider: Freda Grigsby RN) 913 (Given - Provider: Kate Barksdale RN)2034 (Given - Provider: Freda Grigsby RN) 075 (Not Given - Provider: Kate Barksdale RN - Reason: Patient/family refused) furosemide (Lasix) injection 40 mg (CANCELED) 40 mg, IntraVENous, 2 times daily, First dose on 03/30/23 at 0900 0826 (Given - Provider: Indiana Zaragoza RN)2011 (Given - Provider: Freda Grigsby, KATYA) furosemide (Lasix) tablet 40 mg 40 mg, Oral, Daily, First dose on Sat04/02/23 at 0900, For 5 doses 0753 (Given - Provider: Kate Barksdale RN) heparin injection 5,000 Units 5,000 Units, SubCUTAneous, 2 times daily, First dose on 03/30/23 at 1100 0826 (Given - Provider: Indiana Zaragoza RN)2011 (Given - Provider: Freda Grigsby RN) 913 (Given - Provider: Kate Barksdale RN)2034 (Given - Provider: Freda Grigsby RN) 075 (Given - Provider: Kate Barksdale RN) ketorolac (Toradol) injection 15 mg (COMPLETED) 15 mg, IntraVENous, Every 6 hours, First dose (after last reorder) on 03/30/23 at 1100, For 1 day 0456 (Given - Provider: Freda Grigsby RN) Lidocaine 4 % patch 1 patch 1 patch, Topical, Administer over 12 Hours, Daily, First dose on Sat03/29/23 at 1215, Recovery & On Unit, Cut in half and place on both sides of the incision. Patch may remain in place for up to 12 hours in any 24 hour period. 0827 (Medication Applied - Provider: Indiana Zaragoza RN)2026 (Medication Removed - Provider: Freda Grigsby RN) 0916 (Not Given - Provider: Kate Barksdale RN - Reason: Patient/family refused) 075 (Not Given - Provider: Kate Barksdale RN - Reason: Patient/family refused) magnesium hydroxide (Milk of Magnesia) 400 MG/5ML suspension 30 mL 30 mL, Oral, Daily, First dose (after last modification) on 04/01/23 at 0645, Recovery & On Unit, 1st line for treatment of constipation - give scheduled if no bowel movement in past 24 hours 0639 (Given - Provider: Freda Grigsby RN) 0600 (Not Given - Provider: Freda Grigsby RN - Reason: Patient/family refused - Comment: 04/01/23) metoprolol tartrate (Lopressor) tablet 12.5 mg (CANCELED) 12.5 mg, Oral, 2 times daily, First dose on Sat03/31/23 at 1100, Hold for SBP less than 105 and/or MAPs less than 65 and/or HR less than 60 1126 (Given - Provider: Indiana Zaragoza RN)2011 (Given - Provider: Freda Grigsby RN) metoprolol tartrate (Lopressor) tablet 25 mg 25 mg, Oral, 2 times daily, First dose (after last modification) on Sat04/01/23 at 0900, Hold for SBP less than 105 and/or MAPs less than 65 and/or HR less than 60 0913 (Given - Provider: Kate Barksdale RN)2034 (Given - Provider: Freda Grigsby RN) 075 (Given - Provider: Kate Barksdale RN) mupirocin (Bactroban) 2 % ointment (COMPLETED) Nasal, 2 times daily, First dose on Sat03/29/23 at 1215, For 4 days, Phase II/On Unit 0827 (Given - Provider: Indiana Zaragoza RN)2012 (Given - Provider: Freda Grigsby RN) 0915 (Given - Provider: Kate Barksdale, RN)2034 (Given - Provider: Freda Grigsby RN) pantoprazole (ProtoNix) EC tablet 40 mg 40 mg, Oral, Daily before breakfast, First dose on 03/31/23 at 0700, Do not crush, chew, or split. 0608 (Given - Provider: Freda Grigsby RN) 0551 (Given - Provider: Freda Grigsby RN) 0502 (Given - Provider: Freda Grigsby RN) polyethylene glycol (PEG) 3350 (Miralax) packet 17 g 17 g, Oral, Daily, First dose on Sat03/29/23 at 1215, Recovery & On Unit, Bowel Regimen - for prevention of constipation. 0825 (Given - Provider: Indiana Zaragoza RN) 0915 (Given - Provider: Kate Barksdale, RN) 0753 (Given - Provider: Kate Barksdale, RN) rosuvastatin (Crestor) tablet 40 mg 40 mg, Oral, Daily, First dose on Sat03/30/23 at 1100 0826 (Given - Provider: Indiana Zaragoza RN) 0913 (Given - Provider: Kate Barksdale, RN) 0753 (Given - Provider: Kate Barksdale RN) senna-docusate sodium (Senokot-S) 8.6-50 MG tablet 2 tablet 2 tablet, Oral, Nightly, First dose on Sat03/29/23 at 2100, Recovery & On Unit, Bowel Regimen - for prevention of constipation. 2012 (Given - Provider: Freda Grigsby RN) 2036 (Not Given - Provider: Freda Grigsby RN - Reason: Patient/family refused - Comment: BM 04/01/23) sodium chloride 0.9% (NS) flush 10 mL 10 mL, IntraVENous, Every 12 hours scheduled (2 times per day), First dose on Sat03/29/23 at 2100, Recovery & On Unit 0827 (Given - Provider: Indiana Zaragoza RN)2018 (Given - Provider: Freda Grigsby RN) 0916 (Given - Provider: Kate Barksdale RN)2037 (Given - Provider: Freda Grigsby RN) 075 (Given - Provider: Kate Barksdale, RN) PRN Medication Order 03/31/2023 04/01/2023 04/02/2023 calcium gluconate 2000 mg in 100 mL IVPB premix 2,000 mg, IntraVENous, at 50 mL/hr, Administer over 2 Hours, PRN, ionized calcium less than 4.3, Starting on Sat03/29/23 at 1200, Recovery & On Unit, Give 2000 mg for ionized calcium less than 4.3 premix bag dextrose 5 % infusion 100 mL/hr, IntraVENous, PRN, Blood sugar less than 70mg/dL, Starting on Sat03/29/23 at 1200, Recovery & On Unit, Start infusion following administration of dextrose 50% or glucagon. dextrose 50 % solution 12.5 g 12.5 g, IntraVENous, PRN, low blood sugar, Blood glucose less than 70 mg/dL and patient NOT ALERT or NPO., Starting on Sat03/29/23 at 1200, Recovery & On Unit, If patient does not respond within 5 minutes, repeat dose x1. Start D5W at 100 mL/hour until ordering provider can be reached. Repeat blood glucose in 15 minutes. If blood glucose is less than 70 mg/dL, repeat treatment and recheck blood glucose in 15 minutes x2. If using Glucostabilizer, dose as instructed per system. glucagon (human recombinant) injection 1 mg 1 mg, IntraMUSCular, PRN, low blood sugar, Blood glucose less than 70 mg/dL and patient NOT ALERT or NPO and does not have IV access., Starting on Sat03/29/23 at 1200, Recovery & On Unit, After administration, attempt intravenous access and start D5W at 100 mL/hr. Repeat blood glucose in 15 minutes x2 and notify provider. glucose oral gel 15 g 15 g, Oral, As needed, low blood sugar, Starting on Sat03/29/23 at 1200, Recovery & On Unit, If blood glucose less than 50 mg/dL and patient ALERT and NOT NPO, give 2 tubes glucose gel. If blood glucose less than 70 mg/dL and patient ALERT and NOT NPO, give 1 tube glucose gel. Repeat blood glucose in 15 minutes. If blood glucose is less than 70 mg/dL, repeat treatment and recheck blood glucose in 15 minutes x2 and notify provider. ipratropium-albuterol (Duo-Neb) 0.5-2.5 mg/3 mL nebulizer solution 3 mL 3 mL, Nebulization, 3 times daily PRN, wheezing, shortness of breath, Starting on Sat03/29/23 at 1200, Recovery & On Unit naloxone (Narcan) injection 0.4 mg 0.4 mg, IntraVENous, Every 5 min PRN, opioid reversal, respiratory depression, Starting on Sat03/31/23 at 1010, +++ For RR <10, pinpoint pupils, over sedation for opioid reversal - MUST notify recreational therapy technician provider immediately after first dose, may give IM or SQ if no IV access +++ ondansetron (Zofran) injection 4 mg(Linked Group 1) 4 mg, IntraVENous, Every 6 hours PRN, nausea, vomiting, Starting on Sat03/29/23 at 1200, Recovery & On Unit, 1st Line. Give IV if patient is unable to take orally. If inadequate response within 60 minutes, proceed to next-line agent or contact provider if no further options ordered. ondansetron ODT (Zofran-ODT) disintegrating tablet 4 mg(Linked Group 1) 4 mg, Oral, Every 8 hours PRN, nausea, vomiting, Starting on Sat03/29/23 at 1200, Recovery & On Unit, 1st Line. If inadequate response within 60 minutes, proceed to next-line agent or contact provider if no further options ordered. Patient should allow tablet to dissolve on tongue. Do not remove from blister pack until just before administering. oxyCODONE (Roxicodone) immediate release tablet 10 mg(Linked Group 2) 10 mg, Oral, Every 4 hours PRN, severe pain (7-10), Starting on Sat03/29/23 at 1630, Recovery & On Unit 0237 (See Alternative - Provider: Freda Grigsby RN)0649 (See Alternative - Provider: Freda Grigsby RN)1127 (See Alternative - Provider: Indiana Zaragoza RN)153 (See Alternative - Provider: Indiana Zaragoza RN)2012 (See Alternative - Provider: Freda Grigsby RN) 0902 (See Alternative - Provider: Rachana Obrien RN)160 (See Alternative - Provider: Kate Barksdale RN)2034 (See Alternative - Provider: Freda Grigsby RN) oxyCODONE (Roxicodone) immediate release tablet 5 mg(Linked Group 2) 5 mg, Oral, Every 4 hours PRN, moderate pain (4-6), Starting on Sat03/29/23 at 1630, Recovery & On Unit 0237 (Given - Provider: Freda Grigsby RN)0649 (Given - Provider: Freda Grigsby RN)1127 (Given - Provider: Indiana Zaragoza RN)1539 (Given - Provider: Indiana Zaragoza RN)2012 (Given - Provider: Freda Grigsby RN) 0902 (Given - Provider: Rachana Obrien RN)160 (Given - Provider: Kate Barksdale RN)2034 (Given - Provider: Freda Grigsby RN) potassium chloride CR (Klor-Con M10) ER tablet 20 mEq 20 mEq, Oral, PRN, Hypokalemia, Starting on Sat03/30/23 at 0000, Phase II/On Unit, If patient is intubated or not tolerating PO use PRN IV replacement protocol Potassium level Dose LESS than 3.0 = Give 20 mEq x 3 doses 3.0-3.6 = Give 20 mEq x 2 doses Recheck potassium level 2 hour after replacement given, place order for lab under [place] If potassium level LESS than 3 after 1st replacement: Call surgeon. Do not crush or break. Do not crush or chew. sodium chloride 0.9 % infusion 5-250 mL/hr, IntraVENous, PRN, if patient receiving piggyback infusions and maintenance fluids are not ordered OR KVO fluids to protect IV site / prevent frequent line interruptions/ long duration, Starting on Sat03/29/23 at 1200, Recovery & On Unit, For piggyback infusion, administer at same rate as piggyback for a total of 25 mL. Enter 25 mL into dose field and piggyback rate into rate field of order. If piggyback is infusing at a rate less than 100 mL/hr, enter 25 mL into dose field and 100 mL/hr into rate field of order. For KVO fluids, enter rate of 20 mL/hr or less into rate field of order. sodium chloride 0.9% (NS) flush 10 mL 10 mL, IntraVENous, PRN, line care, Starting on Sat03/29/23 at 1200, Recovery & On Unit, After every IV line use Linked Groups Order Group 1: ondansetron ODT (Zofran-ODT) disintegrating tablet 4 mgJump to med 4 mg, Oral, Every 8 hours PRN, nausea, vomiting, Starting on Sat03/29/23 at 1200, Recovery & On Unit, 1st Line. If inadequate response within 60 minutes, proceed to next-line agent or contact provider if no further options ordered. Patient should allow tablet to dissolve on tongue. Do not remove from blister pack until just before administering. Or ondansetron (Zofran) injection 4 mgJump to med 4 mg, IntraVENous, Every 6 hours PRN, nausea, vomiting, Starting on Sat03/29/23 at 1200, Recovery & On Unit, 1st Line. Give IV if patient is unable to take orally. If inadequate response within 60 minutes, proceed to next-line agent or contact provider if no further options ordered. Group 2: oxyCODONE (Roxicodone) immediate release tablet 5 mgJump to med 5 mg, Oral, Every 4 hours PRN, moderate pain (4-6), Starting on Sat03/29/23 at 1630, Recovery & On Unit Or oxyCODONE (Roxicodone) immediate release tablet 10 mgJump to med 10 mg, Oral, Every 4 hours PRN, severe pain (7-10), Starting on Sat03/29/23 at 1630, Recovery & On Unit FOR RECORDS PERTAINING TO PATIENTS WHO ARE [...] BE BASED ON THE PRIMARY CLINICAL RECORDS. [employer] [facility]. provides no warranty or guarantee of the accuracy or completeness of information in this document.
[2025-01-09 08:30] LABS: Hematocrit 43.8 % (40-54); Hemoglobin 14.6 g/dL (13.0-16.5); Mean Corp Hgb Conc 33.3 g/dL (32-36); Mean Corpuscular Volume 87.6 fL (80-94); Mean Platelet Vol. 10.7 fl (6.2-12.0); Platelet Count 236 K/mm3 (150-450); RBC Distribution Width CV 12.7 % (11.6-14.6); RBC Distribution Width SD 39.9 fl (35.1-43.9); Red Blood Count 5.00 M/mm3 (4.6-6.2); White Blood Count 5.9 K/mm3 (4.4-11.0)
[2025-01-09 09:31] LABS: PSA,Total - Annual Screen 0.76 ng/mL (0.02-4.00)
[2025-01-09 09:41] LABS: AST(SGOT) 27 U/L (<=37); Alanine Aminotransfer ALT/SGPT 24 U/L (<=46); Albumin, Serum 4.2 g/dL (3.4-4.8); Alkaline Phosphatase 92 U/L (40-129); Anion Gap 11 (5-15); BUN 21 mg/dL (4-19); BUN/Creat Ratio 17.5 RATIO (10-20); CPK Total, Creatine Kinase 81 U/L (24-195); Calcium,Total 9.3 mg/dL (7.6-11.0); Carbon Dioxide 23.2 mmol/L (21.0-32.0); Chloride 106 mmol/L (98-108); Cholesterol 103 mg/dL (<=200); Globulin 3.0 g/dL (2.2-4.2); Glucose 96 mg/dL (70-99); Low Density Lipoprotein Calc. 46 mg/dL; Potassium 4.4 mmol/L (3.3-5.1); Triglycerides 135 mg/dL; Very Low Density Lipoprotein 27 mg/dL (5-40); cholesterol:hdl ratio screen 3.10
== END | disposition home or self-care (01) ==
LOC: LAB 07:02
PROVIDERS: PCP Nurse Practitioner Family; Referring Provider Nurse Practitioner Family; Visit Provider Nurse Practitioner Family
DX: Z00.00 Encounter for general adult medical examination without abnormal findings (principal); Z12.5 Encounter for screening for malignant neoplasm of prostate; E78.1 Pure hyperglyceridemia; E78.5 Hyperlipidemia, unspecified; D64.9 Anemia, unspecified
CPT/HCPCS: 36415; 80053; 80061; 82550; 84153; 85027; G0103